=== PATIENT | female | born 1940 | race Caucasian/White ===

== ENCOUNTER → 2018-01-23 12:27 | Outpatient (CLI) | payer MEDICARE, SELFPAY ==
[2018-01-23 13:35] VITALS: PULSE 100; PULSE 101; PULSE 102; PULSE 71; PULSE 75; PULSE 85; PULSE 90; PULSE 94; O2SAT 86; O2SAT 87; O2SAT 90; O2SAT 91; O2SAT 93; O2SAT 94
--- NOTE | 2018-01-23 14:02 | CPS ---
PATIENT BEGAN ON ROOM AIR. AT 3MIN SPO2 WAS 86%, REST BREAK TAKEN AND PLACED ON 2LPM. AT 5 MIN, SPO2 WAS 87%, REST BREAK TAKEN AND O2 INCREASED TO 3LPM. PATIENT SAYS SHE HAS A PORTABLE TANK AND CONCENTRATOR AT HOME THROUGH [facility].
--- NOTE | 2018-01-23 15:06 | PCM.PSN.6M ---
PSN 6 Minute Walk Test - 6 Minute Walk Test 6 Minute Walk Test: 6 Minute Walk Test PSN:6-Minute Walk Test Start: 01/23/18 13:34 Freq: Status: Active Protocol: RESP.6MINW Document 01/23/18 13:35 [facility] (Rec: 01/23/18 14:04 [facility] [id number]) 6 Minute Walk Test Date Performed 01/23/18 Time Performed 12:30 Height 4 ft 9 in Weight: 55.792 kg Weight in Pounds 123.[address]: Niko Munoz FIO2 (% Oxygen) 2 Assistive device used: None Pre-test Oxygen Delivery Method Room Air Pulse Ox (%) 94 Pulse Rate (60-100 beats/min) 71 Dyspnea Lanie Scale (0-10) 2 1st minute Oxygen Delivery Method Room Air Pulse Ox (%) 93 Pulse Rate (60-100 beats/min) 85 Dyspnea Lanie Scale (0-10) 3 Reported Symptoms Increased Work of Breathing 2nd minute Oxygen Delivery Method Room Air Pulse Ox (%) 90 Pulse Rate (60-100 beats/min) 90 Dyspnea Lanie Scale (0-10) 3 Reported Symptoms Increased Work of Breathing 3rd minute Oxygen Delivery Method Room Air Pulse Ox (%) 86 Pulse Rate (60-100 beats/min) 100 Dyspnea Lanie Scale (0-10) 4 Number of Rests Taken 1 Reported Symptoms Cyanotic Increased Work of Breathing 4th minute Oxygen Flow Rate (L/min) (L/min) 2 Oxygen Delivery Method Nasal Cannula Pulse Ox (%) 90 Pulse Rate (60-100 beats/min) 94 Dyspnea Lanie Scale (0-10) 3 Reported Symptoms Increased Work of Breathing 5th minute Oxygen Flow Rate (L/min) (L/min) 2 Oxygen Delivery Method Nasal Cannula Pulse Ox (%) 87 Pulse Rate (60-100 beats/min) 102 H Dyspnea Lanie Scale (0-10) 3 Number of Rests Taken 1 Reported Symptoms Cyanotic Increased Work of Breathing 6th minute Oxygen Flow Rate (L/min) (L/min) 3 Oxygen Delivery Method Nasal Cannula Pulse Ox (%) 91 Pulse Rate (60-100 beats/min) 101 H Dyspnea Lanie Scale (0-10) 3 Reported Symptoms Increased Work of Breathing Post-test Oxygen Delivery Method Room Air Pulse Ox (%) 94 Pulse Rate (60-100 beats/min) 75 Dyspnea Lanie Scale (0-10) 2 Full Laps Walked 14 Partial Lap, Number of Tiles Walked 24 Total Distance Walked (ft) 850 01/23/18 14:02 Cardiopulmonary Services by Stephie Estrada PATIENT BEGAN ON ROOM AIR. AT 3MIN SPO2 WAS 86%, REST BREAK TAKEN AND PLACED ON 2LPM. AT 5 MIN, SPO2 WAS 87%, REST BREAK TAKEN AND O2 INCREASED TO 3LPM. PATIENT SAYS SHE HAS A PORTABLE TANK AND CONCENTRATOR AT HOME THROUGH [facility]. Initialized on 01/23/18 14:02 - END OF NOTE - Interpretation Interpretation: Patient was noted to be 94% on room air. However, patient desaturated to 86% in the third minute. The patient required a total of 3 L nasal cannula per minute to maintain adequate saturations. In total, the patient was able to ambulate 850 feet over the course of 6 minutes with no assistive devices and 2 breaks. These findings are consistent with a respiratory limitation exercise tolerance. - Recommendations Recommendations: No supplemental oxygen is indicated at rest, but patient should be using 3 L nasal cannula with any exertion.
== END ==
PROVIDERS: Family Provider Family Medicine; PCP Family Medicine; Visit Provider Internal Medicine Critical Care Medicine
DX: J44.9 Chronic obstructive pulmonary disease, unspecified (principal)
CPT/HCPCS: 94618

== ENCOUNTER → 2018-01-27 09:54 | Outpatient (CLI) | payer MEDICARE, SELFPAY ==
--- NOTE | 2018-01-27 13:39 | PFTCOMP ---
COMPLETE PULMONARY FUNCTION TEST INTERPRETATION Brief HPI: Patient is a 77 year old female, currently under the care of Dr. Niko Munoz, who presents to [facility] for complete pulmonary function tests secondary to diagnosis of COPD. Respiratory therapist reports good effort and reproducible results. Interpretation: Forced expiration spirometry shows a severe large airways obstructive ventilatory defect with an FEV1 of 42% predicted. There is a significant bronchodilator response in FVC by ATS criteria. Spirograms are of good quality and plateau slowly, indicating slowly emptying areas of the lungs. The respiratory flow volume loop shows decreased expiratory flow rates at all lung volumes consistent with airway obstruction. Lung volumes by body plethysmography show a normal total lung capacity at 3.12 L, 88% predicted. FRC and RV are elevated out of proportion. Lung volume measurements are consistent with air-trapping. Diffusion capacity by carbon monoxide is decreased at 38% predicted. The airway resistance is elevated. No previous pulmonary function tests were available for review. Impression: Partially reversible severe large airways obstructive ventilatory defect with a symmetric reduction diffusing capacity, resulting in air trapping, and consistent with patient's diagnosis of COPD.
== END ==
PROVIDERS: Family Provider Family Medicine; PCP Family Medicine; Visit Provider Internal Medicine Critical Care Medicine
DX: J44.9 Chronic obstructive pulmonary disease, unspecified (principal)
CPT/HCPCS: 94060; 94726; 94729

== ENCOUNTER → 2018-12-08 12:12 | Outpatient (CLI) | payer MEDICARE, SELFPAY ==
[2018-11-09 13:01] VITALS: BMI 26.8
[2018-12-08 12:30] VITALS: PULSE 76; PULSE 83; PULSE 88; PULSE 91; PULSE 93; PULSE 94; PULSE 95; O2SAT 85; O2SAT 91; O2SAT 94; O2SAT 95; O2SAT 96; O2SAT 97
--- NOTE | 2018-12-08 15:24 | PCM.PSN.6M ---
PSN 6 Minute Walk Test - 6 Minute Walk Test 6 Minute Walk Test: 6 Minute Walk Test PSN:6-Minute Walk Test Start: 12/08/18 12:49 Freq: Status: Active Protocol: RESP.6MINW Document 12/08/18 12:30 HG (Rec: 12/08/18 12:52 [facility] [id number]) 6 Minute Walk Test Date Performed 12/08/18 Time Performed 12:30 Height 4 ft 10 in Weight: 56.699 kg Weight in Pounds 125.[address]: Niko Munoz Assistive device used: None Pre-test Oxygen Delivery Method Room Air Pulse Ox (%) 91 Pulse Rate (60-100 beats/min) 76 Dyspnea Lanie Scale (0-10) 1 Exertion Lanie Scale (6-20) 8 1st minute Oxygen Delivery Method Room Air Pulse Ox (%) 95 Pulse Rate (60-100 beats/min) 83 2nd minute Oxygen Delivery Method Room Air Pulse Ox (%) 97 Pulse Rate (60-100 beats/min) 93 3rd minute Oxygen Delivery Method Room Air Pulse Ox (%) 85 Pulse Rate (60-100 beats/min) 95 4th minute Oxygen Flow Rate (L/min) (L/min) 2 Oxygen Delivery Method Nasal Cannula Pulse Ox (%) 95 Pulse Rate (60-100 beats/min) 83 5th minute Oxygen Flow Rate (L/min) (L/min) 2 Oxygen Delivery Method Nasal Cannula Pulse Ox (%) 95 Pulse Rate (60-100 beats/min) 91 6th minute Oxygen Flow Rate (L/min) (L/min) 2 Oxygen Delivery Method Nasal Cannula Pulse Ox (%) 94 Pulse Rate (60-100 beats/min) 94 Post-test Oxygen Flow Rate (L/min) (L/min) 2 Oxygen Delivery Method Nasal Cannula Pulse Ox (%) 96 Pulse Rate (60-100 beats/min) 88 Dyspnea Lanie Scale (0-10) 2 Exertion Lanie Scale (6-20) 11 Full Laps Walked 14 Partial Lap, Number of Tiles Walked 0 Total Distance Walked (ft) 826 - Interpretation Interpretation: The patient was noted to be 91% on room air. In the third minute of ambulation, patient desaturated to 85%. Patient was placed on 2 L nasal cannula with improvement to 95% and was able to complete her ambulation. In total, patient ambulated 826 feet over the course of 6 minutes. These findings are consistent with a respiratory limitation exercise tolerance. - Recommendations Recommendations: The patient requires no supplemental oxygen at rest, but should be using 2 L nasal cannula with any exertion.
== END ==
PROVIDERS: Family Provider Family Medicine; PCP Family Medicine; Referring Provider Internal Medicine Critical Care Medicine; Visit Provider Internal Medicine Critical Care Medicine
DX: J96.11 Chronic respiratory failure with hypoxia (principal)
CPT/HCPCS: 94618

== ENCOUNTER 2020-08-25 09:33 | Outpatient (RCR) | payer MEDICARE, SELFPAY ==
[2020-07-06 11:07] VITALS: BMI 28.0
[2020-08-25 09:52] VITALS: BP 150/82; PULSE 74; RESP 16; BMI 28.0
[2020-08-25 11:56] VITALS: BP 145/82
--- NOTE | 2020-08-25 12:29 | PCM.WC.HP ---
(1) CAD (coronary artery disease) Status: Chronic Qualifiers: Coronary Disease-Associated Artery/Lesion type: [place] artery [place] vs. transplanted heart: [place] heart Associated angina: without angina Qualified Code(s): I25.10 - Atherosclerotic heart disease of [place] coronary artery without angina pectoris Code(s): I25.10 - Atherosclerotic heart disease of [place] coronary artery without angina pectoris (2) Congestive heart failure with right heart failure Status: Chronic Code(s): I50.810 - Right heart failure, unspecified (3) Chronic kidney disease, stage 3a Status: Chronic Code(s): N18.31 - Chronic kidney disease, stage 3a (4) Non-healing wound of right upper extremity Status: Acute Code(s): S41.101A - Unspecified open wound of right upper arm, initial encounter (5) Abrasion of right upper arm, subsequent encounter Status: Acute Code(s): S40.811D - Abrasion of right upper arm, subsequent encounter (6) Abrasion of right hand, subsequent encounter Status: Acute Code(s): S60.511D - Abrasion of right hand, subsequent encounter (7) Abrasion of left hand, subsequent encounter Status: Acute Code(s): S60.512D - Abrasion of left hand, subsequent encounter (8) Stage 3 severe COPD by GOLD classification Status: Chronic Code(s): J44.9 - Chronic obstructive pulmonary disease, unspecified Comment: FEV1 42% History of Present Illness Date of Service: 08/25/20 Chief Complaint: Abrasions of right upper arm, right hand and left hand from fall involving treadmill friction cervantes History of Wound: Alana is a pleasant 80 yo woman with oxygen dependent COPD, chronic respiratory failure, CHF and CAD who presents to the wound healing center for evaluation and treatment of nonhealing wounds of her right upper arm, right dorsal hand and left hand which occurred on 08/12/2020 when she fell from her treadmill while it was running and had difficulty moving away from the treadmill. Her arm and hands were abraded by the treadmill belt. She also fractured her right humerus in the fall. She went to the emergency room and was referred to orthopedics for fracture of her humerus. She had left the wounds on her right shoulder, right hand and left hand open to the air for a few days after the injury and since then she has been applying triple antibiotic ointment and Telfa bandages. She was seen by orthopedics and referred to the wound healing center for further treatment of her wounds. She did not have any cultures of her wounds and was not placed on any antibiotics. She is in otherwise a good state of health and is not diabetic. She is active and has help from her daughters. She lives alone and lost her in April 2020. Her wounds have mild-moderate drainage. She denies any erythema, increased pain, odor. Past Medical History Past Medical History: Chronic Problems (Last Reviewed 07/06/20 @ 11:23 by Simran South ROTARY MACHINE OPERATOR, ROTARY MACHINE OPERATOR-C) CAD (coronary artery disease) (Chronic) Congestive heart failure with right heart failure (Chronic) Chronic kidney disease, stage 3a (Chronic) Stage 3 severe COPD by GOLD classification (Chronic) FEV1 42% Chronic obstructive pulmonary disease (Chronic) Surgical History: angioplasty, herniorrhaphy Allergies/Adverse Reactions: Allergies Penicillins Allergy (Intermediate, Verified 07/06/20 11:04) Other-difficulty breathing Sulfa (Sulfonamide Antibiotics) Allergy (Intermediate, Verified 07/06/20 11:04) Other-breathing difficulty, hot flashes, rash azithromycin Allergy (Mild, Verified 07/06/20 11:04) Other-bleeding clarithromycin [From Biaxin] Allergy (Mild, Verified 07/06/20 11:04) Other-bloody stool ofloxacin [From Floxin] Adverse Reaction (Mild, Verified 07/06/20 11:04) Nausea Home Medications: Ambulatory Orders Medication Instructions Recorded Aspirin [Adult Low Dose Aspirin EC] 81 mg PO 01/01/16 Cetirizine HCl [Zyrtec] 10 mg PO DAILY 01/01/16 Furosemide [Lasix] 20 mg PO DAILY 01/01/16 Lisinopril [Zestril] 5 mg PO BID 01/01/16 Metoprolol Tartrate [Lopressor 50 mg PO DAILY 01/01/16 (Beta Radha)] Omeprazole [Prilosec] 20 mg PO DAILY 01/01/16 albuterol sulfate 2.5 mg INHALATION Q4H PRN ml 12/19/17 atorvastatin 20 mg tablet 10 mg PO QHS tab 12/19/17 cholecalciferol (vitamin D3) 25 2,000 unit PO QDAY cap 12/19/17 mcg (1,000 unit) capsule fluticasone propionate 50 2 spray INTRANASAL QDAY g 12/19/17 mcg/actuation nasal spray,suspension multivitamin 1 tab PO QAM 12/19/17 vitamin E (dl, acetate) 400 unit 400 unit PO QDAY 12/19/17 capsule clopidogrel 75 mg tablet PO #30 tab 05/11/19 albuterol sulfate 2.5 mg INHALATION Q4H PRN #180 ml 11/22/19 albuterol sulfate 90 mcg/actuation 2 puff INHALATION Q4H PRN #18 g 11/22/19 aerosol inhaler fluticasone 100 mcg-salmeterol 50 1 inh INHALATION BID #60 ea 03/27/20 mcg/dose blistr powdr for inhalation tiotropium bromide 18 mcg capsule 1 cap INHALATION DAILY #30 inh 03/27/20 with inhalation device doxycycline hyclate 100 mg tablet 100 mg PO BID #20 tab 07/06/20 prednisone 10 mg tablet 10 mg PO QDAY #30 tab 07/06/20 - Family History Maternal Family History: Family History (Last Reviewed 08/25/20 @ 12:[address] Za See, ) Mother Cervical cancer Lung cancer Breast cancer Father Colon cancer CVA (cerebral vascular accident) CHF (congestive heart failure) Lives: Alone Smoking Status: Former smoker Tobacco Use: Non-smoker Alcohol: None Drugs: None Review of Systems Constitutional: Denies: Chills, Fever, Weight Change Eyes: Denies: Pain, Vision Change HEENT: Denies: Difficulty Hearing, Difficulty Swallowing, Sinus Congestion Cardiovascular: Denies: Chest Pain, Palpitations Respiratory: Reports: Shortness of Breath, Shortness of breath upon exertion. Denies: Cough Gastrointestinal: Denies: Diarrhea, Nausea, Vomiting Genitourinary: Denies: Dysuria, Hematuria Musculoskeletal: Reports: Arm Pain, Back Pain, Joint Pain Skin: Reports: Wounds Neurological: Denies: Numbness, Tingling Psychiatric: Denies: Anxiety, Depression Endocrine: Denies: Heat/ Cold Intolerance, Polydipsia, Polyuria Hematologic/ Lymphatic: Denies: Easy Bruising, Easy Bleeding - Physical Exam Vital Signs Pulse Resp BP 74 16 145/82 H 08/25/20 09:52 08/25/20 09:52 08/25/20 11:56 General: Alert, Oriented x3, Cooperative, No apparent distress HEENT: Atraumatic, Normocephalic Oral: Moist Mucosa Cardiovascular: Regular rate, Regular Rhythm Abdomen: Soft, Non Tender Extremities: No edema Skin: Ulcer/ Wound Wound Measurements and Assessment WC - Nurse 1 - General Ulcer Measurement Start: 08/25/20 09:52 Freq: Status: Active Protocol: Activity Type Activity Date Activity User E-Sign Co-Sign Detail Recorded Client Recorded Date Recorded By Document 08/25/20 09:52 [id number] 08/25/20 10:11 [id number] 08/25/20 09:52 Wound Center Nurse 1 [Ulcer Assessment] 3-right shoulder -Combined with other wound No -Current Size (cm) - Length 7.5 -Current Size (cm) - Width 4.5 -Current Size (cm) - Depth 0.1 -Total Square Cm 33.75 -Photo Taken Yes -Epithelialization Small 1-33% -Tunneling No -Undermining/Tunneling No -Circular Undermining No -Classification - Thickness Partial Thickness -Exudate Amt Medium -Exudate Type Serosanguineous -Wound Margin Flat & Intact -Granulation Amt Medium (34-66%) -Granulation Quality Red -Slough/Fibrin Yes -Necrosis Amt Small (1-33%) -Necrotic Tissue Type Adherent Slough -Structure Exposed N/A -Texture (Vee-wound Skin Appearance) Assessed -Moisture (Vee-wound Skin Appearance Assessed,Dry/ ) Scaly -Color (Vee-wound Skin Appearance) Assessed -Temperature (Vee-wound Skin No Abnormality Appearance) (Pt Warm) -Tenderness on Palpation (Vee-wound No Skin Appearance) -Ulcer Cleansing Rinsed/ Irrigated with Saline -Foul Odor after Cleansing No -Anesthetic Used 4% Lidocaine Solution 2-right hand -Combined with other wound No -Current Size (cm) - Length 0.5 -Current Size (cm) - Width 0.9 -Current Size (cm) - Depth 0.1 -Total Square Cm 0.45 -Photo Taken No -Epithelialization None Present -Tunneling No -Undermining/Tunneling No -Circular Undermining No -Classification - Thickness Unclassifiable (Eschar Covered ) -Exudate Amt Small -Exudate Type Serosanguineous -Wound Margin Flat & Intact -Granulation Amt None Present (0 %) -Slough/Fibrin Yes -Necrosis Amt Large (67-100%) -Necrotic Tissue Type Adherent Slough -Texture (Vee-wound Skin Appearance) Assessed -Moisture (Vee-wound Skin Appearance Assessed,Dry/ ) Scaly -Color (Vee-wound Skin Appearance) Assessed -Temperature (Vee-wound Skin No Abnormality Appearance) (Pt Warm) -Tenderness on Palpation (Vee-wound No Skin Appearance) -Ulcer Cleansing Rinsed/ Irrigated with Saline -Foul Odor after Cleansing No -Anesthetic Used 4% Lidocaine Solution 1-left hand -Combined with other wound No -Current Size (cm) - Length 1.0 -Current Size (cm) - Width 1.0 -Current Size (cm) - Depth 0.1 -Total Square Cm 1.00 -Photo Taken Yes -Epithelialization Small 1-33% -Tunneling No -Undermining/Tunneling No -Circular Undermining No -Classification - Thickness Unclassifiable (Eschar Covered ) -Exudate Amt None Present -Wound Margin Flat & Intact -Granulation Amt None Present (0 %) -Slough/Fibrin Yes -Necrosis Amt Large (67-100%) -Necrotic Tissue Type Adherent Slough -Structure Exposed N/A -Texture (Vee-wound Skin Appearance) Assessed -Moisture (Vee-wound Skin Appearance Assessed ) -Color (Vee-wound Skin Appearance) Assessed -Temperature (Vee-wound Skin No Abnormality Appearance) (Pt Warm) -Tenderness on Palpation (Vee-wound No Skin Appearance) -Ulcer Cleansing Rinsed/ Irrigated with Saline -Foul Odor after Cleansing No -Anesthetic Used 5% Lidocaine Gel [Edema Assessment] -Lower Limb Edema Present NA WC - Nurse 2 - General Ulcer CM Notes Start: 08/25/20 09:52 Freq: Status: Active Protocol: Activity Type Activity Date Activity User E-Sign Co-Sign Detail Recorded Client Recorded Date Recorded By Document 08/25/20 10:39 MW [id number] 08/25/20 11:17 MW 08/25/20 10:39 Wound Center Nurse 2 [Procedure/Treatment] 3-right shoulder -Time 11:04 -Correct Patient Yes -Correct Side, Site, Position Yes -Correct Procedure Yes -Procedure Performed Yes -Type of Procedure Debridement -Clinical Debridement Subcutaneous -Tissue Removed Subcutaneous -Post Debridement (cm) - Length 7.0 -Post Debridement (cm) - Width 5.5 -Post Debridement (cm) - Depth 0.1 -Total Square (Post) (cm) 38.50 -Area of Debridement (cm) - Length 7.0 -Area of Debridement (cm) - Width 5.5 -Total Square (Area) (cm) 38.50 -Tunneling No -Undermining/Tunneling No -Circular Undermining No -Wound/Ulcer Outcome Not Healed -Ulcer Cleansing Rinsed/ Irrigated with Saline -Foul Odor after Cleansing No -Bioengineered Tissue No -Bleeding Controlled with Pressure -Offloading No -Treatment Response Procedure Tolerated Well -Debridement - Subq, 1st 20sq cm Yes -Debridement, SubQ, ea addt'l 20sq cm 1 or part thereof 2-right hand -Time 10:58 -Correct Patient Yes -Correct Side, Site, Position Yes -Correct Procedure Yes -Procedure Performed Yes -Type of Procedure Debridement -Clinical Debridement Subcutaneous -Tissue Removed Subcutaneous -Post Debridement (cm) - Length 0.4 -Post Debridement (cm) - Width 0.6 -Post Debridement (cm) - Depth 0.1 -Total Square (Post) (cm) 0.24 -Area of Debridement (cm) - Length 0.4 -Area of Debridement (cm) - Width 0.6 -Total Square (Area) (cm) 0.24 -Tunneling No -Undermining/Tunneling No -Circular Undermining No -Wound/Ulcer Outcome Not Healed -Ulcer Cleansing Rinsed/ Irrigated with Saline -Foul Odor after Cleansing No -Bioengineered Tissue No -Bleeding Controlled with Pressure -Offloading No -Treatment Response Procedure Tolerated Well -Debridement - Subq, 1st 20sq cm No 1-left hand -Time 10:48 -Correct Patient Yes -Correct Side, Site, Position Yes -Correct Procedure Yes -Procedure Performed Yes -Type of Procedure Debridement -Clinical Debridement Subcutaneous -Tissue Removed Subcutaneous -Post Debridement (cm) - Length 0.1 -Post Debridement (cm) - Width 0.3 -Post Debridement (cm) - Depth 0.1 -Total Square (Post) (cm) 0.03 -Area of Debridement (cm) - Length 0.1 -Area of Debridement (cm) - Width 0.3 -Total Square (Area) (cm) 0.03 -Tunneling No -Undermining/Tunneling No -Circular Undermining No -Wound/Ulcer Outcome Not Healed -Ulcer Cleansing Rinsed/ Irrigated with Saline -Foul Odor after Cleansing No -Bioengineered Tissue No -Bleeding Controlled with Pressure -Offloading No -Treatment Response Procedure Tolerated Well -Debridement - Subq, 1st 20sq cm No [See Physician Procedure note for Specifics] Pain Scale: 0-10 Numeric [Pain] -Is Patient Pain Free? Yes WC - Nurse 3 - General Ulcer D/C NN Start: 08/25/20 09:52 Freq: Status: Active Protocol: Activity Type Activity Date Activity User E-Sign Co-Sign Detail Recorded Client Recorded Date Recorded By Document 08/25/20 11:56 RB [id number] 08/25/20 11:59 RB 08/25/20 11:56 Wound Care Nurse 3 [Wound Dressing] 3-right shoulder -Ulcer Cleansing Wound Cleanser -Primary Dressing Applied Fibracol Plus 4x4,NonAdherent Contact Layer -Primary Dressing Covered/Secured Dry Gauze, with Secured with Tape -Fibracol Plus 4x4 1 2-right hand -Ulcer Cleansing Wound Cleanser -Primary Dressing Applied Fibracol Plus 4x4,NonAdherent Contact Layer -Fibracol Plus 4x4 1 1-left hand -Ulcer Cleansing Wound Cleanser -Primary Dressing Applied NonAdherent Contact Layer -Other Dressing fibracol plus -Primary Dressing Covered/Secured Dry Gauze, with Secured with Tape [Post Procedure Tolerated] -Treatment Response Procedure Tolerated Well Vital Signs [Blood Pressure] -Blood Pressure (90/60-120/80) 145/82 H -Blood Pressure Mean (mm Hg) 103 -Source Monitor -Position Semi-Fowlers -Blood Pressure Location Left Arm Pain Scale: 0-10 Numeric [Pain] -Is Patient Pain Free? Yes Teaching: Wound Center [Wound Center Education] (Items with an * have Printed Materials Available- Please identify what is given to patient under the Teaching materials given to patient and caregiver Section. Dressing Your Wound -Person Taught Patient -Teaching Method Discussion, Demonstration -Response to teaching Verbalize understanding - Visit Discharge [Visit Discharge Information] -Discharge Condition Stable -Ambulatory Status Ambulatory -Transportation Private Auto -Medication Reconcilliation completed No & provided to patient/care provider -Clinical Summary of Care Provided Yes Neurological: Cranial nerves II-XII grossly intact Psych/Mental Status: Normal Affect, Appropriate Debridement Note Post-Debridement Measurements/Treatment WC - Nurse 2 - General Ulcer CM Notes Start: 08/25/20 09:52 Freq: Status: Active Protocol: Activity Type Activity Date Activity User E-Sign Co-Sign Detail Recorded Client Recorded Date Recorded By Document 08/25/20 10:39 MW [id number] 08/25/20 11:17 MW 08/25/20 10:39 Wound Center Nurse 2 3-right shoulder -Time 11:04 -Correct Patient Yes -Correct Side, Site, Position Yes -Correct Procedure Yes -Procedure Performed Yes -Type of Procedure Debridement -Clinical Debridement Subcutaneous -Tissue Removed Subcutaneous -Post Debridement (cm) - Length 7.0 -Post Debridement (cm) - Width 5.5 -Post Debridement (cm) - Depth 0.1 -Total Square (Post) (cm) 38.50 -Area of Debridement (cm) - Length 7.0 -Area of Debridement (cm) - Width 5.5 -Total Square (Area) (cm) 38.50 -Tunneling No -Undermining/Tunneling No -Circular Undermining No -Wound/Ulcer Outcome Not Healed -Ulcer Cleansing Rinsed/ Irrigated with Saline -Foul Odor after Cleansing No -Bioengineered Tissue No -Bleeding Controlled with Pressure -Offloading No -Treatment Response Procedure Tolerated Well -Debridement - Subq, 1st 20sq cm Yes -Debridement, SubQ, ea addt'l 20sq cm 1 or part thereof 2-right hand -Time 10:58 -Correct Patient Yes -Correct Side, Site, Position Yes -Correct Procedure Yes -Procedure Performed Yes -Type of Procedure Debridement -Clinical Debridement Subcutaneous -Tissue Removed Subcutaneous -Post Debridement (cm) - Length 0.4 -Post Debridement (cm) - Width 0.6 -Post Debridement (cm) - Depth 0.1 -Total Square (Post) (cm) 0.24 -Area of Debridement (cm) - Length 0.4 -Area of Debridement (cm) - Width 0.6 -Total Square (Area) (cm) 0.24 -Tunneling No -Undermining/Tunneling No -Circular Undermining No -Wound/Ulcer Outcome Not Healed -Ulcer Cleansing Rinsed/ Irrigated with Saline -Foul Odor after Cleansing No -Bioengineered Tissue No -Bleeding Controlled with Pressure -Offloading No -Treatment Response Procedure Tolerated Well -Debridement - Subq, 1st 20sq cm No 1-left hand -Time 10:48 -Correct Patient Yes -Correct Side, Site, Position Yes -Correct Procedure Yes -Procedure Performed Yes -Type of Procedure Debridement -Clinical Debridement Subcutaneous -Tissue Removed Subcutaneous -Post Debridement (cm) - Length 0.1 -Post Debridement (cm) - Width 0.3 -Post Debridement (cm) - Depth 0.1 -Total Square (Post) (cm) 0.03 -Area of Debridement (cm) - Length 0.1 -Area of Debridement (cm) - Width 0.3 -Total Square (Area) (cm) 0.03 -Tunneling No -Undermining/Tunneling No -Circular Undermining No -Wound/Ulcer Outcome Not Healed -Ulcer Cleansing Rinsed/ Irrigated with Saline -Foul Odor after Cleansing No -Bioengineered Tissue No -Bleeding Controlled with Pressure -Offloading No -Treatment Response Procedure Tolerated Well -Debridement - Subq, 1st 20sq cm No Pain Scale: 0-10 Numeric Is Patient Pain Free? Yes - Nurse 3 - General Ulcer D/C NN Start: 08/25/20 09:52 Freq: Status: Active Protocol: Activity Type Activity Date Activity User E-Sign Co-Sign Detail Recorded Client Recorded Date Recorded By Document 08/25/20 11:56 [id number] 08/25/20 11:59 08/25/20 11:56 Wound Care Nurse 3 3-right shoulder -Ulcer Cleansing Wound Cleanser -Primary Dressing Applied Fibracol Plus 4x4,NonAdherent Contact Layer -Primary Dressing Covered/Secured with Dry Gauze, Secured with Tape -Fibracol Plus 4x4 1 2-right hand -Ulcer Cleansing Wound Cleanser -Primary Dressing Applied Fibracol Plus 4x4,NonAdherent Contact Layer -Fibracol Plus 4x4 1 1-left hand -Ulcer Cleansing Wound Cleanser -Primary Dressing Applied NonAdherent Contact Layer -Other Dressing fibracol plus -Primary Dressing Covered/Secured with Dry Gauze, Secured with Tape Treatment Response Procedure Tolerated Well Vital Signs Blood Pressure (90/60-120/80) 145/82 H Blood Pressure Mean (mm Hg) 103 Source Monitor Position Semi-Fowlers Blood Pressure Location Left Arm Pain Scale: 0-10 Numeric Is Patient Pain Free? Yes Teaching: Wound Center Dressing Your Wound -Person Taught Patient -Teaching Method Discussion, Demonstration -Response to teaching Verbalize understanding WC - Visit Discharge Discharge Condition Stable Ambulatory Status Ambulatory Transportation Private Auto Medication Reconcilliation completed & No provided to patient/care provider Clinical Summary of Care Provided Yes Wound debrided: right shoulder Laterality: Right Type of Debridement: Excisional debridement Anesthesia Used: 4% Lidocaine Solution, 5% Lidocaine Gel Depth: Down to and including healthy tissue, in the subcutaneous layer Percentage of wound debrided: 100 Instrument Used: #15 blade, Forceps Tissue Removed: Yellow slough, devitalized tissue Severity: Fat Layer Exposed Amount of bleeding with debridement: Mild Bleeding Controlled with: Compression and gauze Patient tolerated procedure well - Additional Wound Wound debrided: right hand Laterality: Right Type of Debridement: Excisional debridement Anesthesia Used: 4% Lidocaine Solution, 5% Lidocaine Gel Depth: Down to and including healthy tissue, in the subcutaneous layer Percentage of wound debrided: 100 Instrument Used: #15 blade, Forceps Tissue Removed: Yellow slough, devitalized tissue Severity: Fat Layer Exposed Amount of bleeding with debridement: Mild Bleeding Controlled with: Compression and gauze Patient tolerated procedure: Patient tolerated procedure well - Additional Wound Wound debrided: left hand Laterality: Left Type of Debridement: Excisional debridement Anesthesia Used: 4% Lidocaine Solution, 5% Lidocaine Gel Depth: Down to and including healthy tissue, in the subcutaneous layer Percentage of wound debrided: 100 Instrument Used: #15 blade, Forceps Tissue Removed: Yellow slough, devitalized tissue Severity: Fat Layer Exposed Amount of bleeding with debridement: Mild Bleeding Controlled with: Compression and gauze Patient tolerated procedure: Patient tolerated procedure well Assessment/Plan Active Problems (Last Reviewed 07/06/20 @ 11:23 by Simran South NP, ROTARY MACHINE OPERATOR-C) CAD (coronary artery disease) (Chronic) Congestive heart failure with right heart failure (Chronic) Chronic kidney disease, stage 3a (Chronic) Non-healing wound of right upper extremity (Acute) Abrasion of right upper arm, subsequent encounter (Acute) Abrasion of right hand, subsequent encounter (Acute) Abrasion of left hand, subsequent encounter (Acute) Stage 3 severe COPD by GOLD classification (Chronic) FEV1 42% Assessment: Abrasion of right shoulder. Abrasion of right hand. Abrasion of left hand. Oxygen dependent COPD. CAD Plan: Alana's wounds were evaluated and debrided today at the wound healing center as above in the clinical panel. She tolerated the procedure well. There are no overt signs of infection and I do not feel that wound culture is necessary at this time. Will consider this if there is no improvement or signs of infection develop. Due to moderate drainage, I am going to have her dress the wounds with Fibracol dressing and cover with adaptic and gauze to prevent the gauze from adhering to the wound. She would benefit from application of advnaced wound healing product such as puraply AM to decrease the length of her healing time and decrease complications from having open wounds chronically. She was encouraged to increase protein in her diet and consider vitamin C supplement. Offloading was discussed but I do not think this will be an issue given the location of her wounds. Her vascular status appears intact. She does not require home health assistance with dressings at this time due to family support. She was advised to call with any questions or concerns or signs of infection such as increased drainage, pain, erythema or odor. She will f/u in 1 week.
== END 2020-08-30 23:59 ==
LOC: WC 09:33
PROVIDERS: PCP Student in an Organized Health Care Education/Training Program; Visit Provider Family Medicine
DX: S40.811D Abrasion of right upper arm, subsequent encounter (principal); S60.511D Abrasion of right hand, subsequent encounter; S60.512D Abrasion of left hand, subsequent encounter; W31.89XD Contact with other specified machinery, subsequent encounter; N18.31 Chronic kidney disease, stage 3a; I25.10 Atherosclerotic heart disease of native coronary artery without angina pectoris; J44.9 Chronic obstructive pulmonary disease, unspecified; Z99.81 Dependence on supplemental oxygen; I50.812 Chronic right heart failure; J96.10 Chronic respiratory failure, unspecified whether with hypoxia or hypercapnia; Z63.4 Disappearance and death of family member; Z79.51 Long term (current) use of inhaled steroids; Z79.52 Long term (current) use of systemic steroids; Z80.1 Family history of malignant neoplasm of trachea, bronchus and lung; Z80.3 Family history of malignant neoplasm of breast; Z82.3 Family history of stroke; Z82.49 Family history of ischemic heart disease and other diseases of the circulatory system; Z87.891 Personal history of nicotine dependence; Z88.0 Allergy status to penicillin; Z88.1 Allergy status to other antibiotic agents; Z88.2 Allergy status to sulfonamides
CPT/HCPCS: 11042; 11045; 99213; G0463

== ENCOUNTER 2020-09-29 10:15 | Outpatient (RCR) | payer MEDICARE, SELFPAY ==
[2020-08-31 00:55] VITALS: BP 145/82; PULSE 74; RESP 16
[2020-09-01 10:16] VITALS: BP 127/49; PULSE 63; TEMP 36.1; BMI 28.0
--- NOTE | 2020-09-01 13:43 | PN.PCM_ITS ---
(1) CAD (coronary artery disease) Status: Chronic Qualifiers: Coronary Disease-Associated Artery/Lesion type: unspecified vessel or lesion type [place] vs. transplanted heart: [place] heart Associated angina: unspecified whether angina present Qualified Code(s): I25.10 - Atherosclerotic heart disease of [place] coronary artery without angina pectoris Code(s): I25.10 - Atherosclerotic heart disease of [place] coronary artery without angina pectoris (2) Abrasion of right upper arm, subsequent encounter Status: Chronic Code(s): S40.811D - Abrasion of right upper arm, subsequent encounter (3) Abrasion of right hand, subsequent encounter Status: Chronic Code(s): S60.511D - Abrasion of right hand, subsequent encounter (4) Abrasion of left hand, subsequent encounter Status: Chronic Code(s): S60.512D - Abrasion of left hand, subsequent encounter (5) Respiratory failure with hypoxia Status: Chronic Qualifiers: Chronicity: chronic Code(s): J96.91 - Respiratory failure, unspecified with hypoxia (6) Chronic obstructive pulmonary disease Status: Chronic Qualifiers: COPD type: unspecified COPD Qualified Code(s): J44.9 - Chronic obstructive pulmonary disease, unspecified Code(s): J44.9 - Chronic obstructive pulmonary disease, unspecified Type of Wound Date of Service: 09/01/20 Chief Complaint: Abrasions of right upper arm, right hand and left hand from fall involving treadmill friction cervantes History of Wound: Alana is a pleasant 80 yo woman with oxygen dependent COPD, chronic respiratory failure, CHF and CAD who presents to the wound healing center for evaluation and treatment of nonhealing wounds of her right upper arm, right dorsal hand and left hand which occurred on 08/12/2020 when she fell from her treadmill while it was running and had difficulty moving away from the treadmill. Her arm and hands were abraded by the treadmill belt. She also fractured her right humerus in the fall. She went to the emergency room and was referred to orthopedics for fracture of her humerus. She had left the wounds on her right shoulder, right hand and left hand open to the air for a few days after the injury and since then she has been applying triple antibiotic ointment and Telfa bandages. She was seen by orthopedics and referred to the wound healing center for further treatment of her wounds. She did not have any cultures of her wounds and was not placed on any antibiotics. She is in otherwise a good state of health and is not diabetic. She is active and has help from her daughters. She lives alone and lost her in April 2020. Her wounds have mild-moderate drainage. She denies any erythema, increased pain, odor. - Physical Exam Vital Signs Temp Pulse Resp BP 96.9 F L 63 16 127/49 H 09/01/20 10:16 09/01/20 10:16 08/31/20 00:55 09/01/20 10:16 General: Alert, Oriented x3, Cooperative, No apparent distress HEENT: Atraumatic, Normocephalic Oral: Moist Mucosa Neck: Supple Abdomen: Soft, Non Tender Extremities: No edema Skin: Ulcer/ Wound Wound Measurements and Assessment WC - Nurse 1 - General Ulcer Measurement Start: 09/01/20 10:00 Freq: Status: Active Protocol: Activity Type Activity Date Activity User E-Sign Co-Sign Detail Recorded Client Recorded Date Recorded By Document 09/01/20 10:16 CHERI [id number] 09/01/20 10:19 CHERI 09/01/20 10:16 Wound Center Nurse 1 [Ulcer Assessment] 3-right shoulder -Current Size (cm) - Length 0.5 -Current Size (cm) - Width 0.5 -Current Size (cm) - Depth 0.1 -Total Square Cm 0.25 -Exudate Amt Medium -Exudate Type Serosanguineous -Wound Margin Distinct, Outline Attached -Granulation Amt None Present (0 %) -Necrosis Amt Large (67-100%) -Necrotic Tissue Type Adherent Slough -Texture (Vee-wound Skin Appearance) Assessed, Scarring -Moisture (Vee-wound Skin Appearance No Abnormality, ) Assessed -Color (Vee-wound Skin Appearance) No Abnormality, Assessed -Temperature (Vee-wound Skin No Abnormality Appearance) (Pt Warm) -Tenderness on Palpation (Vee-wound No Skin Appearance) -Ulcer Cleansing Rinsed/ Irrigated with Saline -Foul Odor after Cleansing No -Anesthetic Used 4% Lidocaine Solution,5% Lidocaine Gel 2-right hand -Current Size (cm) - Length 0.1 -Current Size (cm) - Width 0.1 -Current Size (cm) - Depth 0.1 -Total Square Cm 0.01 -Exudate Amt None Present -Wound Margin Distinct, Outline Attached -Granulation Amt None Present (0 %) -Necrosis Amt None Present (0 %) -Texture (Vee-wound Skin Appearance) Assessed, Scarring -Moisture (Vee-wound Skin Appearance No Abnormality, ) Assessed -Color (Vee-wound Skin Appearance) No Abnormality, Assessed -Temperature (Vee-wound Skin No Abnormality Appearance) (Pt Warm) -Tenderness on Palpation (Vee-wound No Skin Appearance) -Ulcer Cleansing Rinsed/ Irrigated with Saline -Foul Odor after Cleansing No -Anesthetic Used 4% Lidocaine Solution 1-left hand -Current Size (cm) - Length 0.1 -Current Size (cm) - Width 0.1 -Current Size (cm) - Depth 0.1 -Total Square Cm 0.01 -Exudate Amt None Present -Wound Margin Distinct, Outline Attached -Granulation Amt None Present (0 %) -Necrosis Amt None Present (0 %) -Texture (Vee-wound Skin Appearance) Assessed, Scarring -Moisture (Vee-wound Skin Appearance No Abnormality, ) Assessed -Color (Vee-wound Skin Appearance) No Abnormality, Assessed -Temperature (Vee-wound Skin No Abnormality Appearance) (Pt Warm) -Tenderness on Palpation (Vee-wound No Skin Appearance) -Ulcer Cleansing Rinsed/ Irrigated with Saline -Foul Odor after Cleansing No -Anesthetic Used 4% Lidocaine Solution WC - Nurse 2 - General Ulcer CM Notes Start: 09/01/20 10:00 Freq: Status: Active Protocol: Activity Type Activity Date Activity User E-Sign Co-Sign Detail Recorded Client Recorded Date Recorded By Document 09/01/20 10:34 MW [id number] 09/01/20 10:53 MW 09/01/20 10:34 Wound Center Nurse 2 [Procedure/Treatment] 3-right shoulder -Time 10:38 -Correct Patient Yes -Correct Side, Site, Position Yes -Correct Procedure Yes -Procedure Performed Yes -Type of Procedure Debridement -Clinical Debridement Subcutaneous -Tissue Removed Subcutaneous -Post Debridement (cm) - Length 6.5 -Post Debridement (cm) - Width 4.6 -Post Debridement (cm) - Depth 0.1 -Total Square (Post) (cm) 29.90 -Area of Debridement (cm) - Length 6.5 -Area of Debridement (cm) - Width 4.6 -Total Square (Area) (cm) 29.90 -Tunneling No -Undermining/Tunneling No -Circular Undermining No -Wound/Ulcer Outcome Not Healed -Ulcer Cleansing Rinsed/ Irrigated with Saline -Foul Odor after Cleansing No -Bioengineered Tissue Yes -Type of Bioengineered Tissue NuShield -Expiration Date 01/22/24 -Product Lot Number [id number] -Percent Used 100 -Lot number of Saline Used [id number] -Bleeding Controlled with Pressure -Other DONOR #[id number] -Offloading No -Treatment Response Procedure Tolerated Well -Debridement - Subq, 1st 20sq cm No -NuShield (per sq cm) 16 2-right hand -Time 10:36 -Correct Patient Yes -Correct Side, Site, Position Yes -Correct Procedure Yes -Procedure Performed No -Post Debridement (cm) - Length 0 -Post Debridement (cm) - Width 0 -Post Debridement (cm) - Depth 0 -Total Square (Post) (cm) 0 -Wound/Ulcer Outcome Healed- Epithelialized 1-left hand -Time 10:35 -Correct Patient Yes -Correct Side, Site, Position Yes -Correct Procedure Yes -Procedure Performed No -Post Debridement (cm) - Length 0 -Post Debridement (cm) - Width 0 -Post Debridement (cm) - Depth 0 -Total Square (Post) (cm) 0 -Wound/Ulcer Outcome Healed- Epithelialized [See Physician Procedure note for Specifics] Pain Scale: 0-10 Numeric [Pain] -Is Patient Pain Free? Yes WC - Nurse 3 - General Ulcer D/C NN Start: 09/01/20 10:00 Freq: Status: Active Protocol: Activity Type Activity Date Activity User E-Sign Co-Sign Detail Recorded Client Recorded Date Recorded By Document 09/01/20 10:53 MW [id number] 09/01/20 10:55 MW 09/01/20 10:53 Wound Care Nurse 3 [Wound Dressing] 3-right shoulder -Ulcer Cleansing Rinsed/ Irrigated with Saline -Foul Odor after Cleansing No -Negative Pressure Wound Therapy N/A -Primary Dressing Applied C Hydrogel ($) -Primary Dressing Covered/Secured Secured with with Tape -Other Covering ABD PAD [Post Procedure Tolerated] -Treatment Response Procedure Tolerated Well Pain Scale: 0-10 Numeric [Pain] -Is Patient Pain Free? Yes Teaching: Wound Center [Wound Center Education] (Items with an * have Printed Materials Available- Please identify what is given to patient under the Teaching materials given to patient and caregiver Section. Dressing Your Wound -Person Taught Patient,Family -Teaching Method Discussion, Demonstration -Response to teaching Verbalize understanding WC - Visit Discharge [Visit Discharge Information] -Discharge Condition Stable -Ambulatory Status Ambulatory -Transportation Private Auto -Accompanied by DAUGHTER -Medication Reconcilliation completed No & provided to patient/care provider -Clinical Summary of Care Provided Yes Psych/Mental Status: Normal Affect, Appropriate Debridement Note Post-Debridement Measurements/Treatment WC - Nurse 2 - General Ulcer CM Notes Start: 09/01/20 10:00 Freq: Status: Active Protocol: Activity Type Activity Date Activity User E-Sign Co-Sign Detail Recorded Client Recorded Date Recorded By Document 09/01/20 10:34 MW [id number] 09/01/20 10:53 MW 09/01/20 10:34 Wound Center Nurse 2 3-right shoulder -Time 10:38 -Correct Patient Yes -Correct Side, Site, Position Yes -Correct Procedure Yes -Procedure Performed Yes -Type of Procedure Debridement -Clinical Debridement Subcutaneous -Tissue Removed Subcutaneous -Post Debridement (cm) - Length 6.5 -Post Debridement (cm) - Width 4.6 -Post Debridement (cm) - Depth 0.1 -Total Square (Post) (cm) 29.90 -Area of Debridement (cm) - Length 6.5 -Area of Debridement (cm) - Width 4.6 -Total Square (Area) (cm) 29.90 -Tunneling No -Undermining/Tunneling No -Circular Undermining No -Wound/Ulcer Outcome Not Healed -Ulcer Cleansing Rinsed/ Irrigated with Saline -Foul Odor after Cleansing No -Bioengineered Tissue Yes -Type of Bioengineered Tissue NuShield -Expiration Date 01/22/24 -Product Lot Number [id number] -Percent Used 100 -Lot number of Saline Used [id number] -Bleeding Controlled with Pressure -Other DONOR #[id number] -Offloading No -Treatment Response Procedure Tolerated Well -Debridement - Subq, 1st 20sq cm No -NuShield (per sq cm) 16 2-right hand -Time 10:36 -Correct Patient Yes -Correct Side, Site, Position Yes -Correct Procedure Yes -Procedure Performed No -Post Debridement (cm) - Length 0 -Post Debridement (cm) - Width 0 -Post Debridement (cm) - Depth 0 -Total Square (Post) (cm) 0 -Wound/Ulcer Outcome Healed- Epithelialized 1-left hand -Time 10:35 -Correct Patient Yes -Correct Side, Site, Position Yes -Correct Procedure Yes -Procedure Performed No -Post Debridement (cm) - Length 0 -Post Debridement (cm) - Width 0 -Post Debridement (cm) - Depth 0 -Total Square (Post) (cm) 0 -Wound/Ulcer Outcome Healed- Epithelialized Pain Scale: 0-10 Numeric Is Patient Pain Free? Yes WC - Nurse 3 - General Ulcer D/C NN Start: 09/01/20 10:00 Freq: Status: Active Protocol: Activity Type Activity Date Activity User E-Sign Co-Sign Detail Recorded Client Recorded Date Recorded By Document 09/01/20 10:53 MW [id number] 09/01/20 10:55 MW 09/01/20 10:53 Wound Care Nurse 3 3-right shoulder -Ulcer Cleansing Rinsed/ Irrigated with Saline -Foul Odor after Cleansing No -Negative Pressure Wound Therapy N/A -Primary Dressing Applied C Hydrogel ($) -Primary Dressing Covered/Secured with Secured with Tape -Other Covering ABD PAD Treatment Response Procedure Tolerated Well Pain Scale: 0-10 Numeric Is Patient Pain Free? Yes Teaching: Wound Center Dressing Your Wound -Person Taught Patient,Family -Teaching Method Discussion, Demonstration -Response to teaching Verbalize understanding WC - Visit Discharge Discharge Condition Stable Ambulatory Status Ambulatory Transportation Private Auto Accompanied by DAUGHTER Medication Reconcilliation completed & No provided to patient/care provider Clinical Summary of Care Provided Yes Wound debrided: right hand Laterality: Right Patient tolerated procedure well No debridement was completed today - Additional Wound Wound debrided: left hand Laterality: Left Patient tolerated procedure: Patient tolerated procedure well Operative Diagnosis: no debridement - healed - Additional Wound Wound debrided: right upper arm Laterality: Right Type of Debridement: Excisional debridement Anesthesia Used: 4% Lidocaine Solution, 5% Lidocaine Gel, Cetacaine Depth: Down to and including healthy tissue, in the subcutaneous layer Percentage of wound debrided: 100 Instrument Used: 3mm curette Tissue Removed: Yellow slough, devitalized tissue Severity: Fat Layer Exposed Amount of bleeding with debridement: Mild Bleeding Controlled with: Compression and gauze Patient tolerated procedure: Patient tolerated procedure well Assessment/Plan Assessment: Abrasion of right shoulder. Abrasion of right hand - healed. Abrasion of left hand - healed. Oxygen dependent COPD. CAD Plan: Alana's wound was evaluated and debrided today at the wound healing center as above in the clinical panel. She tolerated the procedure well. There are no overt signs of infection and I do not feel that wound culture is necessary at this time. Will consider this if there is no improvement or signs of infection develop. She was approved for Puraply and Nushield application. Nushield was applied to the right upper arm wound today per consulting solution manager guidelines and rehydrated with hydrogel and covered with Adaptic touch and secured with steri- strips. She was advised to keep the dressing dry and intact. This was then covered with gauze and secured with tape. She should change the gauze Friday, Friday and Friday and apply more hydrogel to the adaptic touch. She was encouraged to increase protein in her diet and consider vitamin C supplement. Offloading was discussed but I do not think this will be an issue given the location of her wounds. Her vascular status appears intact. She does not require home health assistance with dressings at this time due to family support. She was advised to call with any questions or concerns or signs of infection such as increased drainage, pain, erythema or odor. She will f/u in 2 weeks.
[2020-09-15 10:28] VITALS: BP 158/67; PULSE 83; RESP 18; TEMP 36.6; BMI 28.0
--- NOTE | 2020-09-15 14:49 | PN.PCM_ITS ---
(1) CAD (coronary artery disease) Status: Chronic Qualifiers: Coronary Disease-Associated Artery/Lesion type: unspecified vessel or lesion type [place] vs. transplanted heart: [place] heart Associated angina: unspecified whether angina present Qualified Code(s): I25.10 - Atherosclerotic heart disease of [place] coronary artery without angina pectoris Code(s): I25.10 - Atherosclerotic heart disease of [place] coronary artery without angina pectoris (2) Abrasion of right upper arm, subsequent encounter Status: Chronic Code(s): S40.811D - Abrasion of right upper arm, subsequent encounter (3) Abrasion of right hand, subsequent encounter Status: Chronic Code(s): S60.511D - Abrasion of right hand, subsequent encounter (4) Abrasion of left hand, subsequent encounter Status: Chronic Code(s): S60.512D - Abrasion of left hand, subsequent encounter (5) Respiratory failure with hypoxia Status: Chronic Qualifiers: Chronicity: chronic Code(s): J96.91 - Respiratory failure, unspecified with hypoxia (6) Chronic obstructive pulmonary disease Status: Chronic Qualifiers: COPD type: unspecified COPD Qualified Code(s): J44.9 - Chronic obstructive pulmonary disease, unspecified Code(s): J44.9 - Chronic obstructive pulmonary disease, unspecified Type of Wound Date of Service: 09/15/20 Chief Complaint: Abrasions of right upper arm, right hand and left hand from fall involving treadmill friction cervantes History of Wound: Alana is a pleasant 80 yo woman with oxygen dependent COPD, chronic respiratory failure, CHF and CAD who presents to the wound healing center for evaluation and treatment of nonhealing wounds of her right upper arm, right dorsal hand and left hand which occurred on 08/12/2020 when she fell from her treadmill while it was running and had difficulty moving away from the treadmill. Her arm and hands were abraded by the treadmill belt. She also fractured her right humerus in the fall. She went to the emergency room and was referred to orthopedics for fracture of her humerus. She had left the wounds on her right shoulder, right hand and left hand open to the air for a few days after the injury and since then she has been applying triple antibiotic ointment and Telfa bandages. She was seen by orthopedics and referred to the wound healing center for further treatment of her wounds. She did not have any cultures of her wounds and was not placed on any antibiotics. She is in otherwise a good state of health and is not diabetic. She is active and has help from her daughters. She lives alone and lost her in April 2020. Her wounds have mild-moderate drainage. She denies any erythema, increased pain, odor. Progress of Wound: [place] wound is improving. She tolerated application of Nu- shield 2 weeks ago with decrease in size of her wound. She denies any increased fever, chills, erythema, pain or drainage. - Physical Exam Vital Signs Temp Pulse Resp BP 98 F 83 18 158/67 H 09/15/20 10:28 09/15/20 10:28 09/15/20 10:28 09/15/20 10:28 General: Alert, Oriented x3, Cooperative, No apparent distress HEENT: Atraumatic, Normocephalic Oral: Moist Mucosa Lungs: Clear to auscultation Cardiovascular: Regular rate, Regular Rhythm Abdomen: Soft, Non Tender, Obese Extremities: No edema Skin: Ulcer/ Wound Wound Measurements and Assessment WC - Nurse 1 - General Ulcer Measurement Start: 09/01/20 10:00 Freq: Status: Active Protocol: Activity Type Activity Date Activity User E-Sign Co-Sign Detail Recorded Client Recorded Date Recorded By Document 09/15/20 10:28 [id number] 09/15/20 10:37 RB 09/15/20 10:28 Wound Center Nurse 1 [Ulcer Assessment] 3-right shoulder -Combined with other wound No -Current Size (cm) - Length 5 -Current Size (cm) - Width 3.2 -Current Size (cm) - Depth 0.1 -Total Square Cm 16.0 -Tunneling No -Undermining/Tunneling No -Circular Undermining No -Exudate Amt Small -Exudate Type Serosanguineous -Wound Margin Flat & Intact -Granulation Amt Medium (34-66%) -Granulation Quality [place] -Slough/Fibrin Yes -Necrosis Amt Small (1-33%) -Necrotic Tissue Type Adherent Slough -Structure Exposed N/A -Texture (Vee-wound Skin Appearance) Assessed, Scarring -Moisture (Vee-wound Skin Appearance Assessed ) -Color (Vee-wound Skin Appearance) Assessed, Erythema -Temperature (Vee-wound Skin No Abnormality Appearance) (Pt Warm) -Tenderness on Palpation (Vee-wound No Skin Appearance) -Ulcer Cleansing Wound Cleanser -Foul Odor after Cleansing No -Anesthetic Used 4% Lidocaine Solution - Nurse 2 - General Ulcer CM Notes Start: 09/01/20 10:00 Freq: Status: Active Protocol: Activity Type Activity Date Activity User E-Sign Co-Sign Detail Recorded Client Recorded Date Recorded By Document 09/15/20 10:49 MW [id number] 09/15/20 11:08 MW 09/15/20 10:49 Wound Center Nurse 2 [Procedure/Treatment] -Time 10:50 -Correct Patient Yes -Correct Side, Site, Position Yes -Correct Procedure Yes -Procedure Performed Yes -Type of Procedure Debridement -Clinical Debridement Subcutaneous -Tissue Removed Subcutaneous -Post Debridement (cm) - Length 2.8 -Post Debridement (cm) - Width 5.0 -Post Debridement (cm) - Depth 0.1 -Total Square (Post) (cm) 14.00 -Area of Debridement (cm) - Length 2.8 -Area of Debridement (cm) - Width 5.0 -Total Square (Area) (cm) 14.00 -Tunneling No -Undermining/Tunneling No -Circular Undermining No -Wound/Ulcer Outcome Not Healed -Ulcer Cleansing Rinsed/ Irrigated with Saline -Foul Odor after Cleansing No -Bioengineered Tissue Yes -Type of Bioengineered Tissue NuShield -Expiration Date 02/08/24 -Product Lot Number [id number] -Percent Used 100 -Lot number of Saline Used [id number] -Bleeding Controlled with Pressure -Offloading No -Treatment Response Procedure Tolerated Well -Debridement - Subq, 1st 20sq cm No -Apply Skin Sub - 1st 25 sq cm - Legs 1 -NuShield (per sq cm) 8 [See Physician Procedure note for Specifics] Pain Scale: 0-10 Numeric [Pain] -Is Patient Pain Free? Yes WC - Nurse 3 - General Ulcer D/C NN Start: 09/01/20 10:00 Freq: Status: Active Protocol: Activity Type Activity Date Activity User E-Sign Co-Sign Detail Recorded Client Recorded Date Recorded By Document 09/15/20 11:12 MS [id number] 09/15/20 11:13 MS 09/15/20 11:12 Wound Care Nurse 3 [Wound Dressing] 3-right shoulder -Primary Dressing Applied C Hydrogel ($) -Primary Dressing Covered/Secured Dry Gauze, with Secured with Tape Pain Scale: 0-10 Numeric [Pain] -Is Patient Pain Free? Yes WC - Visit Discharge [Visit Discharge Information] -Discharge Condition Stable -Ambulatory Status Ambulatory -Medication Reconcilliation completed No & provided to patient/care provider -Clinical Summary of Care Provided Yes Psych/Mental Status: Normal Affect, Appropriate Debridement Note Post-Debridement Measurements/Treatment WC - Nurse 2 - General Ulcer CM Notes Start: 09/01/20 10:00 Freq: Status: Active Protocol: Activity Type Activity Date Activity User E-Sign Co-Sign Detail Recorded Client Recorded Date Recorded By Document 09/01/20 10:34 MW [id number] 09/01/20 10:53 MW Document 09/15/20 10:49 MW [id number] 09/15/20 11:08 MW 09/01/20 09/15/20 10:34 10:49 Wound Center Nurse 2 3-right shoulder -Time 10:38 10:50 -Correct Patient Yes Yes -Correct Side, Site, Position Yes Yes -Correct Procedure Yes Yes -Procedure Performed Yes Yes -Type of Procedure Debridement Debridement -Clinical Debridement Subcutaneous Subcutaneous -Tissue Removed Subcutaneous Subcutaneous -Post Debridement (cm) - Length 6.5 2.8 -Post Debridement (cm) - Width 4.6 5.0 -Post Debridement (cm) - Depth 0.1 0.1 -Total Square (Post) (cm) 29.90 14.00 -Area of Debridement (cm) - Length 6.5 2.8 -Area of Debridement (cm) - Width 4.6 5.0 -Total Square (Area) (cm) 29.90 14.00 -Tunneling No No -Undermining/Tunneling No No -Circular Undermining No No -Wound/Ulcer Outcome Not Healed Not Healed -Ulcer Cleansing Rinsed/ Rinsed/ Irrigated with Irrigated with Saline Saline -Foul Odor after Cleansing No No -Bioengineered Tissue Yes Yes -Type of Bioengineered Tissue [facility] -Expiration Date 01/22/24 02/08/24 -Product Lot Number [id number] -Percent Used 100 100 -Lot number of Saline Used [id number] -Bleeding Controlled with Pressure Pressure -Other DONOR #[id number] -Offloading No No -Treatment Response Procedure Procedure Tolerated Well Tolerated Well -Debridement - Subq, 1st 20sq cm No No -Apply Skin Sub - 1st 25 sq cm - Legs 1 -Apply Skin Sub - 1st 25 sq cm - Feet 1 -NuShield (per sq cm) 16 8 2-right hand -Time 10:36 -Correct Patient Yes -Correct Side, Site, Position Yes -Correct Procedure Yes -Procedure Performed No -Post Debridement (cm) - Length 0 -Post Debridement (cm) - Width 0 -Post Debridement (cm) - Depth 0 -Total Square (Post) (cm) 0 -Wound/Ulcer Outcome Healed- Epithelialized 1-left hand -Time 10:35 -Correct Patient Yes -Correct Side, Site, Position Yes -Correct Procedure Yes -Procedure Performed No -Post Debridement (cm) - Length 0 -Post Debridement (cm) - Width 0 -Post Debridement (cm) - Depth 0 -Total Square (Post) (cm) 0 -Wound/Ulcer Outcome Healed- Epithelialized Pain Scale: 0-10 Numeric Is Patient Pain Free? Yes Yes WC - Nurse 3 - General Ulcer D/C NN Start: 09/01/20 10:00 Freq: Status: Active Protocol: Activity Type Activity Date Activity User E-Sign Co-Sign Detail Recorded Client Recorded Date Recorded By Document 09/01/20 10:53 MW [id number] 09/01/20 10:55 MW Document 09/15/20 11:12 MS [id number] 09/15/20 11:13 MS 09/01/20 09/15/20 10:53 11:12 Wound Care Nurse 3 3-right shoulder -Ulcer Cleansing Rinsed/ Irrigated with Saline -Foul Odor after Cleansing No -Negative Pressure Wound Therapy N/A -Primary Dressing Applied C Hydrogel ($) C Hydrogel ($) -Primary Dressing Covered/Secured with Secured with Dry Gauze, Tape Secured with Tape -Other Covering ABD PAD Treatment Response Procedure Tolerated Well Pain Scale: 0-10 Numeric Is Patient Pain Free? Yes Yes Teaching: Wound Center Dressing Your Wound -Person Taught Patient,Family -Teaching Method Discussion, Demonstration -Response to teaching Verbalize understanding WC - Visit Discharge Discharge Condition Stable Stable Ambulatory Status Ambulatory Ambulatory Transportation Private Auto Accompanied by DAUGHTER Medication Reconcilliation completed & No No provided to patient/care provider Clinical Summary of Care Provided Yes Yes Wound debrided: right shoulder Laterality: Right Type of Debridement: Excisional debridement Anesthesia Used: 4% Lidocaine Solution, 5% Lidocaine Gel, Cetacaine Depth: Down to and including healthy tissue, in the subcutaneous layer Percentage of wound debrided: 100 Instrument Used: 5mm curette Tissue Removed: Yellow slough, devitalized tissue Severity: Fat Layer Exposed Amount of bleeding with debridement: Mild Bleeding Controlled with: Compression and gauze Patient tolerated procedure well Assessment/Plan Active Problems (Last Reviewed 07/06/20 @ 11:23 by [place] CAMPAIGN ANALYST, CAMPAIGN ANALYST-C) CAD (coronary artery disease) (Chronic) Abrasion of right upper arm, subsequent encounter (Chronic) Abrasion of right hand, subsequent encounter (Chronic) Abrasion of left hand, subsequent encounter (Chronic) Respiratory failure with hypoxia (Chronic) Chronic obstructive pulmonary disease (Chronic) Assessment: Abrasion of right shoulder. Abrasion of right hand - healed. Abrasion of left hand - healed. Oxygen dependent COPD. CAD Plan: Alana's wound was evaluated and debrided today at the wound healing center as above in the clinical panel. She tolerated the procedure well. There are no overt signs of infection and I do not feel that wound culture is necessary at this time. Will consider this if there is no improvement or signs of infection develop. She was approved for Puraply and Nushield application. Nushield #2 was applied to the right upper arm wound today per public relations sales marketing guidelines and rehydrated with hydrogel and covered with Adaptic touch and secured with steri- strips. She was advised to keep the dressing dry and intact. This was then covered with gauze and secured with tape. She should change the gauze Friday, Friday and Friday and apply more hydrogel to the adaptic touch. She was encouraged to increase protein in her diet and consider vitamin C supplement. Offloading was discussed but I do not think this will be an issue given the location of her wounds. Her vascular status appears intact. She does not require home health assistance with dressings at this time due to family support. She was advised to call with any questions or concerns or signs of infection such as increased drainage, pain, erythema or odor. She will f/u in 2 weeks.
[2020-09-29 10:29] VITALS: BP 154/54; PULSE 70; RESP 16; TEMP 36.3; BMI 28.0
--- NOTE | 2020-09-29 16:21 | PCM.WC.PN ---
History of Present Illness Date of Service: 09/29/20 Chief Complaint: Abrasions of right upper arm, right hand and left hand from fall involving treadmill friction cervantes History of Wound: Alana is a pleasant 80 yo woman with oxygen dependent COPD, chronic respiratory failure, CHF and CAD who presents to the wound healing center for evaluation and treatment of nonhealing wounds of her right upper arm, right dorsal hand and left hand which occurred on 08/12/2020 when she fell from her treadmill while it was running and had difficulty moving away from the treadmill. Her arm and hands were abraded by the treadmill belt. She also fractured her right humerus in the fall. She went to the emergency room and was referred to orthopedics for fracture of her humerus. She had left the wounds on her right shoulder, right hand and left hand open to the air for a few days after the injury and since then she has been applying triple antibiotic ointment and Telfa bandages. She was seen by orthopedics and referred to the wound healing center for further treatment of her wounds. She did not have any cultures of her wounds and was not placed on any antibiotics. She is in otherwise a good state of health and is not diabetic. She is active and has help from her daughters. She lives alone and lost her in April 2020. Her wounds have mild-moderate drainage. She denies any erythema, increased pain, odor. Subjective Subjective: Progress of Wound: Alana's wound is improving. She tolerated application of Nu-shield 2 weeks ago with decrease in size of her wound. She denies any increased fever, chills, erythema, pain or drainage. Objective Data Objective Data Vital Signs: Vital Signs Temp Pulse Resp BP 97.4 F L 70 16 154/54 H 09/29/20 10:29 09/29/20 10:29 09/29/20 10:29 09/29/20 10:29 Oxygen Flow Rate (L/min) 2 Oxygen Delivery Method Room Air Weight: 125 lb Body Mass Index (BMI) 28.0 Assessment & Plan Assessment/Plan (1) Non-healing wound of right upper extremity: Status: Acute Code(s): S41.101A - Unspecified open wound of right upper arm, initial encounter (2) Abrasion of right upper arm, subsequent encounter: Status: Chronic Code(s): S40.811D - Abrasion of right upper arm, subsequent encounter (3) Stage 3 severe COPD by GOLD classification: Status: Chronic Code(s): J44.9 - Chronic obstructive pulmonary disease, unspecified (4) Chronic obstructive pulmonary disease: Status: Chronic Code(s): J44.9 - Chronic obstructive pulmonary disease, unspecified Qualifiers: COPD type: unspecified COPD Qualified Code(s): J44.9 - Chronic obstructive pulmonary disease, unspecified (5) 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 Abrasion of right hand - healed. Abrasion of left hand - healed. Oxygen dependent COPD. CAD Plan: Alana's wound was evaluated and debrided today at the wound healing center as above in the clinical panel. She tolerated the procedure well. There are no overt signs of infection and I do not feel that wound culture is necessary at this time. Will consider this if there is no improvement or signs of infection develop. She was approved for Puraply and Nushield application. Nushield #3 was applied to the right upper arm wound today per cane flume feeding machine operator guidelines and rehydrated with hydrogel and covered with Adaptic touch and secured with steri-strips. She was advised to keep the dressing dry and intact. This was then covered with gauze and secured with tape. She should change the gauze Friday, Friday and Friday and apply more hydrogel to the adaptic touch. She was encouraged to increase protein in her diet and consider vitamin C supplement. Offloading was discussed but I do not think this will be an issue given the location of her wounds. Her vascular status appears intact. She does not require home health assistance with dressings at this time due to family support. She was advised to call with any questions or concerns or signs of infection such as increased drainage, pain, erythema or odor. She will f/u in 1 week. Physical Exam Const alert, oriented x3 and no apparent distress General Appearance: cooperative HEENT normocephalic and head/scalp atraumatic Resp normal respiratory effort Cardio regular rate and regular rhythm Skin Wounds: wounds noted Psych mental status grossly normal, cooperative and affect normal Debridement Note Debridement Note Post-Debridement Measurements and Additional Note: Post-Debridement Measurements/Treatment WC - Nurse 2 - General Ulcer CM Notes Start: 09/01/20 10:00 Freq: Status: Active Protocol: Activity Type Activity Date Activity User E-Sign Co-Sign Detail Recorded Client Recorded Date Recorded By Document 09/01/20 10:34 MW [id number] 09/01/20 10:53 MW Edit Result 09/01/20 10:34 MW (1) [id number] 09/04/20 09:08 PL Document 09/15/20 10:49 MW [id number] 09/15/20 11:08 MW Document 09/29/20 10:57 MW [id number] 09/29/20 11:13 MW (1) 3-right shoulder - Apply Skin Sub - 1st 25 sq cm - Feet => 1 09/01/20 09/15/20 09/29/20 10:34 10:49 10:57 Wound Center Nurse 2 3-right shoulder -Time 10:38 10:50 10:57 -Correct Patient Yes Yes Yes -Correct Side, Site, Position Yes Yes Yes -Correct Procedure Yes Yes Yes -Procedure Performed Yes Yes Yes -Type of Procedure Debridement Debridement Debridement -Clinical Debridement Subcutaneous Subcutaneous Subcutaneous -Tissue Removed Subcutaneous Subcutaneous Subcutaneous -Post Debridement (cm) - Length 6.5 2.8 5.8 -Post Debridement (cm) - Width 4.6 5.0 2.7 -Post Debridement (cm) - Depth 0.1 0.1 0.1 -Total Square (Post) (cm) 29.90 14.00 15.66 -Area of Debridement (cm) - Length 6.5 2.8 5.8 -Area of Debridement (cm) - Width 4.6 5.0 2.7 -Total Square (Area) (cm) 29.90 14.00 15.66 -Tunneling No No No -Undermining/Tunneling No No No -Circular Undermining No No No -Wound/Ulcer Outcome Not Healed Not Healed Not Healed -Ulcer Cleansing Rinsed/ Rinsed/ Rinsed/ Irrigated with Irrigated with Irrigated with Saline Saline Saline -Foul Odor after Cleansing No No No -Bioengineered Tissue Yes Yes Yes -Type of Bioengineered Tissue [facility] -Expiration Date 01/22/24 02/08/24 10/30/24 -Product Lot Number [id number] -Percent Used 100 100 100 -Lot number of Saline Used [id number] -Bleeding Controlled with Pressure Pressure Pressure -Other DONOR #[id number] -Offloading No No No -Treatment Response Procedure Procedure Procedure Tolerated Well Tolerated Well Tolerated Well -Debridement - Subq, 1st 20sq cm No No No -Apply Skin Sub - 1st 25 sq cm - Legs 1 1 -Apply Skin Sub - 1st 25 sq cm - Feet 1 -NuShield (per sq cm) 16 8 16 2-right hand -Time 10:36 -Correct Patient Yes -Correct Side, Site, Position Yes -Correct Procedure Yes -Procedure Performed No -Post Debridement (cm) - Length 0 -Post Debridement (cm) - Width 0 -Post Debridement (cm) - Depth 0 -Total Square (Post) (cm) 0 -Wound/Ulcer Outcome Healed- Epithelialized 1-left hand -Time 10:35 -Correct Patient Yes -Correct Side, Site, Position Yes -Correct Procedure Yes -Procedure Performed No -Post Debridement (cm) - Length 0 -Post Debridement (cm) - Width 0 -Post Debridement (cm) - Depth 0 -Total Square (Post) (cm) 0 -Wound/Ulcer Outcome Healed- Epithelialized Pain Scale: 0-10 Numeric Is Patient Pain Free? Yes Yes Yes WC - Nurse 3 - General Ulcer D/C NN Start: 09/01/20 10:00 Freq: Status: Active Protocol: Activity Type Activity Date Activity User E-Sign Co-Sign Detail Recorded Client Recorded Date Recorded By Document 09/01/20 10:53 MW [id number] 09/01/20 10:55 MW Document 09/15/20 11:12 MS [id number] 09/15/20 11:13 MS Document 09/29/20 11:13 MW [id number] 09/29/20 11:14 MW 09/01/20 09/15/20 09/29/20 10:53 11:12 11:13 Wound Care Nurse 3 3-right shoulder -Ulcer Cleansing Rinsed/ Not Cleansed Irrigated with Saline -Foul Odor after Cleansing No No -Negative Pressure Wound Therapy N/A N/A -Primary Dressing Applied C Hydrogel ($) C Hydrogel ($) -Primary Dressing Covered/Secured with Secured with Dry Gauze, Dry Gauze, Tape Secured with Secured with Tape Tape -Other Covering ABD PAD Treatment Response Procedure Procedure Tolerated Well Tolerated Well Pain Scale: 0-10 Numeric Is Patient Pain Free? Yes Yes Teaching: Wound Center Dressing Your Wound -Person Taught Patient,Family Patient,Family -Teaching Method Discussion, Discussion, Demonstration Demonstration -Response to teaching Verbalize Verbalize understanding understanding WC - Visit Discharge Discharge Condition Stable Stable Stable Ambulatory Status Ambulatory Ambulatory Ambulatory Transportation Private Auto Private Auto Accompanied by DAUGHTER DAUGHTER Medication Reconcilliation completed & No No No provided to patient/care provider Clinical Summary of Care Provided Yes Yes Yes Wound debrided: right shoulder Laterality: Right Type of Debridement: Excisional debridement Anesthesia Used: 4% Lidocaine Solution and 5% Lidocaine Gel Depth: Down to and including healthy tissue and in the subcutaneous layer Percentage of wound debrided: 100 Instrument Used: 3mm curette Tissue Removed: Yellow slough, devitalized tissue Severity: Fat Layer Exposed Amount of bleeding with debridement: Mild Bleeding Controlled with: Compression and gauze Patient tolerated procedure: Patient tolerated procedure well
== END 2020-09-29 23:59 ==
LOC: WC 10:15
PROVIDERS: PCP Student in an Organized Health Care Education/Training Program; Visit Provider Family Medicine
DX: S40.811D Abrasion of right upper arm, subsequent encounter (principal); S60.511D Abrasion of right hand, subsequent encounter; S60.512D Abrasion of left hand, subsequent encounter; I25.10 Atherosclerotic heart disease of native coronary artery without angina pectoris; J44.9 Chronic obstructive pulmonary disease, unspecified; Z60.2 Problems related to living alone; J96.11 Chronic respiratory failure with hypoxia; W31.89XD Contact with other specified machinery, subsequent encounter; I50.810 Right heart failure, unspecified
CPT/HCPCS: 15271; 15275; Q4160

== ENCOUNTER 2020-10-27 10:15 | Outpatient (RCR) | payer MEDICARE, SELFPAY ==
[2020-09-30 00:50] VITALS: BP 154/54; PULSE 70; RESP 16; TEMP 36.3; BMI 26.9
[2020-10-06 10:27] VITALS: BP 155/62; PULSE 75; RESP 18; TEMP 36.3; BMI 26.9
--- NOTE | 2020-10-06 15:14 | PCM.WC.PN ---
History of Present Illness Date of Service: 10/13/20 Chief Complaint: Abrasions of right upper arm, right hand and left hand from fall involving treadmill friction cervantes History of Wound: Alana is a pleasant 80 yo woman with oxygen dependent COPD, chronic respiratory failure, CHF and CAD who presents to the wound healing center for evaluation and treatment of nonhealing wounds of her right upper arm, right dorsal hand and left hand which occurred on 08/12/2020 when she fell from her treadmill while it was running and had difficulty moving away from the treadmill. Her arm and hands were abraded by the treadmill belt. She also fractured her right humerus in the fall. She went to the emergency room and was referred to orthopedics for fracture of her humerus. She had left the wounds on her right shoulder, right hand and left hand open to the air for a few days after the injury and since then she has been applying triple antibiotic ointment and Telfa bandages. She was seen by orthopedics and referred to the wound healing center for further treatment of her wounds. She did not have any cultures of her wounds and was not placed on any antibiotics. She is in otherwise a good state of health and is not diabetic. She is active and has help from her daughters. She lives alone and lost her in April 2020. Her wounds have mild-moderate drainage. She denies any erythema, increased pain, odor. Subjective Subjective: Mariellas wound is improving. She tolerated application of Nu-shield 2 weeks ago with decrease in size of her wound but it is not improved much from the previous week. She denies any increased fever, chills, erythema, pain or drainage. Objective Data Objective Data Vital Signs: Vital Signs Temp Pulse Resp BP 97.3 F L 75 18 155/62 H 10/06/20 10:27 10/06/20 10:27 10/06/20 10:27 10/06/20 10:27 Oxygen Flow Rate (L/min) 2 Weight: 56.699 kg Body Mass Index (BMI) 26.9 Assessment & Plan Assessment/Plan (1) Non-healing wound of right upper extremity: (2) Abrasion of right upper arm, subsequent encounter: (3) Stage 3 severe COPD by GOLD classification: (4) Chronic kidney disease, stage 3a: PLAN: Mariellas wound was evaluated and debrided today at the wound healing center as above in the clinical panel. She tolerated the procedure well. There are no overt signs of infection and I do not feel that wound culture is necessary at this time. Will consider this if there is no improvement or signs of infection develop. She was approved for Puraply and Nushield application. Nushield application held this week. Will have her apply hydrogel daily and adaptic touch and covered with gauze. She was encouraged to increase protein in her diet and consider vitamin C supplement. Offloading was discussed but I do not think this will be an issue given the location of her wounds. Her vascular status appears intact. She does not require home health assistance with dressings at this time due to family support. She was advised to call with any questions or concerns or signs of infection such as increased drainage, pain, erythema or odor. She will f/u in 1 week. Physical Exam Const alert and oriented x3 HEENT normocephalic and head/scalp atraumatic Mouth: oral and palatal mucosa normal Resp normal respiratory effort Cardio regular rate and regular rhythm Skin General Skin Exam: erythema, venous stasis and dermatitis Wounds: wounds noted Psych mental status grossly normal and affect normal Debridement Note Debridement Note Post-Debridement Measurements and Additional Note: Post-Debridement Measurements/Treatment AILYN - Nurse 1 - General Ulcer Assessment Start: 10/06/20 10:27 Freq: Status: Active Protocol: PHIL Activity Type Activity Date Activity User E-Sign Co-Sign Detail Recorded Client Recorded Date Recorded By Document 10/06/20 10:27 [id number] 10/06/20 10:29 LAURA 10/06/20 10:27 - Today's Visit Information Type of service Follow-up Visit (Physician/SCHOOL LIBRARY MEDIA SPECIALIST ) Arrival Mode Ambulatory Transfer Assistance None Patient Identification Verified (Name & Yes ) Patient Requires Transmission-Based No Precautions Safety Precautions NA Height and Weight Body Mass Index (BMI) 26.9 BMI Classification Overweight Vital Signs Temperature (97.8 F-99.1 F) 97.3 F L Temperature Source Temporal Pulse Rate (60-100) 75 Pulse Location Monitor Respiratory Rate (12-18) 18 Respiratory rate source Observation Blood Pressure (90/60-120/80) 155/62 H Blood Pressure Mean (mm Hg) 93 Source Monitor Position Semi-Fowlers Blood Pressure Location Left Arm History Since Last Visit- (Skip if this is Patient's initial visit) Have you changed medications since your No last visit? Any new allergies or adverse reactions No Had a fall/change in ADL's that may No increase risk of falls Signs or symptoms of abuse and/or No neglect since last visit Have you been in the hospital since your No last visit? Has dressing in place as prescribed Yes Has compression in place as prescribed No Has offloadiing in place as prescribed No Experienced any changes in pain level or No management Left Footwear Regular Shoe Right Footwear Regular Shoe Pain Scale: 0-10 Numeric Is Patient Pain Free? Yes WC - Nurse 1 - General Ulcer Measurement Start: 10/06/20 10:27 Freq: Status: Active Protocol: Activity Type Activity Date Activity User E-Sign Co-Sign Detail Recorded Client Recorded Date Recorded By Document 10/06/20 10:27 RB [id number] 10/06/20 10:29 RB 10/06/20 10:27 Wound Center Nurse 1 3-right shoulder -Combined with other wound No -Current Size (cm) - Length 5 -Current Size (cm) - Width 3.8 -Current Size (cm) - Depth 0.1 -Total Square Cm 19.0 -Tunneling No -Undermining/Tunneling No -Circular Undermining No -Exudate Amt Medium -Exudate Type Serosanguineous -Wound Margin Flat & Intact -Granulation Amt Medium (34-66%) -Granulation Quality [place] -Slough/Fibrin Yes -Necrosis Amt Small (1-33%) -Necrotic Tissue Type Adherent Slough -Structure Exposed N/A -Texture (Vee-wound Skin Appearance) Assessed, Scarring -Moisture (Vee-wound Skin Appearance) Assessed -Color (Vee-wound Skin Appearance) Assessed -Temperature (Vee-wound Skin No Abnormality Appearance) (Pt Warm) -Tenderness on Palpation (Vee-wound No Skin Appearance) -Ulcer Cleansing Rinsed/ Irrigated with Saline -Foul Odor after Cleansing No -Anesthetic Used 4% Lidocaine Solution - Nurse 2 - General Ulcer CM Notes Start: 10/06/20 10:27 Freq: Status: Active Protocol: Activity Type Activity Date Activity User E-Sign Co-Sign Detail Recorded Client Recorded Date Recorded By Document 10/06/20 10:51 MW [id number] 10/06/20 11:01 MW 10/06/20 10:51 Wound Center Nurse 2 -Time 10:53 -Correct Patient Yes -Correct Side, Site, Position Yes -Correct Procedure Yes -Procedure Performed Yes -Type of Procedure Debridement -Clinical Debridement Subcutaneous -Tissue Removed Subcutaneous -Post Debridement (cm) - Length 5.5 -Post Debridement (cm) - Width 3.5 -Post Debridement (cm) - Depth 0.1 -Total Square (Post) (cm) 19.25 -Area of Debridement (cm) - Length 5.5 -Area of Debridement (cm) - Width 3.5 -Total Square (Area) (cm) 19.25 -Tunneling No -Undermining/Tunneling No -Circular Undermining No -Wound/Ulcer Outcome Not Healed -Ulcer Cleansing Rinsed/ Irrigated with Saline -Foul Odor after Cleansing No -Bioengineered Tissue No -Bleeding Controlled with Pressure -Offloading No -Treatment Response Procedure Tolerated Well -Debridement - Subq, 1st 20sq cm Yes Pain Scale: 0-10 Numeric Is Patient Pain Free? Yes - Nurse 3 - General Ulcer D/C NN Start: 10/06/20 10:27 Freq: Status: Active Protocol: Activity Type Activity Date Activity User E-Sign Co-Sign Detail Recorded Client Recorded Date Recorded By Document 10/06/20 11:01 MW [id number] 10/06/20 11:02 MW 10/06/20 11:01 Wound Care Nurse 3 3-right shoulder -Ulcer Cleansing Rinsed/ Irrigated with Saline -Foul Odor after Cleansing No -Negative Pressure Wound Therapy N/A -Primary Dressing Applied C Hydrogel ($), NonAdherent Contact Layer -Primary Dressing Covered/Secured with Dry Gauze, Secured with Tape Treatment Response Procedure Tolerated Well Pain Scale: 0-10 Numeric Is Patient Pain Free? Yes Teaching: Wound Center Dressing Your Wound -Person Taught Patient,Family -Teaching Method Discussion, Demonstration -Response to teaching Verbalize understanding WC - Visit Discharge Discharge Condition Stable Ambulatory Status Ambulatory Transportation Private Auto Accompanied by daughter Medication Reconcilliation completed & No provided to patient/care provider Clinical Summary of Care Provided Yes Wound debrided: right shoulder Laterality: Right Type of Debridement: Selective debridement Anesthesia Used: 4% Lidocaine Solution and 5% Lidocaine Gel Depth: Down to and including healthy tissue and in the subcutaneous layer Percentage of wound debrided: 100 Instrument Used: 3mm curette Tissue Removed: Yellow slough, devitalized tissue Severity: Fat Layer Exposed Amount of bleeding with debridement: Mild Bleeding Controlled with: Compression and gauze Patient tolerated procedure: Patient tolerated procedure well
[2020-10-13 10:50] VITALS: BP 157/53; PULSE 76; RESP 18; TEMP 36.3; BMI 26.9
--- NOTE | 2020-10-13 14:20 | PN.PCM_ITS ---
History of Present Illness Date of Service: 10/13/20 Chief Complaint: Abrasions of right upper arm, right hand and left hand from fall involving treadmill friction cervantes History of Wound: Alana is a pleasant 80 yo woman with oxygen dependent COPD, chronic respiratory failure, CHF and CAD who presents to the wound healing center for evaluation and treatment of nonhealing wounds of her right upper arm, right dorsal hand and left hand which occurred on 08/12/2020 when she fell from her treadmill while it was running and had difficulty moving away from the treadmill. Her arm and hands were abraded by the treadmill belt. She also fractured her right humerus in the fall. She went to the emergency room and was referred to orthopedics for fracture of her humerus. She had left the wounds on her right shoulder, right hand and left hand open to the air for a few days after the injury and since then she has been applying triple antibiotic ointment and Telfa bandages. She was seen by orthopedics and referred to the wound healing center for further treatment of her wounds. She did not have any cultures of her wounds and was not placed on any antibiotics. She is in otherwise a good state of health and is not diabetic. She is active and has help from her daughters. She lives alone and lost her in April 2020. Her wounds have mild-moderate drainage. She denies any erythema, increased pain, odor. Subjective Subjective Rafael wound is improving. She tolerated application of Nu-shield 2 weeks ago with decrease in size of her wound but it is not improved much from the previous week. She denies any increased fever, chills, erythema, pain or drainage. Objective Data Objective Data Vital Signs: Vital Signs Temp Pulse Resp BP 97.3 F L 76 18 157/53 H 10/13/20 10:50 10/13/20 10:50 10/13/20 10:50 10/13/20 10:50 Oxygen Flow Rate (L/min) 2 Weight: 56.699 kg Body Mass Index (BMI) 26.9 Assessment & Plan Assessment/Plan (1) Non-healing wound of right upper extremity: (2) Abrasion of right upper arm, subsequent encounter: (3) Stage 3 severe COPD by GOLD classification: (4) Chronic kidney disease, stage 3a: PLAN: Mariellas wound was evaluated and debrided today at the wound healing center as above in the clinical panel. She tolerated the procedure well. There are no overt signs of infection and I do not feel that wound culture is necessary at this time. Will consider this if there is no improvement or signs of infection develop. She was approved for Puraply and Nushield application. Nushield application held again this week. Will have her apply hydrogel daily and adaptic touch and covered with gauze. She was encouraged to increase protein in her diet and consider vitamin C supplement. Offloading was discussed but I do not think this will be an issue given the location of her wounds. Her vascular status appears intact. She does not require home health assistance with dressings at this time due to family support. She was advised to call with any questions or concerns or signs of infection such as increased drainage, pain, erythema or odor. She will f/u in 1 week. Physical Exam Const alert and oriented x3 HEENT normocephalic and head/scalp atraumatic Resp normal respiratory effort Cardio regular rate and regular rhythm Skin General Skin Exam: erythema, venous stasis and dermatitis Wounds: wounds noted Psych mental status grossly normal and affect normal Debridement Note Debridement Note Post-Debridement Measurements and Additional Note: Post-Debridement Measurements/Treatment - Nurse 1 - General Ulcer Assessment Start: 10/06/20 10:27 Freq: Status: Active Protocol: PHIL Activity Type Activity Date Activity User E-Sign Co-Sign Detail Recorded Client Recorded Date Recorded By Document 10/06/20 10:27 [id number] 10/06/20 10:29 RB Document 10/13/20 10:50 [id number] 10/13/20 10:51 RB 10/06/20 10/13/20 10:27 10:50 - Today's Visit Information Type of service Follow-up Visit Follow-up Visit (Physician/CARD ROOM MANAGER (Physician/CARD ROOM MANAGER ) ) Arrival Mode Ambulatory Ambulatory Transfer Assistance None None Patient Identification Verified (Name & Yes Yes ) Patient Requires Transmission-Based No No Precautions Safety Precautions NA Height and Weight Body Mass Index (BMI) 26.9 26.9 BMI Classification Overweight Overweight Vital Signs Temperature (97.8 F-99.1 F) 97.3 F L 97.3 F L Temperature Source Temporal Temporal Pulse Rate (60-100) 75 76 Pulse Location Monitor Monitor Respiratory Rate (12-18) 18 18 Respiratory rate source Observation Observation Blood Pressure (90/60-120/80) 155/62 H 157/53 H Blood Pressure Mean (mm Hg) 93 87 Source Monitor Monitor Position Semi-Fowlers Semi-Fowlers Blood Pressure Location Left Arm Left Arm History Since Last Visit- (Skip if this is Patient's initial visit) Have you changed medications since your No No last visit? Any new allergies or adverse reactions No No Had a fall/change in ADL's that may No No increase risk of falls Signs or symptoms of abuse and/or No No neglect since last visit Have you been in the hospital since your No No last visit? Has dressing in place as prescribed Yes Yes Has compression in place as prescribed No No Has offloadiing in place as prescribed No No Experienced any changes in pain level or No No management Left Footwear Regular Shoe Right Footwear Regular Shoe Pain Scale: 0-10 Numeric Is Patient Pain Free? Yes Yes WC - Nurse 1 - General Ulcer Measurement Start: 10/06/20 10:27 Freq: Status: Active Protocol: Activity Type Activity Date Activity User E-Sign Co-Sign Detail Recorded Client Recorded Date Recorded By Document 10/06/20 10:27 RB [id number] 10/06/20 10:29 RB Document 10/13/20 10:50 RB [id number] 10/13/20 10:51 RB 10/06/20 10/13/20 10:27 10:50 Wound Center Nurse 1 3-right shoulder -Combined with other wound No No -Current Size (cm) - Length 5 4.7 -Current Size (cm) - Width 3.8 5.8 -Current Size (cm) - Depth 0.1 0.1 -Total Square Cm 19.0 27.26 -Tunneling No No -Undermining/Tunneling No No -Circular Undermining No No -Exudate Amt Medium Medium -Exudate Type Serosanguineous Serosanguineous -Wound Margin Flat & Intact Flat & Intact -Granulation Amt Medium (34-66%) Medium (34-66%) -Granulation Quality [place] -Slough/Fibrin Yes Yes -Necrosis Amt Small (1-33%) Small (1-33%) -Necrotic Tissue Type Adherent Slough Adherent Slough -Structure Exposed N/A N/A -Texture (Vee-wound Skin Appearance) Assessed, Assessed, Scarring Scarring -Moisture (Vee-wound Skin Appearance) Assessed Assessed -Color (Vee-wound Skin Appearance) Assessed Assessed -Temperature (Vee-wound Skin No Abnormality No Abnormality Appearance) (Pt Warm) (Pt Warm) -Tenderness on Palpation (Vee-wound No No Skin Appearance) -Ulcer Cleansing Rinsed/ Wound Cleanser Irrigated with Saline -Foul Odor after Cleansing No No -Anesthetic Used 4% Lidocaine 4% Lidocaine Solution Solution AILYN - Nurse 2 - General Ulcer CM Notes Start: 10/06/20 10:27 Freq: Status: Active Protocol: Activity Type Activity Date Activity User E-Sign Co-Sign Detail Recorded Client Recorded Date Recorded By Document 10/06/20 10:51 MW [id number] 10/06/20 11:01 MW Document 10/13/20 11:08 MW [id number] 10/13/20 11:13 MW 10/06/20 10/13/20 10:51 11:08 Wound Center Nurse 2 3-right shoulder -Time 10:53 11:08 -Correct Patient Yes Yes -Correct Side, Site, Position Yes Yes -Correct Procedure Yes Yes -Procedure Performed Yes Yes -Type of Procedure Debridement Debridement -Clinical Debridement Subcutaneous Epidermis / Dermis -Tissue Removed Subcutaneous Epidermis -Post Debridement (cm) - Length 5.5 4.7 -Post Debridement (cm) - Width 3.5 5.0 -Post Debridement (cm) - Depth 0.1 0.1 -Total Square (Post) (cm) 19.25 23.50 -Area of Debridement (cm) - Length 5.5 4.7 -Area of Debridement (cm) - Width 3.5 5.0 -Total Square (Area) (cm) 19.25 23.50 -Tunneling No No -Undermining/Tunneling No No -Circular Undermining No No -Wound/Ulcer Outcome Not Healed Not Healed -Ulcer Cleansing Rinsed/ Rinsed/ Irrigated with Irrigated with Saline Saline -Foul Odor after Cleansing No No -Bioengineered Tissue No No -Bleeding Controlled with Pressure Pressure -Offloading No No -Treatment Response Procedure Procedure Tolerated Well Tolerated Well -Debridement - Open, 1st 20sq cm Yes -Debridement, Open, ea addt'l 20sq cm 1 or part thereof -Debridement - Subq, 1st 20sq cm Yes Pain Scale: 0-10 Numeric Is Patient Pain Free? Yes Yes AILYN - Nurse 3 - General Ulcer D/C NN Start: 10/06/20 10:27 Freq: Status: Active Protocol: Activity Type Activity Date Activity User E-Sign Co-Sign Detail Recorded Client Recorded Date Recorded By Document 10/06/20 11:01 MW [id number] 10/06/20 11:02 MW Document 10/13/20 11:14 MW [id number] 10/13/20 11:15 MW 10/06/20 10/13/20 11:01 11:14 Wound Care Nurse 3 3-right shoulder -Ulcer Cleansing Rinsed/ Rinsed/ Irrigated with Irrigated with Saline Saline -Foul Odor after Cleansing No No -Negative Pressure Wound Therapy N/A N/A -Primary Dressing Applied C Hydrogel ($), C Hydrogel ($), NonAdherent NonAdherent Contact Layer Contact Layer -Primary Dressing Covered/Secured with Dry Gauze, Dry Gauze, Secured with Secured with Tape Tape Treatment Response Procedure Procedure Tolerated Well Tolerated Well Pain Scale: 0-10 Numeric Is Patient Pain Free? Yes Yes Teaching: Wound Center Dressing Your Wound -Person Taught Patient,Family Patient -Teaching Method Discussion, Discussion, Demonstration Demonstration -Response to teaching Verbalize Verbalize understanding understanding WC - Visit Discharge Discharge Condition Stable Stable Ambulatory Status Ambulatory Ambulatory Transportation Private Auto Private Auto Accompanied by daughter daughter Medication Reconcilliation completed & No No provided to patient/care provider Clinical Summary of Care Provided Yes Yes Wound debrided: right shoulder Laterality: Right Type of Debridement: Selective debridement Anesthesia Used: 4% Lidocaine Solution Depth: Down to and including healthy tissue and in the subcutaneous layer Percentage of wound debrided: 100 Instrument Used: - (gauze) Tissue Removed: Yellow slough, devitalized tissue Severity: Fat Layer Exposed Amount of bleeding with debridement: Mild Bleeding Controlled with: Compression and gauze Patient tolerated procedure: Patient tolerated procedure well
[2020-10-20 09:12] VITALS: BP 152/72; PULSE 75; RESP 16; TEMP 36.2; BMI 26.9
--- NOTE | 2020-10-20 14:23 | PN.PCM_ITS ---
History of Present Illness Date of Service: 10/20/20 Chief Complaint: Abrasions of right upper arm, right hand and left hand from fall involving treadmill friction cervantes History of Wound: Alana is a pleasant 80 yo woman with oxygen dependent COPD, chronic respiratory failure, CHF and CAD who presents to the wound healing center for evaluation and treatment of nonhealing wounds of her right upper arm, right dorsal hand and left hand which occurred on 08/12/2020 when she fell from her treadmill while it was running and had difficulty moving away from the treadmill. Her arm and hands were abraded by the treadmill belt. She also fractured her right humerus in the fall. She went to the emergency room and was referred to orthopedics for fracture of her humerus. She had left the wounds on her right shoulder, right hand and left hand open to the air for a few days after the injury and since then she has been applying triple antibiotic ointment and Telfa bandages. She was seen by orthopedics and referred to the wound healing center for further treatment of her wounds. She did not have any cultures of her wounds and was not placed on any antibiotics. She is in otherwise a good state of health and is not diabetic. She is active and has help from her daughters. She lives alone and lost her in April 2020. Her wounds have mild-moderate drainage. She denies any erythema, increased pain, odor. Subjective Subjective Her wound is improved from last week and she tolerated treatment with hydrogel and adaptic. Denies increased drainage, fever, chills, or erythema. Objective Data Objective Data Vital Signs: Vital Signs Temp Pulse Resp BP 97.1 F L 75 16 152/72 H 10/20/20 09:12 10/20/20 09:12 10/20/20 09:12 10/20/20 09:12 Oxygen Flow Rate (L/min) 2 Weight: 56.699 kg Body Mass Index (BMI) 26.9 Physical Exam Const alert and oriented x3 HEENT normocephalic and head/scalp atraumatic Resp normal respiratory effort Cardio regular rate and regular rhythm Skin General Skin Exam: erythema, venous stasis and dermatitis Wounds: wounds noted Psych mental status grossly normal and affect normal Debridement Note Debridement Note Post-Debridement Measurements and Additional Note: Post-Debridement Measurements/Treatment AILYN - Nurse 1 - General Ulcer Assessment Start: 10/06/20 10:27 Freq: Status: Active Protocol: WC.LOWEXT Activity Type Activity Date Activity User E-Sign Co-Sign Detail Recorded Client Recorded Date Recorded By Document 10/06/20 10:27 RB [id number] 10/06/20 10:29 RB Document 10/13/20 10:50 RB [id number] 10/13/20 10:51 RB Document 10/20/20 09:12 MS [id number] 10/20/20 09:23 MS 10/06/20 10/13/20 10/20/20 10:27 10:50 09:12 WC - Today's Visit Information Type of service Follow-up Visit Follow-up Visit Follow-up Visit (Physician/[employer] (Physician/[employer] [facility] (Physician/[employer] [facility] ) ) ) Arrival Mode Ambulatory Ambulatory Ambulatory Transfer Assistance None None Patient Identification Verified (Name & Yes Yes Yes ) Patient Requires Transmission-Based No No No Precautions Safety Precautions NA NA Height and Weight Body Mass Index (BMI) 26.9 26.9 26.9 BMI Classification Overweight Overweight Overweight Vital Signs Temperature (97.8 F-99.1 F) 97.3 F L 97.3 F L 97.1 F L Temperature Source Temporal Temporal Temporal Pulse Rate (60-100) 75 76 75 Pulse Location Monitor Monitor Monitor Respiratory Rate (12-18) 18 18 16 Respiratory rate source Observation Observation Observation Blood Pressure (90/60-120/80) 155/62 H 157/53 H 152/72 H Blood Pressure Mean (mm Hg) 93 87 98 Source Monitor Monitor Monitor Position Semi-Fowlers Semi-Fowlers Sitting Blood Pressure Location Left Arm Left Arm Left Arm History Since Last Visit- (Skip if this is Patient's initial visit) Have you changed medications since your No No No last visit? Any new allergies or adverse reactions No No No Had a fall/change in ADL's that may No No No increase risk of falls Signs or symptoms of abuse and/or No No No neglect since last visit Have you been in the hospital since your No No No last visit? Has dressing in place as prescribed Yes Yes Yes Has compression in place as prescribed No No N/A Has offloadiing in place as prescribed No No N/A Experienced any changes in pain level or No No No management Left Footwear Regular Shoe Regular Shoe Right Footwear Regular Shoe Regular Shoe Pain Scale: 0-10 Numeric Is Patient Pain Free? Yes Yes Yes - Nurse 1 - General Ulcer Measurement Start: 10/06/20 10:27 Freq: Status: Active Protocol: Activity Type Activity Date Activity User E-Sign Co-Sign Detail Recorded Client Recorded Date Recorded By Document 10/06/20 10:27 RB [id number] 10/06/20 10:29 RB Document 10/13/20 10:50 RB [id number] 10/13/20 10:51 RB Document 10/20/20 09:12 MS [id number] 10/20/20 09:23 MS 10/06/20 10/13/20 10/20/20 10:27 10:50 09:12 Wound Center Nurse 1 3-right shoulder -Combined with other wound No No -Current Size (cm) - Length 5 4.7 4.5 -Current Size (cm) - Width 3.8 5.8 4.8 -Current Size (cm) - Depth 0.1 0.1 0.1 -Total Square Cm 19.0 27.26 21.60 -Tunneling No No -Undermining/Tunneling No No -Circular Undermining No No -Exudate Amt Medium Medium Medium -Exudate Type Serosanguineous Serosanguineous Serosanguineous -Wound Margin Flat & Intact Flat & Intact Distinct, Outline Attached -Granulation Amt Medium (34-66%) Medium (34-66%) Medium (34-66%) -Granulation Quality Calvin Red Calvin -Slough/Fibrin Yes Yes Yes -Necrosis Amt Small (1-33%) Small (1-33%) Small (1-33%) -Necrotic Tissue Type Adherent Slough Adherent Slough Adherent Slough -Structure Exposed N/A N/A -Texture (Vee-wound Skin Appearance) Assessed, Assessed, Assessed Scarring Scarring -Moisture (Vee-wound Skin Appearance) Assessed Assessed Assessed -Color (Vee-wound Skin Appearance) Assessed Assessed Assessed -Temperature (Vee-wound Skin No Abnormality No Abnormality No Abnormality Appearance) (Pt Warm) (Pt Warm) (Pt Warm) -Tenderness on Palpation (Vee-wound No No No Skin Appearance) -Ulcer Cleansing Rinsed/ Wound Cleanser Wound Cleanser Irrigated with Saline -Foul Odor after Cleansing No No No -Anesthetic Used 4% Lidocaine 4% Lidocaine 4% Lidocaine Solution Solution Solution - Nurse 2 - General Ulcer CM Notes Start: 10/06/20 10:27 Freq: Status: Active Protocol: Activity Type Activity Date Activity User E-Sign Co-Sign Detail Recorded Client Recorded Date Recorded By Document 10/06/20 10:51 MW [id number] 10/06/20 11:01 MW Document 10/13/20 11:08 MW [id number] 10/13/20 11:13 MW Document 10/20/20 10:13 MW [id number] 10/20/20 10:18 MW 10/06/20 10/13/20 10/20/20 10:51 11:08 10:13 Wound Center Nurse 2 3-right shoulder -Time 10:53 11:08 10:14 -Correct Patient Yes Yes Yes -Correct Side, Site, Position Yes Yes Yes -Correct Procedure Yes Yes Yes -Procedure Performed Yes Yes Yes -Type of Procedure Debridement Debridement Debridement -Clinical Debridement Subcutaneous Epidermis / Epidermis / Dermis Dermis -Tissue Removed Subcutaneous Epidermis Epidermis -Post Debridement (cm) - Length 5.5 4.7 4.1 -Post Debridement (cm) - Width 3.5 5.0 4.1 -Post Debridement (cm) - Depth 0.1 0.1 0.1 -Total Square (Post) (cm) 19.25 23.50 16.81 -Area of Debridement (cm) - Length 5.5 4.7 4.1 -Area of Debridement (cm) - Width 3.5 5.0 4.1 -Total Square (Area) (cm) 19.25 23.50 16.81 -Tunneling No No No -Undermining/Tunneling No No No -Circular Undermining No No No -Wound/Ulcer Outcome Not Healed Not Healed Not Healed -Ulcer Cleansing Rinsed/ Rinsed/ Rinsed/ Irrigated with Irrigated with Irrigated with Saline Saline Saline -Foul Odor after Cleansing No No No -Bioengineered Tissue No No No -Bleeding Controlled with Pressure Pressure Pressure -Offloading No No No -Treatment Response Procedure Procedure Procedure Tolerated Well Tolerated Well Tolerated Well -Debridement - Open, 1st 20sq cm Yes Yes -Debridement, Open, ea addt'l 20sq cm 1 or part thereof -Debridement - Subq, 1st 20sq cm Yes Pain Scale: 0-10 Numeric Is Patient Pain Free? Yes Yes Yes WC - Nurse 3 - General Ulcer D/C NN Start: 10/06/20 10:27 Freq: Status: Active Protocol: Activity Type Activity Date Activity User E-Sign Co-Sign Detail Recorded Client Recorded Date Recorded By Document 10/06/20 11:01 MW [id number] 10/06/20 11:02 MW Document 10/13/20 11:14 MW [id number] 10/13/20 11:15 MW Document 10/20/20 10:20 MW [id number] 10/20/20 10:21 MW 10/06/20 10/13/20 10/20/20 11:01 11:14 10:20 Wound Care Nurse 3 3-right shoulder -Ulcer Cleansing Rinsed/ Rinsed/ Rinsed/ Irrigated with Irrigated with Irrigated with Saline Saline Saline -Foul Odor after Cleansing No No No -Negative Pressure Wound Therapy N/A N/A N/A -Primary Dressing Applied C Hydrogel ($), C Hydrogel ($), NonAdherent NonAdherent NonAdherent Contact Layer Contact Layer Contact Layer -Other Dressing hydrogel -Primary Dressing Covered/Secured with Dry Gauze, Dry Gauze, Dry Gauze, Secured with Secured with Secured with Tape Tape Tape Treatment Response Procedure Procedure Procedure Tolerated Well Tolerated Well Tolerated Well Pain Scale: 0-10 Numeric Is Patient Pain Free? Yes Yes Yes Teaching: Wound Center Dressing Your Wound -Person Taught Patient,Family Patient Patient,Family -Teaching Method Discussion, Discussion, Discussion, Demonstration Demonstration Demonstration -Response to teaching Verbalize Verbalize Verbalize understanding understanding understanding WC - Visit Discharge Discharge Condition Stable Stable Stable Ambulatory Status Ambulatory Ambulatory Ambulatory Transportation Private Auto Private Auto Private Auto Accompanied by daughter daughter daughter Medication Reconcilliation completed & No No No provided to patient/care provider Clinical Summary of Care Provided Yes Yes Yes Wound debrided: right shoulder Laterality: Right Type of Debridement: Selective debridement Anesthesia Used: 4% Lidocaine Solution and 5% Lidocaine Gel Depth: Down to and including healthy tissue and in the subcutaneous layer Percentage of wound debrided: 100 Instrument Used: - (gauze) Severity: Fat Layer Exposed Amount of bleeding with debridement: Mild Bleeding Controlled with: Compression and gauze Patient tolerated procedure: Patient tolerated procedure well Assessment/Plan Assessment/Plan (1) Non-healing wound of right upper extremity: CODE(S): S41.101A - Unspecified open wound of right upper arm, initial encounter (2) Abrasion of right upper arm, subsequent encounter: CODE(S): S40.811D - Abrasion of right upper arm, subsequent encounter (3) Stage 3 severe COPD by GOLD classification: CODE(S): J44.9 - Chronic obstructive pulmonary disease, unspecified (4) Chronic kidney disease, stage 3a: CODE(S): N18.31 - Chronic kidney disease, stage 3a PLAN: Alana's wound was evaluated and debrided today at the wound healing center as above in the clinical panel. She tolerated the procedure well. There are no overt signs of infection and I do not feel that wound culture is necessary at this time. Will consider this if there is no improvement or signs of infection develop. She was approved for [employer] and [employer] application. [employer] application held again this week. Will have her continue to apply hydrogel daily and adaptic touch and covered with gauze. She was encouraged to increase protein in her diet and consider vitamin C supplement. Offloading was discussed but I do not think this will be an issue given the location of her wounds. Her vascular status appears intact. She does not require home health assistance with dressings at this time due to family support. She was advised to call with any questions or concerns or signs of infection such as increased drainage, pain, erythema or odor. She will f/u in 1 week.
[2020-10-27 10:12] VITALS: BP 155/74; PULSE 85; RESP 16; TEMP 36.7; BMI 26.9
--- NOTE | 2020-10-27 13:37 | PN.PCM_ITS ---
History of Present Illness Date of Service: 10/27/20 Chief Complaint: Abrasions of right upper arm, right hand and left hand from fall involving treadmill friction cervantes History of Wound: Alana is a pleasant 80 yo woman with oxygen dependent COPD, chronic respiratory failure, CHF and CAD who presents to the wound healing center for evaluation and treatment of nonhealing wounds of her right upper arm, right dorsal hand and left hand which occurred on 08/12/2020 when she fell from her treadmill while it was running and had difficulty moving away from the treadmill. Her arm and hands were abraded by the treadmill belt. She also fractured her right humerus in the fall. She went to the emergency room and was referred to orthopedics for fracture of her humerus. She had left the wounds on her right shoulder, right hand and left hand open to the air for a few days after the injury and since then she has been applying triple antibiotic ointment and Telfa bandages. She was seen by orthopedics and referred to the wound healing center for further treatment of her wounds. She did not have any cultures of her wounds and was not placed on any antibiotics. She is in otherwise a good state of health and is not diabetic. She is active and has help from her daughters. She lives alone and lost her in April 2020. Her wounds have mild-moderate drainage. She denies any erythema, increased pain, odor. Subjective Subjective Her wound is improved from last week and she tolerated treatment with hydrogel and adaptic. Denies increased drainage, fever, chills, or erythema. Objective Data Objective Data Vital Signs: Vital Signs Temp Pulse Resp BP 98.1 F 85 16 155/74 H 10/27/20 10:12 10/27/20 10:12 10/27/20 10:12 10/27/20 10:12 Oxygen Flow Rate (L/min) 2 Weight: 56.699 kg Body Mass Index (BMI) 26.9 Physical Exam Const alert and oriented x3 HEENT normocephalic and head/scalp atraumatic Resp normal respiratory effort Cardio regular rate and regular rhythm Skin General Skin Exam: erythema, venous stasis and dermatitis Wounds: wounds noted Psych mental status grossly normal and affect normal Debridement Note Debridement Note Post-Debridement Measurements and Additional Note: Post-Debridement Measurements/Treatment WC - Nurse 1 - General Ulcer Assessment Start: 10/06/20 10:27 Freq: Status: Active Protocol: WC.LOWEXT Activity Type Activity Date Activity User E-Sign Co-Sign Detail Recorded Client Recorded Date Recorded By Document 10/06/20 10:27 RB [id number] 10/06/20 10:29 RB Document 10/13/20 10:50 RB [id number] 10/13/20 10:51 RB Document 10/20/20 09:12 MS [id number] 10/20/20 09:23 MS Document 10/27/20 10:12 JF [id number] 10/27/20 10:17 JF 10/06/20 10/13/20 10/20/20 10:27 10:50 09:12 WC - Today's Visit Information Type of service Follow-up Visit Follow-up Visit Follow-up Visit (Physician/HEEL LINING PASTER (Physician/HEEL LINING PASTER (Physician/HEEL LINING PASTER ) ) ) Arrival Mode Ambulatory Ambulatory Ambulatory Transfer Assistance None None Patient Identification Verified (Name & Yes Yes Yes ) Patient Requires Transmission-Based No No No Precautions Safety Precautions NA NA Height and Weight Body Mass Index (BMI) 26.9 26.9 26.9 BMI Classification Overweight Overweight Overweight Vital Signs Temperature (97.8 F-99.1 F) 97.3 F L 97.3 F L 97.1 F L Temperature Source Temporal Temporal Temporal Pulse Rate (60-100) 75 76 75 Pulse Location Monitor Monitor Monitor Respiratory Rate (12-18) 18 18 16 Respiratory rate source Observation Observation Observation Blood Pressure (90/60-120/80) 155/62 H 157/53 H 152/72 H Blood Pressure Mean (mm Hg) 93 87 98 Source Monitor Monitor Monitor Position Semi-Fowlers Semi-Fowlers Sitting Blood Pressure Location Left Arm Left Arm Left Arm History Since Last Visit- (Skip if this is Patient's initial visit) Have you changed medications since your No No No last visit? Any new allergies or adverse reactions No No No Had a fall/change in ADL's that may No No No increase risk of falls Signs or symptoms of abuse and/or No No No neglect since last visit Have you been in the hospital since your No No No last visit? Has dressing in place as prescribed Yes Yes Yes Has compression in place as prescribed No No N/A Has offloadiing in place as prescribed No No N/A Experienced any changes in pain level or No No No management Left Footwear Regular Shoe Regular Shoe Right Footwear Regular Shoe Regular Shoe Pain Scale: 0-10 Numeric Is Patient Pain Free? Yes Yes Yes 10/27/20 10:12 WC - Today's Visit Information Type of service Follow-up Visit (Physician/HEEL LINING PASTER ) Arrival Mode Ambulatory Transfer Assistance Patient Identification Verified (Name & No ) Patient Requires Transmission-Based No Precautions Safety Precautions Height and Weight Body Mass Index (BMI) 26.9 BMI Classification Overweight Vital Signs Temperature (97.8 F-99.1 F) 98.1 F Temperature Source Temporal Pulse Rate (60-100) 85 Pulse Location Monitor Respiratory Rate (12-18) 16 Respiratory rate source Observation Blood Pressure (90/60-120/80) 155/74 H Blood Pressure Mean (mm Hg) 101 Source Monitor Position Semi-Fowlers Blood Pressure Location Left Arm History Since Last Visit- (Skip if this is Patient's initial visit) Have you changed medications since your No last visit? Any new allergies or adverse reactions No Had a fall/change in ADL's that may No increase risk of falls Signs or symptoms of abuse and/or No neglect since last visit Have you been in the hospital since your No last visit? Has dressing in place as prescribed Yes Has compression in place as prescribed N/A Has offloadiing in place as prescribed N/A Experienced any changes in pain level or No management Left Footwear Regular Shoe Right Footwear Regular Shoe Pain Scale: 0-10 Numeric Is Patient Pain Free? Yes - Nurse 1 - General Ulcer Measurement Start: 10/06/20 10:27 Freq: Status: Active Protocol: Activity Type Activity Date Activity User E-Sign Co-Sign Detail Recorded Client Recorded Date Recorded By Document 10/06/20 10:27 RB [id number] 10/06/20 10:29 RB Document 10/13/20 10:50 RB [id number] 10/13/20 10:51 RB Document 10/20/20 09:12 MS [id number] 10/20/20 09:23 MS Document 10/27/20 10:12 JF [id number] 10/27/20 10:17 JF 10/06/20 10/13/20 10/20/20 10:27 10:50 09:12 Wound Center Nurse 1 3-right shoulder -Combined with other wound No No -Current Size (cm) - Length 5 4.7 4.5 -Current Size (cm) - Width 3.8 5.8 4.8 -Current Size (cm) - Depth 0.1 0.1 0.1 -Total Square Cm 19.0 27.26 21.60 -Photo Taken -Epithelialization -Tunneling No No -Undermining/Tunneling No No -Circular Undermining No No -Exudate Amt Medium Medium Medium -Exudate Type Serosanguineous Serosanguineous Serosanguineous -Wound Margin Flat & Intact Flat & Intact Distinct, Outline Attached -Granulation Amt Medium (34-66%) Medium (34-66%) Medium (34-66%) -Granulation Quality [place] -Slough/Fibrin Yes Yes Yes -Necrosis Amt Small (1-33%) Small (1-33%) Small (1-33%) -Necrotic Tissue Type Adherent Slough Adherent Slough Adherent Slough -Structure Exposed N/A N/A -Texture (Vee-wound Skin Appearance) Assessed, Assessed, Assessed Scarring Scarring -Moisture (Vee-wound Skin Appearance) Assessed Assessed Assessed -Color (Vee-wound Skin Appearance) Assessed Assessed Assessed -Temperature (Vee-wound Skin No Abnormality No Abnormality No Abnormality Appearance) (Pt Warm) (Pt Warm) (Pt Warm) -Tenderness on Palpation (Vee-wound No No No Skin Appearance) -Ulcer Cleansing Rinsed/ Wound Cleanser Wound Cleanser Irrigated with Saline -Foul Odor after Cleansing No No No -Anesthetic Used 4% Lidocaine 4% Lidocaine 4% Lidocaine Solution Solution Solution Lower Limb Edema Present 10/27/20 10:12 Wound Center Nurse 1 3-right shoulder -Combined with other wound No -Current Size (cm) - Length 3.3 -Current Size (cm) - Width 2.5 -Current Size (cm) - Depth 0.1 -Total Square Cm 8.25 -Photo Taken No -Epithelialization Small 1-33% -Tunneling No -Undermining/Tunneling No -Circular Undermining No -Exudate Amt Medium -Exudate Type Serosanguineous -Wound Margin Flat & Intact -Granulation Amt Large (67-100%) -Granulation Quality Red -Slough/Fibrin No -Necrosis Amt None Present (0 %) -Necrotic Tissue Type -Structure Exposed N/A -Texture (Vee-wound Skin Appearance) Assessed -Moisture (Vee-wound Skin Appearance) Assessed,Dry/ Scaly -Color (Vee-wound Skin Appearance) Assessed -Temperature (Vee-wound Skin No Abnormality Appearance) (Pt Warm) -Tenderness on Palpation (Vee-wound No Skin Appearance) -Ulcer Cleansing Rinsed/ Irrigated with Saline -Foul Odor after Cleansing No -Anesthetic Used 4% Lidocaine Solution Lower Limb Edema Present NA WC - Nurse 2 - General Ulcer CM Notes Start: 10/06/20 10:27 Freq: Status: Active Protocol: Activity Type Activity Date Activity User E-Sign Co-Sign Detail Recorded Client Recorded Date Recorded By Document 10/06/20 10:51 MW [id number] 10/06/20 11:01 MW Document 10/13/20 11:08 MW [id number] 10/13/20 11:13 MW Document 10/20/20 10:13 MW [id number] 10/20/20 10:18 MW Document 10/27/20 12:28 PL [id number] 10/27/20 12:29 PL 10/06/20 10/13/20 10/20/20 10:51 11:08 10:13 Wound Center Nurse 2 3-right shoulder -Time 10:53 11:08 10:14 -Correct Patient Yes Yes Yes -Correct Side, Site, Position Yes Yes Yes -Correct Procedure Yes Yes Yes -Procedure Performed Yes Yes Yes -Type of Procedure Debridement Debridement Debridement -Clinical Debridement Subcutaneous Epidermis / Epidermis / Dermis Dermis -Tissue Removed Subcutaneous Epidermis Epidermis -Post Debridement (cm) - Length 5.5 4.7 4.1 -Post Debridement (cm) - Width 3.5 5.0 4.1 -Post Debridement (cm) - Depth 0.1 0.1 0.1 -Total Square (Post) (cm) 19.25 23.50 16.81 -Area of Debridement (cm) - Length 5.5 4.7 4.1 -Area of Debridement (cm) - Width 3.5 5.0 4.1 -Total Square (Area) (cm) 19.25 23.50 16.81 -Tunneling No No No -Undermining/Tunneling No No No -Circular Undermining No No No -Wound/Ulcer Outcome Not Healed Not Healed Not Healed -Ulcer Cleansing Rinsed/ Rinsed/ Rinsed/ Irrigated with Irrigated with Irrigated with Saline Saline Saline -Foul Odor after Cleansing No No No -Bioengineered Tissue No No No -Bleeding Controlled with Pressure Pressure Pressure -Offloading No No No -Treatment Response Procedure Procedure Procedure Tolerated Well Tolerated Well Tolerated Well -Debridement - Open, 1st 20sq cm Yes Yes -Debridement, Open, ea addt'l 20sq cm 1 or part thereof -Debridement - Subq, 1st 20sq cm Yes Pain Scale: 0-10 Numeric Is Patient Pain Free? Yes Yes Yes 10/27/20 12:28 Wound Center Nurse 2 3-right shoulder -Time 10:30 -Correct Patient Yes -Correct Side, Site, Position Yes -Correct Procedure Yes -Procedure Performed Yes -Type of Procedure Debridement -Clinical Debridement Epidermis / Dermis -Tissue Removed Epidermis, Dermis -Post Debridement (cm) - Length 3.3 -Post Debridement (cm) - Width 2.8 -Post Debridement (cm) - Depth 0.1 -Total Square (Post) (cm) 9.24 -Area of Debridement (cm) - Length 3.3 -Area of Debridement (cm) - Width 2.8 -Total Square (Area) (cm) 9.24 -Tunneling No -Undermining/Tunneling No -Circular Undermining No -Wound/Ulcer Outcome Not Healed -Ulcer Cleansing Rinsed/ Irrigated with Saline -Foul Odor after Cleansing No -Bioengineered Tissue No -Bleeding Controlled with -Offloading -Treatment Response -Debridement - Open, 1st 20sq cm Yes -Debridement, Open, ea addt'l 20sq cm or part thereof -Debridement - Subq, 1st 20sq cm Pain Scale: 0-10 Numeric Is Patient Pain Free? Yes - Nurse 3 - General Ulcer D/C NN Start: 10/06/20 10:27 Freq: Status: Active Protocol: Activity Type Activity Date Activity User E-Sign Co-Sign Detail Recorded Client Recorded Date Recorded By Document 10/06/20 11:01 MW [id number] 10/06/20 11:02 MW Document 10/13/20 11:14 MW [id number] 10/13/20 11:15 MW Document 10/20/20 10:20 MW [id number] 10/20/20 10:21 MW Document 10/27/20 10:43 JF [id number] 10/27/20 10:44 [id number] 10/06/20 10/13/20 10/20/20 11:01 11:14 10:20 Wound Care Nurse 3 3-right shoulder -Ulcer Cleansing Rinsed/ Rinsed/ Rinsed/ Irrigated with Irrigated with Irrigated with Saline Saline Saline -Foul Odor after Cleansing No No No -Negative Pressure Wound Therapy N/A N/A N/A -Primary Dressing Applied C Hydrogel ($), C Hydrogel ($), NonAdherent NonAdherent NonAdherent Contact Layer Contact Layer Contact Layer -Other Dressing hydrogel -Primary Dressing Covered/Secured with Dry Gauze, Dry Gauze, Dry Gauze, Secured with Secured with Secured with Tape Tape Tape -Other Covering Treatment Response Procedure Procedure Procedure Tolerated Well Tolerated Well Tolerated Well Pain Scale: 0-10 Numeric Is Patient Pain Free? Yes Yes Yes Teaching: Wound Center Dressing Your Wound -Person Taught Patient,Family Patient Patient,Family -Teaching Method Discussion, Discussion, Discussion, Demonstration Demonstration Demonstration -Response to teaching Verbalize Verbalize Verbalize understanding understanding understanding WC - Visit Discharge Discharge Condition Stable Stable Stable Ambulatory Status Ambulatory Ambulatory Ambulatory Transportation Private Auto Private Auto Private Auto Accompanied by daughter daughter daughter Medication Reconcilliation completed & No No No provided to patient/care provider Clinical Summary of Care Provided Yes Yes Yes 10/27/20 10:43 Wound Care Nurse 3 3-right shoulder -Ulcer Cleansing Rinsed/ Irrigated with Saline -Foul Odor after Cleansing No -Negative Pressure Wound Therapy -Primary Dressing Applied NonAdherent Contact Layer -Other Dressing -Primary Dressing Covered/Secured with Dry Gauze, Secured with Tape -Other Covering COLLAGEN HYDROGEL USED, PATIENT HAS ENOUGH GEL AT HOME. NO TUBES GIVEN TODA Treatment Response Pain Scale: 0-10 Numeric Is Patient Pain Free? Yes Teaching: Wound Center Dressing Your Wound -Person Taught -Teaching Method -Response to teaching WC - Visit Discharge Discharge Condition Stable Ambulatory Status Ambulatory Transportation Private Auto Accompanied by Medication Reconcilliation completed & Yes provided to patient/care provider Clinical Summary of Care Provided Yes Wound debrided: right shoulder Laterality: Right Type of Debridement: Selective debridement Anesthesia Used: 4% Lidocaine Solution Depth: Down to and including healthy tissue and in the subcutaneous layer Percentage of wound debrided: 100 Instrument Used: - (gauze) Tissue Removed: Yellow slough, devitalized tissue Severity: Fat Layer Exposed Amount of bleeding with debridement: Mild Bleeding Controlled with: Compression and gauze Patient tolerated procedure: Patient tolerated procedure well Assessment/Plan Assessment/Plan (1) Non-healing wound of right upper extremity: CODE(S): S41.101A - Unspecified open wound of right upper arm, initial encounter (2) Abrasion of right upper arm, subsequent encounter: CODE(S): S40.811D - Abrasion of right upper arm, subsequent encounter (3) Stage 3 severe COPD by GOLD classification: CODE(S): J44.9 - Chronic obstructive pulmonary disease, unspecified (4) Chronic kidney disease, stage 3a: CODE(S): N18.31 - Chronic kidney disease, stage 3a PLAN: Alana's wound was evaluated and debrided today at the wound healing center as above in the clinical panel. She tolerated the procedure well. There are no overt signs of infection and I do not feel that wound culture is necessary at this time. Will consider this if there is no improvement or signs of infection develop. She was approved for [employer] and Nush[employer] application. Nushield application held again this week. Will have her continue to apply hydrogel daily and adaptic touch and covered with gauze. She was encouraged to increase protein in her diet and consider vitamin C supplement. Offloading was discussed but I do not think this will be an issue given the location of her wounds. Her vascular status appears intact. She does not require home health assistance with dressings at this time due to family support. She was advised to call with any questions or concerns or signs of infection such as increased drainage, pain, erythema or odor. She will f/u in 1 week.
== END 2020-10-30 23:59 ==
LOC: WC 10:15
PROVIDERS: PCP Student in an Organized Health Care Education/Training Program; Visit Provider Family Medicine
DX: S40.811D Abrasion of right upper arm, subsequent encounter (principal); N18.31 Chronic kidney disease, stage 3a; J44.9 Chronic obstructive pulmonary disease, unspecified; I25.10 Atherosclerotic heart disease of native coronary artery without angina pectoris; I50.9 Heart failure, unspecified; J96.10 Chronic respiratory failure, unspecified whether with hypoxia or hypercapnia; Z63.4 Disappearance and death of family member; Z99.81 Dependence on supplemental oxygen
CPT/HCPCS: 11042; 97597; 97598

== ENCOUNTER 2020-11-24 09:30 | Outpatient (RCR) | payer MEDICARE, SELFPAY ==
[2020-10-31 00:33] VITALS: BP 155/74; PULSE 85; RESP 16; TEMP 36.7
[2020-11-03 10:34] VITALS: BP 150/66; PULSE 80; RESP 18; TEMP 36.4; BMI 26.9
--- NOTE | 2020-11-03 14:18 | PCM.WC.PN ---
History of Present Illness Date of Service: 11/03/20 Chief Complaint: Abrasions of right upper arm, right hand and left hand from fall involving treadmill friction cervantes History of Wound: Alana is a pleasant 80 yo woman with oxygen dependent COPD, chronic respiratory failure, CHF and CAD who presents to the wound healing center for evaluation and treatment of nonhealing wounds of her right upper arm, right dorsal hand and left hand which occurred on 08/12/2020 when she fell from her treadmill while it was running and had difficulty moving away from the treadmill. Her arm and hands were abraded by the treadmill belt. She also fractured her right humerus in the fall. She went to the emergency room and was referred to orthopedics for fracture of her humerus. She had left the wounds on her right shoulder, right hand and left hand open to the air for a few days after the injury and since then she has been applying triple antibiotic ointment and Telfa bandages. She was seen by orthopedics and referred to the wound healing center for further treatment of her wounds. She did not have any cultures of her wounds and was not placed on any antibiotics. She is in otherwise a good state of health and is not diabetic. She is active and has help from her daughters. She lives alone and lost her in April 2020. Her wounds have mild-moderate drainage. She denies any erythema, increased pain, odor. Subjective Subjective Her wound is improved from last week and she tolerated treatment with hydrogel and adaptic. Denies increased drainage, fever, chills, or erythema. Objective Data Objective Data Vital Signs: Vital Signs Temp Pulse Resp BP 97.5 F L 80 18 150/66 H 11/03/20 10:34 11/03/20 10:34 11/03/20 10:34 11/03/20 10:34 Oxygen Flow Rate (L/min) 2 Weight: 56.699 kg Body Mass Index (BMI) 26.9 Physical Exam Const alert, oriented x3 and no apparent distress HEENT normocephalic and head/scalp atraumatic Resp normal respiratory effort and normal air movement Cardio regular rate and regular rhythm Extremity normal capillary refill Skin General Skin Exam: erythema Wounds: wounds noted Wound Narrative: as in clinical panel Psych mental status grossly normal, thought process normal, cooperative and affect normal Debridement Note Debridement Note Post-Debridement Measurements and Additional Note: Post-Debridement Measurements/Treatment WC - Nurse 1 - General Ulcer Assessment Start: 11/03/20 10:34 Freq: Status: Active Protocol: AILYN.KRIS Activity Type Activity Date Activity User E-Sign Co-Sign Detail Recorded Client Recorded Date Recorded By Document 11/03/20 10:34 LAURA [id number] 11/03/20 10:40 RB 11/03/20 10:34 - Today's Visit Information Type of service Follow-up Visit (Physician/MOCCASIN SEWER ) Arrival Mode Ambulatory Transfer Assistance None Patient Identification Verified (Name & Yes ) Patient Requires Transmission-Based No Precautions Height and Weight Body Mass Index (BMI) 26.9 BMI Classification Overweight Vital Signs Temperature (97.8 F-99.1 F) 97.5 F L Temperature Source Temporal Pulse Rate (60-100) 80 Pulse Location Monitor Respiratory Rate (12-18) 18 Respiratory rate source Observation Blood Pressure (90/60-120/80) 150/66 H Blood Pressure Mean (mm Hg) 94 Source Monitor Position Semi-Fowlers Blood Pressure Location Left Arm History Since Last Visit- (Skip if this is Patient's initial visit) Have you changed medications since your No last visit? Any new allergies or adverse reactions No Had a fall/change in ADL's that may No increase risk of falls Signs or symptoms of abuse and/or No neglect since last visit Have you been in the hospital since your No last visit? Has dressing in place as prescribed Yes Has compression in place as prescribed No Has offloadiing in place as prescribed No Experienced any changes in pain level or No management Left Footwear Regular Shoe Right Footwear Regular Shoe Pain Scale: 0-10 Numeric Is Patient Pain Free? Yes - Nurse 1 - General Ulcer Measurement Start: 11/03/20 10:34 Freq: Status: Active Protocol: Activity Type Activity Date Activity User E-Sign Co-Sign Detail Recorded Client Recorded Date Recorded By Document 11/03/20 10:34 LAURA [id number] 11/03/20 10:40 LAURA 11/03/20 10:34 Wound Center Nurse 1 3-right shoulder -Combined with other wound No -Current Size (cm) - Length 2 -Current Size (cm) - Width 2.5 -Current Size (cm) - Depth 0.1 -Total Square Cm 5.0 -Tunneling No -Undermining/Tunneling No -Circular Undermining No -Exudate Amt Medium -Exudate Type Serosanguineous -Wound Margin Flat & Intact -Granulation Amt Medium (34-66%) -Granulation Quality Red -Slough/Fibrin Yes -Necrosis Amt Small (1-33%) -Necrotic Tissue Type Adherent Slough -Structure Exposed N/A -Texture (Vee-wound Skin Appearance) Assessed, Scarring -Moisture (Vee-wound Skin Appearance) Assessed -Color (Vee-wound Skin Appearance) Assessed -Temperature (Vee-wound Skin No Abnormality Appearance) (Pt Warm) -Tenderness on Palpation (Vee-wound No Skin Appearance) -Ulcer Cleansing Rinsed/ Irrigated with Saline -Foul Odor after Cleansing No -Anesthetic Used 4% Lidocaine Solution AILYN - Nurse 2 - General Ulcer CM Notes Start: 11/03/20 10:34 Freq: Status: Active Protocol: Activity Type Activity Date Activity User E-Sign Co-Sign Detail Recorded Client Recorded Date Recorded By Document 11/03/20 10:54 MW [id number] 11/03/20 11:01 MW 11/03/20 10:54 Wound Center Nurse 2 -Time 10:55 -Correct Patient Yes -Correct Side, Site, Position Yes -Correct Procedure Yes -Procedure Performed Yes -Type of Procedure Debridement -Clinical Debridement Epidermis / Dermis -Tissue Removed Epidermis -Post Debridement (cm) - Length 2.4 -Post Debridement (cm) - Width 1.9 -Post Debridement (cm) - Depth 0.1 -Total Square (Post) (cm) 4.56 -Area of Debridement (cm) - Length 2.4 -Area of Debridement (cm) - Width 1.9 -Total Square (Area) (cm) 4.56 -Tunneling No -Undermining/Tunneling No -Circular Undermining No -Wound/Ulcer Outcome Not Healed -Ulcer Cleansing Rinsed/ Irrigated with Saline -Foul Odor after Cleansing No -Bioengineered Tissue No -Bleeding Controlled with Pressure -Offloading No -Debridement - Open, 1st 20sq cm Yes Pain Scale: 0-10 Numeric Is Patient Pain Free? Yes AILYN - Nurse 3 - General Ulcer D/C NN Start: 11/03/20 10:34 Freq: Status: Active Protocol: Activity Type Activity Date Activity User E-Sign Co-Sign Detail Recorded Client Recorded Date Recorded By Document 11/03/20 11:01 MW [id number] 11/03/20 11:02 MW 11/03/20 11:01 Wound Care Nurse 3 3-right shoulder -Ulcer Cleansing Rinsed/ Irrigated with Saline -Foul Odor after Cleansing No -Negative Pressure Wound Therapy N/A -Primary Dressing Applied NonAdherent Contact Layer -Other Dressing c.hydrogel -Primary Dressing Covered/Secured with Dry Gauze, Secured with Tape Treatment Response Procedure Tolerated Well Pain Scale: 0-10 Numeric Is Patient Pain Free? Yes Teaching: Wound Center Dressing Your Wound -Person Taught Patient -Teaching Method Discussion -Response to teaching Verbalize understanding WC - Visit Discharge Discharge Condition Stable Ambulatory Status Ambulatory Transportation Private Auto Accompanied by self Medication Reconcilliation completed & No provided to patient/care provider Clinical Summary of Care Provided Yes Wound debrided: right shoulder Laterality: Right Type of Debridement: Selective debridement Anesthesia Used: 4% Lidocaine Solution Depth: in the subcutaneous layer Percentage of wound debrided: 100 Instrument Used: - (gauze) Tissue Removed: Yellow slough, devitalized tissue Severity: Fat Layer Exposed Amount of bleeding with debridement: Mild Bleeding Controlled with: Compression and gauze Patient tolerated procedure: Patient tolerated procedure well Assessment/Plan Assessment/Plan (1) CAD (coronary artery disease): CODE(S): I25.10 - Atherosclerotic heart disease of [place] coronary artery without angina pectoris QUALIFIERS: Coronary Disease-Associated Artery/Lesion type: unspecified vessel or lesion type [place] vs. transplanted heart: [place] heart Associated angina: unspecified whether angina present Qualified Code(s): I25.10 - Atherosclerotic heart disease of [place] coronary artery without angina pectoris (2) Congestive heart failure with right heart failure: CODE(S): I50.810 - Right heart failure, unspecified (3) Chronic kidney disease, stage 3a: CODE(S): N18.31 - Chronic kidney disease, stage 3a (4) Non-healing wound of right upper extremity: CODE(S): S41.101A - Unspecified open wound of right upper arm, initial encounter (5) Abrasion of right upper arm, subsequent encounter: CODE(S): S40.811D - Abrasion of right upper arm, subsequent encounter (6) Stage 3 severe COPD by GOLD classification: CODE(S): J44.9 - Chronic obstructive pulmonary disease, unspecified PLAN: Alana's wound was evaluated and debrided today at the wound healing center as above in the clinical panel. She tolerated the procedure well. There are no overt signs of infection and I do not feel that wound culture is necessary at this time. Will consider this if there is no improvement or signs of infection develop. She was approved for Puraply and Nushield application. Nushield application held again this week. Will have her continue to apply hydrogel daily and adaptic touch and covered with gauze. She was encouraged to increase protein in her diet and consider vitamin C supplement. Offloading was discussed but I do not think this will be an issue given the location of her wounds. Her vascular status appears intact. She does not require home health assistance with dressings at this time due to family support. She was advised to call with any questions or concerns or signs of infection such as increased drainage, pain, erythema or odor. She will f/u in 1 week.
[2020-11-10 10:36] VITALS: BP 162/64; PULSE 72; RESP 18; TEMP 36.6; BMI 26.9
--- NOTE | 2020-11-10 13:02 | PCM.WC.PN ---
History of Present Illness Date of Service: 11/10/20 Chief Complaint: Abrasions of right upper arm, right hand and left hand from fall involving treadmill friction cervantes History of Wound: Alana is a pleasant 80 yo woman with oxygen dependent COPD, chronic respiratory failure, CHF and CAD who presents to the wound healing center for evaluation and treatment of nonhealing wounds of her right upper arm, right dorsal hand and left hand which occurred on 08/12/2020 when she fell from her treadmill while it was running and had difficulty moving away from the treadmill. Her arm and hands were abraded by the treadmill belt. She also fractured her right humerus in the fall. She went to the emergency room and was referred to orthopedics for fracture of her humerus. She had left the wounds on her right shoulder, right hand and left hand open to the air for a few days after the injury and since then she has been applying triple antibiotic ointment and Telfa bandages. She was seen by orthopedics and referred to the wound healing center for further treatment of her wounds. She did not have any cultures of her wounds and was not placed on any antibiotics. She is in otherwise a good state of health and is not diabetic. She is active and has help from her daughters. She lives alone and lost her in April 2020. Her wounds have mild drainage. She denies any erythema, increased pain, odor. Subjective Subjective Her wound is improved from last week and she tolerated treatment with hydrogel and adaptic. Denies increased drainage, fever, chills, or erythema. Objective Data Objective Data Vital Signs: Vital Signs Temp Pulse Resp BP 97.8 F 72 18 162/64 H 11/10/20 10:36 11/10/20 10:36 11/10/20 10:36 11/10/20 10:36 Oxygen Flow Rate (L/min) 2 Weight: 56.699 kg Body Mass Index (BMI) 26.9 Physical Exam Const alert, oriented x3 and no apparent distress HEENT normocephalic and head/scalp atraumatic Resp normal respiratory effort and normal air movement Cardio regular rate and regular rhythm Extremity normal capillary refill Skin General Skin Exam: erythema Wounds: wounds noted Wound Narrative: as in clinical panel Psych mental status grossly normal, thought process normal, cooperative and affect normal Debridement Note Debridement Note Post-Debridement Measurements and Additional Note: Post-Debridement Measurements/Treatment WC - Nurse 1 - General Ulcer Assessment Start: 11/03/20 10:34 Freq: Status: Active Protocol: AILYN.LOWEXSebas Activity Type Activity Date Activity User E-Sign Co-Sign Detail Recorded Client Recorded Date Recorded By Document 11/03/20 10:34 RB [id number] 11/03/20 10:40 RB Document 11/10/20 10:36 RB [id number] 11/10/20 10:41 RB 11/03/20 11/10/20 10:34 10:36 - Today's Visit Information Type of service Follow-up Visit Follow-up Visit (Physician/TRAINING AND DEVELOPMENT COORDINATOR (Physician/TRAINING AND DEVELOPMENT COORDINATOR ) ) Arrival Mode Ambulatory Ambulatory Transfer Assistance None None Patient Identification Verified (Name & Yes Yes ) Patient Requires Transmission-Based No No Precautions Height and Weight Body Mass Index (BMI) 26.9 26.9 BMI Classification Overweight Overweight Vital Signs Temperature (97.8 F-99.1 F) 97.5 F L 97.8 F Temperature Source Temporal Temporal Pulse Rate (60-100) 80 72 Pulse Location Monitor Monitor Respiratory Rate (12-18) 18 18 Respiratory rate source Observation Observation Blood Pressure (90/60-120/80) 150/66 H 162/64 H Blood Pressure Mean (mm Hg) 94 96 Source Monitor Monitor Position Semi-Fowlers Semi-Fowlers Blood Pressure Location Left Arm Left Arm History Since Last Visit- (Skip if this is Patient's initial visit) Have you changed medications since your No No last visit? Any new allergies or adverse reactions No No Had a fall/change in ADL's that may No No increase risk of falls Signs or symptoms of abuse and/or No No neglect since last visit Have you been in the hospital since your No No last visit? Has dressing in place as prescribed Yes Yes Has compression in place as prescribed No No Has offloadiing in place as prescribed No No Experienced any changes in pain level or No No management Left Footwear Regular Shoe Right Footwear Regular Shoe Pain Scale: 0-10 Numeric Is Patient Pain Free? Yes Yes - Nurse 1 - General Ulcer Measurement Start: 11/03/20 10:34 Freq: Status: Active Protocol: Activity Type Activity Date Activity User E-Sign Co-Sign Detail Recorded Client Recorded Date Recorded By Document 11/03/20 10:34 RB [id number] 11/03/20 10:40 RB Document 06/11/21 10:36 RB [id number] 11/10/20 10:41 RB 11/03/20 11/10/20 10:34 10:36 Wound Center Nurse 1 3-right shoulder -Combined with other wound No No -Current Size (cm) - Length 2 2.5 -Current Size (cm) - Width 2.5 1.5 -Current Size (cm) - Depth 0.1 0.1 -Total Square Cm 5.0 3.75 -Tunneling No No -Undermining/Tunneling No No -Circular Undermining No No -Exudate Amt Medium Small -Exudate Type Serosanguineous Serosanguineous -Wound Margin Flat & Intact Flat & Intact -Granulation Amt Medium (34-66%) Large (67-100%) -Granulation Quality [place],Red -Slough/Fibrin Yes Yes -Necrosis Amt Small (1-33%) Small (1-33%) -Necrotic Tissue Type Adherent Slough Adherent Slough -Structure Exposed N/A N/A -Texture (Vee-wound Skin Appearance) Assessed, Assessed, Scarring Scarring -Moisture (Vee-wound Skin Appearance) Assessed Assessed -Color (Vee-wound Skin Appearance) Assessed Assessed -Temperature (Vee-wound Skin No Abnormality No Abnormality Appearance) (Pt Warm) (Pt Warm) -Tenderness on Palpation (Vee-wound No No Skin Appearance) -Ulcer Cleansing Rinsed/ Wound Cleanser Irrigated with Saline -Foul Odor after Cleansing No No -Anesthetic Used 4% Lidocaine 4% Lidocaine Solution Solution WC - Nurse 2 - General Ulcer CM Notes Start: 11/03/20 10:34 Freq: Status: Active Protocol: Activity Type Activity Date Activity User E-Sign Co-Sign Detail Recorded Client Recorded Date Recorded By Document 11/03/20 10:54 MW [id number] 11/03/20 11:01 MW Document 11/10/20 11:07 MW [id number] 11/10/20 11:12 MW 11/03/20 11/10/20 10:54 11:07 Wound Center Nurse 2 3-right shoulder -Time 10:55 11:08 -Correct Patient Yes Yes -Correct Side, Site, Position Yes Yes -Correct Procedure Yes Yes -Procedure Performed Yes Yes -Type of Procedure Debridement Debridement -Clinical Debridement Epidermis / Epidermis / Dermis Dermis -Tissue Removed Epidermis Epidermis -Post Debridement (cm) - Length 2.4 1.2 -Post Debridement (cm) - Width 1.9 1.2 -Post Debridement (cm) - Depth 0.1 0.1 -Total Square (Post) (cm) 4.56 1.44 -Area of Debridement (cm) - Length 2.4 1.2 -Area of Debridement (cm) - Width 1.9 1.2 -Total Square (Area) (cm) 4.56 1.44 -Tunneling No No -Undermining/Tunneling No No -Circular Undermining No No -Wound/Ulcer Outcome Not Healed Not Healed -Ulcer Cleansing Rinsed/ Rinsed/ Irrigated with Irrigated with Saline Saline -Foul Odor after Cleansing No No -Bioengineered Tissue No No -Bleeding Controlled with Pressure Pressure -Offloading No No -Treatment Response Procedure Tolerated Well -Debridement - Open, 1st 20sq cm Yes Yes Pain Scale: 0-10 Numeric Is Patient Pain Free? Yes Yes - Nurse 3 - General Ulcer D/C NN Start: 11/03/20 10:34 Freq: Status: Active Protocol: Activity Type Activity Date Activity User E-Sign Co-Sign Detail Recorded Client Recorded Date Recorded By Document 11/03/20 11:01 MW [id number] 11/03/20 11:02 MW Document 11/10/20 11:12 MW [id number] 11/10/20 11:12 MW 11/03/20 11/10/20 11:01 11:12 Wound Care Nurse 3 3-right shoulder -Ulcer Cleansing Rinsed/ Rinsed/ Irrigated with Irrigated with Saline Saline -Foul Odor after Cleansing No No -Negative Pressure Wound Therapy N/A N/A -Primary Dressing Applied NonAdherent NonAdherent Contact Layer Contact Layer -Other Dressing c.hydrogel c.hydrogel -Primary Dressing Covered/Secured with Dry Gauze, Dry Gauze, Secured with Secured with Tape Tape Treatment Response Procedure Procedure Tolerated Well Tolerated Well Pain Scale: 0-10 Numeric Is Patient Pain Free? Yes Yes Teaching: Wound Center Dressing Your Wound -Person Taught Patient Patient -Teaching Method Discussion Discussion, Demonstration -Response to teaching Verbalize Verbalize understanding understanding WC - Visit Discharge Discharge Condition Stable Stable Ambulatory Status Ambulatory Ambulatory Transportation Private Auto Private Auto Accompanied by self self Medication Reconcilliation completed & No No provided to patient/care provider Clinical Summary of Care Provided Yes Yes Wound debrided: right shoulder Laterality: Right Type of Debridement: Selective debridement Anesthesia Used: 4% Lidocaine Solution Depth: Down to and including healthy tissue and in the subcutaneous layer Percentage of wound debrided: 100 Instrument Used: - (gauze) Tissue Removed: Yellow slough, devitalized tissue Severity: Fat Layer Exposed Amount of bleeding with debridement: Mild Bleeding Controlled with: Compression and gauze Patient tolerated procedure: Patient tolerated procedure well Assessment/Plan Assessment/Plan (1) CAD (coronary artery disease): CODE(S): I25.10 - Atherosclerotic heart disease of [place] coronary artery without angina pectoris QUALIFIERS: Coronary Disease-Associated Artery/Lesion type: unspecified vessel or lesion type [place] vs. transplanted heart: [place] heart Associated angina: unspecified whether angina present Qualified Code(s): I25.10 - Atherosclerotic heart disease of [place] coronary artery without angina pectoris (2) Congestive heart failure with right heart failure: CODE(S): I50.810 - Right heart failure, unspecified (3) Chronic kidney disease, stage 3a: CODE(S): N18.31 - Chronic kidney disease, stage 3a (4) Non-healing wound of right upper extremity: CODE(S): S41.101A - Unspecified open wound of right upper arm, initial encounter (5) Abrasion of right upper arm, subsequent encounter: CODE(S): S40.811D - Abrasion of right upper arm, subsequent encounter (6) Stage 3 severe COPD by GOLD classification: CODE(S): J44.9 - Chronic obstructive pulmonary disease, unspecified PLAN: Alana's wound was evaluated and debrided today at the wound healing center as above in the clinical panel. She tolerated the procedure well. There are no overt signs of infection and I do not feel that wound culture is necessary at this time. Will consider this if there is no improvement or signs of infection develop. She was approved for Puraply and Nushield application. Nushield application held again this week. Will have her continue to apply hydrogel daily and adaptic touch and covered with gauze. She was encouraged to increase protein in her diet and consider vitamin C supplement. Offloading was discussed but I do not think this will be an issue given the location of her wounds. Her vascular status appears intact. She does not require home health assistance with dressings at this time due to family support. She was advised to call with any questions or concerns or signs of infection such as increased drainage, pain, erythema or odor. She will f/u in 1 week.
[2020-11-17 09:38] VITALS: BP 139/56; PULSE 75; RESP 18; TEMP 36.4; BMI 26.9
--- NOTE | 2020-11-17 10:09 | PCM.WC.PN ---
History of Present Illness Date of Service: 11/17/20 Chief Complaint: Abrasions of right upper arm, right hand and left hand from fall involving treadmill friction cervantes History of Wound: Alana is a pleasant 80 yo woman with oxygen dependent COPD, chronic respiratory failure, CHF and CAD who presents to the wound healing center for evaluation and treatment of nonhealing wounds of her right upper arm, right dorsal hand and left hand which occurred on 08/12/2020 when she fell from her treadmill while it was running and had difficulty moving away from the treadmill. Her arm and hands were abraded by the treadmill belt. She also fractured her right humerus in the fall. She went to the emergency room and was referred to orthopedics for fracture of her humerus. She had left the wounds on her right shoulder, right hand and left hand open to the air for a few days after the injury and since then she has been applying triple antibiotic ointment and Telfa bandages. She was seen by orthopedics and referred to the wound healing center for further treatment of her wounds. She did not have any cultures of her wounds and was not placed on any antibiotics. She is in otherwise a good state of health and is not diabetic. She is active and has help from her daughters. She lives alone and lost her in April 2020. Her wounds have mild drainage. She denies any erythema, increased pain, odor. Subjective Subjective Her wound is improved from last week and she tolerated treatment with hydrogel and adaptic. Denies increased drainage, fever, chills, or erythema. Objective Data Objective Data Vital Signs: Vital Signs Temp Pulse Resp BP 97.5 F L 75 18 139/56 H 11/17/20 09:38 11/17/20 09:38 11/17/20 09:38 11/17/20 09:38 Oxygen Flow Rate (L/min) 2 Weight: 56.699 kg Body Mass Index (BMI) 26.9 Physical Exam Const alert, oriented x3 and no apparent distress HEENT normocephalic and head/scalp atraumatic Resp normal respiratory effort and normal air movement Cardio regular rate and regular rhythm Extremity normal capillary refill Skin General Skin Exam: erythema Wounds: wounds noted Wound Narrative: as in clinical panel Psych mental status grossly normal, thought process normal, cooperative and affect normal Debridement Note Debridement Note Post-Debridement Measurements and Additional Note: Post-Debridement Measurements/Treatment WC - Nurse 1 - General Ulcer Assessment Start: 11/03/20 10:34 Freq: Status: Active Protocol: WC.LOWEXT Activity Type Activity Date Activity User E-Sign Co-Sign Detail Recorded Client Recorded Date Recorded By Document 11/03/20 10:34 RB [id number] 11/03/20 10:40 RB Document 11/10/20 10:36 RB [id number] 11/10/20 10:41 RB Document 11/17/20 09:38 RB [id number] 11/17/20 09:40 RB 11/03/20 11/10/20 11/17/20 10:34 10:36 09:38 WC - Today's Visit Information Type of service Follow-up Visit Follow-up Visit Follow-up Visit (Physician/[employer] (Physician/[employer] (Physician/[employer] ) ) ) Arrival Mode Ambulatory Ambulatory Ambulatory Transfer Assistance None None None Patient Identification Verified (Name & Yes Yes Yes ) Patient Requires Transmission-Based No No No Precautions Height and Weight Body Mass Index (BMI) 26.9 26.9 26.9 BMI Classification Overweight Overweight Overweight Vital Signs Temperature (97.8 F-99.1 F) 97.5 F L 97.8 F 97.5 F L Temperature Source Temporal Temporal Temporal Pulse Rate (60-100) 80 72 75 Pulse Location Monitor Monitor Monitor Respiratory Rate (12-18) 18 18 18 Respiratory rate source Observation Observation Observation Blood Pressure (90/60-120/80) 150/66 H 162/64 H 139/56 H Blood Pressure Mean (mm Hg) 94 96 83 Source Monitor Monitor Monitor Position Semi-Fowlers Semi-Fowlers Semi-Fowlers Blood Pressure Location Left Arm Left Arm Left Arm History Since Last Visit- (Skip if this is Patient's initial visit) Have you changed medications since your No No No last visit? Any new allergies or adverse reactions No No No Had a fall/change in ADL's that may No No No increase risk of falls Signs or symptoms of abuse and/or No No No neglect since last visit Have you been in the hospital since your No No No last visit? Has dressing in place as prescribed Yes Yes Yes Has compression in place as prescribed No No No Has offloadiing in place as prescribed No No No Experienced any changes in pain level or No No No management Left Footwear Regular Shoe Regular Shoe Right Footwear Regular Shoe Regular Shoe Pain Scale: 0-10 Numeric Is Patient Pain Free? Yes Yes Yes - Nurse 1 - General Ulcer Measurement Start: 11/03/20 10:34 Freq: Status: Active Protocol: Activity Type Activity Date Activity User E-Sign Co-Sign Detail Recorded Client Recorded Date Recorded By Document 11/03/20 10:34 RB [id number] 11/03/20 10:40 RB Document 11/10/20 10:36 RB [id number] 11/10/20 10:41 RB Document 11/17/20 09:38 RB [id number] 11/17/20 09:40 RB 11/03/20 11/10/20 11/17/20 10:34 10:36 09:38 Wound Center Nurse 1 3-right shoulder -Combined with other wound No No No -Current Size (cm) - Length 2 2.5 1 -Current Size (cm) - Width 2.5 1.5 0.8 -Current Size (cm) - Depth 0.1 0.1 0.1 -Total Square Cm 5.0 3.75 0.8 -Tunneling No No No -Undermining/Tunneling No No No -Circular Undermining No No No -Exudate Amt Medium Small Small -Exudate Type Serosanguineous Serosanguineous Serosanguineous -Wound Margin Flat & Intact Flat & Intact Flat & Intact -Granulation Amt Medium (34-66%) Large (67-100%) Medium (34-66%) -Granulation Quality [place],Red [place],Red -Slough/Fibrin Yes Yes Yes -Necrosis Amt Small (1-33%) Small (1-33%) Small (1-33%) -Necrotic Tissue Type Adherent Slough Adherent Slough Adherent Slough -Structure Exposed N/A N/A N/A -Texture (Vee-wound Skin Appearance) Assessed, Assessed, Scarring Scarring Scarring -Moisture (Vee-wound Skin Appearance) Assessed Assessed Assessed -Color (Vee-wound Skin Appearance) Assessed Assessed Assessed -Temperature (Vee-wound Skin No Abnormality No Abnormality No Abnormality Appearance) (Pt Warm) (Pt Warm) (Pt Warm) -Tenderness on Palpation (Vee-wound No No No Skin Appearance) -Ulcer Cleansing Rinsed/ Wound Cleanser Rinsed/ Irrigated with Irrigated with Saline Saline -Foul Odor after Cleansing No No No -Anesthetic Used 4% Lidocaine 4% Lidocaine 5% Lidocaine Solution Solution Gel WC - Nurse 2 - General Ulcer CM Notes Start: 11/03/20 10:34 Freq: Status: Active Protocol: Activity Type Activity Date Activity User E-Sign Co-Sign Detail Recorded Client Recorded Date Recorded By Document 11/03/20 10:54 MW [id number] 11/03/20 11:01 MW Document 11/10/20 11:07 MW [id number] 11/10/20 11:12 MW Document 11/17/20 09:45 MW [id number] 11/17/20 09:54 MW 11/03/20 11/10/20 11/17/20 10:54 11:07 09:45 Wound Center Nurse 2 3-right shoulder -Time 10:55 11:08 09:48 -Correct Patient Yes Yes Yes -Correct Side, Site, Position Yes Yes Yes -Correct Procedure Yes Yes Yes -Procedure Performed Yes Yes Yes -Type of Procedure Debridement Debridement Debridement -Clinical Debridement Epidermis / Epidermis / Epidermis / Dermis Dermis Dermis -Tissue Removed Epidermis Epidermis Epidermis -Post Debridement (cm) - Length 2.4 1.2 1.1 -Post Debridement (cm) - Width 1.9 1.2 0.6 -Post Debridement (cm) - Depth 0.1 0.1 0.1 -Total Square (Post) (cm) 4.56 1.44 0.66 -Area of Debridement (cm) - Length 2.4 1.2 1.1 -Area of Debridement (cm) - Width 1.9 1.2 0.6 -Total Square (Area) (cm) 4.56 1.44 0.66 -Tunneling No No No -Undermining/Tunneling No No No -Circular Undermining No No No -Wound/Ulcer Outcome Not Healed Not Healed Not Healed -Ulcer Cleansing Rinsed/ Rinsed/ Rinsed/ Irrigated with Irrigated with Irrigated with Saline Saline Saline -Foul Odor after Cleansing No No No -Bioengineered Tissue No No No -Bleeding Controlled with Pressure Pressure Pressure -Offloading No No No -Treatment Response Procedure Procedure Tolerated Well Tolerated Well -Debridement - Open, 1st 20sq cm Yes Yes Yes Pain Scale: 0-10 Numeric Is Patient Pain Free? Yes Yes Yes AILYN - Nurse 3 - General Ulcer D/C NN Start: 11/03/20 10:34 Freq: Status: Active Protocol: Activity Type Activity Date Activity User E-Sign Co-Sign Detail Recorded Client Recorded Date Recorded By Document 11/03/20 11:01 MW [id number] 11/03/20 11:02 MW Document 11/10/20 11:12 MW [id number] 11/10/20 11:12 MW Document 11/17/20 09:54 MW [id number] 11/17/20 09:54 MW 11/03/20 11/10/20 11/17/20 11:01 11:12 09:54 Wound Care Nurse 3 3-right shoulder -Ulcer Cleansing Rinsed/ Rinsed/ Rinsed/ Irrigated with Irrigated with Irrigated with Saline Saline Saline -Foul Odor after Cleansing No No No -Negative Pressure Wound Therapy N/A N/A N/A -Primary Dressing Applied NonAdherent NonAdherent NonAdherent Contact Layer Contact Layer Contact Layer -Other Dressing c.hydrogel c.hydrogel C.HYDROGEL -Primary Dressing Covered/Secured with Dry Gauze, Dry Gauze, Dry Gauze, Secured with Secured with Secured with Tape Tape Tape Treatment Response Procedure Procedure Procedure Tolerated Well Tolerated Well Tolerated Well Pain Scale: 0-10 Numeric Is Patient Pain Free? Yes Yes Yes Teaching: Wound Center Dressing Your Wound -Person Taught Patient Patient Patient -Teaching Method Discussion Discussion, Discussion, Demonstration Demonstration -Response to teaching Verbalize Verbalize Verbalize understanding understanding understanding WC - Visit Discharge Discharge Condition Stable Stable Stable Ambulatory Status Ambulatory Ambulatory Ambulatory Transportation Private Auto Private Auto Private Auto Accompanied by self self SELF Medication Reconcilliation completed & No No No provided to patient/care provider Clinical Summary of Care Provided Yes Yes Yes Wound debrided: right shoulder Laterality: Right Type of Debridement: Selective debridement Anesthesia Used: 5% Lidocaine Gel Depth: Down to and including healthy tissue and in the subcutaneous layer Percentage of wound debrided: 100 Instrument Used: - (gauze) Tissue Removed: devitalized tissue, yellow slough Severity: Fat Layer Exposed Amount of bleeding with debridement: Mild Bleeding Controlled with: Compression and gauze Patient tolerated procedure: Patient tolerated procedure well Assessment/Plan Assessment/Plan (1) CAD (coronary artery disease): CODE(S): I25.10 - Atherosclerotic heart disease of [place] coronary artery without angina pectoris QUALIFIERS: Coronary Disease-Associated Artery/Lesion type: unspecified vessel or lesion type [place] vs. transplanted heart: [place] heart Associated angina: unspecified whether angina present Qualified Code(s): I25.10 - Atherosclerotic heart disease of [place] coronary artery without angina pectoris (2) Congestive heart failure with right heart failure: CODE(S): I50.810 - Right heart failure, unspecified (3) Chronic kidney disease, stage 3a: CODE(S): N18.31 - Chronic kidney disease, stage 3a (4) Non-healing wound of right upper extremity: CODE(S): S41.101A - Unspecified open wound of right upper arm, initial encounter (5) Abrasion of right upper arm, subsequent encounter: CODE(S): S40.811D - Abrasion of right upper arm, subsequent encounter (6) Stage 3 severe COPD by GOLD classification: CODE(S): J44.9 - Chronic obstructive pulmonary disease, unspecified PLAN: Alana's wound was evaluated and debrided today at the wound healing center as above in the clinical panel. She tolerated the procedure well. There are no overt signs of infection and I do not feel that wound culture is necessary at this time. Will consider this if there is no improvement or signs of infection develop. She was approved for [employer] and [employer] application. [employer] application held again this week. Will have her continue to apply hydrogel daily and adaptic touch and covered with gauze. She was encouraged to increase protein in her diet and consider vitamin C supplement. Offloading was discussed but I do not think this will be an issue given the location of her wounds. Her vascular status appears intact. She does not require home health assistance with dressings at this time due to family support. She was advised to call with any questions or concerns or signs of infection such as increased drainage, pain, erythema or odor. She will f/u in 1 week.
[2020-11-24 09:30] VITALS: BP 158/60; PULSE 79; RESP 18; TEMP 37.1; BMI 26.9
--- NOTE | 2020-11-24 13:11 | PCM.WC.PN ---
History of Present Illness Date of Service: 11/24/20 Chief Complaint: Abrasions of right upper arm, right hand and left hand from fall involving treadmill friction cervantes History of Wound: Alana is a pleasant 80 yo woman with oxygen dependent COPD, chronic respiratory failure, CHF and CAD who presents to the wound healing center for evaluation and treatment of nonhealing wounds of her right upper arm, right dorsal hand and left hand which occurred on 08/12/2020 when she fell from her treadmill while it was running and had difficulty moving away from the treadmill. Her arm and hands were abraded by the treadmill belt. She also fractured her right humerus in the fall. She went to the emergency room and was referred to orthopedics for fracture of her humerus. She had left the wounds on her right shoulder, right hand and left hand open to the air for a few days after the injury and since then she has been applying triple antibiotic ointment and Telfa bandages. She was seen by orthopedics and referred to the wound healing center for further treatment of her wounds. She did not have any cultures of her wounds and was not placed on any antibiotics. She is in otherwise a good state of health and is not diabetic. She is active and has help from her daughters. She lives alone and lost her in April 2020. Her wounds have mild drainage. She denies any erythema, increased pain, odor. Subjective Subjective Her wound is improved from last week and she tolerated treatment with hydrogel and adaptic. Denies increased drainage, fever, chills, or erythema. Objective Data Objective Data Vital Signs: Vital Signs Temp Pulse Resp BP 98.7 F 79 18 158/60 H 11/24/20 09:30 11/24/20 09:30 11/24/20 09:30 11/24/20 09:30 Oxygen Flow Rate (L/min) 2 Weight: 56.699 kg Body Mass Index (BMI) 26.9 Physical Exam Const alert, oriented x3 and no apparent distress HEENT normocephalic and head/scalp atraumatic Resp normal respiratory effort and normal air movement Cardio regular rate and regular rhythm Extremity normal capillary refill Skin General Skin Exam: erythema Wounds: wounds noted Wound Narrative: as in clinical panel Psych mental status grossly normal, thought process normal, cooperative and affect normal Debridement Note Debridement Note Post-Debridement Measurements and Additional Note: Post-Debridement Measurements/Treatment WC - Nurse 1 - General Ulcer Assessment Start: 11/03/20 10:34 Freq: Status: Active Protocol: WC.LOWEXT Activity Type Activity Date Activity User E-Sign Co-Sign Detail Recorded Client Recorded Date Recorded By Document 11/03/20 10:34 RB [id number] 11/03/20 10:40 RB Document 11/10/20 10:36 RB [id number] 11/10/20 10:41 RB Document 11/17/20 09:38 RB [id number] 11/17/20 09:40 RB Document 11/24/20 09:30 DL [id number] 11/24/20 09:33 DL 11/03/20 11/10/20 11/17/20 10:34 10:36 09:38 WC - Today's Visit Information Type of service Follow-up Visit Follow-up Visit Follow-up Visit (Physician/WRAPPER OPERATOR (Physician/WRAPPER OPERATOR (Physician/WRAPPER OPERATOR ) ) ) Arrival Mode Ambulatory Ambulatory Ambulatory Transfer Assistance None None None Patient Identification Verified (Name & Yes Yes Yes ) Patient Requires Transmission-Based No No No Precautions Height and Weight Body Mass Index (BMI) 26.9 26.9 26.9 BMI Classification Overweight Overweight Overweight Vital Signs Temperature (97.8 F-99.1 F) 97.5 F L 97.8 F 97.5 F L Temperature Source Temporal Temporal Temporal Pulse Rate (60-100) 80 72 75 Pulse Location Monitor Monitor Monitor Respiratory Rate (12-18) 18 18 18 Respiratory rate source Observation Observation Observation Blood Pressure (90/60-120/80) 150/66 H 162/64 H 139/56 H Blood Pressure Mean (mm Hg) 94 96 83 Source Monitor Monitor Monitor Position Semi-Fowlers Semi-Fowlers Semi-Fowlers Blood Pressure Location Left Arm Left Arm Left Arm History Since Last Visit- (Skip if this is Patient's initial visit) Have you changed medications since your No No No last visit? Any new allergies or adverse reactions No No No Had a fall/change in ADL's that may No No No increase risk of falls Signs or symptoms of abuse and/or No No No neglect since last visit Have you been in the hospital since your No No No last visit? Has dressing in place as prescribed Yes Yes Yes Has compression in place as prescribed No No No Has offloadiing in place as prescribed No No No Experienced any changes in pain level or No No No management Left Footwear Regular Shoe Regular Shoe Right Footwear Regular Shoe Regular Shoe Pain Scale: 0-10 Numeric Is Patient Pain Free? Yes Yes Yes 11/24/20 09:30 WC - Today's Visit Information Type of service Follow-up Visit (Physician/WRAPPER OPERATOR ) Arrival Mode Ambulatory Transfer Assistance None Patient Identification Verified (Name & Yes ) Patient Requires Transmission-Based No Precautions Height and Weight Body Mass Index (BMI) 26.9 BMI Classification Overweight Vital Signs Temperature (97.8 F-99.1 F) 98.7 F Temperature Source Temporal Pulse Rate (60-100) 79 Pulse Location Monitor Respiratory Rate (12-18) 18 Respiratory rate source Observation Blood Pressure (90/60-120/80) 158/60 H Blood Pressure Mean (mm Hg) 92 Source Monitor Position Blood Pressure Location History Since Last Visit- (Skip if this is Patient's initial visit) Have you changed medications since your No last visit? Any new allergies or adverse reactions No Had a fall/change in ADL's that may No increase risk of falls Signs or symptoms of abuse and/or No neglect since last visit Have you been in the hospital since your No last visit? Has dressing in place as prescribed Yes Has compression in place as prescribed N/A Has offloadiing in place as prescribed N/A Experienced any changes in pain level or No management Left Footwear Right Footwear Pain Scale: 0-10 Numeric Is Patient Pain Free? Yes - Nurse 1 - General Ulcer Measurement Start: 11/03/20 10:34 Freq: Status: Active Protocol: Activity Type Activity Date Activity User E-Sign Co-Sign Detail Recorded Client Recorded Date Recorded By Document 11/03/20 10:34 RB [id number] 11/03/20 10:40 RB Document 11/10/20 10:36 RB [id number] 11/10/20 10:41 RB Document 11/17/20 09:38 RB [id number] 11/17/20 09:40 RB Document 11/24/20 09:30 DL [id number] 11/24/20 09:33 DL 11/03/20 11/10/20 11/17/20 10:34 10:36 09:38 Wound Center Nurse 1 3-right shoulder -Combined with other wound No No No -Current Size (cm) - Length 2 2.5 1 -Current Size (cm) - Width 2.5 1.5 0.8 -Current Size (cm) - Depth 0.1 0.1 0.1 -Total Square Cm 5.0 3.75 0.8 -Photo Taken -Tunneling No No No -Undermining/Tunneling No No No -Circular Undermining No No No -Exudate Amt Medium Small Small -Exudate Type Serosanguineous Serosanguineous Serosanguineous -Wound Margin Flat & Intact Flat & Intact Flat & Intact -Granulation Amt Medium (34-66%) Large (67-100%) Medium (34-66%) -Granulation Quality Red Shiner,Red Shiner,Red -Slough/Fibrin Yes Yes Yes -Necrosis Amt Small (1-33%) Small (1-33%) Small (1-33%) -Necrotic Tissue Type Adherent Slough Adherent Slough Adherent Slough -Structure Exposed N/A N/A N/A -Texture (Vee-wound Skin Appearance) Assessed, Assessed, Scarring Scarring Scarring -Moisture (Vee-wound Skin Appearance) Assessed Assessed Assessed -Color (Vee-wound Skin Appearance) Assessed Assessed Assessed -Temperature (Vee-wound Skin No Abnormality No Abnormality No Abnormality Appearance) (Pt Warm) (Pt Warm) (Pt Warm) -Tenderness on Palpation (Eve-wound No No No Skin Appearance) -Ulcer Cleansing Rinsed/ Wound Cleanser Rinsed/ Irrigated with Irrigated with Saline Saline -Foul Odor after Cleansing No No No -Anesthetic Used 4% Lidocaine 4% Lidocaine 5% Lidocaine Solution Solution Gel 11/24/20 09:30 Wound Center Nurse 1 3-right shoulder -Combined with other wound -Current Size (cm) - Length 0.7 -Current Size (cm) - Width 0.4 -Current Size (cm) - Depth 0.1 -Total Square Cm 0.28 -Photo Taken No -Tunneling -Undermining/Tunneling -Circular Undermining -Exudate Amt None Present -Exudate Type -Wound Margin Flat & Intact -Granulation Amt Large (67-100%) -Granulation Quality Shiner -Slough/Fibrin -Necrosis Amt None Present (0 %) -Necrotic Tissue Type -Structure Exposed N/A -Texture (Vee-wound Skin Appearance) Scarring,Rash -Moisture (Vee-wound Skin Appearance) No Abnormality -Color (Vee-wound Skin Appearance) Rubor -Temperature (Vee-wound Skin No Abnormality Appearance) (Pt Warm) -Tenderness on Palpation (Vee-wound No Skin Appearance) -Ulcer Cleansing Rinsed/ Irrigated with Saline -Foul Odor after Cleansing No -Anesthetic Used 5% Lidocaine Gel WC - Nurse 2 - General Ulcer CM Notes Start: 11/03/20 10:34 Freq: Status: Active Protocol: Activity Type Activity Date Activity User E-Sign Co-Sign Detail Recorded Client Recorded Date Recorded By Document 11/03/20 10:54 MW [id number] 11/03/20 11:01 MW Document 11/10/20 11:07 MW [id number] 11/10/20 11:12 MW Document 11/17/20 09:45 MW [id number] 11/17/20 09:54 MW Document 11/24/20 09:53 MW [id number] 11/24/20 09:58 MW 11/03/20 11/10/20 11/17/20 10:54 11:07 09:45 Wound Center Nurse 2 3-right shoulder -Time 10:55 11:08 09:48 -Correct Patient Yes Yes Yes -Correct Side, Site, Position Yes Yes Yes -Correct Procedure Yes Yes Yes -Procedure Performed Yes Yes Yes -Type of Procedure Debridement Debridement Debridement -Clinical Debridement Epidermis / Epidermis / Epidermis / Dermis Dermis Dermis -Tissue Removed Epidermis Epidermis Epidermis -Post Debridement (cm) - Length 2.4 1.2 1.1 -Post Debridement (cm) - Width 1.9 1.2 0.6 -Post Debridement (cm) - Depth 0.1 0.1 0.1 -Total Square (Post) (cm) 4.56 1.44 0.66 -Area of Debridement (cm) - Length 2.4 1.2 1.1 -Area of Debridement (cm) - Width 1.9 1.2 0.6 -Total Square (Area) (cm) 4.56 1.44 0.66 -Tunneling No No No -Undermining/Tunneling No No No -Circular Undermining No No No -Wound/Ulcer Outcome Not Healed Not Healed Not Healed -Ulcer Cleansing Rinsed/ Rinsed/ Rinsed/ Irrigated with Irrigated with Irrigated with Saline Saline Saline -Foul Odor after Cleansing No No No -Bioengineered Tissue No No No -Bleeding Controlled with Pressure Pressure Pressure -Offloading No No No -Treatment Response Procedure Procedure Tolerated Well Tolerated Well -Debridement - Open, 1st 20sq cm Yes Yes Yes Pain Scale: 0-10 Numeric Is Patient Pain Free? Yes Yes Yes 11/24/20 09:53 Wound Center Nurse 2 3-right shoulder -Time 09:57 -Correct Patient Yes -Correct Side, Site, Position Yes -Correct Procedure Yes -Procedure Performed Yes -Type of Procedure Debridement -Clinical Debridement Epidermis / Dermis -Tissue Removed Epidermis -Post Debridement (cm) - Length 0.8 -Post Debridement (cm) - Width 0.3 -Post Debridement (cm) - Depth 0.1 -Total Square (Post) (cm) 0.24 -Area of Debridement (cm) - Length 0.8 -Area of Debridement (cm) - Width 0.3 -Total Square (Area) (cm) 0.24 -Tunneling No -Undermining/Tunneling No -Circular Undermining No -Wound/Ulcer Outcome Not Healed -Ulcer Cleansing Rinsed/ Irrigated with Saline -Foul Odor after Cleansing No -Bioengineered Tissue No -Bleeding Controlled with Pressure -Offloading No -Treatment Response Procedure Tolerated Well -Debridement - Open, 1st 20sq cm Yes Pain Scale: 0-10 Numeric Is Patient Pain Free? Yes WC - Nurse 3 - General Ulcer D/C NN Start: 11/03/20 10:34 Freq: Status: Active Protocol: Activity Type Activity Date Activity User E-Sign Co-Sign Detail Recorded Client Recorded Date Recorded By Document 11/03/20 11:01 MW [id number] 11/03/20 11:02 MW Document 11/10/20 11:12 MW [id number] 11/10/20 11:12 MW Document 11/17/20 09:54 MW [id number] 11/17/20 09:54 MW Document 11/24/20 09:58 MW [id number] 11/24/20 09:59 MW 11/03/20 11/10/20 11/17/20 11:01 11:12 09:54 Wound Care Nurse 3 3-right shoulder -Ulcer Cleansing Rinsed/ Rinsed/ Rinsed/ Irrigated with Irrigated with Irrigated with Saline Saline Saline -Foul Odor after Cleansing No No No -Negative Pressure Wound Therapy N/A N/A N/A -Primary Dressing Applied NonAdherent NonAdherent NonAdherent Contact Layer Contact Layer Contact Layer -Other Dressing c.hydrogel c.hydrogel C.HYDROGEL -Primary Dressing Covered/Secured with Dry Gauze, Dry Gauze, Dry Gauze, Secured with Secured with Secured with Tape Tape Tape Treatment Response Procedure Procedure Procedure Tolerated Well Tolerated Well Tolerated Well Pain Scale: 0-10 Numeric Is Patient Pain Free? Yes Yes Yes Teaching: Wound Center Dressing Your Wound -Person Taught Patient Patient Patient -Teaching Method Discussion Discussion, Discussion, Demonstration Demonstration -Response to teaching Verbalize Verbalize Verbalize understanding understanding understanding WC - Visit Discharge Discharge Condition Stable Stable Stable Ambulatory Status Ambulatory Ambulatory Ambulatory Transportation Private Auto Private Auto Private Auto Accompanied by self self SELF Medication Reconcilliation completed & No No No provided to patient/care provider Clinical Summary of Care Provided Yes Yes Yes 11/24/20 09:58 Wound Care Nurse 3 3-right shoulder -Ulcer Cleansing Rinsed/ Irrigated with Saline -Foul Odor after Cleansing No -Negative Pressure Wound Therapy N/A -Primary Dressing Applied NonAdherent Contact Layer -Other Dressing c.hydrogel -Primary Dressing Covered/Secured with Dry Gauze, Secured with Tape Treatment Response Procedure Tolerated Well Pain Scale: 0-10 Numeric Is Patient Pain Free? Yes Teaching: Wound Center Dressing Your Wound -Person Taught Patient -Teaching Method Discussion, Demonstration -Response to teaching Verbalize understanding WC - Visit Discharge Discharge Condition Stable Ambulatory Status Ambulatory Transportation Private Auto Accompanied by self Medication Reconcilliation completed & No provided to patient/care provider Clinical Summary of Care Provided Yes Wound debrided: right shoulder Laterality: Right Type of Debridement: Selective debridement Anesthesia Used: 4% Lidocaine Solution Depth: Down to and including healthy tissue and in the subcutaneous layer Percentage of wound debrided: 100 Instrument Used: 3mm curette Tissue Removed: Yellow slough, devitalized tissue Severity: Fat Layer Exposed Amount of bleeding with debridement: Mild Bleeding Controlled with: Compression and gauze Patient tolerated procedure: Patient tolerated procedure well Assessment/Plan Assessment/Plan (1) CAD (coronary artery disease): CODE(S): I25.10 - Atherosclerotic heart disease of [place] coronary artery without angina pectoris QUALIFIERS: Coronary Disease-Associated Artery/Lesion type: unspecified vessel or lesion type [place] vs. transplanted heart: [place] heart Associated angina: unspecified whether angina present Qualified Code(s): I25.10 - Atherosclerotic heart disease of [place] coronary artery without angina pectoris (2) Congestive heart failure with right heart failure: CODE(S): I50.810 - Right heart failure, unspecified (3) Chronic kidney disease, stage 3a: CODE(S): N18.31 - Chronic kidney disease, stage 3a (4) Non-healing wound of right upper extremity: CODE(S): S41.101A - Unspecified open wound of right upper arm, initial encounter (5) Abrasion of right upper arm, subsequent encounter: CODE(S): S40.811D - Abrasion of right upper arm, subsequent encounter (6) Stage 3 severe COPD by GOLD classification: CODE(S): J44.9 - Chronic obstructive pulmonary disease, unspecified PLAN: Alana's wound was evaluated and debrided today at the wound healing center as above in the clinical panel. She tolerated the procedure well. Will have her continue to apply hydrogel daily and adaptic touch and covered with gauze. She was encouraged to increase protein in her diet and consider vitamin C supplement. Offloading was discussed but I do not think this will be an issue given the location of her wounds. Her vascular status appears intact. She does not require home health assistance with dressings at this time due to family support. She was advised to call with any questions or concerns or signs of infection such as increased drainage, pain, erythema or odor. She will f/u in 1 week.
== END 2020-11-29 23:59 ==
LOC: WC 09:30
PROVIDERS: PCP Student in an Organized Health Care Education/Training Program; Visit Provider Family Medicine
DX: S40.811D Abrasion of right upper arm, subsequent encounter (principal); J44.9 Chronic obstructive pulmonary disease, unspecified; N18.31 Chronic kidney disease, stage 3a; I50.810 Right heart failure, unspecified; I25.10 Atherosclerotic heart disease of native coronary artery without angina pectoris; J96.10 Chronic respiratory failure, unspecified whether with hypoxia or hypercapnia; Z63.4 Disappearance and death of family member; Z99.81 Dependence on supplemental oxygen
CPT/HCPCS: 97597

== ENCOUNTER 2020-12-08 09:30 | Outpatient (RCR) | payer MEDICARE, SELFPAY ==
[2020-11-30 00:24] VITALS: BP 158/60; PULSE 79; RESP 18; TEMP 37.1
[2020-12-08 09:33] VITALS: BP 186/81; PULSE 78; RESP 18; TEMP 35.9; BMI 26.9
--- NOTE | 2020-12-08 14:45 | PCM.WC.PN ---
History of Present Illness Date of Service: 12/08/20 Chief Complaint: Abrasions of right upper arm, right hand and left hand from fall involving treadmill friction cervantes History of Wound: Alana is a pleasant 80 yo woman with oxygen dependent COPD, chronic respiratory failure, CHF and CAD who presents to the wound healing center for evaluation and treatment of nonhealing wounds of her right upper arm, right dorsal hand and left hand which occurred on 08/12/2020 when she fell from her treadmill while it was running and had difficulty moving away from the treadmill. Her arm and hands were abraded by the treadmill belt. She also fractured her right humerus in the fall. She went to the emergency room and was referred to orthopedics for fracture of her humerus. She had left the wounds on her right shoulder, right hand and left hand open to the air for a few days after the injury and since then she has been applying triple antibiotic ointment and Telfa bandages. She was seen by orthopedics and referred to the wound healing center for further treatment of her wounds. She did not have any cultures of her wounds and was not placed on any antibiotics. She is in otherwise a good state of health and is not diabetic. She is active and has help from her daughters. She lives alone and lost her in April 2020. Her wounds have mild drainage. She denies any erythema, increased pain, odor. Subjective Subjective Her wound is healed and she tolerated treatment with hydrogel and adaptic. Denies increased drainage, fever, chills, or erythema. Objective Data Objective Data Vital Signs: Vital Signs Temp Pulse Resp BP 96.6 F L 78 18 186/81 H 12/08/20 09:33 12/08/20 09:33 12/08/20 09:33 12/08/20 09:33 Oxygen Flow Rate (L/min) 2 Weight: 56.699 kg Body Mass Index (BMI) 26.9 Physical Exam Const alert, oriented x3, no apparent distress and healthy appearing General Appearance: cooperative HEENT normocephalic and head/scalp atraumatic Resp normal respiratory effort Effort and Inspection: able to speak in complete sentences Cardio regular rate and regular rhythm Skin General Skin Exam: erythema Neuro oriented x3 Psych Appearance: grossly normal and appropriate Thought Process: normal thought process Debridement Note Debridement Note Wound debrided: right shoulder Laterality: Right No debridement was completed: No debridement was completed today (wound is healed) Assessment/Plan Assessment/Plan (1) Congestive heart failure with right heart failure: CODE(S): I50.810 - Right heart failure, unspecified (2) Chronic kidney disease, stage 3a: CODE(S): N18.31 - Chronic kidney disease, stage 3a (3) Non-healing wound of right upper extremity: CODE(S): S41.101A - Unspecified open wound of right upper arm, initial encounter (4) Abrasion of right upper arm, subsequent encounter: CODE(S): S40.811D - Abrasion of right upper arm, subsequent encounter (5) Stage 3 severe COPD by GOLD classification: CODE(S): J44.9 - Chronic obstructive pulmonary disease, unspecified PLAN: Alana's wound was evaluated and she is healed today. She was advised to maintain moisture to the newly healed wound with lotion or vitamin E and will be discharged at this time. It has been a pleasure caring for her.
== END 2020-12-08 09:49 | disposition home or self-care (01) ==
LOC: WC 09:30
PROVIDERS: PCP Student in an Organized Health Care Education/Training Program; Visit Provider Family Medicine
DX: S40.811D Abrasion of right upper arm, subsequent encounter (principal); S61.402D Unspecified open wound of left hand, subsequent encounter; S61.401D Unspecified open wound of right hand, subsequent encounter; J44.9 Chronic obstructive pulmonary disease, unspecified; I50.810 Right heart failure, unspecified; N18.31 Chronic kidney disease, stage 3a; I25.10 Atherosclerotic heart disease of native coronary artery without angina pectoris; Z99.81 Dependence on supplemental oxygen
CPT/HCPCS: 99213; G0463

== ENCOUNTER → 2021-03-30 08:03 | Outpatient (CLI) | payer MEDICARE, SELFPAY ==
--- NOTE | 2021-03-30 08:14 | ECHOD_ITS ---
Reason For Study: CAD/ASHD Procedure This was a 2D Doppler, Color Flow transthoracic echocardiogram. Exam performed in department. Left Ventricle Normal LV size. Left ventricular systolic function is normal. The estimated ejection fraction is 60 %. Stage 1 diastolic dysfunction. No regional wall motion abnormalities noted. Right Ventricle Normal RV size. Normal systolic function. Atria Normal left atrium. Normal right atrium. Mitral Valve Normal mitral valve. Mild (1+) eccentric mitral valve insufficiency. Tricuspid Valve Normal tricuspid valve. Mild (1+) tricuspid valve insufficiency. Pulmonary artery systolic pressure is 36 mmHg. Aortic Valve Normal aortic valve. Trisinus/trileaflet aortic valve. Pulmonic Valve Normal pulmonic valve. Great Vessels Normal aortic root. The pulmonary artery is normal size. Normal inferior vena cava. Pericardium/Pleural No pericardial effusion. Small left pleural effusion. MMode/2D Measurements & Calculations LVIDd: 4.6 cm IVSd: 0.99 cm LA dimension: 3.7 cm LVIDs: 3.3 cm LVPWd: 1.00 cm FS: 28.2 % LAV(MOD-bp): 43.3 ml LA A4 area: 16.6 cm2 RA A4 area: 10.5 cm2 LAV(MOD-bp) Indexed: 30.8 ml/m2 LAV(MOD-sp2): 41.8 ml LAV(MOD-sp4): 41.9 ml Time Measurements MV dec time: 0.18 sec Doppler Measurements & Calculations MV E max catracho: 73.6 cm/sec Lat Peak E' Catracho: 3.9 cm/sec Med Peak E' Catracho: 5.7 cm/sec MV A max catracho: 91.0 cm/sec E/E' lat: 18.7 E/E' med: 13.0 MV E/A: 0.81 MV V2 max: 100.5 cm/sec MV P1/2t max catracho: 82.8 cm/sec Ao V2 max: 113.2 cm/sec MV max P.0 mmHg MV P1/2t: 57.2 msec Ao max P.1 mmHg MV V2 mean: 55.3 cm/sec MV dec slope: 423.7 cm/sec2 MV mean P.4 mmHg MVA(P1/2t): 3.8 cm2 MV V2 VTI: 29.4 cm LV V1 max: 64.5 cm/sec PA V2 max: 71.7 cm/sec TR max catracho: 278.7 cm/sec LV V1 max P.7 mmHg TR max P.1 mmHg ECHO/Echo Complete Interpretation Summary Normal LV size. Left ventricular systolic function is normal. The estimated ejection fraction is 60 %. Mild (1+) eccentric mitral valve insufficiency. Stage 1 diastolic dysfunction. Ordering Physician: Benton Perkins Referring Physician: Piero Perla Performed By: Domenic Acuan RCS
== END ==
PROVIDERS: PCP Student in an Organized Health Care Education/Training Program; Referring Provider Internal Medicine Cardiovascular Disease; Visit Provider Internal Medicine Cardiovascular Disease
DX: I25.10 Atherosclerotic heart disease of native coronary artery without angina pectoris (principal)
CPT/HCPCS: 93306

== ENCOUNTER 2022-11-21 12:02 | Inpatient (IN) | payer MEDICARE, SELFPAY ==
[2022-11-21] VITALS (23 sets, daily range): BP systolic 79–105; BP diastolic 53–84; PULSE 24–160; RESP 16–32; TEMP 36.4–36.7; O2SAT 93–100; BMI 27.2; BMI 24.2
--- NOTE | 2022-11-21 12:18 | ED.VIS.DYS ---
HPI <CHRISTINA Trinh - Last Filed: 11/21/22 16:02> History of Present Illness Chief Complaint: Shortness of Breath Narrative Narrative: Patient presenting today with shortness of breath that she has had for the past week and a half that acutely worsened this morning. She has a PMH of coronary artery disease with stent placement, CHF, stage III COPD. She has required supplemental O2 at home over the past week or so and has been using 2L. She denies a history of atrial fibrillation and is not on any blood thinners. She denies a history of any blood clots. She reports that the left side of her chest feels sore but is not necessarily painful. PFSH <CHRISTINA Trinh - Last Filed: 11/21/22 16:02> FORMERLY [facility] Medical History Bmaup-1-mlhhpmxhgtm deficiency Atherosclerotic heart disease of [place] coronary artery without angina pectoris Chronic HFrEF (heart failure with reduced ejection fraction) Chronic kidney disease, stage 3a COPD (chronic obstructive pulmonary disease) Diverticulitis Essential hypertension Hyperlipidemia Ischemic cardiomyopathy Osteoporosis Respiratory failure with hypoxia Secondary pulmonary arterial hypertension Sinusitis Home Medications aspirin 81 mg tablet,delayed release 81 mg PO DAILY HEART HEALTH 01/01/16 [History Last Taken 11/21/22] fluticasone propionate 50 mcg/actuation nasal spray,suspension 2 spray intranasal DAILY ALLERGIES 12/19/17 [History Last Taken 11/21/22] metoprolol succinate 50 mg tablet,extended release 24 hr 50 mg PO DAILY BLOOD PRESSURE 03/19/21 [History Last Taken 11/21/22] lactobacillus combination no.9 4 billion cell capsule (Adult 50 Plus Probiotic) 4,000 mmu cells PO DAILY GUT HEALTH 09/25/21 [History Last Taken 11/21/22] lorazepam 0.5 mg tablet 0.25 mg PO QHS ANXIETY 09/25/21 [History Last Taken 11/20/22] cholecalciferol (vitamin D3) 50 mcg (2,000 unit) tablet 50 mcg PO DAILY SUPPLEMENT 03/25/22 [History Last Taken 11/21/22] albuterol sulfate 2.5 mg/3 mL (0.083 %) solution for nebulization 2.5 mg inhalation Q4H PRN SHORTNESS OF BREATH/WHEEZING 11/21/22 [History Last Taken 11/21/22] albuterol sulfate 90 mcg/actuation aerosol inhaler (ProAir HFA) 2 puff inhalation Q4H PRN SHORTNESS OF BREATH/WHEEZING 11/21/22 [History Last Taken Unknown] atorvastatin 10 mg tablet 10 mg PO QHS CHOLESTEROL 11/21/22 [History Last Taken 11/20/22] fluticasone 100 mcg-salmeterol 50 mcg/dose blistr powdr for inhalation (Wixela Inhub) 1 inh inhalation BID COPD 11/21/22 [History Last Taken 11/21/22] furosemide 20 mg tablet 20 mg PO DAILY FLUID 11/21/22 [History Last Taken 11/21/22] multivitamin 1 tab PO DAILY HEALTH MAINTENANCE 11/21/22 [History Last Taken 11/21/22] tiotropium bromide 2.5 mcg/actuation mist for inhalation (Spiriva Respimat) 2 puff inhalation DAILY COPD 11/21/22 [History Last Taken 11/21/22] Allergy/AdvReac Type Severity Reaction Status Date / Time Penicillins Allergy Intermediate Other-difficulty Verified 10/31/22 14:14 breathing Sulfa (Sulfonamide Allergy Intermediate Other-breathing Verified 10/31/22 14:14 Antibiotics) difficulty, hot flashes, rash azithromycin Allergy Mild Other-bleed Verified 10/31/22 14:14 ing clarithromycin [From Biaxin] Allergy Mild Other-bloody Verified 10/31/22 14:14 stool ofloxacin [From Floxin] AdvReac Mild Nausea Verified 10/31/22 14:14 Family History Mother Cervical cancer Lung cancer Breast cancer Father Colon cancer CVA (cerebral vascular accident) CHF (congestive heart failure) Surgical History History of coronary artery stent placement (02/23/19) History of left heart catheterization (03/2019) Social History household members: spouse housing: house current occupational status: retired pets and animals: Yes pets and animals: cat(s) Smoking Status: Former smoker quit date: 06/02/89 pack-years: 34 second hand exposure: Yes alcohol intake: never substance use type: does not use caffeine: Yes Type: coffee Number of servings: 3 ROS <CHRISTINA Trinh - Last Filed: 11/21/22 16:02> ROS ED Constitutional Constitutional ED: Denies chills or fever(s) Cardiovascular Cardiovascular: Reports chest pain; Denies palpitations Respiratory/Chest Respiratory/Chest: Reports dyspnea and dyspnea on exertion; Denies cough Gastrointestinal Gastrointestinal: Denies abdominal pain, constipation, diarrhea, nausea or vomiting Genitourinary Genitourinary ED: Denies dysuria, hematuria or urinary urgency Musculoskeletal Musculoskeletal: Denies arthralgias or myalgias Integumentary Denies abscess, Abrasions or rash Neurologic Neurologic: Denies paresthesias or weakness EXAM <CHRISTINA Trinh - Last Filed: 11/21/22 16:02> Physical Exam Const Vital Signs: 11/21/22 12:03 11/21/22 12:10 11/21/22 12:10 Temperature 97.5 F L Temperature Source Oral Pulse Rate 150 H 160 H Respiratory Rate 22 H 32 H Respiratory Effort Short of Breath Labored Respiratory Pattern Tachypnea Blood Pressure 99/74 Blood Pressure Mean 82 Pulse Ox 95 Oxygen Delivery Method Nasal Cannula Nasal Cannula Oxygen Flow Rate (L/min) 5 5 11/21/22 12:31 11/21/22 13:43 11/21/22 14:14 Temperature Temperature Source Pulse Rate 80 114 H 138 H Respiratory Rate 22 H 16 Respiratory Effort Respiratory Pattern Blood Pressure 96/60 94/83 H Blood Pressure Mean 72 86 Pulse Ox 94 98 94 Oxygen Delivery Method Nasal Cannula Nasal Cannula Nasal Cannula Oxygen Flow Rate (L/min) 5 5 2 <Dr. Mayur Dyer, - Last Filed: 11/21/22 16:08> Physical Exam Const Vital Signs: 11/21/22 12:03 11/21/22 12:10 11/21/22 12:10 Temperature 97.5 F L Temperature Source Oral Pulse Rate 150 H 160 H Respiratory Rate 22 H 32 H Respiratory Effort Short of Breath Labored Respiratory Pattern Tachypnea Blood Pressure 99/74 Blood Pressure Mean 82 Pulse Ox 95 Oxygen Delivery Method Nasal Cannula Nasal Cannula Oxygen Flow Rate (L/min) 5 5 11/21/22 12:31 11/21/22 13:43 11/21/22 14:14 Temperature Temperature Source Pulse Rate 80 114 H 138 H Respiratory Rate 22 H 16 Respiratory Effort Respiratory Pattern Blood Pressure 96/60 94/83 H Blood Pressure Mean 72 86 Pulse Ox 94 98 94 Oxygen Delivery Method Nasal Cannula Nasal Cannula Nasal Cannula Oxygen Flow Rate (L/min) 5 5 2 [facility] <CHRISTINA Trinh - Last Filed: 11/21/22 16:02> [facility] Narrative Medical decision making narrative: Patient presenting today with shortness of breath she has had over the past week and a half that acutely worsened this morning. She reports left-sided chest discomfort. She has been using 2 L O2 at home over the past week or so. Here, she is on 5 L O2 at 95%. She reports a history of CHF, EKG shows a rate of 147 bpm with atrial fibrillation. She denies a history of A-fib and she is not on any blood thinners. She is hypotensive at 99/74, she will be given a dose of Cardizem. This did bring her heart rate down to 80 bpm. Labs obtained to rule out leukocytosis, anemia, electrolyte abnormality, LESLEY, and to obtain D-dimer to rule out PE. Chest x-ray to rule out infiltrate, pleural effusion, and shows emphysema with possible right middle lobe pneumonia. Labs do show leukocytosis, age-adjusted D-dimer is WNL. I have called the hospitalist and patient will be admitted in stable condition for further treatment, she is comfortable with plan.. Hospitalist advises to hold off on starting antibiotics and they will decide what to start her on on the floor given she has multiple antibiotic allergies. When patient was taken to CAT scan for a CT of her chest which was ordered by the hospitalist, she became tachycardic, attending ED physician did start her on a Cardizem drip. Lab Data Attestation: I reviewed the patient's lab results. Lab results narrative: WBC 15.4, age-adjusted D-dimer WNL, BUN 22, creatinine 1.09, GFR 51 Labs: Laboratory Results - last 24 hr 11/21/22 11/21/22 11/21/22 12:05 12:05 12:05 WBC 15.4 H RBC 4.58 Hgb 13.4 Hct 44.7 MCV 97.6 MCH 29.3 MCHC 30.0 L RDW Std Deviation 50.1 H RDW Coeff of Sunitha 14.0 Plt Count 272 MPV 10.0 Immature Gran % (Auto) 0.700 Neut % (Auto) 84.0 H Lymph % (Auto) 8.4 L [place] % (Auto) 5.5 Eos % (Auto) 1.0 Baso % (Auto) 0.4 Absolute Neuts (auto) 12.9 H Absolute Lymphs (auto) 1.29 Nucleated RBC % 0 D-Dimer Quant (PE/DVT) 0.51 H* Sodium 136 Potassium 3.7 Chloride 100 Carbon Dioxide 32.0 Anion Gap 4 L BUN 22 H Creatinine 1.09 H Estim Creat Clear Calc 34.00 Est GFR (MDRD) Af Amer 62 Est GFR (MDRD) Non-Af 51 L BUN/Creatinine Ratio 20.2 H Glucose 123 H Calcium 9.9 Troponin I High Sens 14 B-Natriuretic Peptide 11/21/22 12:05 WBC RBC Hgb Hct MCV MCH MCHC RDW Std Deviation RDW Coeff of Sunitha Plt Count MPV Immature Gran % (Auto) Neut % (Auto) Lymph % (Auto) [place] % (Auto) Eos % (Auto) Baso % (Auto) Absolute Neuts (auto) Absolute Lymphs (auto) Nucleated RBC % D-Dimer Quant (PE/DVT) Sodium Potassium Chloride Carbon Dioxide Anion Gap BUN Creatinine Estim Creat Clear Calc Est GFR (MDRD) Af Amer Est GFR (MDRD) Non-Af BUN/Creatinine Ratio Glucose Calcium Troponin I High Sens B-Natriuretic Peptide 715.2 H Radiography X-Ray: Read by ED Physician and Read by Radiologist Diagnostic Testing: Clinical Impression(s) from Imaging Studies Chest X-Ray 11/21/22 12:35 IMPRESSION: Emphysema with possible right middle lobe pneumonia. CT may be useful. Electronically Signed: Mikey Hooks MD at 13:10 EDT , EKG Initial EKG: Comments: 147 bpm, atrial fibrillation with RVR, no ST elevation, reviewed and interpreted by attending ED physician. <Dr. Mayur Dyer, DO - Last Filed: 11/21/22 16:08> [facility] Narrative Medical decision making narrative: Patient presenting today with shortness of breath she has had over the past week and a half that acutely worsened this morning. She reports left-sided chest discomfort. She has been using 2 L O2 at home over the past week or so. Here, she is on 5 L O2 at 95%. She reports a history of CHF, EKG shows a rate of 147 bpm with atrial fibrillation. She denies a history of A-fib and she is not on any blood thinners. She is hypotensive at 99/74, she will be given a dose of Cardizem. This did bring her heart rate down to 80 bpm. Labs obtained to rule out leukocytosis, anemia, electrolyte abnormality, LESLEY, and to obtain D-dimer to rule out PE. Chest x-ray to rule out infiltrate, pleural effusion, and shows emphysema with possible right middle lobe pneumonia. Labs do show leukocytosis, age-adjusted D-dimer is WNL. I have called the hospitalist and patient will be admitted in stable condition for further treatment, she is comfortable with plan.. Hospitalist advises to hold off on starting antibiotics and they will decide what to start her on on the floor given she has multiple antibiotic allergies. When patient was taken to CAT scan for a CT of her chest which was ordered by the hospitalist, she became tachycardic, attending ED physician did start her on a Cardizem drip. This patient was seen with a PA/MANAGER MUSIC Individually assessed they patient including history and physical. I have reviewed everything on the chart that is available and agree with the documentation provided by the PA/MANAGER MUSIC including discussion about the assessment, treatment plan, discussion, and return precautions. 82-year-old female presenting with shortness of breath. She is found to be in atrial fibrillation which is new onset. IV fluids were started because her blood pressure appeared to be hypotensive at 99/74 however she states this is her normal blood pressure. After Cardizem her blood pressure remained stable. Her heart rate was down into the 80s. Lab work shows leukocytosis. Chest x-ray on my interpretation concerning for right-sided pneumonia. D-dimer negative. BMP unremarkable. BNP elevated at 715. Patient came more tachycardic and the hospitalist asked for a Cardene drip. This was started. Patient transported to the floor in stable condition. CT of the chest was also ordered by the hospitalist and we will be followed on the floor. Lab Data Labs: Laboratory Results - last 24 hr 11/21/22 11/21/22 11/21/22 12:05 12:05 12:05 WBC 15.4 H RBC 4.58 Hgb 13.4 Hct 44.7 MCV 97.6 MCH 29.3 MCHC 30.0 L RDW Std Deviation 50.1 H RDW Coeff of Sunitha 14.0 Plt Count 272 MPV 10.0 Immature Gran % (Auto) 0.700 Neut % (Auto) 84.0 H Lymph % (Auto) 8.4 L [place] % (Auto) 5.5 Eos % (Auto) 1.0 Baso % (Auto) 0.4 Absolute Neuts (auto) 12.9 H Absolute Lymphs (auto) 1.29 Nucleated RBC % 0 D-Dimer Quant (PE/DVT) 0.51 H* Sodium 136 Potassium 3.7 Chloride 100 Carbon Dioxide 32.0 Anion Gap 4 L BUN 22 H Creatinine 1.09 H Estim Creat Clear Calc 34.00 Est GFR (MDRD) Af Amer 62 Est GFR (MDRD) Non-Af 51 L BUN/Creatinine Ratio 20.2 H Glucose 123 H Calcium 9.9 Troponin I High Sens 14 B-Natriuretic Peptide 11/21/22 12:05 WBC RBC Hgb Hct MCV MCH MCHC RDW Std Deviation RDW Coeff of Sunitha Plt Count MPV Immature Gran % (Auto) Neut % (Auto) Lymph % (Auto) [place] % (Auto) Eos % (Auto) Baso % (Auto) Absolute Neuts (auto) Absolute Lymphs (auto) Nucleated RBC % D-Dimer Quant (PE/DVT) Sodium Potassium Chloride Carbon Dioxide Anion Gap BUN Creatinine Estim Creat Clear Calc Est GFR (MDRD) Af Amer Est GFR (MDRD) Non-Af BUN/Creatinine Ratio Glucose Calcium Troponin I High Sens B-Natriuretic Peptide 715.2 H Radiography Diagnostic Testing: Clinical Impression(s) from Imaging Studies Chest X-Ray 11/21/22 12:35 IMPRESSION: Emphysema with possible right middle lobe pneumonia. CT may be useful. Electronically Signed: Mikey Hooks MD at 13:10 EDT , Discharge Plan Dx/Rx/DC Orders Clinical Impression: Chronic obstructive pulmonary disease, Atrial fibrillation with rapid ventricular response, Pneumonia, SOB (shortness of breath) Disposition Disposition: Acute Care Hospital [facility] Discharge Date/Time: 11/21/22 15:45
--- NOTE | 2022-11-21 12:19 | ED.RN ---
NO OLD EKGS LISTED.
[2022-11-21] MEDS: 0.9% Normal Saline 1,000 ML 999 ML IV (12:25)
[2022-11-21] MEDS: dilTIAZem 25 MG/5 ML Vial 20 MG IV BOLUS (12:27)
--- NOTE | 2022-11-21 12:35 | RAD_ITS ---
STUDY: X-RAY CHEST REASON FOR EXAM: Female, 82 years old. SOB TECHNIQUE: PA and lateral views of the chest. COMPARISON: None. FINDINGS: There is hyperinflation of the lungs consistent with chronic obstructive lung disease (COPD). Feeding alveolar opacity near the right cardiophrenic angle may represent pneumonia. There is no demonstrated pleural abnormality. There is moderate cardiac enlargement. Normal mediastinum and kaity. Normal visualized pulmonary arteries. There is atherosclerotic calcification of the aortic arch with tortuosity. Multiple chronic compression fractures thoracic spine with increased kyphosis. Normal visualized ribs, clavicles, and shoulders. There is no demonstrated abnormality of the visualized soft tissue structures of the upper abdomen. RAD/Chest PA and Lateral IMPRESSION: Emphysema with possible right middle lobe pneumonia. CT may be useful. Electronically Signed: Mikye Hooks MD at 13:10 EDT ,
[2022-11-21 12:36] LABS: Anion Gap 4 (5-15); BUN 22 mg/dL (7-18); BUN/Creat Ratio 20.2 RATIO (10-20); Calcium,Total 9.9 mg/dL (8.5-10.1); Chloride 100 mmol/L (98-107); Creatinine, Serum 1.09 mg/dL (0.55-1.02); EST Glomerular Filtration Rate 51 mL/min (>60); Est Glom Filt Rate - Afr Amer 62 mL/min (>60); Glucose 123 mg/dL (74-106); Potassium 3.7 mmol/L (3.5-5.1); Sodium Level 136 mmol/L (136-145); Troponin-I HS 14 pg/mL (3.0-54.0)
[2022-11-21 12:38] LABS: Absolute Lymphocyte Count 1.29 X10^3/uL (0.83-4.51); Absolute Neutrophil Count 12.9 X10^3/uL (2.0-7.7); Basophil# 0.06 X10^3/uL; Basophil% 0.4 % (0-1); Eosinophil# 0.16 X10^3/uL; Hematocrit 44.7 % (37-47); Hemoglobin 13.4 g/dL (12.0-15.0); Lymphocyte # 1.29 X10^3/ul (0.83-4.51); Lymphocyte % 8.4 % (19-41); Mean Corpuscular Hgb 29.3 pg (27.0-32.0); Mean Corpuscular Volume 97.6 fL (81-99); Monocyte# 0.85 X10^3/uL; Monocyte% 5.5 % (0-10); NRBC Flagged by Analyzer 0 % (0-5); Neutrophil # 12.89 X10^3/uL (2.7-7.7); Platelet Count 272 K/mm3 (150-450); RBC Distribution Width SD 50.1 fl (35.1-43.9); Red Blood Count 4.58 M/mm3 (4.2-5.4); White Blood Count 15.4 K/mm3 (4.4-11.0)
[2022-11-21 12:54] LABS: D-Dimer Quantitative (DVT/PE) 0.51 FEU/ug/m (0.27-0.49)
--- NOTE | 2022-11-21 13:54 | ED.RN ---
cps in to apply humidification. pt weaned to 3l and estelita well with sats 97%
[2022-11-21] MEDS: Acetaminophen 325 MG Tablet 650 MG PO (14:06)
--- NOTE | 2022-11-21 14:13 | CT_ITS ---
EXAM: CT CHEST WITHOUT INTRAVENOUS CONTRAST CLINICAL INDICATION: left Rib fracture -- Left rib fracture TECHNIQUE: Helically acquired images were obtained of the chest without intravenous contrast. This CT exam was performed using one or more of the following dose reduction techniques: automated exposure control, adjustment of the mA and/or kV according to patient size, and/or use of iterative reconstruction technique. COMPARISON: No relevant prior studies available. FINDINGS: LUNGS AND PLEURAL SPACES: There are small bilateral pleural effusions. There are mild emphysematous changes seen within both upper lobes. There is a slightly spiculated nodule in the right lower lobe that measures 0.7 x 0.5 x 1 cm. No pneumothorax. HEART: Unremarkable. Heart size is normal. No pericardial effusion. No significant coronary artery calcifications. MEDIASTINUM: Unremarkable. No mediastinal or hilar adenopathy. Esophagus is unremarkable. No hiatal hernia. THYROID: Unremarkable. No thyroid lesions. BONES/JOINTS: There is an old healed right-sided rib fracture. There are no acute fractures identified. No suspicious lytic or blastic abnormality. VASCULATURE: Unremarkable. Thoracic aorta is non-dilated. CT/Chest without Contrast IMPRESSION: 1. Slightly spiculated nodule in the superior segment of the right lower lobe. Lung-RADS score: 4X - Very Suspicious. There are additional features or imaging findings that increase the suspicion of malignancy. Recommend chest CT with or without contrast, PET/CT and/or tissue sampling depending on the probability of malignancy and comorbidities. PET/CT may be used when there is a >=8 mm solid component. For new large nodules that develop on an annual repeat screening CT, a 1 month LDCT may be recommended to address potentially infectious or inflammatory conditions. 2. Mild emphysematous changes in the upper lobes. There is no evidence of a rib fracture. Electronically Signed: Shashi Rowan MD at 16:29 EDT ,
--- NOTE | 2022-11-21 14:13 | ECHOD_ITS ---
Reason For Study: AFIB/FLUTTER Procedure This was a 2D Doppler, Color Flow transthoracic echocardiogram. Exam performed portable in ED. Left Ventricle Normal size and thickness. Moderately severe global left ventricular systolic dysfunction. The left ventricular ejection fraction is 35 %. Diastolic function is indeterminate. Right Ventricle Normal right ventricle. Mild to moderate global right ventricular systolic dysfunction. Atria Severe biatrial dilatation. Mitral Valve Moderately severe (3+) eccentric mitral valve insufficiency. Tricuspid Valve Moderate (2+) tricuspid valve insufficiency. Right ventricular systolic pressure estimated to be 46 mmHg. Aortic Valve Trivial aortic valve insufficiency. Pulmonic Valve The pulmonic valve is not well visualized. Great Vessels Normal sized aortic root. Pericardium/Pleural No pericardial effusion. MMode/2D Measurements & Calculations LVIDd: 4.8 cm IVSd: 1.0 cm Ao root diam: 2.8 cm LVIDs: 4.0 cm LVPWd: 1.0 cm RVDd: 2.2 cm FS: 17.7 % LAV(MOD-bp): 66.4 ml LVAd ap4: 15.7 cm2 LVAd ap2: 15.3 cm2 LAV(MOD-bp) Indexed: 47.5 ml/m2 LVLd ap4: 5.1 cm LVLd ap2: 5.0 cm LAV(MOD-sp2): 64.5 ml EDV(MOD-sp4): 40.7 ml EDV(MOD-sp2): 38.8 ml LAV(MOD-sp4): 67.9 ml EDV(sp4-el): 41.4 ml EDV(sp2-el): 39.7 ml LVAs ap4: 13.3 cm2 LVAs ap2: 12.8 cm2 LVLs ap4: 5.1 cm LVLs ap2: 4.9 cm ESV(MOD-sp4): 29.5 ml ESV(MOD-sp2): 28.1 ml ESV(sp4-el): 29.2 ml ESV(sp2-el): 28.4 ml EF(MOD-sp4): 27.3 % EF(MOD-sp2): 27.8 % EF(sp4-el): 29.4 % SV(MOD-sp4): 11.1 ml SV(MOD-sp2): 10.8 ml SV(sp4-el): 12.2 ml LA dimension(2D): 3.2 cm LA A4 area: 21.6 cm2 RA A4 area: 15.8 cm2 Doppler Measurements & Calculations Ao V2 max: 94.5 cm/sec LV V1 max: 54.5 cm/sec MR max jace: 389.3 cm/sec Ao max P.6 mmHg LV V1 max P.2 mmHg MR max P.6 mmHg Ao V2 mean: 67.7 cm/sec LV V1 mean P.66 mmHg MR mean jace: 319.4 cm/sec Ao mean P.0 mmHg LV V1 mean: 38.7 cm/sec MR mean P.1 mmHg Ao V2 VTI: 17.3 cm LV V1 VTI: 10.5 cm MR VTI: 132.5 cm AV (velocity ratio): 0.61 TR max jace: 277.9 cm/sec TR max P.9 mmHg ECHO/Echo Complete Interpretation Summary Moderately severe global left ventricular systolic dysfunction. The left ventricular ejection fraction is 35 %. Diastolic function is indeterminate. Mild to moderate global right ventricular systolic dysfunction. Severe biatrial dilatation Moderately severe (3+) eccentric mitral valve insufficiency. Moderate (2+) tricuspid valve insufficiency. Right ventricular systolic pressure estimated to be 46 mmHg. Ordering Physician: Chris Polanco Referring Physician: Piero Perla Performed By: Kaur Brown, LIYA, RVT
--- NOTE | 2022-11-21 14:32 | PCM.HP.STD ---
[facility] - General General Date of Admission: 11/21/22 Date of Service: 11/21/22 Chief Complaint: Left-sided chest pain and shortness of breath HPI Narrative SHAHZAD OTERO, is a 82 F with a history of COPD, coronary artery disease status post LAD stent and chronic diastolic congestive heart failure secondary to ischemic heart disease. About a week ago patient states that she fell and since then she has been having left-sided rib pain which worsens with movement and with deep breathing. She is unable to recall if she hit her left side against any hard object. Also over the last couple of days has been experiencing increasing exertional dyspnea shortness of breath and easy fatigability. No palpitations or substernal chest pain/pressure. No wheezing. Recently treated for lower respiratory tract infection and COPD exacerbation with a course of levofloxacin and steroids. Completed tapering course of steroids about a week ago. She does not report any fever or chills, denies any anorexia nausea or vomiting. In the emergency department she was found to be in atrial fibrillation with rapid ventricular response with heart rates as high as 140-150. Started on Cardizem drip and heart rates in the 110s currently. [facility] Medical History Yiufd-0-[id number] deficiency Atherosclerotic heart disease of [place] coronary artery without angina pectoris Chronic HFrEF (heart failure with reduced ejection fraction) Chronic kidney disease, stage 3a COPD (chronic obstructive pulmonary disease) Diverticulitis Essential hypertension Hyperlipidemia Ischemic cardiomyopathy Osteoporosis Respiratory failure with hypoxia Secondary pulmonary arterial hypertension Sinusitis Home Medications aspirin 81 mg tablet,delayed release 81 mg PO DAILY HEART HEALTH 01/01/16 [History Last Taken 11/21/22] fluticasone propionate 50 mcg/actuation nasal spray,suspension 2 spray intranasal DAILY ALLERGIES 12/19/17 [History Last Taken 11/21/22] metoprolol succinate 50 mg tablet,extended release 24 hr 50 mg PO DAILY BLOOD PRESSURE 03/19/21 [History Last Taken 11/21/22] lactobacillus combination no.9 4 billion cell capsule (Adult 50 Plus Probiotic) 4,000 mmu cells PO DAILY GUT HEALTH 09/25/21 [History Last Taken 11/21/22] lorazepam 0.5 mg tablet 0.25 mg PO QHS ANXIETY 09/25/21 [History Last Taken 11/20/22] cholecalciferol (vitamin D3) 50 mcg (2,000 unit) tablet 50 mcg PO DAILY SUPPLEMENT 03/25/22 [History Last Taken 11/21/22] albuterol sulfate 2.5 mg/3 mL (0.083 %) solution for nebulization 2.5 mg inhalation Q4H PRN SHORTNESS OF BREATH/WHEEZING 11/21/22 [History Last Taken 11/21/22] albuterol sulfate 90 mcg/actuation aerosol inhaler (ProAir HFA) 2 puff inhalation Q4H PRN SHORTNESS OF BREATH/WHEEZING 11/21/22 [History Last Taken Unknown] atorvastatin 10 mg tablet 10 mg PO QHS CHOLESTEROL 11/21/22 [History Last Taken 11/20/22] fluticasone 100 mcg-salmeterol 50 mcg/dose blistr powdr for inhalation (Wixela Inhub) 1 inh inhalation BID COPD 11/21/22 [History Last Taken 11/21/22] furosemide 20 mg tablet 20 mg PO DAILY FLUID 11/21/22 [History Last Taken 11/21/22] multivitamin 1 tab PO DAILY HEALTH MAINTENANCE 11/21/22 [History Last Taken 11/21/22] tiotropium bromide 2.5 mcg/actuation mist for inhalation (Spiriva Respimat) 2 puff inhalation DAILY COPD 11/21/22 [History Last Taken 11/21/22] Allergy/AdvReac Type Severity Reaction Status Date / Time Penicillins Allergy Intermediate Other-difficulty Verified 10/31/22 14:14 breathing Sulfa (Sulfonamide Allergy Intermediate Other-breathing Verified 10/31/22 14:14 Antibiotics) difficulty, hot flashes, rash azithromycin Allergy Mild Other-bleed Verified 10/31/22 14:14 ing clarithromycin [From Biaxin] Allergy Mild Other-bloody Verified 10/31/22 14:14 stool ofloxacin [From Floxin] AdvReac Mild Nausea Verified 10/31/22 14:14 Family History Mother Cervical cancer Lung cancer Breast cancer Father Colon cancer CVA (cerebral vascular accident) CHF (congestive heart failure) Surgical History History of coronary artery stent placement (02/23/19) History of left heart catheterization (03/2019) Social History household members: spouse housing: house current occupational status: retired pets and animals: Yes pets and animals: cat(s) Smoking Status: Former smoker quit date: 06/02/89 pack-years: 34 second hand exposure: Yes alcohol intake: never substance use type: does not use caffeine: Yes Type: coffee Number of servings: 3 ROS ROS Narrative Denies any abdominal pain nausea vomiting or lower extremity edema. Denies any orthopnea or paroxysmal nocturnal dyspnea. All other systems reviewed and essentially negative as above in the body of the history. Vital Signs Vital Signs Vital Signs: 11/21/22 12:03 11/21/22 12:10 11/21/22 12:10 Temperature 36.4 C L Temperature Source Oral Pulse Rate 150 H 160 H Respiratory Rate 22 H 32 H Respiratory Effort Short of Breath Labored Respiratory Pattern Tachypnea Blood Pressure 99/74 Blood Pressure Mean 82 Pulse Ox 95 Oxygen Delivery Method Nasal Cannula Nasal Cannula Oxygen Flow Rate (L/min) 5 5 11/21/22 12:31 11/21/22 13:43 11/21/22 14:14 Temperature Temperature Source Pulse Rate 80 114 H 138 H Respiratory Rate 22 H 16 Respiratory Effort Respiratory Pattern Blood Pressure 96/60 94/83 H Blood Pressure Mean 72 86 Pulse Ox 94 98 94 Oxygen Delivery Method Nasal Cannula Nasal Cannula Nasal Cannula Oxygen Flow Rate (L/min) 5 5 2 Weight Weight: 53.2 kg Body Mass Index (BMI) 27.2 Physical Exam Narrative General exam. Elderly man, in some painful distress, pleasant and jovial mildly dyspneic HEENT. No pallor or jaundice and no cyanosis centrally. Neck. No jugular venous distention Heart. Heart sounds are distant and irregular. Lungs. Bibasilar fine crackles. Musculoskeletal tenderness in the left parasternal and in the left inframammary region Abdomen. Obese. Moves with respiration Extremities. No pedal edema [employer]. Conscious alert oriented x3. Results Medical Records Data Attestation: I reviewed the patient's medical records Lab / Micro Data Attestation: I reviewed the patient's lab results. Result Diagrams: 11/21/22 12:05 11/21/22 12:05 Labs: Laboratory Results - last 24 hr 11/21/22 12:05: WBC 15.4 H, RBC 4.58, Hgb 13.4, Hct 44.7, MCV 97.6, MCH 29.3, MCHC 30.0 L, RDW Std Deviation 50.1 H, RDW Coeff of Sunitha 14.0, Plt Count 272, MPV 10.0, Immature Gran % (Auto) 0.700, Neut % (Auto) 84.0 H, Lymph % (Auto) 8.4 L, [place] % (Auto) 5.5, Eos % (Auto) 1.0, Baso % (Auto) 0.4, Absolute Neuts (auto) 12.9 H, Absolute Lymphs (auto) 1.29, Nucleated RBC % 0 11/21/22 12:05: Sodium 136, Potassium 3.7, Chloride 100, Carbon Dioxide 32.0, Anion Gap 4 L, BUN 22 H, Creatinine 1.09 H, Estim Creat Clear Calc 34.00, Est GFR (MDRD) Af Amer 62, Est GFR (MDRD) Non-Af 51 L, BUN/Creatinine Ratio 20.2 H, Glucose 123 H, Calcium 9.9, Troponin I High Sens 14 11/21/22 12:05: D-Dimer Quant (PE/DVT) 0.51 H* EKG Twelve-lead EKG personally viewed, atrial fibrillation with rapid ventricular response.: Attestation: I personally reviewed and interpreted this EKG as follows: EKG Rhythm Intrepretation: Atrial Fibrillation Radiology Impression Chest X-Ray 11/21/22 12:35 IMPRESSION: Emphysema with possible right middle lobe pneumonia. CT may be useful. Electronically Signed: Mikey Hooks MD at 13:10 EDT , Assessment & Plan Assessment/Plan (1) Atrial fibrillation with rapid ventricular response: PLAN: Plan Assessment and plan 1. New onset/newly detected atrial fibrillation with rapid ventricular response. Heart rate as high as 140-150. Will admit to the hospital. Patient was started on Cardizem drip in the emergency department. We will continue and uptitrate to maintain rate between 90 and 100. Consult cardiology. Echocardiogram. Keep on telemetry. [id number] score 3. Full anticoagulation with Lovenox 1 mg/kg per dose every 12 hours and transition to Eliquis at discharge. Discontinue aspirin going forward so as to minimize bleeding risk. 2. Left-sided musculoskeletal pain. Most likely costochondritis or potentially occult rib fracture. Had plain x-rays done as an outpatient that were negative for fractures. Optimize pain control with multimodal approach using Tylenol 1 g 3 times daily, oxycodone 5 mg every 4 as needed while monitoring for side effects including sedation and respiratory depression. 3. Leukocytosis and chest x-ray with right lower lobe interstitial infiltrate. Recently treated with steroids and antibiotics for lower respiratory tract infection and COPD exacerbation. Possible this is sequelae from that. Will check procalcitonin. Start on IV antibiotics empirically. Discontinue procalcitonin normal. 4. COPD with chronic hypoxic respiratory failure. Clinically not in exacerbation. 5. Chronic diastolic (improved ejection fraction to normal) congestive heart failure. Atrial fibrillation with rapid ventricular response may have tipped patient with mild CHF exacerbation. Controlled atrial fibrillation either via rhythm or rate control approach and monitor. 6. Coronary disease status post LAD stent with ischemic cardiomyopathy. Stable. Initial troponin was within normal. 7. 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 Echocardiogram as above should evaluate current status. Charges/Coding Visit Charges Inpatient E&M: 28910 Init Hosp L3
[2022-11-21 15:11] LABS: BNP,B-Type NATRIURETIC PEPTIDE 715.2 pg/mL (0-100)
[2022-11-21] MEDS: Ketorolac 15 MG/ML Vial IV (17:51)
[2022-11-21] MEDS: Lidocaine 5% Patch 1 PATCH TOPICAL (17:51)
[2022-11-21] MEDS: 0.9% Saline Lock 10 ML Syringe IV (17:51)
[2022-11-21 19:56] LABS: Procalcitonin 0.05 ng/mL (0.00-0.09)
[2022-11-21] MEDS: Ipratropium/Albuterol Sulfate 3 ML AMPUL.NEB INHALATION (20:32)
[2022-11-21] MEDS: Budesonide Respules 0.5 MG/2 ML AMPUL.NEB. INHALATION (20:32)
[2022-11-21] MEDS: Atorvastatin Calcium 10 MG Tablet PO (22:38)
[2022-11-21] MEDS: Acetaminophen 500 MG Tablet 1000 MG PO (22:38)
[2022-11-21] MEDS: LORazepam 0.5 MG Tablet 0.25 MG PO (22:38)
[2022-11-21] MEDS: Enoxaparin 60 MG/0.6 ML Syringe SC (22:38)
[2022-11-22] VITALS (21 sets, daily range): BP systolic 81–120; BP diastolic 46–81; PULSE 78–116; RESP 16–26; TEMP 35.9–36.8; O2SAT 94–100
[2022-11-22] MEDS: Ketorolac 15 MG/ML Vial IV ×2 (01:52→06:28)
[2022-11-22] MEDS: 0.9% Saline Lock 10 ML Syringe IV ×2 (01:53→09:27)
[2022-11-22] MEDS: Acetaminophen 500 MG Tablet 1000 MG PO ×2 (06:28→20:30)
[2022-11-22 06:31] LABS: Absolute Lymphocyte Count 2.04 X10^3/uL (0.83-4.51); Absolute Neutrophil Count 8.8 X10^3/uL (2.0-7.7); Basophil# 0.06 X10^3/uL; Basophil% 0.5 % (0-1); Eosinophils% 2.5 % (0-5); Hematocrit 36.5 % (37-47); Hemoglobin 11.3 g/dL (12.0-15.0); Lymphocyte # 2.04 X10^3/ul (0.83-4.51); Lymphocyte % 16.8 % (19-41); Mean Corpuscular Hgb 30.3 pg (27.0-32.0); Mean Corpuscular Volume 97.9 fL (81-99); Mean Platelet Vol. 9.8 fl (6.2-12.0); Monocyte# 0.84 X10^3/uL; Monocyte% 6.9 % (0-10); NRBC Flagged by Analyzer 0 % (0-5); Neutrophil # 8.83 X10^3/uL (2.7-7.7); Platelet Count 217 K/mm3 (150-450); RBC Distribution Width CV 14.1 % (11.6-14.6); RBC Distribution Width SD 50.6 fl (35.1-43.9); Red Blood Count 3.73 M/mm3 (4.2-5.4); White Blood Count 12.1 K/mm3 (4.4-11.0)
[2022-11-22] MEDS: Budesonide Respules 0.5 MG/2 ML AMPUL.NEB. INHALATION ×2 (07:01→20:01)
[2022-11-22] MEDS: Ipratropium/Albuterol Sulfate 3 ML AMPUL.NEB INHALATION ×3 (07:01→20:01)
[2022-11-22 07:12] LABS: ALB/GLOB Ratio 0.9 RATIO (0.9-2.4); AST(SGOT) 22 U/L (15-37); Alanine Aminotransfer ALT/SGPT 36 U/L (13-56); Albumin, Serum 2.9 g/dL (3.2-5.0); Alkaline Phosphatase 72 U/L (45-117); Anion Gap 4 (5-15); BUN 30 mg/dL (7-18); BUN/Creat Ratio 19.5 RATIO (10-20); Calcium,Total 9.1 mg/dL (8.5-10.1); Chloride 101 mmol/L (98-107); Creatinine, Serum 1.54 mg/dL (0.55-1.02); EST Glomerular Filtration Rate 34 mL/min (>60); Est Glom Filt Rate - Afr Amer 42 mL/min (>60); Estimated Creatinine Clearance 22.98 ml/min; Globulin 3.3 g/dL (2.2-4.2); Glucose 101 mg/dL (74-106); Potassium 3.9 mmol/L (3.5-5.1); Protein, Total 6.2 g/dL (6.4-8.2); Sodium Level 137 mmol/L (136-145)
--- NOTE | 2022-11-22 07:51 | PCM.PN.HOSP ---
Reason for Visit Reason for Visit: Chest pain/shortness of breath Subjective Subjective Mrs. Bourne is an 82-year-old white female who presented to the emergency department at [facility] on 11/21/2022 with left-sided chest pain and shortness of breath. She has a history of COPD and coronary artery disease with previous LAD stent and chronic diastolic heart failure. She reported a week ago she fell and since that point time she been having some left-sided rib pain that is worse with movement and deep breathing. She was unable to recall whether or not she hit her left side on anything. She reported that all also over the last couple of days prior to admission she had been experiencing increasing exertional dyspnea and easy fatigability. She denied palpitations or substernal chest pain/pressure. She had no worsening wheezing and does not feel this is related to her COPD. She had recently been treated for lower respiratory tract infection and COPD exacerbation with a course of Levaquin and steroids. She has completed the course of steroids about a week ago. She has had now fever or chills. In the emergency department she was found to be in A-fib with RVR which is a new diagnosis for her. Ventricular rates were as high as 140-150. She is on metoprolol at baseline and was started on a Cardizem drip. She is placed on subcu enoxaparin. Her chest x-ray was suggestive of a left lower lobe infiltrate so she was restarted on Levaquin and a procalcitonin was obtained which was normal. I will go ahead discontinue antibiotics at this time as she recently had a course of Levaquin and has no acute signs of current infection. Cardiology consultation was made on admission and I added an echocardiogram to be performed this morning. She has not had one since 2020 and this diagnosis is new. Patient was evaluated in the a.m. after admission. Patient states her shortness of breath is better. Heart rates have improved. We did discuss the fact that she has a pulmonary nodule that needs further work-up and she agrees with the outpatient follow-up plan and an appointment will be made prior to discharge. Family is at the bedside and we discussed the overall plan of care for her A-fib as well as her pulmonary nodule. Objective Data Objective Data Vital Signs: Vital Signs Temp Pulse Resp BP Pulse Ox O2 Del Method O2 Flow Rate 98.2 F 82 22 H 85/54 L 100 Nasal Cannula 2 11/22/22 00:00 11/22/22 04:00 11/22/22 04:00 11/22/22 04:00 11/22/22 04:00 11/22/22 04:00 11/22/22 04:00 Oxygen Flow Rate (L/min) 2 Oxygen Delivery Method Nasal Cannula Weight: 50.8 kg Body Mass Index (BMI) 24.2 Intake & Output: Intake and Output for Last 24 Hours 11/20/22 11/21/22 11/22/22 23:59 23:59 23:59 Intake Total 1167.92 / 1177.92 62.42 / 62.42 Balance 1167.92 / 1177.92 62.42 / 62.42 Lab / Micro Data Result Diagrams: 11/22/22 05:41 11/22/22 05:41 Labs: Laboratory Results - last 24 hr 11/21/22 12:05: WBC 15.4 H, RBC 4.58, Hgb 13.4, Hct 44.7, MCV 97.6, MCH 29.3, MCHC 30.0 L, RDW Std Deviation 50.1 H, RDW Coeff of Sunitha 14.0, Plt Count 272, MPV 10.0, Immature Gran % (Auto) 0.700, Neut % (Auto) 84.0 H, Lymph % (Auto) 8.4 L, [place] % (Auto) 5.5, Eos % (Auto) 1.0, Baso % (Auto) 0.4, Absolute Neuts (auto) 12.9 H, Absolute Lymphs (auto) 1.29, Nucleated RBC % 0 11/21/22 12:05: Sodium 136, Potassium 3.7, Chloride 100, Carbon Dioxide 32.0, Anion Gap 4 L, BUN 22 H, Creatinine 1.09 H, Estim Creat Clear Calc 34.00, Est GFR (MDRD) Af Amer 62, Est GFR (MDRD) Non-Af 51 L, BUN/Creatinine Ratio 20.2 H, Glucose 123 H, Calcium 9.9, Troponin I High Sens 14 11/21/22 12:05: D-Dimer Quant (PE/DVT) 0.51 H* 11/21/22 12:05: B-Natriuretic Peptide 715.2 H 11/21/22 17:40: Procalcitonin 0.05 11/22/22 05:41: WBC 12.1 H, RBC 3.73 L, Hgb 11.3 L, Hct 36.5 L, MCV 97.9, MCH 30.3, MCHC 31.0 L, RDW Std Deviation 50.6 H, RDW Coeff of Sunitha 14.1, Plt Count 217, MPV 9.8, Immature Gran % (Auto) 0.300, Neut % (Auto) 73.0 H, Lymph % (Auto) 16.8 L, [place] % (Auto) 6.9, Eos % (Auto) 2.5, Baso % (Auto) 0.5, Absolute Neuts (auto) 8.8 H, Absolute Lymphs (auto) 2.04, Nucleated RBC % 0 11/22/22 05:41: Sodium 137, Potassium 3.9, Chloride 101, Carbon Dioxide 32.0, Anion Gap 4 L, BUN 30 H, Creatinine 1.54 H, Estim Creat Clear Calc 22.98, Est GFR (MDRD) Af Amer 42 L, Est GFR (MDRD) Non-Af 34 L, BUN/Creatinine Ratio 19.5, Glucose 101, Calcium 9.1, Total Bilirubin 0.50, AST 22, ALT 36, Alkaline Phosphatase 72, Total Protein 6.2 L, Albumin 2.9 L, Globulin 3.3, Albumin/Globulin Ratio 0.9 Radiography Diagnostic Testing: Radiology Impression Chest X-Ray 11/21/22 12:35 IMPRESSION: Emphysema with possible right middle lobe pneumonia. CT may be useful. Electronically Signed: Mikey Hooks MD at 13:10 EDT , Chest CT 11/21/22 14:13 IMPRESSION: 1. Slightly spiculated nodule in the superior segment of the right lower lobe. Lung-RADS score: 4X - Very Suspicious. There are additional features or imaging findings that increase the suspicion of malignancy. Recommend chest CT with or without contrast, PET/CT and/or tissue sampling depending on the probability of malignancy and comorbidities. PET/CT may be used when there is a >=8 mm solid component. For new large nodules that develop on an annual repeat screening CT, a 1 month LDCT may be recommended to address potentially infectious or inflammatory conditions. 2. Mild emphysematous changes in the upper lobes. There is no evidence of a rib fracture. Electronically Signed: Shashi Rowan MD at 16:29 EDT Reading Location ID and State: [facility] / [place] Tel , Service support , Physical Exam Const alert, oriented x3, no apparent distress, average body habitus, healthy appearing and well nourished Constitutional Narrative: Elderly white female, sitting up in chair at the bedside, daughter is at the bedside, patient appears well and nontoxic, currently on her baseline oxygen HEENT head/scalp atraumatic and moist oral mucous membranes HEENT Narrative: Dentures in place, Mallampati 2, no thrush, mild hearing loss Head and Scalp: normocephalic Resp normal respiratory effort, no retractions and no use of accessory muscles Resp Narrative: Diffusely diminished but clear Auscultation: Negative for rales, rhonchi or wheezes Cardio S1 normal heart sound, S2 normal heart sound, no murmurs, no rub, no gallops and no clicks; Negative for regular rate or regular rhythm Cardio Narrative: Mild tachycardia, rhythm is irregularly irregular GI normal to inspection, nondistended, normoactive bowel sounds, soft to palpation and non-tender Extremity no clubbing, cyanosis or edema Extremity Narrative: Pedal pulses 2+ Neuro oriented x3, moves all extremities and no focal motor deficits Speech: speech normal Psych affect normal Psych Narrative: Very pleasant, appropriately interactive Assessment & Plan Assessment/Plan (1) SOB (shortness of breath): (2) Atrial fibrillation with rapid ventricular response: (3) LESLEY (acute kidney injury): (4) Lung nodule: PLAN: Plan New onset A-fib with RVR -Check echocardiogram -Previous echo from 2020 shows an EF of 60%, stage I diastolic dysfunction and +1 eccentric mitral valve insufficiency -TSH was 2.17 -D-dimer was not elevated -Discontinue Cardizem drip -Digoxin load per cardiology -Apixaban 2.5 mg daily twice daily started -Continue home metoprolol but increase from 50 mg to 75 mg daily -Cardiology consulted and has evaluated the patient-appreciate input Shortness of breath -CT of the chest does not show infiltrate -Discontinue antibiotics -Likely related to the above -Patient does have baseline COPD with an FEV1 of 42% predicted -He is on chronic supplemental O2 at 2 L -Patient has been weaned to 2 L LESLEY on CKD stage IIIa -New overnight -Current serum creatinine 1.54 -Creatinine on admission 1.09 -Discontinue Toradol -We will continue Lasix for now but monitor closely -Patient did not receive contrast with CT of the chest Pulmonary nodule -New finding on chest CT of the chest -This is spiculated and concerning for malignancy--> 0.7 x 0.5 x 1 cm in the right lower lobe -Discussed case with pulmonary medicine and recommended outpatient PET scan -We will make an appointment for patient to be seen within 1 to 2 weeks after discharge for further work-up of this -Patient follows as an outpatient with Dr. Munoz COPD/chronic hypoxic respiratory failure -FEV1 is 42% predicted -Patient is oxygen dependent at 2 L baseline -Utilizes with exertion and at night -Continue as needed albuterol -Continue budesonide -Patient does have history of alpha-1 antitrypsin disease but was also a former smoker with [id number] history -Continued outpatient pulmonary medicine follow-up with Dr. Munoz Chronic HFpEF -Patient does have a history of reduced ejection fraction however most recent echocardiogram shows an EF of 60% -We will continue Lasix for now and monitor serum creatinine closely with bump overnight -Continue beta-zulema with increase as noted above Hyperlipidemia -Continue atorvastatin CAD -PCI-TABATHA-Mid LAD 07/15/2014; [id number]-Mid LAD w/ 3.0 x 30 mm Resolute Pierre Stent 01/2019 -Continue aspirin -Troponin unremarkable Osteoporosis -continue vitamin D supplement DVT prophylaxis -Patient is fully anticoagulated with Lovenox at this time with plan to transition to Eliquis CODE STATUS -DNR CCA with no intubation per discussion with patient and family today Charges/Coding Visit Charges Inpatient E&M: 06001 Subs Hosp L2
[2022-11-22 08:22] LABS: Thyroid Stim Hormone (TSH) 2.17 uIU/mL (0.358-3.74)
[2022-11-22] MEDS: Enoxaparin 60 MG/0.6 ML Syringe SC (09:20)
[2022-11-22] MEDS: Furosemide 20 MG Tablet PO (09:20)
[2022-11-22] MEDS: Metoprolol(XL)Succ 50 MG Tablet 75 MG PO (09:24)
--- NOTE | 2022-11-22 09:32 | CON.PCM.CA_ITS ---
Assessment & Plan Assessment/Plan (1) Atrial fibrillation with rapid ventricular response: PLAN: New onset atrial fibrillation. For rate control. Continue beta-blockers. Will load with digoxin. Low-dose calcium channel blockers as needed. Discussed with patient in detail. Risk of thromboembolic phenomenon with atrial fibrillation discussed. Chronic oral anticoagulation discussed. Risks benefits explained. She understand these and wishes to start on oral anticoagulation. Start on Eliquis 2.5 mg twice daily. (2) Coronary artery disease: PLAN: Continue aspirin. Continue beta-blockers. Chest pain pleuritic. Doubt ischemic. (3) Essential hypertension: PLAN: Controlled. (4) Hyperlipidemia: PLAN: Continue atorvastatin. (5) Chronic obstructive pulmonary disease: QUALIFIERS: COPD type: unspecified COPD Qualified Code(s): J44.9 - Chronic obstructive pulmonary disease, unspecified PLAN: As per internal medicine. HPI Consult Data Date of Consult: 11/22/22 HPI Narrative Reason for Consultation: Atrial fibrillation HPI Narrative: The patient has past medical history significant for coronary artery disease status post percutaneous intervention to the LAD, hypertension, dyslipidemia and history of COPD. She presented to the hospital with complaints of palpitations and shortness of breath. She was noted to be in atrial fibrillation with rapid ventricular response. She also complained of some chest pain. However this chest pain was pleuritic in nature. According to the patient, she felt a couple of days ago and her ribs have been hurting since. No orthopnea. No PND. No ankle edema. [facility] Medical History [id number] deficiency Atherosclerotic heart disease of [place] coronary artery without angina pectoris Chronic HFrEF (heart failure with reduced ejection fraction) Chronic kidney disease, stage 3a COPD (chronic obstructive pulmonary disease) Diverticulitis Essential hypertension Hyperlipidemia Ischemic cardiomyopathy Osteoporosis Respiratory failure with hypoxia Secondary pulmonary arterial hypertension Sinusitis Home Medications aspirin 81 mg tablet,delayed release 81 mg PO DAILY HEART HEALTH 01/01/16 [History Last Taken 11/21/22] fluticasone propionate 50 mcg/actuation nasal spray,suspension 2 spray intranasal DAILY ALLERGIES 12/19/17 [History Last Taken 11/21/22] metoprolol succinate 50 mg tablet,extended release 24 hr 50 mg PO DAILY BLOOD PRESSURE 03/19/21 [History Last Taken 11/21/22] lactobacillus combination no.9 4 billion cell capsule (Adult 50 Plus Probiotic) 4,000 mmu cells PO DAILY GUT HEALTH 09/25/21 [History Last Taken 11/21/22] lorazepam 0.5 mg tablet 0.25 mg PO QHS ANXIETY 09/25/21 [History Last Taken 11/20/22] cholecalciferol (vitamin D3) 50 mcg (2,000 unit) tablet 50 mcg PO DAILY SUPPLEMENT 03/25/22 [History Last Taken 11/21/22] albuterol sulfate 2.5 mg/3 mL (0.083 %) solution for nebulization 2.5 mg inhalation Q4H PRN SHORTNESS OF BREATH/WHEEZING 11/21/22 [History Last Taken 11/21/22] albuterol sulfate 90 mcg/actuation aerosol inhaler (ProAir HFA) 2 puff inhalation Q4H PRN SHORTNESS OF BREATH/WHEEZING 11/21/22 [History Last Taken Un known] atorvastatin 10 mg tablet 10 mg PO QHS CHOLESTEROL 11/21/22 [History Last Taken 11/20/22] fluticasone 100 mcg-salmeterol 50 mcg/dose blistr powdr for inhalation (Wixela Inhub) 1 inh inhalation BID COPD 11/21/22 [History Last Taken 11/21/22] furosemide 20 mg tablet 20 mg PO DAILY FLUID 11/21/22 [History Last Taken 11/21/22] multivitamin 1 tab PO DAILY HEALTH MAINTENANCE 11/21/22 [History Last Taken 11/21/22] tiotropium bromide 2.5 mcg/actuation mist for inhalation (Spiriva Respimat) 2 puff inhalation DAILY COPD 11/21/22 [History Last Taken 11/21/22] Allergy/AdvReac Type Severity Reaction Status Date / Time Penicillins Allergy Intermediate Other-difficulty Verified 10/31/22 14:14 breathing Sulfa (Sulfonamide Allergy Intermediate Other-breathing Verified 10/31/22 14:14 Antibiotics) difficulty, hot flashes, rash azithromycin Allergy Mild Other-bleed Verified 10/31/22 14:14 ing clarithromycin [From Biaxin] Allergy Mild Other-bloody Verified 10/31/22 14:14 stool ofloxacin [From Floxin] AdvReac Mild Nausea Verified 10/31/22 14:14 Family History Mother Cervical cancer Lung cancer Breast cancer Father Colon cancer CVA (cerebral vascular accident) CHF (congestive heart failure) Surgical History History of coronary artery stent placement (02/23/19) History of left heart catheterization (03/2019) Social History household members: spouse housing: house current occupational status: retired pets and animals: Yes pets and animals: cat(s) Smoking Status: Former smoker quit date: 06/02/89 pack-years: 34 second hand exposure: Yes alcohol intake: never substance use type: does not use caffeine: Yes Type: coffee Number of servings: 3 Physical Exam Narrative Comfortable. No apparent distress. Heart sounds 1 and 2 noted. Irregularly irregular. Chest clear to auscultation bilaterally. Alert oriented x3. No ankle edema noted. Risk Stratification Risk Stratification Applicable: No Objective Data Vital Signs: Vital Signs Temp Pulse Resp BP Pulse Ox O2 Del Method O2 Flow Rate 98.2 F 114 H 20 H 92/60 98 Nasal Cannula 5 11/22/22 00:00 11/22/22 09:24 11/22/22 07:01 11/22/22 09:24 11/22/22 07:01 11/22/22 07:01 11/22/22 07:01 Oxygen Flow Rate (L/min) 5 Oxygen Delivery Method Nasal Cannula Weight: 111 lb 15.917 oz Body Mass Index (BMI) 24.2 Intake & Output: Intake and Output for Last 24 Hours 11/20/22 11/21/22 11/22/22 23:59 23:59 23:59 Intake Total 1167.92 / 1177.92 62.42 / 62.42 Balance 1167.92 / 1177.92 62.42 / 62.42 Lab / Micro Data Result Diagrams: 11/22/22 05:41 11/22/22 05:41 Labs: Laboratory Results - last 24 hr 11/21/22 12:05: WBC 15.4 H, RBC 4.58, Hgb 13.4, Hct 44.7, MCV 97.6, MCH 29.3, MCHC 30.0 L, RDW Std Deviation 50.1 H, RDW Coeff of Sunitha 14.0, Plt Count 272, MPV 10.0, Immature Gran % (Auto) 0.700, Neut % (Auto) 84.0 H, Lymph % (Auto) 8.4 L, [place] % (Auto) 5.5, Eos % (Auto) 1.0, Baso % (Auto) 0.4, Absolute Neuts (auto) 12.9 H, Absolute Lymphs (auto) 1.29, Nucleated RBC % 0 11/21/22 12:05: Sodium 136, Potassium 3.7, Chloride 100, Carbon Dioxide 32.0, Anion Gap 4 L, BUN 22 H, Creatinine 1.09 H, Estim Creat Clear Calc 34.00, Est GFR (MDRD) Af Amer 62, Est GFR (MDRD) Non-Af 51 L, BUN/Creatinine Ratio 20.2 H, Glucose 123 H, Calcium 9.9, Troponin I High Sens 14 11/21/22 12:05: D-Dimer Quant (PE/DVT) 0.51 H* 11/21/22 12:05: B-Natriuretic Peptide 715.2 H 11/21/22 17:40: Procalcitonin 0.05 11/22/22 05:41: WBC 12.1 H, RBC 3.73 L, Hgb 11.3 L, Hct 36.5 L, MCV 97.9, MCH 30.3, MCHC 31.0 L, RDW Std Deviation 50.6 H, RDW Coeff of Sunitha 14.1, Plt Count 217, MPV 9.8, Immature Gran % (Auto) 0.300, Neut % (Auto) 73.0 H, Lymph % (Auto) 16.8 L, [place] % (Auto) 6.9, Eos % (Auto) 2.5, Baso % (Auto) 0.5, Absolute Neuts (auto) 8.8 H, Absolute Lymphs (auto) 2.04, Nucleated RBC % 0 11/22/22 05:41: Sodium 137, Potassium 3.9, Chloride 101, Carbon Dioxide 32.0, Anion Gap 4 L, BUN 30 H, Creatinine 1.54 H, Estim Creat Clear Calc 22.98, Est GFR (MDRD) Af Amer 42 L, Est GFR (MDRD) Non-Af 34 L, BUN/Creatinine Ratio 19.5, Glucose 101, Calcium 9.1, Total Bilirubin 0.50, AST 22, ALT 36, Alkaline Phosphatase 72, Total Protein 6.2 L, Albumin 2.9 L, Globulin 3.3, Albumin/Globulin Ratio 0.9 11/22/22 05:41: TSH 2.17 Rhythm Strip Rhythm Strip: A-fib Cardiology Labs/Tests 11/21/22 12:05: WBC 15.4 H, RBC 4.58, Hgb 13.4, Hct 44.7, MCV 97.6, MCH 29.3, MC HC 30.0 L, Plt Count 272, MPV 10.0, Immature Gran % (Auto) 0.700, Neut % (Auto) 84.0 H, Lymph % (Auto) 8.4 L, [place] % (Auto) 5.5, Eos % (Auto) 1.0, Baso % (Auto) 0.4, Absolute Neuts (auto) 12.9 H, Nucleated RBC % 0 11/21/22 12:05: Sodium 136, Potassium 3.7, Chloride 100, Carbon Dioxide 32.0, Anion Gap 4 L, BUN 22 H, Creatinine 1.09 H, Est GFR (MDRD) Af Amer 62, Est GFR (MDRD) Non-Af 51 L, BUN/Creatinine Ratio 20.2 H, Glucose 123 H, Calcium 9.9 11/21/22 12:05: D-Dimer Quant (PE/DVT) 0.51 H* 11/21/22 12:05: B-Natriuretic Peptide 715.2 H 11/22/22 05:41: WBC 12.1 H, RBC 3.73 L, Hgb 11.3 L, Hct 36.5 L, MCV 97.9, MCH 30.3, MCHC 31.0 L, Plt Count 217, MPV 9.8, Immature Gran % (Auto) 0.300, Neut % (Auto) 73.0 H, Lymph % (Auto) 16.8 L, [place] % (Auto) 6.9, Eos % (Auto) 2.5, Baso % (Auto) 0.5, Absolute Neuts (auto) 8.8 H, Nucleated RBC % 0 11/22/22 05:41: Sodium 137, Potassium 3.9, Chloride 101, Carbon Dioxide 32.0, Anion Gap 4 L, BUN 30 H, Creatinine 1.54 H, Est GFR (MDRD) Af Amer 42 L, Est GFR (MDRD) Non-Af 34 L, BUN/Creatinine Ratio 19.5, Glucose 101, Calcium 9.1, Total Bilirubin 0.50 Rhythm: EKG: Admission ECG showed atrial fibrillation with rapid ventricular response. Nonspecific ST changes. ECHO: Stress Test: Cardiac Cath: PCI: CT Surgery: Holter monitor: EPS: PPM: CXR: Chest CT Scan: Radiography Diagnostic Testing: Radiology Impression Chest X-Ray 11/21/22 12:35 IMPRESSION: Emphysema with possible right middle lobe pneumonia. CT may be useful. Electronically Signed: Mikey Hooks MD at 13:10 EDT , Chest CT 11/21/22 14:13 IMPRESSION: 1. Slightly spiculated nodule in the superior segment of the right lower lobe. Lung-RADS score: 4X - Very Suspicious. There are additional features or imaging findings that increase the suspicion of malignancy. Recommend chest CT with or without contrast, PET/CT and/or tissue sampling depending on the probability of malignancy and comorbidities. PET/CT may be used when there is a >=8 mm solid component. For new large nodules that develop on an annual repeat screening CT, a 1 month LDCT may be recommended to address potentially infectious or inflammatory conditions. 2. Mild emphysematous changes in the upper lobes. There is no evidence of a rib fracture. Electronically Signed: Shashi Rowan MD at 16:29 EDT ,
--- NOTE | 2022-11-22 11:05 | CASEMGMT ---
RN CM Face to Face with patient for initial transition planning/care coordination assessment. RN CM introduced self and role at [facility]. Patient lying in bed, alert and oriented, daughter at bedside. Patient willing to participate in assessment and is able to answer all questions appropriately. Care providers, pharmacy, and demographics verified. Patient wishes to discharge home, denies need for home health at this time. Patient states she has no further needs or concerns at this time. CM to follow for discharge planning needs that may arise. PCP: Minda Specialists: Lan Munoz building estimator; Gregorio, sales representative facility services Preferred Pharmacy: [facility] Insurance: [facility] Prescription Benefit: yes Living Will/HPOA: yes, daughter Jenn Arias LNOK: daughters Living Arrangements: Patient lives alone in a single story home with 2 steps to enter. Patient states she is independent at home. Transportation: Self, daughter DME/HHC: Patient states she has shower chair, BSC, hospital bed, walker, medical alert, nebulizer, pulse ox and home oxygen at 2 lpm with portability through [employer]. Family aware to bring oxygen tank at discharge. Disposition Plan: Patient to discharge home with family support and follow-up plans in place. Joyce OHN, RN, CM
[2022-11-22] MEDS: Digoxin 250 MCG/ML Ampul 500 MCG IV (11:07)
[2022-11-22] MEDS: Digoxin 250 MCG/ML Ampul IV (17:00)
[2022-11-22] MEDS: APIXABAN 2.5 MG TABLET (WCH) PO (21:22)
[2022-11-22] MEDS: Atorvastatin Calcium 10 MG Tablet PO (21:22)
[2022-11-22] MEDS: LORazepam 0.5 MG Tablet 0.25 MG PO (21:29)
[2022-11-23] VITALS (8 sets, daily range): BP systolic 93–119; BP diastolic 48–62; PULSE 67–100; RESP 16–20; TEMP 36.4–36.9; O2SAT 87–100
[2022-11-23] MEDS: Acetaminophen 500 MG Tablet 1000 MG PO (06:18)
[2022-11-23 06:32] LABS: Absolute Lymphocyte Count 1.45 X10^3/uL (0.83-4.51); Absolute Neutrophil Count 7.2 X10^3/uL (2.0-7.7); Basophil# 0.05 X10^3/uL; Basophil% 0.5 % (0-1); Eosinophils% 4.1 % (0-5); Hematocrit 35.4 % (37-47); Hemoglobin 10.8 g/dL (12.0-15.0); Lymphocyte # 1.45 X10^3/ul (0.83-4.51); Lymphocyte % 14.8 % (19-41); Mean Corp Hgb Conc 30.5 g/dL (32-36); Mean Corpuscular Hgb 29.5 pg (27.0-32.0); Mean Corpuscular Volume 96.7 fL (81-99); Mean Platelet Vol. 9.6 fl (6.2-12.0); Monocyte# 0.63 X10^3/uL; Monocyte% 6.4 % (0-10); NRBC Flagged by Analyzer 0 % (0-5); Neutrophil # 7.23 X10^3/uL (2.7-7.7); Neutrophil % 73.9 % (47-70); Platelet Count 210 K/mm3 (150-450); RBC Distribution Width CV 13.2 % (11.6-14.6); RBC Distribution Width SD 47.4 fl (35.1-43.9); Red Blood Count 3.66 M/mm3 (4.2-5.4); White Blood Count 9.8 K/mm3 (4.4-11.0)
[2022-11-23] MEDS: Ipratropium/Albuterol Sulfate 3 ML AMPUL.NEB INHALATION (06:53)
[2022-11-23] MEDS: Budesonide Respules 0.5 MG/2 ML AMPUL.NEB. INHALATION (06:53)
[2022-11-23 06:59] LABS: Anion Gap 2 (5-15); BUN 28 mg/dL (7-18); Calcium,Total 8.7 mg/dL (8.5-10.1); Chloride 103 mmol/L (98-107); Creatinine, Serum 1.12 mg/dL (0.55-1.02); EST Glomerular Filtration Rate 50 mL/min (>60); Est Glom Filt Rate - Afr Amer 60 mL/min (>60); Estimated Creatinine Clearance 31.59 ml/min; Glucose 111 mg/dL (74-106); Magnesium 2.4 mg/dL (1.6-2.6); Phosphorus 3.1 mg/dL (2.5-4.9); Potassium 4.1 mmol/L (3.5-5.1); Sodium Level 136 mmol/L (136-145)
[2022-11-23] MEDS: Aspirin E.C. 81 MG Tablet PO (08:58)
[2022-11-23] MEDS: Metoprolol(XL)Succ 50 MG Tablet 75 MG PO (10:05)
[2022-11-23] MEDS: Furosemide 20 MG Tablet PO (10:05)
[2022-11-23] MEDS: APIXABAN 2.5 MG TABLET (WCH) PO (10:06)
--- NOTE | 2022-11-23 11:13 | DS.PCM_ITS ---
Providers Date of Admission: 11/21/22 Date of Discharge: 11/23/22 Primary Care Physician: Dr. Piero Perla, Consultations 11/21/22 14:13 Consult: Cardiology Routine Consulting Provider: Adalgisa Panchal Reason for Consult: New onset/detected atrial fib with RVR EMERGENT Consult: No MD Notified: Yes Date Notified: 11/21/22 Time Notified: 15:04 Method of Notification: Text Reason For Visit: ATRIAL FIBRILLATION WITH RVR Diagnosis Discharge Diagnosis (1) SOB (shortness of breath): Status: Acute Code(s): R06.02 - Shortness of breath (2) Atrial fibrillation with rapid ventricular response: Status: Acute Code(s): I48.91 - Unspecified atrial fibrillation (3) LESLEY (acute kidney injury): Status: Acute Code(s): N17.9 - Acute kidney failure, unspecified (4) Lung nodule: Status: Acute Code(s): R91.1 - Solitary pulmonary nodule Medications at Discharge Home Medications aspirin 81 mg tablet,delayed release 81 mg PO DAILY HEART HEALTH 01/01/16 fluticasone propionate 50 mcg/actuation nasal spray,suspension 2 spray intranasal DAILY ALLERGIES 12/19/17 lactobacillus combination no.9 4 billion cell capsule (Adult 50 Plus Probiotic) 4,000 mmu cells PO DAILY GUT HEALTH 09/25/21 lorazepam 0.5 mg tablet 0.25 mg PO QHS ANXIETY 09/25/21 cholecalciferol (vitamin D3) 50 mcg (2,000 unit) tablet 50 mcg PO DAILY SUPPLEMENT 03/25/22 albuterol sulfate 2.5 mg/3 mL (0.083 %) solution for nebulization 2.5 mg inhalation Q4H PRN SHORTNESS OF BREATH/WHEEZING 11/21/22 albuterol sulfate 90 mcg/actuation aerosol inhaler (ProAir HFA) 2 puff inhalation Q4H PRN SHORTNESS OF BREATH/WHEEZING 11/21/22 atorvastatin 10 mg tablet 10 mg PO QHS CHOLESTEROL 11/21/22 fluticasone 100 mcg-salmeterol 50 mcg/dose blistr powdr for inhalation (Wixela Inhub) 1 inh inhalation BID COPD 11/21/22 furosemide 20 mg tablet 20 mg PO DAILY FLUID 11/21/22 multivitamin 1 tab PO DAILY HEALTH MAINTENANCE 11/21/22 tiotropium bromide 2.5 mcg/actuation mist for inhalation (Spiriva Respimat) 2 puff inhalation DAILY COPD 11/21/22 apixaban 5 mg tablet (Eliquis) 2.5 mg PO BID #30 tabs 11/23/22 digoxin 125 mcg (0.125 mg) tablet 125 mcg PO DAILY #30 tabs 11/23/22 metoprolol succinate 50 mg tablet,extended release 24 hr 75 mg PO DAILY #45 tabs 11/23/22 Hospital Course Operations None Procedures 2-D Echocardiogram, EKG and - (Chest x-ray/CT chest) Summary of Care Provided Minutes Spent on Discharge: 38 Hospital Course: Mrs. Bourne is an 82-year-old white female who presented to the emergency department at [facility] on 11/21/2022 with left-sided chest pain and shortness of breath. She has a history of COPD and coronary artery disease with previous LAD stent and chronic diastolic heart failure. She reported that approximately 1 week ago she fell and since that point in time she had been having some left-sided rib pain that was worse with movement and deep breathing. She was unable to recall whether or not she hit her left side on anything. She reported that also over the last couple days prior to admission she had been e xperiencing exertional dyspnea and easy fatigability. She denied palpitations or substernal chest pain/pressure. She had no worsening wheezing and did not feel that this was related to her COPD. She had a recent lower to respiratory tract infection and acute exacerbation of COPD which she had just completed a course of Levaquin and steroids. She denied any fever or chills on presentation. In the emergency department she was found to be in A-fib with RVR which was a new diagnosis for her. Her ventricular rates were as high as 140- 150. She had been on metoprolol at baseline and this was continued and she was also started on a Cardizem drip. She was placed on therapeutic subcutaneous en oxaparin at 60 mg twice daily for stroke prevention in the setting of atrial fibrillation. Her chest x-ray was initially suggestive of a left lower lobe infiltrate so she was restarted on Levaquin. Her procalcitonin was normal and the CT of her chest did not show any infiltrate. CT did however show a pulmonary nodule that was 0.7 x 0.5 x 1 cm in the right lower lobe which is new. It was spiculated and concerning for malignancy. We did discuss the case with pulmonary medicine and they recommended outpatient follow-up for setting up a PET scan and further diagnostic testing if needed. We were able to set up a pulmonary medicine appointment for her on 11/28/[address] Nieves. She does have a history of tobacco abuse. With regards to her atrial fibrillation we increased her metoprolol from 50 to 75 mg daily and digoxin 125 mg was initiated by cardiology. She was also started on Eliquis 2.5 mg daily by cardiology as well. Her heart rate control was much improved by the a.m. of 11/23/2022. An echocardiogram was performed and showed an ejection fraction of 35% with moderate global left ventricular systolic dysfunction, indeterminate diastolic dysfunction, mild to moderate right ventricular systolic dysfunction and severe biatrial dilation. There was also moderate least severe eccentric mitral valve insufficiency and tricuspid valve insufficiency with right ventricular systolic pressure is estimated to be 46 mmHg. It is suspected that her drop in EF from 60 to 35% is related to her tachyarrhythmia. Cardiology felt that she could have outpatient stress testing performed and follow-up echocardiogram. Lisinopril was not introduced as her blood pressures were on the normal but low side at the time of discharge running anywhere from 100-120 systolic and 55-75 diastolic. She will be reevaluated in the outpatient setting to reassess the ability to start low-dose lisinopril and maximize goal-directed therapy. A follow-up appointment was made with cardiology to be seen in the first week of November. All of the above was discussed with the patient and her family and they voiced understanding. Prescriptions for her increased dose of metoprolol, digoxin, and Eliquis were sent to her local pharmacy for 1 month supply. She was able to be discharged home in stable condition on 11/23/2022. Discharge diagnoses: New onset atrial fibrillation with RVR Pulmonary nodule HFrEF-compensated Shortness of breath-improved with rate control LESLEY-resolved CKD stage IIIa COPD Chronic hypoxic respiratory failure Chronic diastolic dysfunction-compensated CAD Hyperlipidemia Osteoporosis Physical Exam Const alert, oriented x3, no apparent distress, average body habitus, no limitations, healthy appearing and well nourished Constitutional Narrative: Elderly white female, sitting up in chair at the bedside, daughter is at the bedside, patient appears well and nontoxic, currently on her baseline oxygen General Appearance: cooperative, comfortable, well kempt and well developed Orientation / Consciousness: awake, oriented to person, oriented to place and oriented to time Exam Limitations: no limitations HEENT normocephalic, head/scalp atraumatic, hearing grossly normal bilaterally and moist oral mucous membranes HEENT Narrative: Moderate hearing loss, Mallampati is 2, no thrush Eyes PERRL, EOMs intact bilaterally and conjunctivae normal Eyes Narrative: No scleral icterus Neck no lymphadenopathy, supple and no JVD Neck Narrative: Trachea and, no thigh enlargement Resp normal respiratory effort, no retractions and no use of accessory muscles Resp Narrative: Diffusely diminished but clear Auscultation: Negative for rales, rhonchi or wheezes Cardio regular rate, S1 normal heart sound, S2 normal heart sound, no murmurs, no rub, no gallops and no clicks; Negative for regular rhythm Cardio Narrative: rhythm is irregularly irregular GI normal to inspection, nondistended, normoactive bowel sounds, soft to palpation and non-tender Extremity no clubbing, cyanosis or edema Extremity Narrative: Pedal pulses 2+ Skin no rashes or lesions noted, no wounds, skin turgor normal and no jaundice Neuro oriented x3, CN's II-XII intact bilaterally, moves all extremities and no focal motor deficits Neuro Narrative: Mild generalized weakness proximal greater than distal but no significant functional deficit related to her this Speech: speech normal Psych affect normal Psych Narrative: Very pleasant, appropriately interactive Weight / BMI Weight Weight: 50.8 kg Body Mass Index (BMI) 24.2 ABG / Lab / Microbiology Data Result Diagrams: 11/23/22 06:09 11/23/22 06:09 Laboratory: Laboratory Results - last 24 hr 11/23/22 06:09: WBC 9.8, RBC 3.66 L, Hgb 10.8 L, Hct 35.4 L, MCV 96.7, MCH 29.5, MCHC 30.5 L, RDW Std Deviation 47.4 H, RDW Coeff of Sunitha 13.2, Plt Count 210, MPV 9.6, Immature Gran % (Auto) 0.300, Neut % (Auto) 73.9 H, Lymph % (Auto) 14.8 L, [place] % (Auto) 6.4, Eos % (Auto) 4.1, Baso % (Auto) 0.5, Absolute Neuts (auto) 7.2, Absolute Lymphs (auto) 1.45, Nucleated RBC % 0 11/23/22 06:09: Sodium 136, Potassium 4.1, Chloride 103, Carbon Dioxide 31.0, Anion Gap 2 L, BUN 28 H, Creatinine 1.12 H, Estim Creat Clear Calc 31.59, Est GFR (MDRD) Af Amer 60, Est GFR (MDRD) Non-Af 50 L, BUN/Creatinine Ratio 25.0 H, Glucose 111 H, Calcium 8.7, Phosphorus 3.1, Magnesium 2.4 Radiography Diagnostic Testing: Radiology Impression Echocardiogram 11/21/22 14:13 Interpretation Summary Moderately severe global left ventricular systolic dysfunction. The left ventricular ejection fraction is 35 %. Diastolic function is indeterminate. Mild to moderate global right ventricular systolic dysfunction. Severe biatrial dilatation Moderately severe (3+) eccentric mitral valve insufficiency. Moderate (2+) tricuspid valve insufficiency. Right ventricular systolic pressure estimated to be 46 mmHg. Ordering Physician: Chris Polanco Referring Physician: Piero Perla Performed By: Kaur Brown, LIYA, RVT D/C Instructions Discharge Diet: Low fat / Low cholesterol (Limit fluid intake to 2 L or less daily) and 2000 mg Sodium Diet Discharge Activity: Return to Normal Activity Meaningful Use Info Meaningful Use Diagnoses (Choose all that apply): None applicable Discharge Plan Admission Admit Date/Time: 11/21/22 14:18 Primary Reason for Your Visit: Chest pain/shortness of breath Attending Provider: Dahlia Forbes Primary Care Provider: Piero Perla Consulting Providers: Adalgisa Panchal ; Chris Polanco Discharge Orders/Prescriptions Prescriptions: New digoxin 125 mcg (0.125 mg) Tablet 125 mcg PO DAILY Qty: 30 0RF Eliquis 5 mg Tablet 2.5 mg PO BID Qty: 30 0RF metoprolol succinate 50 mg Tablet Extended Release 24 Hr 75 mg PO DAILY Qty: 45 0RF Continued lorazepam 0.5 mg tablet 0.25 mg PO QHS Adult 50 Plus Probiotic 4 billion cell capsule 4,000 mmu cells PO DAILY cholecalciferol (vitamin D3) 50 mcg (2,000 unit) tablet 50 mcg PO DAILY aspirin 81 MG tablet,delayed release (DR/EC) 81 mg PO DAILY fluticasone propionate 50 mcg/actuation spray,suspension 2 spray INTRANASAL DAILY multivitamin Tablet 1 tab PO DAILY furosemide 20 mg tablet 20 mg PO DAILY atorvastatin 10 mg tablet 10 mg PO QHS albuterol sulfate [ProAir HFA] 90 mcg/actuation HFA aerosol inhaler 2 puff INHALATION Q4H PRN (Reason: SHORTNESS OF BREATH/WHEEZING ) Spiriva Respimat 2.5 mcg/actuation mist 2 puff inhalation DAILY albuterol sulfate 2.5 mg /3 mL (0.083 %) solution for nebulization 2.5 mg inhalation Q4H PRN (Reason: SHORTNESS OF BREATH/WHEEZING ) fluticasone propion-salmeterol [Wixela Inhub] 100-50 mcg/dose blister with device 1 inh INHALATION BID Discontinued metoprolol succinate 50 mg tablet extended release 24 hr 50 mg PO DAILY Referrals / Follow Up: Lorne Nieves MD [Med Staff - Active Staff] - 11/28/22 8:45 am Benton Perkins MD [Med Staff - Active Staff] - 12/05/22 1:45 pm Piero Perla DO [Primary Care Provider] - Within 1 Month (For hospital follow- up) Disposition Disposition (needs filled in before D/C Order can be placed): Home, Self Care Charges/Coding Visit Charges Inpatient E&M: 07411 Disch Hosp >30min
--- NOTE | 2022-11-23 11:51 | PN.CARD_ITS ---
Subjective Subjective Denies any complaints. Heart rate better. Objective Data Vital Signs: Vital Signs Temp Pulse Resp BP Pulse Ox O2 Del Method O2 Flow Rate 98.4 F 67 16 119/62 100 Nasal Cannula 2 11/23/22 09:30 11/23/22 10:05 11/23/22 09:30 11/23/22 10:05 11/23/22 09:30 11/23/22 09:30 11/23/22 09:30 Oxygen Flow Rate (L/min) 2 Oxygen Delivery Method Nasal Cannula Weight: 111 lb 15.917 oz Body Mass Index (BMI) 24.2 Intake & Output: Intake and Output for Last 24 Hours 11/21/22 11/22/22 11/23/22 23:59 23:59 23:59 Intake Total 1167.92 / 1177.92 1390.00 / 1390.00 120 / 120 Balance 1167.92 / 1177.92 1390.00 / 1390.00 120 / 120 Lab / Micro Data Result Diagrams: 11/23/22 06:09 11/23/22 06:09 Labs: Laboratory Results - last 24 hr 11/23/22 06:09: WBC 9.8, RBC 3.66 L, Hgb 10.8 L, Hct 35.4 L, MCV 96.7, MCH 29.5, MCHC 30.5 L, RDW Std Deviation 47.4 H, RDW Coeff of Sunitha 13.2, Plt Count 210, MPV 9.6, Immature Gran % (Auto) 0.300, Neut % (Auto) 73.9 H, Lymph % (Auto) 14.8 L, [place] % (Auto) 6.4, Eos % (Auto) 4.1, Baso % (Auto) 0.5, Absolute Neuts (auto) 7.2, Absolute Lymphs (auto) 1.45, Nucleated RBC % 0 11/23/22 06:09: Sodium 136, Potassium 4.1, Chloride 103, Carbon Dioxide 31.0, Anion Gap 2 L, BUN 28 H, Creatinine 1.12 H, Estim Creat Clear Calc 31.59, Est GFR (MDRD) Af Amer 60, Est GFR (MDRD) Non-Af 50 L, BUN/Creatinine Ratio 25.0 H, Glucose 111 H, Calcium 8.7, Phosphorus 3.1, Magnesium 2.4 Rhythm Strip Rhythm Strip: A-fib Cardiology Labs/Tests 11/23/22 06:09: WBC 9.8, RBC 3.66 L, Hgb 10.8 L, Hct 35.4 L, MCV 96.7, MCH 29.5, MCHC 30.5 L, Plt Count 210, MPV 9.6, Immature Gran % (Auto) 0.300, Neut % (Auto) 73.9 H, Lymph % (Auto) 14.8 L, [place] % (Auto) 6.4, Eos % (Auto) 4.1, Baso % (Auto) 0.5, Absolute Neuts (auto) 7.2, Nucleated RBC % 0 11/23/22 06:09: Sodium 136, Potassium 4.1, Chloride 103, Carbon Dioxide 31.0, Anion Gap 2 L, BUN 28 H, Creatinine 1.12 H, Est GFR (MDRD) Af Amer 60, Est GFR (MDRD) Non-Af 50 L, BUN/Creatinine Ratio 25.0 H, Glucose 111 H, Calcium 8.7, Phosphorus 3.1, Magnesium 2.4 Rhythm: EKG: ECHO: Stress Test: Cardiac Cath: PCI: CT Surgery: Holter monitor: EPS: PPM: CXR: Chest CT Scan: Radiography Diagnostic Testing: Radiology Impression Echocardiogram 11/21/22 14:13 Interpretation Summary Moderately severe global left ventricular systolic dysfunction. The left ventricular ejection fraction is 35 %. Diastolic function is indeterminate. Mild to moderate global right ventricular systolic dysfunction. Severe biatrial dilatation Moderately severe (3+) eccentric mitral valve insufficiency. Moderate (2+) tricuspid valve insufficiency. Right ventricular systolic pressure estimated to be 46 mmHg. Ordering Physician: Chris Polanco Referring Physician: Piero Perla Performed By: Kaur Brown, RDCS, RVT Physical Exam Narrative Comfortable. No apparent distress. Heart sounds 1 and 2 noted. Irregularly irregular. Chest clear to auscultation bilaterally. Alert oriented x3. No ankle edema noted. Assessment & Plan Assessment/Plan (1) Atrial fibrillation with rapid ventricular response: PLAN: Ventricular rate controlled. Continue Eliquis. Continue beta-blockers. Continue digoxin. (2) Coronary artery disease: PLAN: Continue aspirin. Continue beta-blockers. Chest pain pleuritic. Doubt ischemic. (3) Essential hypertension: PLAN: Controlled. (4) Hyperlipidemia: PLAN: Continue atorvastatin. (5) Chronic obstructive pulmonary disease: QUALIFIERS: COPD type: unspecified COPD Qualified Code(s): J44.9 - Chronic obstructive pulmonary disease, unspecified PLAN: As per internal medicine. (6) Left ventricular systolic dysfunction (LVSD): PLAN: May be tachycardia related. Recommend pharmacological stress imaging as outpatient. Continue beta-blockers. Add SULY inhibitors as outpatient when blood pressure able to tolerate.
[2022-11-23] MEDS: Digoxin 125 MCG Tablet PO (11:52)
== END 2022-11-23 13:11 | disposition home or self-care (01) | DRG 308 ==
LOC: ED 13:31 → PCU 15:56
PROVIDERS: Physician Assistant; Admitting Provider Internal Medicine; Emergency Provider Student in an Organized Health Care Education/Training Program; PCP Student in an Organized Health Care Education/Training Program; Visit Provider Internal Medicine
DX: I48.91 Unspecified atrial fibrillation (principal); J18.9 Pneumonia, unspecified organism; J96.11 Chronic respiratory failure with hypoxia; I13.0 Hypertensive heart and chronic kidney disease with heart failure and stage 1 through stage 4 chronic kidney disease, or unspecified chronic kidney disease; N17.9 Acute kidney failure, unspecified; I50.22 Chronic systolic (congestive) heart failure; I27.20 Pulmonary hypertension, unspecified; N18.31 Chronic kidney disease, stage 3a; J44.9 Chronic obstructive pulmonary disease, unspecified; E78.5 Hyperlipidemia, unspecified; I25.10 Atherosclerotic heart disease of native coronary artery without angina pectoris; I25.5 Ischemic cardiomyopathy; I08.1 Rheumatic disorders of both mitral and tricuspid valves; R91.1 Solitary pulmonary nodule; M94.0 Chondrocostal junction syndrome [Tietze]; Z95.5 Presence of coronary angioplasty implant and graft; Z87.891 Personal history of nicotine dependence; Z79.82 Long term (current) use of aspirin; Z82.3 Family history of stroke; Z79.01 Long term (current) use of anticoagulants; Z79.51 Long term (current) use of inhaled steroids; M81.0 Age-related osteoporosis without current pathological fracture
CPT/HCPCS: 36415; 71046; 71250; 80048; 80053; 83735; 83880; 84100; 84145; 84443; 84484; 85025; 85379; 93005; 93306; 94640; 97110; 97116; 97162; 97166; 99285; J7030; A4216

== ENCOUNTER → 2022-12-10 | Outpatient (CLI) | payer MEDICARE, SELFPAY ==
--- NOTE | 2022-12-10 08:00 | PET_ITS ---
EXAMINATION: FDG PET/CT INDICATIONS: 82-year-old female with a history of pulmonary nodularity. COMPARISON EXAMINATION: CT of the chest report dated 11/21/2022. INDEX LESION SIZE SUV INTERPRETATION Right lower lung field, right lower lobe 9.5 mm, largest 1.9 max Quantitative criteria for viable neoplasm are not fulfilled ? Right upper lung field, right upper lobe ? 2.2 max Quantitative criteria for viable neoplasm are not fulfilled ? NON-INDEX LESION ? ? ? Left adrenal gland ? 2.1 Quantitative criteria for viable neoplasm are not fulfilled TECHNIQUE: Following the intravenous administration of 12.78 mCi of F-18 deoxyglucose via the left antecubital fossa, multiplanar image acquisitions of the head, neck, chest, abdomen and pelvis to the level of the midthigh, obtained at one-hour post radiopharmaceutical administration contemporaneously interpreted with the current CT of the chest, abdomen and pelvis dated 12/10/[address] of the chest report dated 11/21/2022 via coregistration reveal: SERUM GLUCOSE LEVEL: 90 mg/dL HEIGHT: 57 inches WEIGHT: 112 pounds FINDINGS: HEAD/NECK: There is no evidence of abnormal increased glucose metabolism in the pharyngeal mucosal space, parapharyngeal space, oropharynx, bilateral-lateral and anterior neck, hypopharynx and distribution of the larynx. The visualized portion of the cerebral cortical-subcortical structures demonstrate symmetric and preserved glucose metabolism. Asymmetric visualization of the left masseter musculature is demonstrated consistent with muscle tension artifact. CHEST: Subtle increased radiopharmaceutical concentration manifest in the right mid posterior lung demonstrating a calculated standard uptake value of 1.9. Quantitative criteria for viable neoplasm are not fulfilled. The maximum axial diameter of the parenchymal density is 9.5 mm. Facilitated uptake is noted in the right upper lobe, adjacent to the right thoracic perihilum. The calculated maximum standard uptake value is 2.2. CT of the chest demonstrates the following anatomic characteristics: Atherosclerotic calcification is defined in the thoracic aorta without evidence of dilatation, aneurysm formation. Coronary arterial calcification is observed. Bilateral axillary soft tissue densities are ametabolic. Scattered, subcentimeter bilateral axillary soft tissue is nonglucose avid. Mediastinal soft tissue reveals no evidence of increased FDG concentration. ABDOMEN/PELVIS: Normal physiologic distribution of the radiopharmaceutical is identified in the hepatic (3.8) and splenic parenchyma, both renal units, urinary bladder, and visualized intestinal tract. CT of the abdomen and pelvis is remarkable for the following: Atherosclerotic calcification is defined in the abdominal aorta without evidence of dilatation, aneurysm formation. Pelvic arterial calcification is observed. Cyst formation is defined in the bilateral kidneys. Facilitated uptake is noted in the left adrenal gland with a calculated of 2.1. Quantitative criteria for viable neoplasm are not fulfilled. Colonic diverticulosis is encountered without evidence of diverticulitis. Calcification is manifest in the uterus bilaterally. SKELETAL: Degenerative changes defined in the thoracic and lumbar spine demonstrate no evidence of increased glucose metabolism. There are no sclerotic, mixed sclerotic-lytic, or primarily lytic changes defined in the axial skeletal structures with evidence of increased FDG uptake. PET/PET/CT Tumor Base -Thigh Init IMPRESSION: 1. NEGATIVE EXAMINATION. There is no definitive quantitatively significant scintigraphic evidence of viable neoplasm. 2. Enhanced tracer uptake defined in the right upper and right lower hemithorax do not fulfill quantitative criteria for malignant transformation. 3. Anatomic stability may be ensured with repeat CT of the right hemithorax parenchymal densities in 6-9 months if clinically indicated. (Barb, Seminars in Thoracic and Cardiovascular surgery, 14:292, 2002). 4. The left adrenal gland hypermetabolic focus does not fulfill quantitative criteria for neoplasia. Electronic Signature Mikey Coon D.O. Accurate Quantification of SUVs for this report are calculated using the exclusive [employer]. ([place].S. Patent No. [id number] [id number] B2 [phone] [place] patent [phone]). Standardization and correction of the FDG SUV metric via [employer]QUAN technology allow for vendor non-specific objective quantitative examination comparison and optimization of the sensitivity and specificity of the FDG PET-CT examination. Electronically Signed: Mikey Coon, at 8:08 EDT ,
== END | disposition home or self-care (01) ==
PROVIDERS: PCP Student in an Organized Health Care Education/Training Program; Referring Provider Nurse Practitioner Acute Care; Visit Provider Nurse Practitioner Acute Care
DX: R91.8 Other nonspecific abnormal finding of lung field (principal)
CPT/HCPCS: 78815; A9552

== ENCOUNTER → 2022-12-23 | Day surgery (SDC) | payer MEDICARE, SELFPAY ==
[2022-12-13 07:48] VITALS: BMI 23.8
--- NOTE | 2022-12-23 10:34 | CL.D_ITS ---
Patient Name: SHAHZAD OTERO Study Date: 12/23/2022 Performing: Benton Perkins MD Ht: 57 inches 144.78 cm : 1940 Wt: 110.01 lbs 49.9 kg Age: 82 Gender: female BSA: 1.39 PROCEDURE(S) PERFORMED [id number])LHC/COR/LV CLINICAL PROFILE AND INDICATIONS Indications: Cardiomyopathy Heart Failure: NYHA Class: 3, Newly Diagnosed: Yes, Heart Failure Type: Systolic Stress/Imaging Stress/Image Study Performed: No CAD Presentations: Other: SOB CONCLUSIONS Atrial fibrillation Previously placed stent in the LAD is patent with moderately severe disease noted in the right coronary artery and a cardiomyopathy with 2+ mitral regurgitation. RECOMMENDATIONS Optimization of medical therapy DESCRIPTION OF PROCEDURE The patient arrived to the procedure lab. The risks and benefits of the procedure as well as a full description of our services here and current unavailability of surgical backup were fully explained to the patient and/or their significant other prior to the catheterization. The Timeout was completed, verifying the correct patient and procedure. The patient's procedural site was prepped and draped in the usual fashion. Local anesthetic was given subcutaneously to right radial region with Lidocaine 2%. Using a modified Seldinger technique, arterial access was obtained via the right radial artery, a 6Fr sheath was inserted. Left Coronary Artery selective angiography was performed in multiple views using a 5 Fr. 4.0 [place] catheter. Right Coronary Artery selective angiography was then performed in multiple views using a 5 Fr. 4.0 [place] catheter. Left Ventriculography was performed in SERVIN projection using a 5 Fr. [place] catheter. LV to AO pullback pressures were then recorded.The arterial sheath was pulled and a TR Band was applied for hemostasis CORONARY ANGIOGRAPHY DOMINANCE: Right Dominant LEFT HEART ASSESSMENT Left Ventricular Ejection Fraction: by LV Gram 40 % Depressed Left Ventricular systolic function LEFT MAIN: Moderate calcification, Non-obstructive LEFT ANTERIOR DESCENDING ARTERY: Previously placed stent in the left anterior descending artery is noted to be patent with small distal vessel. CIRCUMFLEX ARTERY: Mild luminal irregularities RIGHT CORONARY ARTERY: Mildly calcified proximally and moderate mid segment disease 50 to 60% stenosis VALVE FINDINGS: Mitral Valve Insufficiency - Grade 2 COMPLICATIONS No Complications PROCEDURE MEDICATIONS Fentanyl 25 mcg IV Versed 0.5 mg IV Oxygen: 2 L/min via nasal cannula as per home Oxygen: 2 L/min via nasal cannula Benadryl 25 mg IV @ 12/23/2022 09:44:22 Heparin given IA 12/23/2022 10:03:23 Solu-medrol 125 mg IV 12/23/2022 09:44:45 SUMMARY OF HEMODYNAMIC DATA Time AIR REST ECG 08:11:26 AO 93/59 (74) SA 10:06:10 AO 115/72 (89) 10:14:25 LV 114/11, 18 10:19:28 LV 112/13, 15 10:19:34 LV 90/13, 17 10:20:34 LVp 95/16, 23 10:20:40 AOp 99/52 (74) 10:20:45 10:33:52 Signed By Benton Perkins MD On 12/23/2022 10:33:54 Benton Perkins MD
== END | disposition home or self-care (01) ==
PROVIDERS: PCP Student in an Organized Health Care Education/Training Program; Referring Provider Internal Medicine Cardiovascular Disease; Visit Provider Internal Medicine Cardiovascular Disease
DX: I48.91 Unspecified atrial fibrillation (principal); I50.22 Chronic systolic (congestive) heart failure; I20.8 Other forms of angina pectoris; Z95.5 Presence of coronary angioplasty implant and graft; I34.0 Nonrheumatic mitral (valve) insufficiency; I25.10 Atherosclerotic heart disease of native coronary artery without angina pectoris; Z87.891 Personal history of nicotine dependence; R91.8 Other nonspecific abnormal finding of lung field; I25.5 Ischemic cardiomyopathy
CPT/HCPCS: 93458; 99152; 99153; J7040; A4216; C1769; C1894; Q9967

== ENCOUNTER 2023-01-10 08:48 | Inpatient (IN) | payer MEDICARE, SELFPAY ==
[2023-01-10] VITALS (12 sets, daily range): BP systolic 91–126; BP diastolic 52–97; PULSE 89–128; RESP 14–20; TEMP 35.8–36.9; O2SAT 90–100; BMI 24.3; BMI 23.5
--- NOTE | 2023-01-10 09:27 | EKG12_ITS ---
Test Reason : SOB Blood Pressure : / mmHG Vent. Rate : 110 BPM Atrial Rate : 000 BPM P-R Int : 000 ms QRS Dur : 084 ms QT Int : 316 ms P-R-T Axes : 000 040 054 degrees QTc Int : 427 ms Atrial fibrillation with rapid ventricular response Nonspecific ST abnormality Abnormal ECG Confirmed by JASBIR BUCK, JASPER ([id number]), non linear editor RAINE BURGER ([id number]) on 01/13/2023 8:36:16 AM Referred By: Confirmed By:LEXI MARTELL MD
--- NOTE | 2023-01-10 09:27 | ED.VIS.DYS ---
HPI History of Present Illness Chief Complaint: Shortness of Breath Informant: patient and family Narrative Narrative: Presents with dyspnea. Patient has a history of COPD but also significant CHF. She also has a history of atrial fibrillation and is taking Eliquis. She states for the last 2 or 3 days she has had an increase in her dyspnea. It may be had started a little bit a day or so even before that. She has gained about 5 pounds in the last for 5 days. She does admit to eating some TV dinners and ham and other salty foods that are different than normal. She is taking her Lasix but did not yet take it this morning. She states she had a little bit of chest pain but none now. She has symptomatic orthopnea. She has early satiety but no abdominal pain. She does not have peripheral edema. She is not having fevers or chills. She does cough up some material but is not really different than normal. I reviewed her recent heart catheterization about 3 weeks ago that showed no acute treatable coronary artery disease but does show chronic changes. I also reviewed her echocardiogram from October of this year that shows ejection fraction about 35%. The heart cath had estimated at 40%. [facility] Medical History Iatop-8-pursqqdxcsc deficiency Atherosclerotic heart disease of [place] coronary artery without angina pectoris Atrial fibrillation with rapid ventricular response Chronic HFrEF (heart failure with reduced ejection fraction) Chronic kidney disease, stage 3a Chronic obstructive pulmonary disease COPD (chronic obstructive pulmonary disease) Coronary artery disease Diverticulitis Essential hypertension Hyperlipidemia Ischemic cardiomyopathy Left ventricular systolic dysfunction (LVSD) Lung nodule Osteoporosis Respiratory failure with hypoxia Secondary pulmonary arterial hypertension Sinusitis Home Medications aspirin 81 mg tablet,delayed release 81 mg PO DAILY HEART HEALTH 01/01/16 [History Last Taken 01/09/23] fluticasone propionate 50 mcg/actuation nasal spray,suspension 2 spray intranasal DAILY ALLERGIES 12/19/17 [History Last Taken 01/09/23] lactobacillus combination no.9 4 billion cell capsule (Adult 50 Plus Probiotic) 4,000 mmu cells PO DAILY GUT HEALTH 09/25/21 [History Last Taken 01/09/23] lorazepam 0.5 mg tablet 0.25 mg PO QHS ANXIETY 09/25/21 [History Last Taken 01/09/23] cholecalciferol (vitamin D3) 50 mcg (2,000 unit) tablet 50 mcg PO DAILY SUPPLEMENT 03/25/22 [History Last Taken 01/09/23] albuterol sulfate 2.5 mg/3 mL (0.083 %) solution for nebulization 2.5 mg inhalation Q4H PRN SHORTNESS OF BREATH/WHEEZING 11/21/22 [History Last Taken 01/10/23] atorvastatin 10 mg tablet 10 mg PO QHS CHOLESTEROL 11/21/22 [History Last Taken 01/09/23] fluticasone 100 mcg-salmeterol 50 mcg/dose blistr powdr for inhalation (Wixela Inhub) 1 inh inhalation BID COPD 11/21/22 [History Last Taken 01/10/23] apixaban 2.5 mg tablet (Eliquis) 2.5 mg PO BID . #30 tabs 11/23/22 [Rx Last Taken 01/09/23] furosemide 40 mg tablet 40 mg PO DAILY FLUID #90 tabs 12/23/22 [Rx Last Taken 01/09/23] metoprolol succinate 50 mg tablet,extended release 24 hr 75 mg (1.5 x 50 mg) PO BID htn #120 tabs 12/23/22 [Rx Last Taken 01/09/23] albuterol sulfate 90 mcg/actuation aerosol inhaler (ProAir HFA) 2 puff inhalation Q4H PRN SHORTNESS OF BREATH/WHEEZING #8.5 grams 12/31/22 [Rx Last Taken Unknown] tiotropium bromide 2.5 mcg/actuation mist for inhalation (Spiriva Respimat) 2 puff inhalation DAILY COPD #4 grams 12/31/22 [Rx Last Taken 01/10/23] Allergy/AdvReac Type Severity Reaction Status Date / Time Penicillins Allergy Intermediate Other-difficulty Verified 01/10/23 08:53 breathing Sulfa (Sulfonamide Allergy Intermediate Other-breathing Verified 01/10/23 08:53 Antibiotics) difficulty, hot flashes, rash azithromycin Allergy Mild Other-bleed Verified 01/10/23 08:53 ing clarithromycin [From Biaxin] Allergy Mild Other-bloody Verified 01/10/23 08:53 stool Iodinated Contrast Media Allergy Hives Verified 01/10/23 08:53 ofloxacin [From Floxin] AdvReac Mild Nausea Verified 01/10/23 08:53 Family History Mother Cervical cancer Lung cancer Breast cancer Father Colon cancer CVA (cerebral vascular accident) CHF (congestive heart failure) Surgical History History of coronary artery stent placement (02/23/19) History of left heart catheterization (03/2019) Social History household members: spouse housing: house current occupational status: retired pets and animals: Yes pets and animals: cat(s) Smoking Status: Former smoker quit date: 06/02/89 pack-years: 34 second hand exposure: Yes alcohol intake: never substance use type: does not use caffeine: Yes Type: coffee Number of servings: 3 ROS ROS ED ROS Narrative A complete review of systems was performed and is negative except as documented in the history of present illness. Some specific details below. Constitutional: No recent fevers or chills. No malaise. She does have weight gain as in history of present illness. EYE: No discharge, visual complaints, or pain. ENT: No difficulty swallowing. No swelling. No pain. No reflux symptoms. CV: See history of present illness. Complained of a little bit of chest pain recently but not currently. Respiratory: See history of present illness. GI: No abdominal pain. No nausea vomiting diarrhea. No blood in stool. : No frequency dysuria or hematuria. Musculoskeletal: No recent trauma. No pains. No swelling. Skin: No rash. Nondiaphoretic. Neuro: No weakness or numbness. Endocrine: No polyuria or polydipsia. EXAM Physical Exam Narrative Exam Narrative: CONSTITUTIONAL: Patient is nontoxic in appearance. The patient looks comfortable. Work of breathing looks slightly increased but she is able to carry on a conversation. HEENT: No notable trauma. Mucous membranes moist. EYES: No conjunctival injection. No proptosis. NECK:No JVD. No stridor. CARDIOVASCULAR: Mildly tachycardic rate. Irregular rhythm. No notable murmur. No visit JVD. RESPIRATORY: No respiratory distress. Breathing does have slight increased work. She does have basilar rales on both sides. GASTROINTESTINAL: Not distended. Bowel sounds are normal. No tenderness. No guarding. No rebound. No palpable mass. No bruit is heard. GENITOURINARY: No tenderness over the bladder. No CVA tenderness. MUSCULOSKELETAL: Atraumatic. No notable peripheral edema. No cord. No tenderness along the deep venous system. No asymmetry. No distended veins. NEUROLOGICAL: Patient is alert and appropriate. No focal deficit noted. SKIN: No noted rashes. No diaphoresis. PSYCHIATRIC: Patient is calm. Mood is appropriate. Const Vital Signs: 01/10/23 08:50 01/10/23 09:00 01/10/23 09:00 Temperature 96.5 F L 96.7 F L Temperature Source Temporal Temporal Pulse Rate 114 H 104 H Respiratory Rate 20 H 20 H Respiratory Effort Respiratory Pattern Blood Pressure 118/79 118/76 Blood Pressure Mean 92 90 Pulse Ox 96 90 Oxygen Delivery Method Nasal Cannula Nasal Cannula Nasal Cannula Oxygen Flow Rate (L/min) 4 4 4 01/10/23 09:00 01/10/23 11:50 01/10/23 11:48 Temperature 97.3 F L Temperature Source Temporal Pulse Rate 120 H 113 H Respiratory Rate 16 17 Respiratory Effort Short of Breath Labored Respiratory Pattern Tachypnea Normal Blood Pressure 116/71 Blood Pressure Mean 86 Pulse Ox 100 Oxygen Delivery Method Nasal Cannula Oxygen Flow Rate (L/min) 4 01/10/23 11:48 Temperature Temperature Source Pulse Rate 113 H Respiratory Rate 17 Respiratory Effort Respiratory Pattern Blood Pressure 116/71 Blood Pressure Mean 86 Pulse Ox 100 Oxygen Delivery Method Nasal Cannula Oxygen Flow Rate (L/min) 4 MDM MDM MDM Narrative Medical decision making narrative: Patient CBC shows minimal elevation in the white count at 11.2. Minimal anemia at 11.9. Platelets are normal. Patient's electrolytes show no marked abnormalities. Slight elevation in BUN/creatinine and carbon dioxide. Troponin is negative. BNP is elevated at 650. My independent interpretation of her single view chest x-ray shows mild increased markings in the bases and slight effusion mostly on the left. This is a small effusion and. Final reading by radiology shows mild degree of vascular congestion superimposed on basilar atelectasis slightly worse on the left side and blunting the left costophrenic angle. I went back and checked the patient. She almost has a little bit of a wheeze now. She did not have this at first. But she is due for a breathing treatment. She has COPD also. Patient is also on 2 L of oxygen all the time but she has turned it up to 4 L over the last couple days. Even on 4 L she is got a saturation at about 90 in bed. We got her up and walked. It and immediately went to 87 and she was very dyspneic. She is not tolerating this. I think with her complex medical history, bad ejection fraction, weight gain, and COPD history and turning of oxygen she is not a good candidate for outpatient therapy at this time. Lab Data Attestation: I reviewed the patient's lab results. Labs: Laboratory Results - last 24 hr 01/10/23 09:50 WBC 11.2 H RBC 3.97 L Hgb 11.9 L Hct 39.5 MCV 99.5 H MCH 30.0 MCHC 30.1 L RDW Std Deviation 49.9 H RDW Coeff of Sunitha 13.6 Plt Count 224 MPV 10.1 Immature Gran % (Auto) 0.400 Neut % (Auto) 84.7 H Lymph % (Auto) 8.3 L [place] % (Auto) 5.0 Eos % (Auto) 1.0 Baso % (Auto) 0.6 Absolute Neuts (auto) 9.5 H Absolute Lymphs (auto) 0.93 Nucleated RBC % 0 Sodium 138 Potassium 4.6 Chloride 102 Carbon Dioxide 33.0 H Anion Gap 3 L BUN 31 H Creatinine 1.05 H Estim Creat Clear Calc 33.90 Est GFR (MDRD) Af Amer 65 Est GFR (MDRD) Non-Af 53 L BUN/Creatinine Ratio 29.5 H Glucose 118 H Calcium 9.6 Troponin I High Sens 9 B-Natriuretic Peptide 651.3 H Radiography Diagnostic Testing: Clinical Impression(s) from Imaging Studies Chest X-Ray 01/10/23 09:33 IMPRESSION: Mild degree of vascular congestion superimposed on bibasilar atelectasis slightly worse on the left side and blunting of the left costophrenic angle Electronically Signed: German Cabrera MD at 9:50 EDT , EKG Initial EKG: Comments: My independent interpretation the patient's EKG done for dyspnea shows atrial fibrillation/flutter with overall rate of 110. No noted ventricular ectopy. No acute ST elevation or depression. QRS duration and QTc are normal Discharge Plan Dx/Rx/DC Orders Clinical Impression: History of COPD, Congestive heart failure, Hypoxia Disposition Disposition: Acute Care Hospital [facility] Discharge Date/Time: 01/10/23 12:26
--- NOTE | 2023-01-10 09:33 | RAD_ITS ---
STUDY: X-RAY CHEST REASON FOR EXAM: Female, 82 years old. SOB, ?CHF TECHNIQUE: Single AP portable view of the chest. COMPARISON: Comparison is made with prior study dated November 21, 2022. FINDINGS: EKG electrodes are seen. Small left pleural effusion with left basilar atelectasis and/or infiltrate. Mild increased markings at the right lung base suggestive of atelectasis. Mild degree of vascular congestion. Normal size heart. Normal mediastinum and kaity. Normal visualized pulmonary arteries. There is atherosclerotic calcification of the aortic arch with tortuosity. There are diffuse degenerative changes of the visualized thoracic spine. Deformity of the proximal right humerus in keeping with old fracture. There is no demonstrated abnormality of the visualized soft tissue structures of the upper abdomen. RAD/Chest 1 View (Portable) IMPRESSION: Mild degree of vascular congestion superimposed on bibasilar atelectasis slightly worse on the left side and blunting of the left costophrenic angle Electronically Signed: German Cabrera MD at 9:50 EDT ,
[2023-01-10 10:02] LABS: Absolute Lymphocyte Count 0.93 X10^3/uL (0.83-4.51); Absolute Neutrophil Count 9.5 X10^3/uL (2.0-7.7); Basophil# 0.07 X10^3/uL; Basophil% 0.6 % (0-1); Eosinophil# 0.11 X10^3/uL; Hematocrit 39.5 % (37-47); Hemoglobin 11.9 g/dL (12.0-15.0); Lymphocyte # 0.93 X10^3/ul (0.83-4.51); Lymphocyte % 8.3 % (19-41); Mean Corp Hgb Conc 30.1 g/dL (32-36); Mean Corpuscular Volume 99.5 fL (81-99); Mean Platelet Vol. 10.1 fl (6.2-12.0); Monocyte# 0.56 X10^3/uL; NRBC Flagged by Analyzer 0 % (0-5); Neutrophil % 84.7 % (47-70); Platelet Count 224 K/mm3 (150-450); RBC Distribution Width CV 13.6 % (11.6-14.6); RBC Distribution Width SD 49.9 fl (35.1-43.9); Red Blood Count 3.97 M/mm3 (4.2-5.4); White Blood Count 11.2 K/mm3 (4.4-11.0)
[2023-01-10] MEDS: Furosemide 100 MG/10 ML Vial 60 MG IV (10:07)
[2023-01-10 10:22] LABS: BNP,B-Type NATRIURETIC PEPTIDE 651.3 pg/mL (0-100)
[2023-01-10 10:29] LABS: Anion Gap 3 (5-15); BUN 31 mg/dL (7-18); BUN/Creat Ratio 29.5 RATIO (10-20); Calcium,Total 9.6 mg/dL (8.5-10.1); Chloride 102 mmol/L (98-107); Creatinine, Serum 1.05 mg/dL (0.55-1.02); EST Glomerular Filtration Rate 53 mL/min (>60); Est Glom Filt Rate - Afr Amer 65 mL/min (>60); Glucose 118 mg/dL (74-106); Potassium 4.6 mmol/L (3.5-5.1); Sodium Level 138 mmol/L (136-145); Troponin-I HS 9 pg/mL (3.0-54.0)
[2023-01-10] MEDS: Ipratropium/Albuterol Sulfate 3 ML AMPUL.NEB INHALATION ×2 (11:47→15:42)
--- NOTE | 2023-01-10 11:47 | HP.PCM_ITS ---
HPI - General General Date of Admission: 01/10/23 Date of Service: 01/10/23 Chief Complaint: shortness of breath HPI Narrative SHAHZAD OTERO, is a 82 F with a PMH as outlined who presents via the ED on 01/10/2023 with a complaint of shortness of breath. SHe said her symptoms had been going on for 2-3 days prior to admission, and she had gained about pounds in the 5 days prior to admission. She had been eating a diet rich in salty foods, and eatinig some ham and other salty foods. She had been taking her lasix. She was seen in the hospital about a month ago and had a cath which showed that her previously placed stent in the LAD was patent with moderately severe disease in the RCA nad a cardiomyopathy with 2+ mitral regurgitation. She admitted to some occasional chest pain, but denied any nausea, vomiting, fever or chills or any other symptoms. Review of systems is otherwise negative. She was also newly diagnosed with afib a few weeks ago and placed on metoprolol and eliquis. Vitals in [facility] ED were temp of 97.3F, MS of 120, RR of 16 and she was saturating at 4L of oxygen by nasal canula. CBC showed Hb of 11.9, wbc of 11.2, platelets of 224; chemistry showed sodium of 138, potassium of 4.6 and Cr of 1.05. BNP was 651 and initial troponin was negative. CXR showed mild degree of vascular congestion superimposed on bibasilar atelectasis, slightly worse on the left side and blunting of the left costophrenic angle. She usually wears 2L of oxygen at home and desaturated to 87% on 4L of oxygen in the ED. She is being admitted to be managed for acute on chronic exacerbation of HFrEF. 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 Atrial fibrillation with rapid ventricular response Chronic HFrEF (heart failure with reduced ejection fraction) Chronic kidney disease, stage 3a Chronic obstructive pulmonary disease COPD (chronic obstructive pulmonary disease) Coronary artery disease Diverticulitis Essential hypertension Hyperlipidemia Ischemic cardiomyopathy Left ventricular systolic dysfunction (LVSD) Lung nodule Osteoporosis Respiratory failure with hypoxia Secondary pulmonary arterial hypertension Sinusitis Home Medications aspirin 81 mg tablet,delayed release 81 mg PO DAILY HEART HEALTH 01/01/16 [History Last Taken 01/09/23] fluticasone propionate 50 mcg/actuation nasal spray,suspension 2 spray intranasal DAILY ALLERGIES 12/19/17 [History Last Taken 01/09/23] lactobacillus combination no.9 4 billion cell capsule (Adult 50 Plus Probiotic) 4,000 mmu cells PO DAILY GUT HEALTH 09/25/21 [History Last Taken 01/09/23] lorazepam 0.5 mg tablet 0.25 mg PO QHS ANXIETY 09/25/21 [History Last Taken 01/09/23] cholecalciferol (vitamin D3) 50 mcg (2,000 unit) tablet 50 mcg PO DAILY SUPPLEMENT 03/25/22 [History Last Taken 01/09/23] albuterol sulfate 2.5 mg/3 mL (0.083 %) solution for nebulization 2.5 mg inhalation Q4H PRN SHORTNESS OF BREATH/WHEEZING 11/21/22 [History Last Taken 01/10/23] atorvastatin 10 mg tablet 10 mg PO QHS CHOLESTEROL 11/21/22 [History Last Taken 01/09/23] fluticasone 100 mcg-salmeterol 50 mcg/dose blistr powdr for inhalation (Abelino Babcockub) 1 inh inhalation BID COPD 11/21/22 [History Last Taken 01/10/23] apixaban 2.5 mg tablet (Eliquis) 2.5 mg PO BID . #30 tabs 11/23/22 [Rx Last Taken 01/09/23] furosemide 40 mg tablet 40 mg PO DAILY FLUID #90 tabs 12/23/22 [Rx Last Taken 01/09/23] metoprolol succinate 50 mg tablet,extended release 24 hr 75 mg (1.5 x 50 mg) PO BID htn #120 tabs 12/23/22 [Rx Last Taken 01/09/23] albuterol sulfate 90 mcg/actuation aerosol inhaler (ProAir HFA) 2 puff inhalation Q4H PRN SHORTNESS OF BREATH/WHEEZING #8.5 grams 12/31/22 [Rx Last Taken Unknown] tiotropium bromide 2.5 mcg/actuation mist for inhalation (Spiriva Respimat) 2 puff inhalation DAILY COPD #4 grams 12/31/22 [Rx Last Taken 01/10/23] Allergy/AdvReac Type Severity Reaction Status Date / Time Penicillins Allergy Intermediate Other-difficulty Verified 01/10/23 08:53 breathing Sulfa (Sulfonamide Allergy Intermediate Other-breathing Verified 01/10/23 08:53 Antibiotics) difficulty, hot flashes, rash azithromycin Allergy Mild Other-bleed Verified 01/10/23 08:53 ing clarithromycin [From Biaxin] Allergy Mild Other-bloody Verified 01/10/23 08:53 stool Iodinated Contrast Media Allergy Hives Verified 01/10/23 08:53 ofloxacin [From Floxin] AdvReac Mild Nausea Verified 01/10/23 08:53 Family History Mother Cervical cancer Lung cancer Breast cancer Father Colon cancer CVA (cerebral vascular accident) CHF (congestive heart failure) Surgical History History of coronary artery stent placement (02/23/19) History of left heart catheterization (03/2019) Social History household members: spouse housing: house current occupational status: retired pets and animals: Yes pets and animals: cat(s) Smoking Status: Former smoker quit date: 06/02/89 pack-years: 34 second hand exposure: Yes alcohol intake: never substance use type: does not use caffeine: Yes Type: coffee Number of servings: 3 ROS Review of Systems ROS Unobtainable: Denies due to encephalopathy Constitutional Constitutional: Reports fatigue, malaise and weakness; Denies anorexia, chills or fever(s) Eyes Eyes: Denies change in vision ENT HEENT: Denies dysphagia or headache(s) Cardiovascular Cardiovascular: Reports orthopnea and paroxysmal nocturnal dyspnea; Denies chest pain, edema, palpitations or syncope Respiratory/Chest Respiratory/Chest: Reports shortness of breath at rest and shortness of breath with exertion; Denies cough or wheezing Gastrointestinal Gastrointestinal: Denies abdominal pain, constipation, diarrhea, nausea or vomiting Genitourinary Genitourinary: Denies dysuria Musculoskeletal Musculoskeletal: Denies back pain or joint pain Neurologic Neurologic: Denies confusion, dizziness, focal weakness or headache(s) Psychiatric Psychiatric: Denies anxiety or depression Vital Signs Vital Signs Vital Signs: 01/10/23 08:50 01/10/23 09:00 01/10/23 09:00 Temperature 96.5 F L 96.7 F L Temperature Source Temporal Temporal Pulse Rate 114 H 104 H Respiratory Rate 20 H 20 H Respiratory Effort Respiratory Pattern Blood Pressure 118/79 118/76 Blood Pressure Mean 92 90 Pulse Ox 96 90 Oxygen Delivery Method Nasal Cannula Nasal Cannula Nasal Cannula Oxygen Flow Rate (L/min) 4 4 4 01/10/23 09:00 Temperature Temperature Source Pulse Rate Respiratory Rate Respiratory Effort Short of Breath Labored Respiratory Pattern Tachypnea Blood Pressure Blood Pressure Mean Pulse Ox Oxygen Delivery Method Oxygen Flow Rate (L/min) Weight Weight: 112 lb 10.499 oz Body Mass Index (BMI) 24.3 Physical Exam Const alert, oriented x3 and no apparent distress General Appearance: cooperative HEENT normocephalic, head/scalp atraumatic, moist oral mucous membranes and oropharynx normal Eyes PERRL and EOMs intact bilaterally Neck no lymphadenopathy, supple and no JVD Lymph Lymphatic: no lymphadenopathy noted and no lymphedema noted Resp Resp Narrative: diminished breath sounds bibasally, mild wheezing, no crackles. On 2L of oxygen by nasal canula Cardio S1 normal heart sound, S2 normal heart sound and no murmurs Cardio Narrative: afib, heart rate poorly controlled. GI normal to inspection, nondistended, normoactive bowel sounds, soft to palpation, non-tender and non-distended Extremity normal capillary refill and no clubbing, cyanosis or edema Skin General Skin Exam: no breakdown Neuro CN's II-XII intact bilaterally, no focal motor deficits, no sensory deficits noted and deep tendon reflexes 2+ bilaterally Psych thought process normal and cooperative Appearance: appropriate Results Lab / Micro Data 01/10/23 09:50 01/10/23 09:50 Labs: Laboratory Results - last 24 hr 01/10/23 09:50: WBC 11.2 H, RBC 3.97 L, Hgb 11.9 L, Hct 39.5, MCV 99.5 H, MCH 30.0, MCHC 30.1 L, RDW Std Deviation 49.9 H, RDW Coeff of Sunitha 13.6, Plt Count 224, MPV 10.1, Immature Gran % (Auto) 0.400, Neut % (Auto) 84.7 H, Lymph % (Auto) 8.3 L, [place] % (Auto) 5.0, Eos % (Auto) 1.0, Baso % (Auto) 0.6, Absolute Neuts (auto) 9.5 H, Absolute Lymphs (auto) 0.93, Nucleated RBC % 0, Sodium 138, Potassium 4.6, Chloride 102, Carbon Dioxide 33.0 H, Anion Gap 3 L, BUN 31 H, Creatinine 1.05 H, Estim Creat Clear Calc 33.90, Est GFR (MDRD) Af Amer 65, Est GFR (MDRD) Non-Af 53 L, BUN/Creatinine Ratio 29.5 H, Glucose 118 H, Calcium 9.6, Troponin I High Sens 9, B-Natriuretic Peptide 651.3 H Radiology Impression Chest X-Ray 01/10/23 09:33 IMPRESSION: Mild degree of vascular congestion superimposed on bibasilar atelectasis slightly worse on the left side and blunting of the left costophrenic angle Electronically Signed: German Cabrera MD at 9:50 EDT , Assessment & Plan Assessment/Plan (1) Acute heart failure with reduced ejection fraction and diastolic dysfunction: PLAN: Plan #Acute on chronic HFrEF * admit to PCU * has been feeling short of breath for ~ 5 days. She has been eating a diet heavy in salt. * on 2L of oxygen. was on 4L of oxygen on admission, now down to 2L of oxygen. * CXR shwoed mild vascular congestion superimposed on bibasilar atelectasis slightly worse on the left side and blunting of the left costophrenic angle. * diurese with IV lasix 40mg bid * monitor intake and output * fluid restriction to 1500cc daily * BNP is 651. * #Afib with RVR * HR was in the 120s-140s whilst in the ED * she didnt take her metoprolol this morning * metoprolol resumed. * on eliquis. Will continue * IV lopressor prn. * #CKD 3a: * Cr was 1.05 on admission, with eGFR of 53. * Baseline Cr was 1.09. * will monitor. * * #CAD s/p stents * had cardiac cath in November 2022 which showed her previously placed stent in the LAD was patent, with moderately severe disease in the RCA * on aspirin as well as high intensity statin. * not on plavix. * #Lung mass * has a history of a lung mass. Was evaluated with a PET which was negative. * follow up with oncology and pulmonology on outpatient basis Nicotine dependence: counseled to quit. DVt prophylaxis; on eliquis Code status: full code * Patient counseled extensively about different types of CODE STATUS including full code, DNR CCA and DNR CCA. Patient elects to be full code. Her daughter Jenn Arias is her medical POA. * Total [id number] time 17 minutes.
[2023-01-10] MEDS: Metoprolol(XL)Succ 25 MG Tablet 50 MG PO (11:56)
[2023-01-10 14:04] LABS: Troponin-I HS 9 pg/mL (3.0-54.0)
[2023-01-10 16:33] LABS: Troponin-I HS 10 pg/mL (3.0-54.0)
[2023-01-10] MEDS: 0.9% Saline Lock 10 ML Syringe IV (17:02)
[2023-01-10] MEDS: Furosemide 40 MG/4 ML Vial IV (17:02)
[2023-01-10] MEDS: Acetaminophen 325 MG Tablet 650 MG PO (19:03)
[2023-01-10] MEDS: Atorvastatin Calcium 10 MG Tablet PO (21:00)
[2023-01-10] MEDS: LORazepam 0.5 MG Tablet 0.25 MG PO (21:01)
[2023-01-10] MEDS: APIXABAN 2.5 MG TABLET (WCH) PO (21:01)
[2023-01-11] VITALS (10 sets, daily range): BP systolic 102–110; BP diastolic 58–84; PULSE 96–148; RESP 16–20; TEMP 36.4–36.7; O2SAT 95–100; BMI 23.7
[2023-01-11] MEDS: Budesonide Respules 0.5 MG/2 ML AMPUL.NEB. INHALATION ×2 (07:10→19:22)
[2023-01-11 08:15] LABS: Absolute Lymphocyte Count 1.99 X10^3/uL (0.83-4.51); Absolute Neutrophil Count 5.9 X10^3/uL (2.0-7.7); Basophil# 0.08 X10^3/uL; Basophil% 0.9 % (0-1); Eosinophil# 0.21 X10^3/uL; Eosinophils% 2.3 % (0-5); Hematocrit 40.2 % (37-47); Hemoglobin 12.3 g/dL (12.0-15.0); Lymphocyte # 1.99 X10^3/ul (0.83-4.51); Mean Corp Hgb Conc 30.6 g/dL (32-36); Mean Corpuscular Hgb 30.1 pg (27.0-32.0); Mean Corpuscular Volume 98.3 fL (81-99); Mean Platelet Vol. 10.8 fl (6.2-12.0); Monocyte# 0.86 X10^3/uL; Monocyte% 9.5 % (0-10); NRBC Flagged by Analyzer 0 % (0-5); Neutrophil # 5.87 X10^3/uL (2.7-7.7); Platelet Count 225 K/mm3 (150-450); RBC Distribution Width CV 13.8 % (11.6-14.6); RBC Distribution Width SD 49.8 fl (35.1-43.9); Red Blood Count 4.09 M/mm3 (4.2-5.4)
[2023-01-11 08:28] LABS: Anion Gap 3 (5-15); BUN 30 mg/dL (7-18); BUN/Creat Ratio 33.1 RATIO (10-20); Calcium,Total 9.1 mg/dL (8.5-10.1); Chloride 100 mmol/L (98-107); Creatinine, Serum 0.91 mg/dL (0.55-1.02); EST Glomerular Filtration Rate 63 mL/min (>60); Est Glom Filt Rate - Afr Amer 77 mL/min (>60); Estimated Creatinine Clearance 38.04 ml/min; Glucose 83 mg/dL (74-106); Potassium 3.8 mmol/L (3.5-5.1); Sodium Level 140 mmol/L (136-145)
[2023-01-11] MEDS: Metoprolol(XL)Succ 50 MG Tablet 75 MG PO ×2 (08:39→21:30)
[2023-01-11] MEDS: Fluticasone 0.05% 1 SPRAY NASAL.SRY 2 SPRAY NASAL (08:41)
[2023-01-11] MEDS: Aspirin E.C. 81 MG Tablet PO (08:42)
[2023-01-11] MEDS: APIXABAN 2.5 MG TABLET (WCH) PO ×2 (08:42→21:30)
--- NOTE | 2023-01-11 11:30 | CASEMGMT ---
RN MARYANA Discharge Planning Assessment: Face to Face with patient for initial transition planning/care coordination assessment. RN MARYANA introduced self and role at [facility], pt alert, voices understanding and is agreeable to participating in assessment. Care providers, pharmacy, and demographics verified. Pt answering questions appropriately. Admitting dx: CHF exac PCP: Minda Specialists: Gregorio (hygiene teacher), Alexander (juke box mechanic) Preferred [facility]acy: [facility] Insurance: MCR A/B Prescription Benefit: yes, has a part D plan Living Will/HPOA: yes, HPOA daughter Jenn LNOK: daughters Jenn, Jovita, and a third in [place] Living Arrangements: Pt lives alone in a single story home with one step to enter. Pt states she is independent with ADLs and her two daughters assist her with household tasks including laundry, getting groceries, cleaning, etc. Pt states she prepares simple meals like TV dinners or fast food. Pt admits these are usually high in salt. Transportation: pt's daughters and friends transport her to appointments as needed DME: shower chair, hand held shower, medical alert, home O2 at 2l/min from [facility] [employer], nebulizer, and pulse oximeter. Pt states she has a walker but does not use it. SNF/HHC: denies any previous providers Pt states her daughters have been looking for additional help including palliative care. Discussed options in addition to palliative care including home health care or private duty MRI CT TECH. Pt requested this RN CM contact her daughter Jenn to discuss as she is not sure what work they have done or exactly what they may have been looking for. This RN CM contacted Jenn and discussed pt's discharge needs. Jenn confirmed they were interested in palliative care for pt and is agreeable with this RN CM discussing this with Dr. Garza for referral from this visit to [facility] palliative care. Jenn also interested in home health for residential and PT/OT. Dr. Garza notified of request and order received for palliative care. Referral sent to [facility] palliative care. List of home health care providers consistent with pt's insurance, care needs, and preferred geographic area and including quality and resource use data sent to pt's daughter Jenn's email and as a text message from the [employer]. Requested 2-3 providers be selected. Pt's daughter expressed understanding. Will follow-up on preferences of HH providers for referral. List of private duty MRI CT TECH agencies also emailed to pt's daughter Jenn at [email or web address]. Plan: Home with HH for SN/PT/OT and palliative care referral. Arnoldo Wagoner RN CM
[2023-01-11] MEDS: Furosemide 40 MG/4 ML Vial IV (11:37)
--- NOTE | 2023-01-11 12:38 | PN_ITS ---
Subjective Subjective Patient seen and examined. She feels her shortness of breath is improving. She denies any chest pain, palpitations, dizziness, nausea, vomiting or any other symptoms. Review of systems is otherwise negative. Objective Data Objective Data Vital Signs: Vital Signs Temp Pulse Resp BP Pulse Ox O2 Del Method O2 Flow Rate 97.6 F L 130 H 16 102/74 97 Nasal Cannula 2 01/11/23 08:30 01/11/23 08:39 01/11/23 08:30 01/11/23 08:39 01/11/23 08:30 01/11/23 08:30 01/11/23 08:30 Oxygen Flow Rate (L/min) 2 Oxygen Delivery Method Nasal Cannula Weight: 109 lb 9.116 oz Body Mass Index (BMI) 23.7 Intake & Output: Intake and Output for Last 24 Hours 01/09/23 01/10/23 01/11/23 23:59 23:59 23:59 Intake Total 360 / 680 680 / 680 Balance 360 / 680 680 / 680 Lab / Micro Data 01/11/23 06:51 01/11/23 06:51 Labs: Laboratory Results - last 24 hr 01/10/23 13:19: Troponin I High Sens 9 01/10/23 15:50: Troponin I High Sens 10 01/11/23 06:51: WBC 9.0, RBC 4.09 L, Hgb 12.3, Hct 40.2, MCV 98.3, MCH 30.1, MCHC 30.6 L, RDW Std Deviation 49.8 H, RDW Coeff of Sunitha 13.8, Plt Count 225, MPV 10.8, Immature Gran % (Auto) 0.300, Neut % (Auto) 65.0, Lymph % (Auto) 22.0, [place] % (Auto) 9.5, Eos % (Auto) 2.3, Baso % (Auto) 0.9, Absolute Neuts (auto) 5.9, Absolute Lymphs (auto) 1.99, Nucleated RBC % 0, Sodium 140, Potassium 3.8, Chloride 100, Carbon Dioxide 37.0 H, Anion Gap 3 L, BUN 30 H, Creatinine 0.91, Estim Creat Clear Calc 38.04, Est GFR (MDRD) Af Amer 77, Est GFR (MDRD) Non-Af 63, BUN/Creatinine Ratio 33.1 H, Glucose 83, Calcium 9.1 Physical Exam Const alert, oriented x3 and no apparent distress General Appearance: cooperative HEENT normocephalic, head/scalp atraumatic, moist oral mucous membranes and oropharynx normal Eyes PERRL and EOMs intact bilaterally Neck no lymphadenopathy, supple and no JVD Lymph Lymphatic: no lymphadenopathy noted and no lymphedema noted Resp Resp Narrative: diminished breath sounds bibasally, mild wheezing, no crackles. On 2L of oxygen by nasal canula Cardio S1 normal heart sound, S2 normal heart sound and no murmurs Cardio Narrative: afib, heart rate still poorly controlled. GI normal to inspection, nondistended, normoactive bowel sounds, soft to palpation, non-tender and non-distended Extremity normal capillary refill and no clubbing, cyanosis or edema Skin General Skin Exam: no breakdown Neuro CN's II-XII intact bilaterally, no focal motor deficits, no sensory deficits noted and deep tendon reflexes 2+ bilaterally Psych thought process normal and cooperative Appearance: appropriate Assessment & Plan Assessment/Plan (1) Acute heart failure with reduced ejection fraction and diastolic dysfunct ion: PLAN: Plan #Acute on chronic HFrEF * feels her breathing is improving * remains on 2L of oxygen * has known EF of 35% with moderately severe global left ventricular systolic dysfunction and normal size thickness. There is from echo done in October 2022. * on 2L of oxygen. was on 4L of oxygen on admission, now down to 2L of oxygen. * CXR shoeed mild vascular congestion superimposed on bibasilar atelectasis slightly worse on the left side and blunting of the left costophrenic angle. * on IV lasix. Will cut down to 40mg daily IV from 40mg bid. * monitor intake and output * fluid restriction to 1500cc daily * * #Afib with RVR * HR still poorly controlled. She wasnt given her metoprolol today because BP was running low * will resume metoprolol as HR isnt well cotnrolled * on eliquis * IV lopressor prn * * * #CKD 3a: * Cr was 1.05 on admission, with eGFR of 53. * BCR today is 0.91 * will monitor. * #CAD s/p stents * had cardiac cath in November 2022 which showed her previously placed stent in the LAD was patent, with moderately severe disease in the RCA * on aspirin as well as high intensity statin. * not on plavix. * #Lung mass * has a history of a lung mass. Was evaluated with a PET which was negative. * follow up with oncology and pulmonology on outpatient basis Nicotine dependence: counseled to quit. DVt prophylaxis; on eliquis Code status: full code * Charges/Coding Visit Charges Inpatient E&M: 53403 Subs Hosp L2
[2023-01-11] MEDS: dilTIAZem 25 MG/5 ML Vial 20 MG IV BOLUS (13:53)
[2023-01-11] MEDS: Ondansetron 4 MG/2 ML Vial IV (15:11)
[2023-01-11] MEDS: Acetaminophen 325 MG Tablet 650 MG PO (19:54)
[2023-01-11] MEDS: LORazepam 0.5 MG Tablet 0.25 MG PO (21:29)
[2023-01-11] MEDS: Atorvastatin Calcium 10 MG Tablet PO (21:30)
[2023-01-12] VITALS (14 sets, daily range): BP systolic 94–107; BP diastolic 68–79; PULSE 89–116; RESP 16–20; TEMP 36.4–37; O2SAT 96–100; BMI 23.6
[2023-01-12 05:26] LABS: Absolute Lymphocyte Count 2.12 X10^3/uL (0.83-4.51); Absolute Neutrophil Count 6.9 X10^3/uL (2.0-7.7); Basophil# 0.09 X10^3/uL; Basophil% 0.9 % (0-1); Eosinophil# 0.24 X10^3/uL; Eosinophils% 2.3 % (0-5); Hematocrit 39.5 % (37-47); Lymphocyte # 2.12 X10^3/ul (0.83-4.51); Lymphocyte % 20.6 % (19-41); Mean Corp Hgb Conc 30.4 g/dL (32-36); Mean Corpuscular Hgb 29.3 pg (27.0-32.0); Mean Corpuscular Volume 96.3 fL (81-99); Monocyte% 8.7 % (0-10); NRBC Flagged by Analyzer 0 % (0-5); Neutrophil # 6.91 X10^3/uL (2.7-7.7); Neutrophil % 67.2 % (47-70); Platelet Count 242 K/mm3 (150-450); RBC Distribution Width CV 13.8 % (11.6-14.6); White Blood Count 10.3 K/mm3 (4.4-11.0)
[2023-01-12 05:58] LABS: Anion Gap 4 (5-15); BUN 25 mg/dL (7-18); BUN/Creat Ratio 25.4 RATIO (10-20); Chloride 97 mmol/L (98-107); Creatinine, Serum 0.98 mg/dL (0.55-1.02); EST Glomerular Filtration Rate 58 mL/min (>60); Est Glom Filt Rate - Afr Amer 70 mL/min (>60); Estimated Creatinine Clearance 35.25 ml/min; Glucose 124 mg/dL (74-106); Potassium 3.9 mmol/L (3.5-5.1); Sodium Level 138 mmol/L (136-145)
[2023-01-12] MEDS: Budesonide Respules 0.5 MG/2 ML AMPUL.NEB. INHALATION ×2 (08:12→19:36)
[2023-01-12] MEDS: Albuterol 2.5 MG/3 ML VIAL.NEB. INHALATION ×3 (08:16→19:36)
[2023-01-12] MEDS: dilTIAZem CD 120 MG Capsule PO (09:40)
[2023-01-12] MEDS: Metoprolol(XL)Succ 50 MG Tablet 75 MG PO ×2 (09:40→21:10)
[2023-01-12] MEDS: Aspirin E.C. 81 MG Tablet PO (09:41)
[2023-01-12] MEDS: Fluticasone 0.05% 1 SPRAY NASAL.SRY 2 SPRAY NASAL (09:41)
[2023-01-12] MEDS: APIXABAN 2.5 MG TABLET (WCH) PO ×2 (09:41→21:09)
[2023-01-12] MEDS: Furosemide 40 MG/4 ML Vial IV (09:44)
--- NOTE | 2023-01-12 12:06 | PN_ITS ---
Subjective Subjective Patient seen and examined. She complains of shortness of brawth. She is not having palpitations, though her heart rate remains poorly controlled. She states she was started on Cardizem by her PCP about a week ago. Otherwise she has not taken any of the Cardizem because it had not been ordered by her core laying machine operator. She did reach out to her core laying machine operator office and she was told to recording her heart rate and her BP to present to the office to see if she needed to start Cardizem. She has been recording these numbers at home but does not have the paper with her. She says she remembers her heart rate being at least a minimum of 114. She has been compliant with her metoprolol. Review of systems is otherwise negative. Objective Data Objective Data Vital Signs: Vital Signs Temp Pulse Resp BP Pulse Ox O2 Del Method O2 Flow Rate 98.1 F 114 H 18 107/79 96 Nasal Cannula 2 01/12/23 09:34 01/12/23 09:40 01/12/23 09:34 01/12/23 09:34 01/12/23 10:05 01/12/23 10:05 01/12/23 10:05 Oxygen Flow Rate (L/min) 2 Oxygen Delivery Method Nasal Cannula Weight: 109 lb 5.588 oz Body Mass Index (BMI) 23.6 Intake & Output: Intake and Output for Last 24 Hours 01/10/23 01/11/23 01/12/23 23:59 23:59 23:59 Intake Total 360 / 680 1340 / 1700 510 / 510 Balance 360 / 680 1340 / 1700 510 / 510 Lab / Micro Data 01/12/23 05:16 01/12/23 05:16 Labs: Laboratory Results - last 24 hr 01/12/23 05:16: WBC 10.3, RBC 4.10 L, Hgb 12.0, Hct 39.5, MCV 96.3, MCH 29.3, MCHC 30.4 L, RDW Std Deviation 49.0 H, RDW Coeff of Sunitha 13.8, Plt Count 242, MPV 10.0, Immature Gran % (Auto) 0.300, Neut % (Auto) 67.2, Lymph % (Auto) 20.6, [place] % (Auto) 8.7, Eos % (Auto) 2.3, Baso % (Auto) 0.9, Absolute Neuts (auto) 6.9, Absolute Lymphs (auto) 2.12, Nucleated RBC % 0, Sodium 138, Potassium 3.9, Chloride 97 L, Carbon Dioxide 37.0 H, Anion Gap 4 L, BUN 25 H, Creatinine 0.98, Estim Creat Clear Calc 35.25, Est GFR (MDRD) Af Amer 70, Est GFR (MDRD) Non-Af 58 L, BUN/Creatinine Ratio 25.4 H, Glucose 124 H, Calcium 9.0 Physical Exam Const alert, oriented x3 and no apparent distress General Appearance: cooperative HEENT normocephalic, head/scalp atraumatic, moist oral mucous membranes and oropharynx normal Eyes PERRL and EOMs intact bilaterally Neck no lymphadenopathy, supple and no JVD Lymph Lymphatic: no lymphadenopathy noted and no lymphedema noted Resp Resp Narrative: diminished breath sounds bibasally, mild wheezing, no crackles. On 2L of oxygen by nasal canula Cardio S1 normal heart sound, S2 normal heart sound and no murmurs Cardio Narrative: afib, heart rate still poorly controlled. GI normal to inspection, nondistended, normoactive bowel sounds, soft to palpation, non-tender and non-distended Extremity normal capillary refill and no clubbing, cyanosis or edema Skin General Skin Exam: no breakdown Neuro CN's II-XII intact bilaterally, no focal motor deficits, no sensory deficits noted and deep tendon reflexes 2+ bilaterally Psych thought process normal and cooperative Appearance: appropriate Assessment & Plan Assessment/Plan (1) Acute heart failure with reduced ejection fraction and diastolic dysfunction: PLAN: Plan #Acute on chronic HFrEF * still feels short of breath. * I think her persistent shortness of breath is being exacerbated by her persistent afib with poorly controlled HR. * remains on 2L of oxygen * has known EF of 35% with moderately severe global left ventricular systolic dysfunction and normal size thickness. There is from echo done in October 2022. * on 2L of oxygen. was on 4L of oxygen on admission, now down to 2L of oxygen. * CXR showed mild vascular congestion superimposed on bibasilar atelectasis slightly worse on the left side and blunting of the left costophrenic angle. * on IV lasix. * monitor intake and output * fluid restriction to 1500cc daily * * #Afib with RVR * HR still poorly controlled. She wasnt given her metoprolol today because BP w as running low * on metoprolol. She was on 75mg daily, and that was increased to 75mg bid by her core laying machine operator * had been also started on cardizem ~ 1 week ago, but hadnt yet started taking it * will start on cardizem 120mg daily. If she still remains in afib, with poorly controlled HR, will get cardiology consult * on eliquis * IV lopressor prn * * * #CKD 3a: * Cr was 1.05 on admission, with eGFR of 53. * BCR today is 0.91 * will monitor. * #CAD s/p stents * had cardiac cath in November 2022 which showed her previously placed stent in the LAD was patent, with moderately severe disease in the RCA * on aspirin as well as high intensity statin. * not on plavix,m unclear why. * #Lung mass * has a history of a lung mass. Was evaluated with a PET which was negative. * follow up with oncology and pulmonology on outpatient basis Nicotine dependence: counseled to quit. DVt prophylaxis; on eliquis Code status: full code * Charges/Coding Visit Charges Inpatient E&M: 25963 Subs Hosp L2
[2023-01-12] MEDS: Acetaminophen 325 MG Tablet 650 MG PO (13:20)
--- NOTE | 2023-01-12 16:08 | PCM.CONS.C ---
Assessment & Plan Assessment/Plan (1) Congestive heart failure: QUALIFIERS: Heart failure type: systolic Heart failure chronicity: acute on chronic Qualified Code(s): I50.23 - Acute on chronic systolic (congestive) heart failure PLAN: Continue IV Lasix (2) Atrial fibrillation with rapid ventricular response: PLAN: Will discontinue Cardizem and try amiodarone. HPI Consult Data Date of Consult: 01/12/23 HPI Narrative Reason for Consultation: CHF, A-fib with RVR HPI Narrative: SHAHZAD OTERO, is a 82 F who presents with shortness of breath. Patient has history of coronary artery disease, cardiomyopathy, A-fib. Her Lasix was switched to IV and she was given IV followed by p.o. Cardizem. Patient feels better after coming to the hospital but still has shortness of breath. Patient's blood pressure dropped to the low 90s systolic with Cardizem. 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 Atrial fibrillation with rapid ventricular response Chronic HFrEF (heart failure with reduced ejection fraction) Chronic kidney disease, stage 3a Chronic obstructive pulmonary disease COPD (chronic obstructive pulmonary disease) Coronary artery disease Diverticulitis Essential hypertension Hyperlipidemia Ischemic cardiomyopathy Left ventricular systolic dysfunction (LVSD) Lung nodule Osteoporosis Respiratory failure with hypoxia Secondary pulmonary arterial hypertension Sinusitis Home Medications aspirin 81 mg tablet,delayed release 81 mg PO DAILY HEART HEALTH 01/01/16 [History Last Taken 01/09/23] fluticasone propionate 50 mcg/actuation nasal spray,suspension 2 spray intranasal DAILY ALLERGIES 12/19/17 [History Last Taken 01/09/23] lactobacillus combination no.9 4 billion cell capsule (Adult 50 Plus Probiotic) 4,000 mmu cells PO DAILY GUT HEALTH 09/25/21 [History Last Taken 01/09/23] lorazepam 0.5 mg tablet 0.25 mg PO QHS ANXIETY 09/25/21 [History Last Taken 01/09/23] cholecalciferol (vitamin D3) 50 mcg (2,000 unit) tablet 50 mcg PO DAILY SUPPLEMENT 03/25/22 [History Last Taken 01/09/23] albuterol sulfate 2.5 mg/3 mL (0.083 %) solution for nebulization 2.5 mg inhalation Q4H PRN SHORTNESS OF BREATH/WHEEZING 11/21/22 [History Last Taken 01/10/23] atorvastatin 10 mg tablet 10 mg PO QHS CHOLESTEROL 11/21/22 [History Last Taken 01/09/23] fluticasone 100 mcg-salmeterol 50 mcg/dose blistr powdr for inhalation (Wixela Inhub) 1 inh inhalation BID COPD 11/21/22 [History Last Taken 01/10/23] apixaban 2.5 mg tablet (Eliquis) 2.5 mg PO BID . #30 tabs 11/23/22 [Rx Last Taken 01/09/23] furosemide 40 mg tablet 40 mg PO DAILY FLUID #90 tabs 12/23/22 [Rx Last Taken 01/09/23] metoprolol succinate 50 mg tablet,extended release 24 hr 75 mg (1.5 x 50 mg) PO BID htn #120 tabs 12/23/22 [Rx Last Taken 01/09/23] albuterol sulfate 90 mcg/actuation aerosol inhaler (ProAir HFA) 2 puff inhalation Q4H PRN SHORTNESS OF BREATH/WHEEZING #8.5 grams 12/31/22 [Rx Last Taken Unknown] tiotropium bromide 2.5 mcg/actuation mist for inhalation (Spiriva Respimat) 2 puff inhalation DAILY COPD #4 grams 12/31/22 [Rx Last Taken 01/10/23] Allergy/AdvReac Type Severity Reaction Status Date / Time Penicillins Allergy Intermediate Other-difficulty Verified 01/10/23 08:53 breathing Sulfa (Sulfonamide Allergy Intermediate Other-breathing Verified 01/10/23 08:53 Antibiotics) difficulty, hot flashes, rash azithromycin Allergy Mild Other-bleed Verified 01/10/23 08:53 ing clarithromycin [From Biaxin] Allergy Mild Other-bloody Verified 01/10/23 08:53 stool Iodinated Contrast Media Allergy Hives Verified 01/10/23 08:53 ofloxacin [From Floxin] AdvReac Mild Nausea Verified 01/10/23 08:53 Family History Mother Cervical cancer Lung cancer Breast cancer Father Colon cancer CVA (cerebral vascular accident) CHF (congestive heart failure) Surgical History History of coronary artery stent placement (02/23/19) History of left heart catheterization (03/2019) Social History household members: spouse housing: house current occupational status: retired pets and animals: Yes pets and animals: cat(s) Smoking Status: Former smoker quit date: 06/02/89 pack-years: 34 second hand exposure: Yes alcohol intake: never substance use type: does not use caffeine: Yes Type: coffee Number of servings: 3 Physical Exam Const alert and oriented x3 HEENT normocephalic Eyes no scleral icterus Resp Resp Narrative: Bilateral crackles Cardio Cardio Narrative: irregular rhythm Extremity no pedal edema Skin no rashes or lesions noted Psych mental status grossly normal Risk Stratification Risk Stratification Applicable: No Charges/Coding Visit Charges Inpatient E&M: 51662 Init Hosp L2 Objective Data Vital Signs: Vital Signs Temp Pulse Resp BP Pulse Ox O2 Del Method O2 Flow Rate 98.2 F 115 H 16 105/70 99 Nasal Cannula 2 01/12/23 14:35 01/12/23 14:35 01/12/23 14:35 01/12/23 14:35 01/12/23 14:35 01/12/23 14:55 01/12/23 14:55 Oxygen Flow Rate (L/min) 2 Oxygen Delivery Method Nasal Cannula Weight: 109 lb 5.588 oz Body Mass Index (BMI) 23.6 Intake & Output: Intake and Output for Last 24 Hours 01/10/23 01/11/23 01/12/23 23:59 23:59 23:59 Intake Total 360 / 680 1340 / 1700 910 / 910 Balance 360 / 680 1340 / 1700 910 / 910 Lab / Micro Data 01/12/23 05:16 01/12/23 05:16 Labs: Laboratory Results - last 24 hr 01/12/23 05:16: WBC 10.3, RBC 4.10 L, Hgb 12.0, Hct 39.5, MCV 96.3, MCH 29.3, MCHC 30.4 L, RDW Std Deviation 49.0 H, RDW Coeff of Sunitha 13.8, Plt Count 242, MPV 10.0, Immature Gran % (Auto) 0.300, Neut % (Auto) 67.2, Lymph % (Auto) 20.6, [place] % (Auto) 8.7, Eos % (Auto) 2.3, Baso % (Auto) 0.9, Absolute Neuts (auto) 6.9, Absolute Lymphs (auto) 2.12, Nucleated RBC % 0, Sodium 138, Potassium 3.9, Chloride 97 L, Carbon Dioxide 37.0 H, Anion Gap 4 L, BUN 25 H, Creatinine 0.98, Estim Creat Clear Calc 35.25, Est GFR (MDRD) Af Amer 70, Est GFR (MDRD) Non-Af 58 L, BUN/Creatinine Ratio 25.4 H, Glucose 124 H, Calcium 9.0 Cardiology Labs/Tests 01/12/23 05:16: WBC 10.3, RBC 4.10 L, Hgb 12.0, Hct 39.5, MCV 96.3, MCH 29.3, MCHC 30.4 L, Plt Count 242, MPV 10.0, Immature Gran % (Auto) 0.300, Neut % (Auto) 67.2, Lymph % (Auto) 20.6, [place] % (Auto) 8.7, Eos % (Auto) 2.3, Baso % (Auto) 0.9, Absolute Neuts (auto) 6.9, Nucleated RBC % 0, Sodium 138, Potassium 3.9, Chloride 97 L, Carbon Dioxide 37.0 H, Anion Gap 4 L, BUN 25 H, Creatinine 0.98, Est GFR (MDRD) Af Amer 70, Est GFR (MDRD) Non-Af 58 L, BUN/Creatinine Ratio 25.4 H, Glucose 124 H, Calcium 9.0 Rhythm: EKG: ECHO: Stress Test: Cardiac Cath: PCI: CT Surgery: Holter monitor: EPS: PPM: CXR: Chest CT Scan:
[2023-01-12] MEDS: Amiodarone 200 MG Tablet PO (17:00)
[2023-01-12] MEDS: LORazepam 0.5 MG Tablet 0.25 MG PO (21:09)
[2023-01-12] MEDS: Atorvastatin Calcium 10 MG Tablet PO (21:09)
[2023-01-13] VITALS (8 sets, daily range): BP systolic 107–116; BP diastolic 68–82; PULSE 90–106; RESP 16–18; TEMP 36.5–36.7; O2SAT 95–100; BMI 23.6
[2023-01-13 06:21] LABS: Absolute Lymphocyte Count 2.39 X10^3/uL (0.83-4.51); Absolute Neutrophil Count 6.9 X10^3/uL (2.0-7.7); Basophil# 0.08 X10^3/uL; Basophil% 0.8 % (0-1); Eosinophil# 0.23 X10^3/uL; Eosinophils% 2.2 % (0-5); Hematocrit 39.3 % (37-47); Hemoglobin 12.3 g/dL (12.0-15.0); Lymphocyte # 2.39 X10^3/ul (0.83-4.51); Mean Corp Hgb Conc 31.3 g/dL (32-36); Mean Corpuscular Hgb 30.3 pg (27.0-32.0); Mean Corpuscular Volume 96.8 fL (81-99); Mean Platelet Vol. 10.7 fl (6.2-12.0); Monocyte# 0.76 X10^3/uL; Monocyte% 7.3 % (0-10); NRBC Flagged by Analyzer 0 % (0-5); Neutrophil % 66.6 % (47-70); Platelet Count 248 K/mm3 (150-450); RBC Distribution Width CV 13.9 % (11.6-14.6); RBC Distribution Width SD 49.1 fl (35.1-43.9); Red Blood Count 4.06 M/mm3 (4.2-5.4); White Blood Count 10.4 K/mm3 (4.4-11.0)
[2023-01-13] MEDS: Budesonide Respules 0.5 MG/2 ML AMPUL.NEB. INHALATION ×2 (06:48→21:57)
[2023-01-13 06:56] LABS: Anion Gap 5 (5-15); BUN 27 mg/dL (7-18); BUN/Creat Ratio 26.7 RATIO (10-20); Calcium,Total 9.5 mg/dL (8.5-10.1); Chloride 99 mmol/L (98-107); Creatinine, Serum 1.01 mg/dL (0.55-1.02); EST Glomerular Filtration Rate 56 mL/min (>60); Est Glom Filt Rate - Afr Amer 68 mL/min (>60); Estimated Creatinine Clearance 34.07 ml/min; Glucose 117 mg/dL (74-106); Sodium Level 140 mmol/L (136-145)
[2023-01-13] MEDS: hydrOXYzine 10 MG Tablet PO (06:58)
[2023-01-13] MEDS: Fluticasone 0.05% 1 SPRAY NASAL.SRY 2 SPRAY NASAL (08:16)
[2023-01-13] MEDS: Metoprolol(XL)Succ 50 MG Tablet 75 MG PO ×2 (08:16→21:34)
[2023-01-13] MEDS: Furosemide 40 MG/4 ML Vial IV (08:17)
[2023-01-13] MEDS: APIXABAN 2.5 MG TABLET (WCH) PO ×2 (08:17→21:35)
[2023-01-13] MEDS: Aspirin E.C. 81 MG Tablet PO (08:17)
[2023-01-13] MEDS: Amiodarone 200 MG Tablet PO ×2 (08:17→21:35)
[2023-01-13] MEDS: Acetaminophen 325 MG Tablet 650 MG PO (08:23)
--- NOTE | 2023-01-13 09:00 | RAD_ITS ---
STUDY: X-RAY CHEST REASON FOR EXAM: Female, 82 years old. CHF TECHNIQUE: PA and lateral views of the chest. COMPARISON: Comparison is made with prior study January 10, 2023. FINDINGS: EKG electrodes are seen. Persistent increased interstitial edema. Mild degree of blunting of the left costophrenic angle. This has improved. Blunting of the posterior right costophrenic angle. Normal size heart. Normal mediastinum and kaity. Normal visualized pulmonary arteries. There is atherosclerotic calcification of the aortic arch with tortuosity. There are diffuse degenerative changes of the visualized thoracic spine. Deformity of the proximal right humerus in keeping with prior healed fracture. There is no demonstrated abnormality of the visualized soft tissue structures of the upper abdomen. RAD/Chest PA and Lateral IMPRESSION: Residual CHF on Josiah has been improvement as compared to prior study. Electronically Signed: German Cabrera MD at 13:21 EDT ,
[2023-01-13] MEDS: Ondansetron 8 MG Tablet PO (09:30)
[2023-01-13] MEDS: LORazepam 0.5 MG Tablet PO (09:30)
--- NOTE | 2023-01-13 11:24 | PCM.PN.CARD ---
Documented by User: CHRISTINA Cristina 01/13/23 11:37 Subjective Subjective Pt seen and examined. She was doing well until she got up this morning to go to the bathroom. Her O2 was increased. Objective Data Vital Signs: Vital Signs Temp Pulse Resp BP Pulse Ox O2 Del Method O2 Flow Rate 97.7 F L 90 18 108/82 H 100 Nasal Cannula 4.5 01/13/23 08:11 01/13/23 08:16 01/13/23 08:11 01/13/23 08:16 01/13/23 08:11 01/13/23 08:30 01/13/23 08:30 Oxygen Flow Rate (L/min) 4.5 Oxygen Delivery Method Nasal Cannula Weight: 108 lb 14.534 oz Body Mass Index (BMI) 23.6 Intake & Output: Intake and Output for Last 24 Hours 01/11/23 01/12/23 01/13/23 23:59 23:59 23:59 Intake Total 1340 / 1700 910 / 1030 360 / 360 Balance 1340 / 1700 910 / 1030 360 / 360 Lab / Micro Data 01/13/23 05:28 01/13/23 05:28 Labs: Laboratory Results - last 24 hr 01/13/23 05:28: WBC 10.4, RBC 4.06 L, Hgb 12.3, Hct 39.3, MCV 96.8, MCH 30.3, MCHC 31.3 L, RDW Std Deviation 49.1 H, RDW Coeff of Sunitha 13.9, Plt Count 248, MPV 10.7, Immature Gran % (Auto) 0.100, Neut % (Auto) 66.6, Lymph % (Auto) 23.0, [place] % (Auto) 7.3, Eos % (Auto) 2.2, Baso % (Auto) 0.8, Absolute Neuts (auto) 6.9, Absolute Lymphs (auto) 2.39, Nucleated RBC % 0, Sodium 140, Potassium 4.0, Chloride 99, Carbon Dioxide 36.0 H, Anion Gap 5, BUN 27 H, Creatinine 1.01, Estim Creat Clear Calc 34.07, Est GFR (MDRD) Af Amer 68, Est GFR (MDRD) Non-Af 56 L, BUN/Creatinine Ratio 26.7 H, Glucose 117 H, Calcium 9.5 Cardiology Labs/Tests 01/13/23 05:28: WBC 10.4, RBC 4.06 L, Hgb 12.3, Hct 39.3, MCV 96.8, MCH 30.3, MCHC 31.3 L, Plt Count 248, MPV 10.7, Immature Gran % (Auto) 0.100, Neut % (Auto) 66.6, Lymph % (Auto) 23.0, [place] % (Auto) 7.3, Eos % (Auto) 2.2, Baso % (Auto) 0.8, Absolute Neuts (auto) 6.9, Nucleated RBC % 0, Sodium 140, Potassium 4.0, Chloride 99, Carbon Dioxide 36.0 H, Anion Gap 5, BUN 27 H, Creatinine 1.01, Est GFR (MDRD) Af Amer 68, Est GFR (MDRD) Non-Af 56 L, BUN/Creatinine Ratio 26.7 H, Glucose 117 H, Calcium 9.5 Rhythm: Physical Exam Const alert and oriented x3 HEENT normocephalic Eyes no scleral icterus Resp Resp Narrative: Bilateral crackles Cardio Cardio Narrative: irregular rhythm Extremity no pedal edema Skin no rashes or lesions noted Psych mental status grossly normal Assessment & Plan Assessment/Plan (1) Congestive heart failure: QUALIFIERS: Heart failure chronicity: acute on chronic Heart failure type: systolic Qualified Code(s): I50.23 - Acute on chronic systolic (congestive) heart failure PLAN: She will be switched over to oral lasix tomorrow. She does have a know EF of 35. Will continue to try to maximize medical therapy. Fow now will continue with her metoprolol. May consider switching this to Coreg as an OP. If BP tolerates would consider adding an SULY. As an OP would consider decreasing her lasix and addiing spirolactone. (2) Atrial fibrillation with rapid ventricular response: PLAN: HR better controlled on amiodarone. She will continue with her taper. Will need to follow HR closely, may need to decrease her metoprolol. Charges/Coding Visit Charges Inpatient E&M: 41838 Init Hosp L3 Documented by User: Dr. Mac Park MD 01/13/23 15:03 Lab / Micro Data 01/13/23 05:28 01/13/23 05:28 Assessment & Plan Assessment/Plan (1) Congestive heart failure: QUALIFIERS: Heart failure chronicity: acute on chronic Heart failure type: systolic Qualified Code(s): I50.23 - Acute on chronic systolic (congestive) heart failure (2) Atrial fibrillation with rapid ventricular response: PLAN: HR better controlled on amiodarone. She will continue with her taper. Will need to follow HR closely, may need to decrease her metoprolol. This patient with A-fib with RVR Currently rate controlled on the current medication. Has history of COPD Ischemic cardiomyopathy Concur with cardiac care plan. I concur with cardiac care plan as per midlevel note and documentation We will continue current medical treatment
--- NOTE | 2023-01-13 13:43 | CASEMGMT ---
Physician is recommending patient go to a [facility] facility. SW met with patient. Introduced self and role at [facility]. SW discussed recommendation of physician and patient said she wants to go home. Kirsty ORTIZ
--- NOTE | 2023-01-13 15:21 | CASEMGMT ---
DAVID MIJARES in to discuss preferences for HHC. Patient resting, daughter Jovita at bedside. RN MARYANA reviewed HHC with daughter, Jovita. Per Jovita they are meeting with palliative this afternoon. RN MARYANA asked Jovita to review preferences with family and CM will follow-up in the morning, daughter voiced understanding. CM will continue to follow this patient and plan for a safe discharge.
--- NOTE | 2023-01-13 15:23 | CHAPLAIN ---
Type of Pastoral Visit _x__ Initial Visit ___ Follow-up Visit ___ On-call Visit ___ General Patient Visit ___ Spiritual Assessment ___ Family Conference ___ Bereavement ___ Rapid Response ___ Code Blue ___ Other (describe below) Pastoral Care Referral From _x__ Patient ___ Family ___ Nurse ___ Physician ___ Contact Acid Plant Operator ___ Print Line Feeder ___ Other (describe below) Sacrament/Intervention _x__ Active listening ___ Anointing ___ Anabaptism ___ Bereavement ___ Communion _x__ Barb exploration ___ _x__ Life review _x__ Prayer ___ Reconciliation ___ Sacrament of Sick _x__ Supportive presence ___ Wedding ___ Other (describe below) Pastoral Comments patient is welcoming of spiritual care support and recounts her own barb perspective and expresses thankfulness to her family who are all believers and following the Lord; pt admits that her biggest concern which is a little one is for the care of her dog; pt has family support and a long time connection with a congregational fellowship; pt presents with positive outlook and welcoming of a prayer
--- NOTE | 2023-01-13 18:16 | PCM.PN.HOSP ---
Reason for Visit Reason for Visit: Diagnoses Unspecified atrial fibrillation (01/10/23) Acute on chronic systolic (congestive) heart failure (01/10/23) Acute combined systolic (congestive) and diastolic (congestive) heart failure (01/10/23) Subjective Subjective She was seen and examined today, I repeated her chest x-ray that showed residual CHF with improvement as compared with prior study. Patient remains anxious, I placed her on some Ativan today, I told her that she would have to decide whether she was able to go home or whether she would consent to go to a detention facility for short-term rehab services. Her daughter was in the room when I talked with her about this. She was due to meet with palliative care today at 430. Patient is currently on 2 L of oxygen via nasal cannula. Objective Data Objective Data Vital Signs: Vital Signs Temp Pulse Resp BP Pulse Ox O2 Del Method O2 Flow Rate 97.7 F L 90 18 107/77 95 Nasal Cannula 2 01/13/23 16:25 01/13/23 16:25 01/13/23 16:25 01/13/23 16:25 01/13/23 16:25 01/13/23 16:27 01/13/23 16:27 Oxygen Flow Rate (L/min) 2 Oxygen Delivery Method Nasal Cannula Weight: 49.4 kg Body Mass Index (BMI) 23.6 Intake & Output: Intake and Output for Last 24 Hours 01/11/23 01/12/23 01/13/23 23:59 23:59 23:59 Intake Total 1340 / 1700 910 / 1030 360 / 360 Balance 1340 / 1700 910 / 1030 360 / 360 Lab / Micro Data 01/13/23 05:28 01/13/23 05:28 Labs: Laboratory Results - last 24 hr 01/13/23 05:28: WBC 10.4, RBC 4.06 L, Hgb 12.3, Hct 39.3, MCV 96.8, MCH 30.3, MCHC 31.3 L, RDW Std Deviation 49.1 H, RDW Coeff of Sunitha 13.9, Plt Count 248, MPV 10.7, Immature Gran % (Auto) 0.100, Neut % (Auto) 66.6, Lymph % (Auto) 23.0, [place] % (Auto) 7.3, Eos % (Auto) 2.2, Baso % (Auto) 0.8, Absolute Neuts (auto) 6.9, Absolute Lymphs (auto) 2.39, Nucleated RBC % 0, Sodium 140, Potassium 4.0, Chloride 99, Carbon Dioxide 36.0 H, Anion Gap 5, BUN 27 H, Creatinine 1.01, Estim Creat Clear Calc 34.07, Est GFR (MDRD) Af Amer 68, Est GFR (MDRD) Non-Af 56 L, BUN/Creatinine Ratio 26.7 H, Glucose 117 H, Calcium 9.5 Radiography Diagnostic Testing: Radiology Impression Chest X-Ray 01/13/23 09:00 IMPRESSION: Residual CHF on Josiah has been improvement as compared to prior study. Electronically Signed: German Cabrera MD at 13:21 EDT , Physical Exam Const alert, oriented x3, no apparent distress and average body habitus General Appearance: cooperative, well kempt and well developed Orientation / Consciousness: awake, oriented to person, oriented to place and oriented to time HEENT normocephalic, head/scalp atraumatic and moist oral mucous membranes Eyes PERRL, EOMs intact bilaterally and conjunctivae normal Neck supple, no JVD, thyroid normal and no carotid bruits General: trachea midline Resp normal respiratory effort, no use of accessory muscles and clear to auscultation bilaterally Auscultation: Negative for rales, rhonchi or wheezes Cardio S1 normal heart sound, S2 normal heart sound, no murmurs, no rub and no gallops Cardio Narrative: Heart rate and rhythm is irregular GI normal to inspection, nondistended, normoactive bowel sounds, soft to palpation, non-tender and non-distended Extremity normal to inspection and no clubbing, cyanosis or edema Skin no rashes or lesions noted General Skin Exam: no breakdown Neuro oriented x3, CN's II-XII intact bilaterally, moves all extremities, no focal motor deficits and no sensory deficits noted Sensorium / Orientation: awake, alert, oriented to person and oriented to place Speech: speech normal Psych affect normal Assessment & Plan Assessment/Plan (1) Congestive heart failure: QUALIFIERS: Heart failure type: systolic Heart failure chronicity: acute on chronic Qualified Code(s): I50.23 - Acute on chronic systolic (congestive) heart failure PLAN: Plan 1. Acute on chronic systolic congestive heart failure-patient's IV went bad today, I elected not to place another IV and the patient, I elected to place the patient on oral Lasix. I will recheck with the patient tomorrow about her home-going plans, patient does live alone and she does have oxygen set up at her home. Again patient's chest x-ray looked improved today #2 A-fib with RVR-patient is currently on amiodarone and metoprolol at this time, patient's pulse was 90 this afternoon. Patient is on Eliquis for anticoagulation #3 chronic obstructive pulmonary disease-patient is currently on home O2, she continues on albuterol aerosols as needed and budesonide aerosols twice daily #4 chronic hypoxic respiratory failure-again patient has home O2 set up, I will assess her oxygen needs tomorrow #5 chronic anxiety-I have elected to place the patient on Ativan as needed for anxiety. Total clinical time spent by myself addressing patient's medical issues, reviewing all of her data, and collaborating with patient's care team: 35 minutes Charges/Coding Visit Charges Inpatient E&M: 55761 Subs Hosp L2
[2023-01-13] MEDS: Atorvastatin Calcium 10 MG Tablet PO (21:34)
[2023-01-13] MEDS: LORazepam 0.5 MG Tablet 0.25 MG PO (21:43)
[2023-01-14] VITALS (7 sets, daily range): BP systolic 105–115; BP diastolic 72–74; PULSE 93–101; RESP 16–20; TEMP 36.4–36.7; O2SAT 75–98; BMI 23.6
[2023-01-14] MEDS: LORazepam 0.5 MG Tablet PO ×2 (03:40→16:10)
[2023-01-14] MEDS: Albuterol 2.5 MG/3 ML VIAL.NEB. INHALATION ×2 (06:40→16:19)
[2023-01-14] MEDS: Budesonide Respules 0.5 MG/2 ML AMPUL.NEB. INHALATION (06:40)
[2023-01-14] MEDS: Furosemide 40 MG Tablet 60 MG PO (09:41)
[2023-01-14] MEDS: Aspirin E.C. 81 MG Tablet PO (09:42)
[2023-01-14] MEDS: Amiodarone 200 MG Tablet PO (09:42)
[2023-01-14] MEDS: Metoprolol(XL)Succ 50 MG Tablet 75 MG PO (09:42)
[2023-01-14] MEDS: APIXABAN 2.5 MG TABLET (WCH) PO (09:42)
[2023-01-14] MEDS: Fluticasone 0.05% 1 SPRAY NASAL.SRY 2 SPRAY NASAL (09:42)
--- NOTE | 2023-01-14 09:56 | CASEMGMT ---
RN CM in to discuss needs at discharge. Daughters at bedside. RN CM discussed HHC with patient and daughters and are agreeable to HHC. After reviewing HHC list, patient and family prefer [facility]. Patient and daughters had no further questions or concerns. RN CM called and made referral to [facility], awaiting call back. CM will continue to follow this patient and plan for a safe discharge.
--- NOTE | 2023-01-14 11:02 | DCINST_ITS ---
Discharge Instructions Diet Discharge Diet: No restrictions Activity Discharge Activity: Return to Normal Activity Weight Bearing Status: Full weight bearing Follow Up Care Test Results: Test results from this visit will be discussed in further detail at your follow- up appointment, if applicable. Discharge Plan Admission Admit Date/Time: 01/10/23 11:54 Primary Reason for Your Visit: congestive heart failure Attending Provider: Margarito Lyles Primary Care Provider: Piero Perla Consulting Providers: Tray Santillan; Ruthann Garza Instructions Additional Instructions / Restrictions: You may use lorazepam 0.5 mg, 1/2-1 every 8 hours as needed for anxiety Use continuous nasal cannula oxygen as directed Discharge Orders/Prescriptions Prescriptions: New amiodarone 200 mg Tablet 200 mg PO BID Qty: 60 0RF Rx Instructions: one twice a day for five days, then reduce to once a day lorazepam 0.5 mg Tablet 0.5 mg PO Q8H PRN PRN (Reason: Anxiety) Qty: 25 0RF furosemide [Lasix] 20 mg tablet 60 mg PO DAILY Qty: 90 0RF potassium chloride 10 mEq tablet extended release 20 meq PO DAILY Qty: 60 0RF Continued lorazepam 0.5 mg tablet 0.25 mg PO QHS Adult 50 Plus Probiotic 4 billion cell capsule 4,000 mmu cells PO DAILY cholecalciferol (vitamin D3) 50 mcg (2,000 unit) tablet 50 mcg PO DAILY aspirin 81 MG tablet,delayed release (DR/EC) 81 mg PO DAILY fluticasone propionate 50 mcg/actuation spray,suspension 2 spray INTRANASAL DAILY atorvastatin 10 mg tablet 10 mg PO QHS albuterol sulfate 2.5 mg /3 mL (0.083 %) solution for nebulization 2.5 mg inhalation Q4H PRN (Reason: SHORTNESS OF BREATH/WHEEZING ) fluticasone propion-salmeterol [Wixela Inhub] 100-50 mcg/dose blister with device 1 inh INHALATION BID Eliquis 2.5 mg tablet 2.5 mg PO BID Qty: 30 0RF metoprolol succinate 50 mg tablet extended release 24 hr 75 mg PO BID Qty: 120 3RF albuterol sulfate [ProAir HFA] 90 mcg/actuation HFA aerosol inhaler 2 puff INHALATION Q4H PRN (Reason: SHORTNESS OF BREATH/WHEEZING ) Qty: 8.5 11RF Spiriva Respimat 2.5 mcg/actuation mist 2 puff inhalation DAILY Qty: 4 11RF Discontinued furosemide 40 mg tablet 40 mg PO DAILY Qty: 90 3RF Referrals / Follow Up: Piero Perla DO [Primary Care Provider] - Within 1 Month Norma Castellon PA [Med Staff - [facility] Practice Prof] - 02/13/23 1:00 pm Disposition Disposition (needs filled in before D/C Order can be placed): Home Health Service
--- NOTE | 2023-01-14 11:15 | DS.PCM_ITS ---
Providers Date of Admission: 01/10/23 Date of Discharge: 01/14/23 Primary Care Physician: Dr. Piero Perla, Consultations 01/12/23 13:01 Consult: Cardiology Routine Consulting Provider: Tray Santillan Reason for Consult: afib rvr EMERGENT Consult: No MD Notified: Yes Date Notified: 01/12/23 Time Notified: 13:01 Method of Notification: Verbal Method of Consult:: In-Person Reason For Visit: ACUTE ON CHRONIC HPREF Diagnosis Discharge Diagnosis (1) Congestive heart failure: Status: Acute Code(s): I50.9 - Heart failure, unspecified Qualifiers: Heart failure chronicity: acute on chronic Heart failure type: systolic Qualified Code(s): I50.23 - Acute on chronic systolic (congestive) heart failure Plan 1. Acute on chronic systolic congestive heart failure-patient's IV went bad today, I elected not to place another IV and the patient, I elected to place the patient on oral Lasix. I will recheck with the patient tomorrow about her home- going plans, patient does live alone and she does have oxygen set up at her home. Again patient's chest x-ray looked improved today #2 A-fib with RVR-patient is currently on amiodarone and metoprolol at this time, patient's pulse was 90 this afternoon. Patient is on Eliquis for anticoagulation #3 chronic obstructive pulmonary disease-patient is currently on home O2, she continues on albuterol aerosols as needed and budesonide aerosols twice daily #4 chronic hypoxic respiratory failure-again patient has home O2 set up, I will assess her oxygen needs tomorrow #5 chronic anxiety-I have elected to place the patient on Ativan as needed for anxiety. Total clinical time spent by myself addressing patient's medical issues, reviewing all of her data, and collaborating with patient's care team: 35 minutes Medications at Discharge Home Medications aspirin 81 mg tablet,delayed release 81 mg PO DAILY HEART HEALTH 01/01/16 fluticasone propionate 50 mcg/actuation nasal spray,suspension 2 spray intranasal DAILY ALLERGIES 12/19/17 lactobacillus combination no.9 4 billion cell capsule (Adult 50 Plus Probiotic) 4,000 mmu cells PO DAILY GUT HEALTH 09/25/21 lorazepam 0.5 mg tablet 0.25 mg PO QHS ANXIETY 09/25/21 cholecalciferol (vitamin D3) 50 mcg (2,000 unit) tablet 50 mcg PO DAILY SUPPL EMENT 03/25/22 albuterol sulfate 2.5 mg/3 mL (0.083 %) solution for nebulization 2.5 mg inhalation Q4H PRN SHORTNESS OF BREATH/WHEEZING 11/21/22 atorvastatin 10 mg tablet 10 mg PO QHS CHOLESTEROL 11/21/22 fluticasone 100 mcg-salmeterol 50 mcg/dose blistr powdr for inhalation (Wixela Inhub) 1 inh inhalation BID COPD 11/21/22 apixaban 2.5 mg tablet (Eliquis) 2.5 mg PO BID blood thinner #30 tabs 11/23/22 metoprolol succinate 50 mg tablet,extended release 24 hr 75 mg (1.5 x 50 mg) PO BID htn #120 tabs 12/23/22 albuterol sulfate 90 mcg/actuation aerosol inhaler (ProAir HFA) 2 puff inhalation Q4H PRN SHORTNESS OF BREATH/WHEEZING #8.5 grams 12/31/22 tiotropium bromide 2.5 mcg/actuation mist for inhalation (Spiriva Respimat) 2 puff inhalation DAILY COPD #4 grams 12/31/22 amiodarone 200 mg tablet 200 mg PO BID #60 tabs 01/14/23 furosemide 20 mg tablet (Lasix) 60 mg (3 x 20 mg) PO DAILY #90 tabs 01/14/23 lorazepam 0.5 mg tablet 0.5 mg PO Q8H PRN PRN Anxiety #25 tabs 01/14/23 potassium chloride 10 mEq tablet,extended release 20 meq (2 x 10 mEq) PO DAILY #60 tabs 01/14/23 Hospital Course Operations None Procedures None Summary of Care Provided Minutes Spent on Discharge: 32 Hospital Course: This 82-year-old white female was seen in the emergency room at [facility] with complaints of shortness of breath, she had increasing shortness of breath over the last 2 or 3 days prior to being seen in the em ergency room. Patient has a history of COPD and congestive heart failure, she is on chronic oxygen at home. Patient had a recent heart catheterization approximately 3 weeks prior that showed no coronary artery disease that was amendable to intervention, she had an estimated ejection fraction of ap proximately 40%. Chest x-ray was obtained in the emergency room showed increased markings at the bases and a slight effusion mostly in the left, there was also noted to be mild degree of vascular congestion, white blood cell count slightly elevated at 11.2, she required increased oxygen on ambulation and her pulse ox was still below 90% even on 4 L. Patient's beta natruretic peptide was elevated at 651. Patient was admitted for acute on chronic diastolic congestive heart failure, she was placed on IV Lasix and seen in consultation by cardiology. While she was in the emergency room, her heart rate increased into the 120s and 140s with atrial fib, her pulse ox was monitored. Patient was p laced on amiodarone due to her increased heart rate. Patient's oxygenation improved at rest during her hospitalization but she required increased oxygen demand on ambulation at 8 L at the time of discharge. Patient was also seen in consultation by palliative care during her hospital stay, it is unknown whether the patient wished to continue with palliative care as an outpatient. On 01/14/2023, patient was seen and examined: On examination she appeared in good health and spirits, she does not appear to be in any distress. Vital signs as documented. Skin warm and dry and without overt rashes. Neck without JVD, thyroid appears normal, trachea is midline, neck is supple. Lungs clear, normal air movement was noted. Heart exam notable for regular rhythm, normal sounds and absence of murmurs, rubs or gallops. Abdomen unremarkable and without evidence of organomegaly, masses, or abdominal aortic enlargement, bowel sounds are present in all 4 quadrants, no abdominal tenderness was noted. Extremities nonedematous, no cyanosis was noted, no clubbing was noted. Neuro: Cranial nerves II through XII are grossly intact, no focal motor deficits were noted, sensation to light touch and pinprick is intact, motor exam 5/5 throughout. Psych: Patient is alert and oriented x3, she does not appear anxious or depressed, she does not appear agitated. Patient appears stable for discharge on 01/14/2023, patient was set up with a high flow oxygen concentrator, due to the patient's severe COPD and advanced age, prognosis was guarded at the time of discharge. Weight / BMI Weight Weight: 49.5 kg Body Mass Index (BMI) 23.6 ABG / Lab / Microbiology Data 01/13/23 05:28 01/13/23 05:28 Radiography Diagnostic Testing: Radiology Impression Chest X-Ray 01/13/23 09:00 IMPRESSION: Residual CHF on Josiah has been improvement as compared to prior study. Electronically Signed: German Cabrera MD at 13:21 EDT Reading Location ID and State: [facility] / [place] , Service support , D/C Instructions Discharge Diet: No restrictions Weight Bearing Status: Full weight bearing Meaningful Use Info Meaningful Use Diagnoses (Choose all that apply): CHF CHF SULY/ARB ordered at discharge?: No Reason SULY/ARB not ordered?: Worsening renal function Documented LVEF (%): 35 Discharge Plan Admission Admit Date/Time: 01/10/23 11:54 Primary Reason for Your Visit: congestive heart failure Attending Provider: Margarito Lyles Primary Care Provider: Piero Perla Consulting Providers: Tray Santillan; Ruthann Garza Instructions Additional Instructions / Restrictions: You may use lorazepam 0.5 mg, 1/2-1 every 8 hours as needed for anxiety Use continuous nasal cannula oxygen as directed Discharge Orders/Prescriptions Prescriptions: New amiodarone 200 mg Tablet 200 mg PO BID Qty: 60 0RF Rx Instructions: one twice a day for five days, then reduce to once a day lorazepam 0.5 mg Tablet 0.5 mg PO Q8H PRN PRN (Reason: Anxiety) Qty: 25 0RF furosemide [Lasix] 20 mg tablet 60 mg PO DAILY Qty: 90 0RF potassium chloride 10 mEq tablet extended release 20 meq PO DAILY Qty: 60 0RF Continued lorazepam 0.5 mg tablet 0.25 mg PO QHS Adult 50 Plus Probiotic 4 billion cell capsule 4,000 mmu cells PO DAILY cholecalciferol (vitamin D3) 50 mcg (2,000 unit) tablet 50 mcg PO DAILY aspirin 81 MG tablet,delayed release (DR/EC) 81 mg PO DAILY fluticasone propionate 50 mcg/actuation spray,suspension 2 spray INTRANASAL DAILY atorvastatin 10 mg tablet 10 mg PO QHS albuterol sulfate 2.5 mg /3 mL (0.083 %) solution for nebulization 2.5 mg inhalation Q4H PRN (Reason: SHORTNESS OF BREATH/WHEEZING ) fluticasone propion-salmeterol [Wixela Inhub] 100-50 mcg/dose blister with device 1 inh INHALATION BID Eliquis 2.5 mg tablet 2.5 mg PO BID Qty: 30 0RF metoprolol succinate 50 mg tablet extended release 24 hr 75 mg PO BID Qty: 120 3RF albuterol sulfate [ProAir HFA] 90 mcg/actuation HFA aerosol inhaler 2 puff INHALATION Q4H PRN (Reason: SHORTNESS OF BREATH/WHEEZING ) Qty: 8.5 11RF Spiriva Respimat 2.5 mcg/actuation mist 2 puff inhalation DAILY Qty: 4 11RF Discontinued furosemide 40 mg tablet 40 mg PO DAILY Qty: 90 3RF Referrals / Follow Up: Piero Perla DO [Primary Care Provider] - 01/21/23 10:00 am (Appointment is with Natalie Pablo N.P.) Norma Castellon PA [Med Staff - [facility]] - 02/13/23 1:00 pm Disposition Disposition (needs filled in before D/C Order can be placed): Home Health Service Charges/Coding Visit Charges Inpatient E&M: 51856 Disch Hosp >30min
--- NOTE | 2023-01-14 12:10 | PHA.DC_ITS ---
Pharmacy [facility] has performed discharge medication reconciliation and counseling for this patient. 1. AMIODARONE 200MG PO BID X 5 DAYS, THEN DAILY THEREAFTER 2. POTASSIUM CHLORIDE 20MG PO DAILY The patient's discharge medication list was reviewed for discrepancies and discrepancies were resolved. The patient was counseled on the following discharge medications and changes in medications for homegoing were reviewed. The Reason for Use, instructions for use, and potential side effects were reviewed for all new medications. The patient's questions regarding all of their medications were answered. The patient was able to verbally demonstrate an understanding of their discharge medications. Patient counseled by pharmacy account directorNighat. Medications at Discharge Home Medications aspirin 81 mg tablet,delayed release 81 mg PO DAILY HEART HEALTH 01/01/16 fluticasone propionate 50 mcg/actuation nasal spray,suspension 2 spray intranasal DAILY ALLERGIES 12/19/17 lactobacillus combination no.9 4 billion cell capsule (Adult 50 Plus Probiotic) 4,000 mmu cells PO DAILY [facility] 09/25/21 lorazepam 0.5 mg tablet 0.25 mg PO QHS ANXIETY 09/25/21 cholecalciferol (vitamin D3) 50 mcg (2,000 unit) tablet 50 mcg PO DAILY SUPPLEMENT 03/25/22 albuterol sulfate 2.5 mg/3 mL (0.083 %) solution for nebulization 2.5 mg inhalation Q4H PRN SHORTNESS OF BREATH/WHEEZING 11/21/22 atorvastatin 10 mg tablet 10 mg PO QHS CHOLESTEROL 11/21/22 fluticasone 100 mcg-salmeterol 50 mcg/dose blistr powdr for inhalation (Abelino Kilgore) 1 inh inhalation BID COPD 11/21/22 apixaban 2.5 mg tablet (Eliquis) 2.5 mg PO BID blood thinner #30 tabs 11/23/22 metoprolol succinate 50 mg tablet,extended release 24 hr 75 mg (1.5 x 50 mg) PO BID htn #120 tabs 12/23/22 albuterol sulfate 90 mcg/actuation aerosol inhaler (ProAir HFA) 2 puff inhalation Q4H PRN SHORTNESS OF BREATH/WHEEZING #8.5 grams 12/31/22 tiotropium bromide 2.5 mcg/actuation mist for inhalation (Spiriva Respimat) 2 puff inhalation DAILY COPD #4 grams 12/31/22 amiodarone 200 mg tablet 200 mg PO BID #60 tabs 01/14/23 furosemide 20 mg tablet (Lasix) 60 mg (3 x 20 mg) PO DAILY #90 tabs 01/14/23 lorazepam 0.5 mg tablet 0.5 mg PO Q8H PRN PRN Anxiety #25 tabs 01/14/23 potassium chloride 10 mEq tablet,extended release 20 meq (2 x 10 mEq) PO DAILY #60 tabs 01/14/23
--- NOTE | 2023-01-14 14:44 | CASEMGMT ---
DOMINIQUE received a voice mail from Rose Polk at [facility]. Rose Polk said patient signed up with [facility]. Rose Polk asked that they be notified when patient is discharged. DOMINIQUE faxed patient's d/c instructions to [facility] and let them know patient is being discharged today. Kirsty ORTIZ
--- NOTE | 2023-01-14 15:31 | CASEMGMT ---
DAVID MIJARES received call back from [facility] and they are able to accept the patient with planned start of care for Friday. DAVID MIJARES called daughter Jovita to updated regarding [facility] start of care date. Per daughter Jovita, home oxygen equipment will be delivered around 5pm. DAVID MIJARES updated daughter that once they received portable tank patient can discharge to home today. DVAID MIJARES updated discharge plan. CM will continue to follow this patient and plan for a safe discharge.
[2023-01-14] MEDS: Ondansetron 8 MG Tablet PO (16:18)
== END 2023-01-14 17:28 | disposition home health service (06) | DRG 292 ==
LOC: ED 09:36 → PCU 12:07
PROVIDERS: Admitting Provider Student in an Organized Health Care Education/Training Program; Emergency Provider Emergency Medicine; PCP Student in an Organized Health Care Education/Training Program; Visit Provider Internal Medicine
DX: I50.23 Acute on chronic systolic (congestive) heart failure (principal); I48.19 Other persistent atrial fibrillation; J96.11 Chronic respiratory failure with hypoxia; Z79.01 Long term (current) use of anticoagulants; J44.9 Chronic obstructive pulmonary disease, unspecified; N18.31 Chronic kidney disease, stage 3a; D64.9 Anemia, unspecified; I25.5 Ischemic cardiomyopathy; I25.10 Atherosclerotic heart disease of native coronary artery without angina pectoris; E78.5 Hyperlipidemia, unspecified; F41.9 Anxiety disorder, unspecified; Z87.891 Personal history of nicotine dependence; Z95.5 Presence of coronary angioplasty implant and graft; Z66 Do not resuscitate; Z79.51 Long term (current) use of inhaled steroids; Z82.3 Family history of stroke; Z79.82 Long term (current) use of aspirin; R91.8 Other nonspecific abnormal finding of lung field
CPT/HCPCS: 36415; 71045; 71046; 80048; 83880; 84484; 85025; 93005; 94640; 97162; 97166; 99284; A4216; J1940; J2405

== ENCOUNTER 2023-02-13 11:06 | Inpatient (IN) | payer MEDICARE, SELFPAY ==
[2023-02-13] VITALS (25 sets, daily range): BP systolic 89–150; BP diastolic 59–117; PULSE 96–115; RESP 12–26; TEMP 35–36.6; O2SAT 92–100; BMI 25.1; BMI 24.3
--- NOTE | 2023-02-13 11:11 | ED.VIS.DYS ---
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 Atrial fibrillation with rapid ventricular response Chronic HFrEF (heart failure with reduced ejection fraction) Chronic kidney disease, stage 3a Chronic obstructive pulmonary disease COPD (chronic obstructive pulmonary disease) Coronary artery disease Diverticulitis Essential hypertension Hyperlipidemia Ischemic cardiomyopathy Left ventricular systolic dysfunction (LVSD) Lung nodule Osteoporosis Respiratory failure with hypoxia Secondary pulmonary arterial hypertension Sinusitis Home Medications aspirin 81 mg tablet,delayed release 81 mg PO DAILY HEART HEALTH 01/01/16 [History Last Taken 02/13/23] fluticasone propionate 50 mcg/actuation nasal spray,suspension 2 spray intranasal DAILY ALLERGIES 12/19/17 [History Last Taken 02/13/23] lactobacillus combination no.9 4 billion cell capsule (Adult 50 Plus Probiotic) 4,000 mmu cells PO DAILY [facility] 09/25/21 [History Last Taken 02/13/23] albuterol sulfate 2.5 mg/3 mL (0.083 %) solution for nebulization 2.5 mg inhalation Q4H PRN SHORTNESS OF BREATH/WHEEZING 11/21/22 [History Last Taken 02/13/23] atorvastatin 10 mg tablet 10 mg PO QHS CHOLESTEROL 11/21/22 [History Last Taken 02/12/23] fluticasone 100 mcg-salmeterol 50 mcg/dose blistr powdr for inhalation (Wixela Inhub) 1 inh inhalation BID COPD 11/21/22 [History Last Taken 02/13/23] apixaban 2.5 mg tablet (Eliquis) 2.5 mg PO BID BLOOD THINNER #30 tabs 11/23/22 [Rx Last Taken 02/13/23] albuterol sulfate 90 mcg/actuation aerosol inhaler (ProAir HFA) 2 puff inhalation Q4H PRN SHORTNESS OF BREATH/WHEEZING #8.5 grams 12/31/22 [Rx Last Taken 02/13/23] tiotropium bromide 2.5 mcg/actuation mist for inhalation (Spiriva Respimat) 2 puff inhalation DAILY COPD #4 grams 12/31/22 [Rx Last Taken 02/13/23] amiodarone 200 mg tablet 200 mg PO DAILY AFIB #90 tabs 02/07/23 [Rx Last Taken 02/13/23] potassium chloride 10 mEq tablet,extended release 10 meq PO DAILY SUPPLEMENT #90 tabs 02/07/23 [Rx Last Taken 02/13/23] cholecalciferol (vitamin D3) 125 mcg (5,000 unit) tablet (Vitamin D3) 125 mcg PO DAILY SUPPLEMENT 02/13/23 [History Last Taken 02/13/23] docusate sodium 100 mg capsule 100 mg PO BID PRN CONSTIPATION 02/13/23 [History Last Taken Unknown] furosemide 40 mg tablet 40 mg PO BID EDEMA 02/13/23 [History Last Taken 02/13/23] lorazepam 0.5 mg tablet 0.5 mg PO Q8H PRN ANXIETY 02/13/23 [History Last Taken 02/13/23] metoprolol succinate 25 mg tablet,extended release 24 hr 25 mg PO BID BLOOD PRESSURE 02/13/23 [History Last Taken 02/13/23] ondansetron 4 mg disintegrating tablet 4 mg PO Q8H PRN NAUSEA 02/13/23 [History Last Taken Unknown] polyethylene glycol 3350 17 gram/dose oral powder (Purelax) 17 g PO BID PRN CONSTIPATION 02/13/23 [History Last Taken Unknown] Allergy/AdvReac Type Severity Reaction Status Date / Time Penicillins Allergy Intermediate Other-difficulty Verified 02/13/23 11:13 breathing Sulfa (Sulfonamide Allergy Intermediate Other-breathing Verified 02/13/23 11:13 Antibiotics) difficulty, hot flashes, rash azithromycin Allergy Mild Other-bleed Verified 02/13/23 11:13 ing clarithromycin [From Biaxin] Allergy Mild Other-bloody Verified 02/13/23 11:13 stool Iodinated Contrast Media Allergy Hives Verified 02/13/23 11:13 ofloxacin [From Floxin] AdvReac Mild Nausea Verified 02/13/23 11:13 Family History Mother Cervical cancer Lung cancer Breast cancer Father Colon cancer CVA (cerebral vascular accident) CHF (congestive heart failure) Surgical History History of coronary artery stent placement (02/23/19) History of left heart catheterization (03/2019) Social History household members: spouse housing: house current occupational status: retired pets and animals: Yes pets and animals: cat(s) Smoking Status: Former smoker quit date: 06/02/89 pack-years: 34 second hand exposure: Yes alcohol intake: never substance use type: does not use caffeine: Yes Type: coffee Number of servings: 3 EXAM Physical Exam Const Vital Signs: 02/13/23 11:10 02/13/23 11:15 02/13/23 11:16 Temperature 96 F L Temperature Source Temporal Pulse Rate 101 H Respiratory Rate 22 H Respiratory Effort Short of Breath Pursed Lip Respiratory Depth Deep Respiratory Pattern Tachypnea Blood Pressure 148/117 H Blood Pressure Mean 127 Pulse Ox 100 100 Oxygen Delivery Method Nasal Cannula Nasal Cannula Nasal Cannula Oxygen Flow Rate (L/min) 4 4 4 Fraction of Inspired Oxygen (FIO2) 02/13/23 11:38 02/13/23 12:45 Temperature Temperature Source Pulse Rate 96 102 H Respiratory Rate 26 H 23 H Respiratory Effort Respiratory Depth Respiratory Pattern Tachypnea Tachypnea Blood Pressure Blood Pressure Mean Pulse Ox 94 Oxygen Delivery Method Oxygen Flow Rate (L/min) Fraction of Inspired Oxygen (FIO2) 40 MDM MDM MDM Narrative Medical decision making narrative: HISTORY OF PRESENT ILLNESS: 82-year-old female here with shortness of breath. She states she had 1 day of increasing shortness of breath. She notes chronic cough. Notes 2 pound weight gain. Denies chest pain. The patient denies recent surgery in the last 4 weeks or immobilization in the last 3 days, denies previous diagnosis of DVT or PE, hemoptysis, unilateral leg swelling or malignancy with treatment the last 6 months. No estrogen use noted. REVIEW OF SYSTEMS: Pertinent positives: Shortness of breath Pertinent negatives: Chest pain PHYSICAL EXAM: Nursing triage notes reviewed, Vital signs reviewed Constitutional: please see mdm HENT: MMM Eyes: Pupils equal round and reactive to light, Extraocular muscles intact Neck: No stridor, no JVD, full neck ROM Lungs: Increased work of breathing, conversational dyspnea, prolonged expiratory phase, diffuse wheezing noted bilaterally Heart: Regular rate and rhythm, No murmurs, No rubs and No gallops, 2+ distal pulses (radial, femoral, posterior tibial) in all extremities Abdomen: Soft, there is no tenderness, rigidity, rebound or guarding, no obvious peritoneal signs, no palpable pulsatile abdominal masses, no auscultated abdominal bruit : No CVAT Extremities: No edema Neuro: No focal neurological deficits, cranial nerves II through XII intact, 5/5 strength in all extremities. Intact sensation to light touch in all extremities, 2+ reflexes bilateral patella tendons. Normal gait. No ataxia. Skin: No rash or lesions noted MEDICAL DECISION MAKING: Chief Complaint: Shortness of breath External records reviewed: Last admission record reviewed. Patient admitted in December 2022 for heart failure Factors affecting care: History of A-fib with RVR on Eliquis, ischemic cardiomyopathy, COPD, heart failure, chronic home oxygen Social determinants of health: Elderly History obtained from others: The patient's daughter CODE STATUS: DNR CCA Consults: Internal medicine ALL IMAGES (IF OBTAINED) HAVE BEEN PERSONALLY REVIEWED AND INTERPRETED BY MYSELF. EKG with likely a flutter, rate controlled, normal axis, mildly prolonged QT, no STEMI CBC with leukocytosis, no anemia or thrombocytopenia BMP with hyponatremia, hyperkalemia, no anion gap to suggest endorgan hypoperfusion, baseline CKD Troponin is negative, no evidence of myocardial ischemia BNP grossly elevated consistent with increased myocardial stretch and heart failure exacerbation. VBG without significant respiratory acidosis, no CO2 retention MDM Narrative: Patient was initially tachypneic otherwise hemodynamically stable, afebrile and nontoxic-appearing. Lungs with diffuse wheezing bilaterally. I considered the following differential diagnosis: COPD exacerbation, CHF, ACS, arrhythmia, anemia, PE I considered pulmonary embolism however the patient low risk Wells score and as such have a low suspicion for PE. Addition to this patient focal lung findings more consistent with COPD exacerbation. She was treated empirically with Solu-Medrol and breathing treatments. There is no evidence of ACS. Hyperkalemia treated with aerosols. Heart failure treated with Lasix. Respiratory failure treated with BiPAP. I obtained a broad lab and imaging work-up to further elucidate the etiology of the patient's complaints. Patient's labs were remarkable for signs of systemic inflammation, there is no significant anemia, there was hyponatremia, hyperkalemia, baseline CKD, troponin was negative, EKG showed no evidence of STEMI. Chest x-ray showed evidence of CHF. Patient's BNP was grossly elevated. On reassessment after 1 hour breathing treatments patient still had increased work of breathing at this point she was started on BiPAP at 12/6. Pt remains DNR-CCA. Pt will need ICU admit for further treatment and BiPAP titration. The patient and/or family, caregivers express understanding. The patient and/or family, caregivers agrees with the plan. Shared decision making: I will have a discussion with the patient and or visitors regarding risk/benefits of further testing or admission. They will be made aware of of the risk/benefits inherent in this decision they will be given the opportunity to voice understanding. Total critical care time today provided was at least 60 minutes. This excludes separately billable procedures. Critical care time (if documented) is secondary to the patient having high probability of clinically significant/life threatening deterioration in the patient's condition which required my urgent intervention. Impression: 1. Acute respiratory failure 2. COPD exacerbation 3. CHF exacerbation 4. Leukocytosis Dispo: admit to ICU Lab Data Attestation: I reviewed the patient's lab results. Labs: Laboratory Results - last 24 hr 02/13/23 11:35 WBC 12.6 H RBC 4.34 Hgb 12.9 Hct 43.3 MCV 99.8 H MCH 29.7 MCHC 29.8 L RDW Std Deviation 51.0 H RDW Coeff of Sunitha 13.8 Plt Count 271 MPV 10.6 Immature Gran % (Auto) 0.500 Neut % (Auto) 78.8 H Lymph % (Auto) 13.1 L Spencer % (Auto) 5.6 Eos % (Auto) 1.3 Baso % (Auto) 0.7 Absolute Neuts (auto) 9.9 H Absolute Lymphs (auto) 1.64 Nucleated RBC % 0 Sodium 130 L Potassium 5.4 H Chloride 98 Carbon Dioxide 27.0 Anion Gap 5 BUN 40 H Creatinine 1.43 H Estim Creat Clear Calc 24.74 Est GFR (MDRD) Af Amer 45 L Est GFR (MDRD) Non-Af 37 L BUN/Creatinine Ratio 28.0 H Glucose 196 H Calcium 9.0 Troponin I High Sens 9 B-Natriuretic Peptide 1291.5 H Radiography Diagnostic Testing: Clinical Impression(s) from Imaging Studies Chest X-Ray 02/13/23 12:00 IMPRESSION: Findings suggestive of a scarring and atelectasis at the lung bases superimpose a mild degree of CHF. Small bilateral pleural effusions. Electronically Signed: German Cabrera MD at 12:26 EDT , Discharge Plan Triage Chief Complaint: Shortness of Breath ED Provider: Jorge Vivas Dx/Rx/DC Orders Primary Care Provider: Piero Perla
--- NOTE | 2023-02-13 11:13 | EKG12_ITS ---
Test Reason : SOB Blood Pressure : / mmHG Vent. Rate : 102 BPM Atrial Rate : 286 BPM P-R Int : 000 ms QRS Dur : 102 ms QT Int : 370 ms P-R-T Axes : 000 030 001 degrees QTc Int : 482 ms Atrial flutter with variable A-V block with premature ventricular or aberrantly conducted complexes Cannot rule out Anterior infarct , age undetermined Abnormal ECG When compared with ECG of 10-JAN-2023 09:34, Atrial flutter has replaced Atrial fibrillation Nonspecific T wave abnormality no longer evident in Lateral leads Confirmed by BEVERLY BUCK, DORIAN ([id number]), film or videotape editor BARBARA POLANCO ([id number]) on 02/19/2023 10:11:36 AM Referred By: Confirmed By:DORIAN PAUL MD
[2023-02-13] MEDS: Ipratropium/Albuterol Sulfate 3 ML AMPUL.NEB INHALATION ×4 (11:32→19:15)
[2023-02-13 11:54] LABS: Absolute Lymphocyte Count 1.64 X10^3/uL (0.83-4.51); Absolute Neutrophil Count 9.9 X10^3/uL (2.0-7.7); Basophil# 0.09 X10^3/uL; Basophil% 0.7 % (0-1); Eosinophil# 0.16 X10^3/uL; Eosinophils% 1.3 % (0-5); Hematocrit 43.3 % (37-47); Hemoglobin 12.9 g/dL (12.0-15.0); Lymphocyte # 1.64 X10^3/ul (0.83-4.51); Lymphocyte % 13.1 % (19-41); Mean Corp Hgb Conc 29.8 g/dL (32-36); Mean Corpuscular Hgb 29.7 pg (27.0-32.0); Mean Corpuscular Volume 99.8 fL (81-99); Mean Platelet Vol. 10.6 fl (6.2-12.0); Monocyte% 5.6 % (0-10); NRBC Flagged by Analyzer 0 % (0-5); Neutrophil % 78.8 % (47-70); Platelet Count 271 K/mm3 (150-450); RBC Distribution Width CV 13.8 % (11.6-14.6); Red Blood Count 4.34 M/mm3 (4.2-5.4); White Blood Count 12.6 K/mm3 (4.4-11.0)
--- NOTE | 2023-02-13 11:58 | CM.ED ---
Social Work SW performed chart review; LW and HCPOA documents on file as of 2022. Patient's HCPOA is patient's daughter, Jovita Bourne, and alternates are Karo and Jenn. Carla Disla MSW, DIANA
--- NOTE | 2023-02-13 12:00 | RAD_ITS ---
STUDY: X-RAY CHEST REASON FOR EXAM: Female, 82 years old. SOB hx of CHF, COPD TECHNIQUE: Single AP portable view of the chest. COMPARISON: Comparison is made with prior study January 13, 2023. FINDINGS: EKG electrodes are seen. Since prior study, there has been a progression of interstitial markings with areas of confluence in both lung bases worse on the left side. This may represent superimposed atelectasis with small bilateral pleural effusions on chronic scarring. Mild vascular congestion. Normal size heart. Normal mediastinum and kaity. Normal visualized pulmonary arteries. There is atherosclerotic calcification of the aortic arch with tortuosity. There are diffuse degenerative changes of the visualized thoracic spine. There is degenerative osteoarthritis of the bilateral shoulders. There is no demonstrated abnormality of the visualized soft tissue structures of the upper abdomen. RAD/Chest 1 View (Portable) IMPRESSION: Findings suggestive of a scarring and atelectasis at the lung bases superimpose a mild degree of CHF. Small bilateral pleural effusions. Electronically Signed: German Cabrera MD at 12:26 EDT ,
[2023-02-13 12:06] LABS: Anion Gap 5 (5-15); BUN 40 mg/dL (7-18); Chloride 98 mmol/L (98-107); Creatinine, Serum 1.43 mg/dL (0.55-1.02); EST Glomerular Filtration Rate 37 mL/min (>60); Est Glom Filt Rate - Afr Amer 45 mL/min (>60); Estimated Creatinine Clearance 24.74 ml/min; Glucose 196 mg/dL (74-106); Potassium 5.4 mmol/L (3.5-5.1); Sodium Level 130 mmol/L (136-145); Troponin-I HS 9 pg/mL (3.0-54.0)
[2023-02-13] MEDS: Furosemide 40 MG/4 ML Vial IV (13:17)
[2023-02-13] MEDS: MethylPREDNISolone 125 MG/2 ML Vial IV (13:17)
--- NOTE | 2023-02-13 13:44 | PCM.HP.STD ---
[facility] - General General Date of Admission: 02/13/23 Date of Service: 02/13/23 Chief Complaint: SOB [facility] Narrative SHAHZAD OTERO, is a 82 F with a history of heart failure with reduced ejection fraction, atrial fibrillation on Eliquis, COPD on 4 L home O2, coronary artery disease who presented to [facility] 02/13/2023 with worsening shortness of breath. She had been gaining weight and more short of breath over the past couple weeks and briefly had her Lasix doubled which helped however yesterday she became more short of breath and was slowly turning up her home O2 and gained 2 pounds overnight, today she was turned up to 8 L on her home O2 and was not improving so she presented to the hospital. She was found to have a BNP of 1290 which is up from 650 last month. She also did chest x-ray which appeared overloaded. She was given IV Lasix as well as nebs and IV steroids but due to her continued tachypnea and respiratory distress she was placed on BiPAP and hospitalist consulted for admission to ICU. Patient evaluated with family member at bedside who endorses history as above. Patient does report since yesterday she has had a little bit of a dry cough but no fevers, no sputum production. Had a little bit of a nosebleed that her daughter reports was just dabs on a tissue from irritation. Had some soft bowel movements today but due to chronic constipation she takes Dulcolax and take scheduled MiraLAX. Denies any chest pain, had gained the 2 pounds overnight but does not note any swelling in her extremities. Has a slight headache, denied any other acute complaints. [facility], [facility] Medical History [id number] deficiency Atherosclerotic heart disease of [place] coronary artery without angina pectoris Atrial fibrillation with rapid ventricular response Chronic HFrEF (heart failure with reduced ejection fraction) Chronic kidney disease, stage 3a Chronic obstructive pulmonary disease COPD (chronic obstructive pulmonary disease) Coronary artery disease Diverticulitis Essential hypertension Hyperlipidemia Ischemic cardiomyopathy Left ventricular systolic dysfunction (LVSD) Lung nodule Osteoporosis Respiratory failure with hypoxia Secondary pulmonary arterial hypertension Sinusitis Home Medications aspirin 81 mg tablet,delayed release 81 mg PO DAILY HEART [facility] 01/01/16 [History Last Taken 02/13/23] fluticasone propionate 50 mcg/actuation nasal spray,suspension 2 spray intranasal DAILY ALLERGIES 12/19/17 [History Last Taken 02/13/23] lactobacillus combination no.9 4 billion cell capsule (Adult 50 Plus Probiotic) 4,000 mmu cells PO DAILY GUT HEALTH 09/25/21 [History Last Taken 02/13/23] albuterol sulfate 2.5 mg/3 mL (0.083 %) solution for nebulization 2.5 mg inhalation Q4H PRN SHORTNESS OF BREATH/WHEEZING 11/21/22 [History Last Taken 02/13/23] atorvastatin 10 mg tablet 10 mg PO QHS CHOLESTEROL 11/21/22 [History Last Taken 02/12/23] fluticasone 100 mcg-salmeterol 50 mcg/dose blistr powdr for inhalation (Wixelizabeth Babcockub) 1 inh inhalation BID COPD 11/21/22 [History Last Taken 02/13/23] apixaban 2.5 mg tablet (Eliquis) 2.5 mg PO BID BLOOD THINNER #30 tabs 11/23/22 [Rx Last Taken 02/13/23] albuterol sulfate 90 mcg/actuation aerosol inhaler (ProAir HFA) 2 puff inhalation Q4H PRN SHORTNESS OF BREATH/WHEEZING #8.5 grams 12/31/22 [Rx Last Taken 02/13/23] tiotropium bromide 2.5 mcg/actuation mist for inhalation (Spiriva Respimat) 2 puff inhalation DAILY COPD #4 grams 12/31/22 [Rx Last Taken 02/13/23] amiodarone 200 mg tablet 200 mg PO DAILY AFIB #90 tabs 02/07/23 [Rx Last Taken 02/13/23] potassium chloride 10 mEq tablet,extended release 10 meq PO DAILY SUPPLEMENT #90 tabs 02/07/23 [Rx Last Taken 02/13/23] cholecalciferol (vitamin D3) 125 mcg (5,000 unit) tablet (Vitamin D3) 125 mcg PO DAILY SUPPLEMENT 02/13/23 [History Last Taken 02/13/23] docusate sodium 100 mg capsule 100 mg PO BID PRN CONSTIPATION 02/13/23 [History Last Taken Unknown] furosemide 40 mg tablet 40 mg PO BID EDEMA 02/13/23 [History Last Taken 02/13/23] lorazepam 0.5 mg tablet 0.5 mg PO Q8H PRN ANXIETY 02/13/23 [History Last Taken 02/13/23] metoprolol succinate 25 mg tablet,extended release 24 hr 25 mg PO BID BLOOD PRESSURE 02/13/23 [History Last Taken 02/13/23] ondansetron 4 mg disintegrating tablet 4 mg PO Q8H PRN NAUSEA 02/13/23 [History Last Taken Unknown] polyethylene glycol 3350 17 gram/dose oral powder (Purelax) 17 g PO BID PRN CONSTIPATION 02/13/23 [History Last Taken Unknown] Allergy/AdvReac Type Severity Reaction Status Date / Time Penicillins Allergy Intermediate Other-difficulty Verified 02/13/23 11:13 breathing Sulfa (Sulfonamide Allergy Intermediate Other-breathing Verified 02/13/23 11:13 Antibiotics) difficulty, hot flashes, rash azithromycin Allergy Mild Other-bleed Verified 02/13/23 11:13 ing clarithromycin [From Biaxin] Allergy Mild Other-bloody Verified 02/13/23 11:13 stool Iodinated Contrast Media Allergy Hives Verified 02/13/23 11:13 ofloxacin [From Floxin] AdvReac Mild Nausea Verified 02/13/23 11:13 Family History Mother Cervical cancer Lung cancer Breast cancer Father Colon cancer CVA (cerebral vascular accident) CHF (congestive heart failure) Surgical History History of coronary artery stent placement (02/23/19) History of left heart catheterization (03/2019) Social History household members: spouse housing: house current occupational status: retired pets and animals: Yes pets and animals: cat(s) Smoking Status: Former smoker quit date: 06/02/89 pack-years: 34 second hand exposure: Yes alcohol intake: never substance use type: does not use caffeine: Yes Type: coffee Number of servings: 3 ROS ROS Narrative General: Denies fever/chills HENT: Slight headache, had a little blood from nose yesterday, denies sore throat EYES: Denies changes in vision Resp: Slight nonproductive cough, increasing shortness of breath Cardiac: Denies chest pain GI: Little bit of abdominal fullness, no diarrhea but has had slightly softer bowel movements, denies nausea/vomiting : Denies changes in urination Extremity: Denies swelling MSK: Denies weakness Neuro: Denies any numbness/tingling Heme: Denies any bleeding or bruising Skin: Denies rashes Psychiatric: No complaints voiced Vital Signs Vital Signs Vital Signs: 02/13/23 11:10 02/13/23 11:15 02/13/23 11:16 Temperature 96 F L Temperature Source Temporal Pulse Rate 101 H Respiratory Rate 22 H Respiratory Effort Short of Breath Pursed Lip Respiratory Depth Deep Respiratory Pattern Tachypnea Blood Pressure 148/117 H Blood Pressure Mean 127 Pulse Ox 100 100 Oxygen Delivery Method Nasal Cannula Nasal Cannula Nasal Cannula Oxygen Flow Rate (L/min) 4 4 4 Fraction of Inspired Oxygen (FIO2) 02/13/23 11:38 02/13/23 12:45 02/13/23 12:13 Temperature 97 F L Temperature Source Temporal Pulse Rate 96 102 H 109 H Respiratory Rate 26 H 23 H 17 Respiratory Effort Respiratory Depth Respiratory Pattern Tachypnea Tachypnea Blood Pressure 118/92 H Blood Pressure Mean 100 Pulse Ox 94 97 Oxygen Delivery Method Nasal Cannula Oxygen Flow Rate (L/min) 4 Fraction of Inspired Oxygen (FIO2) 40 02/13/23 13:13 02/13/23 13:23 02/13/23 13:42 Temperature 97.2 F L 97 F L Temperature Source Temporal Temporal Pulse Rate 108 H 109 H 112 H Respiratory Rate 19 H 20 H 22 H Respiratory Effort Respiratory Depth Respiratory Pattern Blood Pressure 108/63 108/63 123/75 H Blood Pressure Mean 78 78 91 Pulse Ox 96 96 100 Oxygen Delivery Method Bi-pap Bi-pap Bi-pap Oxygen Flow Rate (L/min) Fraction of Inspired Oxygen (FIO2) Weight Weight: 50.8 kg Body Mass Index (BMI) 25.1 Physical Exam Narrative General: Alert, oriented, in bed on BiPAP HEENT: Atraumatic, normocephalic Eyes: Anicteric, normal conjunctiva, extraocular movements grossly intact Neck: Supple Respiratory: Increased respiratory effort, coarse bilaterally with crackles Cardiovascular: Irregularly irregular with a mild tachycardia GI: Soft, patient reports slight diffuse tenderness with no rebound, guarding, rigidity nondistended Extremities: No edema but all 4 extremities cool which reportedly is her baseline Musculoskeletal: Moving all extremities Neuro: No overt focal neurological deficits Skin: No rashes appreciated Psych: Cooperative Results Lab / Micro Data 02/13/23 11:35 02/13/23 11:35 Labs: Laboratory Results - last 24 hr 02/13/23 11:35: WBC 12.6 H, RBC 4.34, Hgb 12.9, Hct 43.3, MCV 99.8 H, MCH 29.7, MCHC 29.8 L, RDW Std Deviation 51.0 H, RDW Coeff of Sunitha 13.8, Plt Count 271, MPV 10.6, Immature Gran % (Auto) 0.500, Neut % (Auto) 78.8 H, Lymph % (Auto) 13.1 L, [place] % (Auto) 5.6, Eos % (Auto) 1.3, Baso % (Auto) 0.7, Absolute Neuts (auto) 9.9 H, Absolute Lymphs (auto) 1.64, Nucleated RBC % 0, Sodium 130 L, Potassium 5.4 H, Chloride 98, Carbon Dioxide 27.0, Anion Gap 5, BUN 40 H, Creatinine 1.43 H, Estim Creat Clear Calc 24.74, Est GFR (MDRD) Af Amer 45 L, Est GFR (MDRD) Non-Af 37 L, BUN/Creatinine Ratio 28.0 H, Glucose 196 H, Calcium 9.0, Troponin I High Sens 9, B-Natriuretic Peptide 1291.5 H Micro: Microbiology 02/13/23 11:35 Nasal Secretion SARS-CoV-2 & FLU Antigen (Rapid) - Final Radiology Impression Chest X-Ray 02/13/23 12:00 IMPRESSION: Findings suggestive of a scarring and atelectasis at the lung bases superimpose a mild degree of CHF. Small bilateral pleural effusions. Electronically Signed: German Cabrera MD at 12:26 EDT , Assessment & Plan Assessment/Plan (1) Acute HFrEF (heart failure with reduced ejection fraction): (2) Chronic hypoxemic respiratory failure: (3) History of COPD: (4) History of coronary artery stent placement: (5) Chronic a-fib: PLAN: Plan #Respiratory distress secondary to acute exacerbation of chronic heart failure with reduced ejection fraction -Patient with chest x-ray that appears overloaded in ED and a BNP of almost 1300, double what it was last month suggesting fluid overload as patient's primary underlying etiology -Given IV Lasix in the ED and placed on BiPAP due to respiratory distress -We will admit to ICU and placed on Lasix drip and continue BiPAP -Her last echo was 11/22/2022 and showed an EF of 35% with moderately severe mitral valve insufficiency and moderate tricuspid valve insufficiency, RVSP 46. Diastolic function indeterminate, given this was less than 3 months ago do not think this needs repeated acutely -Follows with cardiology on outpatient basis -Daily weights, I's and O's, Geronimo placement -EKG flutter with variable conduction #LESLEY on CKDIIIb -May be cardiorenal -We will diurese and recheck BMP in the a.m., can consider further studies if not improving or worsening #Afib/flutter -EKG with fib/flutter -Continue Eliquis -Continue Amio and metoprolol #CAD status post LAD stent in 2019 -Continue home medications #COPD chronically on 4 L home O2 -PFTs 01/27/2018 w/ Partially reversible severe large airways obstructive ventilatory defect with a symmetric reduction diffusing capacity, resulting in air trapping, and consistent with patient's diagnosis of COPD -DuoNebs -Incentive spirometer -Inhaled steroids -Negative COVID and flu, do not suspect that this was COPD exacerbation and the patient has very slight elevation in white blood cell count suspect this is reactive as patient has no infectious signs or symptoms #Hyponatremia/hyperkalemia -Suspect sodium is secondary to fluid overload and patient takes potassium supplementation at home and given her LESLEY suspect this contributes to her elevated potassium -We will diurese #DVT ppx: On Eliquis Patient and family member confirmed DNR/DNI status with ED physician and this was confirmed again at bedside, will continue BiPAP Sheela Casey MD Time spent in the patient's overall evaluation,decision-making process, review of diagnostic data, adjustment of management, discussion with other providers, nursing nursing and ancillary staff involved in patient's care documentation, 60 minutes Charges/Coding Visit Charges Inpatient E&M: 71018 Init Hosp L2
[2023-02-13 13:45] LABS: Blood Gas Specimen Type VEN; O2 Delivery Device BiPAP; PEEP 8; RR 12; SITE Not entered; VBG BASE EXCESS -4 mmol/L (-1.0-3.5); VBG Bicarbonate 21 mmol/L (22-26); VBG PO2 54 mmHg (25-40); VBG SO2 88 % (50-70); VBG TCO2 22 mmol/L (23-33); VBG pCO2 34.8 mmHg (41-51); VBG pH 7.39 (7.32-7.42)
[2023-02-13] MEDS: Furosemide 500 MG in Empty Viaflex 50 mL 1 EACH CONT INF (15:35)
[2023-02-13] MEDS: Acetaminophen 325 MG Tablet 650 MG PO (15:44)
[2023-02-13] MEDS: 0.9% Saline Lock 10 ML Syringe IV ×2 (17:58→18:42)
[2023-02-13] MEDS: LORazepam 2 MG/ML Syringe 0.25 MG IV (17:58)
--- NOTE | 2023-02-13 18:12 | PCM.HOSP.N ---
Hospitalist Note Discussed with patient's RN, patient and her family have decided they would like hospice care and are aware of what that entails, hospice consult placed
--- NOTE | 2023-02-13 18:15 | NURSING ---
Daughter at bedside. Patient stated I don't want to wear the bipap anymore and I want to be pain free. This RN discussed DNRCCA-DNI status currently and DNRCC hospice options. Patient and daednatherJovita, agreeable and understanding of hospice, stated my was on hospice. This RN called Dr. Casey, consult for hospice placed.
[2023-02-13] MEDS: Morphine 2 MG/ML Syringe IV (18:42)
[2023-02-13] MEDS: Budesonide Respules 0.5 MG/2 ML AMPUL.NEB. INHALATION (19:16)
--- NOTE | 2023-02-13 21:55 | CPS ---
Patient refuses PAP therapy at this time
[2023-02-13] MEDS: APIXABAN 2.5 MG TABLET (WCH) PO (22:47)
[2023-02-13] MEDS: Metoprolol(XL)Succ 25 MG Tablet PO (22:49)
[2023-02-13] MEDS: Atorvastatin Calcium 10 MG Tablet PO (22:50)
[2023-02-14] VITALS (16 sets, daily range): BP systolic 93–110; BP diastolic 55–69; PULSE 92–116; RESP 12–22; TEMP 36.5–37.6; O2SAT 93–100
[2023-02-14 04:18] LABS: Absolute Lymphocyte Count 0.45 X10^3/uL (0.83-4.51); Absolute Neutrophil Count 7.8 X10^3/uL (2.0-7.7); Basophil# 0.01 X10^3/uL; Basophil% 0.1 % (0-1); Hematocrit 35.7 % (37-47); Hemoglobin 11.5 g/dL (12.0-15.0); Lymphocyte # 0.45 X10^3/ul (0.83-4.51); Lymphocyte % 5.2 % (19-41); Mean Corp Hgb Conc 32.2 g/dL (32-36); Mean Corpuscular Hgb 30.7 pg (27.0-32.0); Mean Corpuscular Volume 95.5 fL (81-99); Monocyte# 0.37 X10^3/uL; Monocyte% 4.3 % (0-10); NRBC Flagged by Analyzer 0 % (0-5); Neutrophil # 7.79 X10^3/uL (2.7-7.7); Neutrophil % 90.1 % (47-70); POSITIVE DIFFERENTIAL YES; Platelet Count 231 K/mm3 (150-450); RBC Distribution Width CV 13.7 % (11.6-14.6); Red Blood Count 3.74 M/mm3 (4.2-5.4); White Blood Count 8.7 K/mm3 (4.4-11.0)
[2023-02-14 04:20] LABS: Differential Indicated SCAN CRITERIA MET
[2023-02-14 04:32] LABS: Differential Comment SCANNED
[2023-02-14 04:49] LABS: Anion Gap 4 (5-15); BUN 38 mg/dL (7-18); BUN/Creat Ratio 30.4 RATIO (10-20); Calcium,Total 8.5 mg/dL (8.5-10.1); Chloride 96 mmol/L (98-107); Creatinine, Serum 1.25 mg/dL (0.55-1.02); EST Glomerular Filtration Rate 44 mL/min (>60); Est Glom Filt Rate - Afr Amer 53 mL/min (>60); Estimated Creatinine Clearance 26.52 ml/min; Glucose 127 mg/dL (74-106); Potassium 4.5 mmol/L (3.5-5.1); Sodium Level 134 mmol/L (136-145)
[2023-02-14] MEDS: Ondansetron 4 MG/2 ML Vial IV (10:30)
--- NOTE | 2023-02-14 10:49 | CM.UR ---
Social Work Hospice is here now meeting w/pt and family. AARON Cordova
[2023-02-14] MEDS: Ipratropium/Albuterol Sulfate 3 ML AMPUL.NEB INHALATION ×3 (10:50→19:35)
[2023-02-14] MEDS: APIXABAN 2.5 MG TABLET (WCH) PO ×2 (11:16→22:08)
[2023-02-14] MEDS: Docusate Sodium 100 MG Capsule PO ×2 (11:16→22:08)
[2023-02-14] MEDS: Amiodarone 200 MG Tablet PO (11:17)
[2023-02-14] MEDS: Metoprolol(XL)Succ 25 MG Tablet PO (11:17)
[2023-02-14] MEDS: Aspirin E.C. 81 MG Tablet PO (11:17)
[2023-02-14] MEDS: Fluticasone 0.05% 1 SPRAY NASAL.SRY 2 SPRAY NASAL (11:17)
--- NOTE | 2023-02-14 11:22 | CASEMGMT ---
Social Work Hospice met w/pt and family this morning, plan will be for pt to go home tomorrow on hospice. DME to be delivered today. SW spoke w/daughter Jenn and pt in room, they state can transport pt home tomorrow, will bring O2 from home for pt to use on the way home. Green sheet on chart in anticipation of discharge tomorrow to home on hospice. AARON Cordova
--- NOTE | 2023-02-14 13:23 | CASEMGMT ---
DAVID MIJARES Chart Review: Index Admission: 01/10/23-01/14/23. Patient was admitted for acute on chronic HPREF. See DAVID MIJARES assessment from 01/11/23. Patient was discharged home with [facility] and a Palliative Care referral. Patient returned to [facility] ED on 02/13/23 with complaints of SOB and was admitted for AECHF. Hospice and SW met with patient and family. Plan is for patient to discharge tomorrow on hospice. Family to bring home oxygen for transportation home. Adilia OHN, RN, CM
--- NOTE | 2023-02-14 14:46 | CHAPLAIN ---
Type of Pastoral Visit _x__ Initial Visit ___ Follow-up Visit ___ On-call Visit ___ General Patient Visit ___ Spiritual Assessment ___ Family Conference ___ Bereavement ___ Rapid Response ___ Code Blue ___ Other (describe below) Pastoral Care Referral From _x_ Patient ___ Family ___ Nurse ___ Physician ___ Pneumatic Deicer Inspector ___ Professional Soccer Player ___ Other (describe below) Sacrament/Intervention _x__ Active listening ___ Anointing ___ Hinduism ___ Bereavement ___ Communion _x__ Barb exploration ___ _x__ Life review _x__ Prayer ___ Reconciliation ___ Sacrament of Sick _x__ Supportive presence ___ Wedding ___ Other (describe below) Pastoral Comments patient and daughter are in the room; pt has chosen to go with hospice for care at home; pt talks about her life, her barb in God, her , and how she is coping with this decision; time to listen, support, and prayer with pt and daughter
[2023-02-14] MEDS: Acetaminophen 325 MG Tablet 650 MG PO (15:25)
--- NOTE | 2023-02-14 15:35 | PN.HOSP_ITS ---
Reason for Visit Reason for Visit: Shortness of breath Subjective Subjective Patient states she is feeling a little bit better. Plans to Nikita to hospice today with the intention of transitioning to hospice at discharge. Needs to have things set up at home prior to discharge so she is asking if we can wait till everything's organized and I told her that would be totally fine and we will make sure that things are set up for her prior to getting her home. Objective Data Objective Data Vital Signs: Vital Signs Temp Pulse Resp BP Pulse Ox O2 Del Method O2 Flow Rate 99.6 F H 106 H 20 H 104/64 94 Nasal Cannula 4 02/14/23 15:00 02/14/23 15:00 02/14/23 15:00 02/14/23 15:00 02/14/23 15:00 02/14/23 15:00 02/14/23 15:00 FiO2 40 02/13/23 16:24 Oxygen Flow Rate (L/min) 4 Oxygen Delivery Method Nasal Cannula Weight: 47.6 kg Body Mass Index (BMI) 24.3 Intake & Output: Intake and Output for Last 24 Hours 02/12/23 02/13/23 02/14/23 23:59 23:59 23:59 Intake Total 50 / 50 19.13 / 19.13 Output Total 1075 / 1075 500 / 500 Balance -1025 / -1025 -480.87 / -480.87 Lab / Micro Data 02/14/23 04:07 02/14/23 04:07 Labs: Laboratory Results - last 24 hr 02/14/23 04:07: WBC 8.7, RBC 3.74 L, Hgb 11.5 L, Hct 35.7 L, MCV 95.5, MCH 30.7, MCHC 32.2 D, RDW Std Deviation 48.0 H, RDW Coeff of Sunitha 13.7, Plt Count 231, MPV 10.0, Immature Gran % (Auto) 0.300, Neut % (Auto) 90.1 H, Lymph % (Auto) 5.2 L, [place] % (Auto) 4.3, Eos % (Auto) 0.0, Baso % (Auto) 0.1, Absolute Neuts (auto) 7.8 H, Absolute Lymphs (auto) 0.45 L, Nucleated RBC % 0, Differential Comment SCANNED, Sodium 134 L, Potassium 4.5, Chloride 96 L, Carbon Dioxide 34.0 H, Anion Gap 4 L, BUN 38 H, Creatinine 1.25 H, Estim Creat Clear Calc 26.52, Est GFR (MDRD) Af Amer 53 L, Est GFR (MDRD) Non-Af 44 L, BUN/Creatinine Ratio 30.4 H , Glucose 127 H, Calcium 8.5, TSH 0.90 Micro: Microbiology 02/13/23 11:35 Nasal Secretion SARS-CoV-2 & FLU Antigen (Rapid) - Final Physical Exam Const alert, oriented x3, no apparent distress, average body habitus and well nourished; Negative for healthy appearing Constitutional Narrative: Elderly, white female, sitting up in bed with children at bedside, appears comfortable and nontoxic, currently on 4 L nasal cannula HEENT head/scalp atraumatic and moist oral mucous membranes Head and Scalp: normocephalic Resp normal respiratory effort, no retractions, no use of accessory muscles and No clear to auscultation bilaterally Resp Narrative: Crackles at bases bilaterally, diffusely diminished Auscultation: rales; Negative for rhonchi or wheezes Cardio regular rate, regular rhythm, S1 normal heart sound, S2 normal heart sound, no murmurs, no rub and no gallops GI normal to inspection, nondistended, normoactive bowel sounds, soft to palpation and non-tender Extremity no clubbing, cyanosis or edema Extremity Narrative: Pedal pulses are 2+ Neuro oriented x3, moves all extremities and no focal motor deficits Neuro Narrative: Significant weakness noted that is generalized in nature and nonfocal Speech: speech normal Psych affect normal Psych Narrative: Very pleasant, eye contact is good Assessment & Plan Assessment/Plan (1) Acute HFrEF (heart failure with reduced ejection fraction): (2) Hypoxia: (3) Acute heart failure with reduced ejection fraction and diastolic dysfunction: PLAN: Plan Assessment: Acute hypoxic respiratory failure secondary to acute exacerbation of chronic heart failure with reduced ejection fraction Chronic hypoxic respiratory failure LESLEY on CKD stage IIIb Atrial fibrillation CAD status post LAD stent in 2019 COPD Hyponatremia-improving Hyperkalemia-resolved Pulmonary nodule Osteoporosis History of alpha-1 antitrypsin deficiency Plan: -We will continue Lasix drip through the night to optimize respiratory function prior to discharge -Patient is back to her baseline oxygen of 4 L however she still has clinical signs and laboratory data which are consistent with heart failure -Patient has met with hospice and plan is for discharge home with hospice tomorrow once everything can be set up at home with her for comfort care -CODE STATUS DNR CCA and will transition to CRUISE COORDINATOR tomorrow at discharge Charges/Coding Visit Charges Inpatient E&M: 63279 Subs Hosp L2
[2023-02-14] MEDS: Budesonide Respules 0.5 MG/2 ML AMPUL.NEB. INHALATION (19:35)
--- NOTE | 2023-02-14 19:35 | CPS ---
Pt stated that she did not want to go back on BiPAP again.
[2023-02-14] MEDS: Atorvastatin Calcium 10 MG Tablet PO (22:08)
[2023-02-14] MEDS: LORazepam 2 MG/ML Syringe 0.25 MG IV (22:08)
[2023-02-14] MEDS: Polyethylene Glycol 3350 17 GM PACKET PO (22:09)
[2023-02-15 03:11] VITALS: BP 104/64; PULSE 113; RESP 16; TEMP 36.4; O2SAT 100
[2023-02-15 07:18] VITALS: PULSE 72; RESP 18; O2SAT 99
[2023-02-15] MEDS: Ipratropium/Albuterol Sulfate 3 ML AMPUL.NEB INHALATION ×2 (07:18→11:11)
[2023-02-15] MEDS: Budesonide Respules 0.5 MG/2 ML AMPUL.NEB. INHALATION (07:18)
[2023-02-15 09:51] VITALS: BP 98/65; PULSE 96; RESP 16; TEMP 36.1; O2SAT 98
[2023-02-15] MEDS: Amiodarone 200 MG Tablet PO (09:55)
[2023-02-15] MEDS: Polyethylene Glycol 3350 17 GM PACKET PO (09:55)
[2023-02-15] MEDS: APIXABAN 2.5 MG TABLET (WCH) PO (09:55)
[2023-02-15] MEDS: Aspirin E.C. 81 MG Tablet PO (09:55)
[2023-02-15] MEDS: Fluticasone 0.05% 1 SPRAY NASAL.SRY 2 SPRAY NASAL (09:55)
[2023-02-15] MEDS: Docusate Sodium 100 MG Capsule PO (09:55)
--- NOTE | 2023-02-15 10:51 | PCM.DC.SUM ---
Providers Date of Admission: 02/13/23 Date of Discharge: 02/15/23 Primary Care Physician: Dr. Piero Perla, Consultations 02/13/23 18:09 Consult: Hospice / Palliative Care Routine Consulting Provider: [facility] Reason for Consult: Pt with frequent hospital admissions w/ chf and copd EMERGENT Consult: No MD Notified: Yes Date Notified: 02/13/23 Time Notified: 18:09 Method of Notification: Answering Service Reason For Visit: AECHF Diagnosis Discharge Diagnosis (1) Acute HFrEF (heart failure with reduced ejection fraction): Status: Acute Code(s): I50.21 - Acute systolic (congestive) heart failure (2) Hypoxia: Status: Acute Code(s): R09.02 - Hypoxemia (3) Acute heart failure with reduced ejection fraction and diastolic dysfunction: Status: Acute Code(s): I50.41 - Acute combined systolic (congestive) and diastolic (congestive) heart failure Medications at Discharge Home Medications aspirin 81 mg tablet,delayed release 81 mg PO DAILY HEART HEALTH 01/01/16 fluticasone propionate 50 mcg/actuation nasal spray,suspension 2 spray intranasal DAILY ALLERGIES 12/19/17 lactobacillus combination no.9 4 billion cell capsule (Adult 50 Plus Probiotic) 4,000 mmu cells PO DAILY [facility] 09/25/21 albuterol sulfate 2.5 mg/3 mL (0.083 %) solution for nebulization 2.5 mg inhalation Q4H PRN SHORTNESS OF BREATH/WHEEZING 11/21/22 fluticasone 100 mcg-salmeterol 50 mcg/dose blistr powdr for inhalation (Wixela Inhub) 1 inh inhalation BID COPD 11/21/22 apixaban 2.5 mg tablet (Eliquis) 2.5 mg PO BID BLOOD THINNER #30 tabs 11/23/22 albuterol sulfate 90 mcg/actuation aerosol inhaler (ProAir HFA) 2 puff inhalation Q4H PRN SHORTNESS OF BREATH/WHEEZING #8.5 grams 12/31/22 tiotropium bromide 2.5 mcg/actuation mist for inhalation (Spiriva Respimat) 2 puff inhalation DAILY COPD #4 grams 12/31/22 amiodarone 200 mg tablet 200 mg PO DAILY AFIB #90 tabs 02/07/23 potassium chloride 10 mEq tablet,extended release 10 meq PO DAILY SUPPLEMENT #90 tabs 02/07/23 docusate sodium 100 mg capsule 100 mg PO BID PRN CONSTIPATION 02/13/23 furosemide 40 mg tablet 40 mg PO BID EDEMA 02/13/23 lorazepam 0.5 mg tablet 0.5 mg PO Q8H PRN ANXIETY 02/13/23 metoprolol succinate 25 mg tablet,extended release 24 hr 25 mg PO BID BLOOD PRESSURE 02/13/23 ondansetron 4 mg disintegrating tablet 4 mg PO Q8H PRN NAUSEA 02/13/23 polyethylene glycol 3350 17 gram/dose oral powder (Purelax) 17 g PO BID PRN CONSTIPATION 02/13/23 Hospital Course Operations None Procedures None Summary of Care Provided Minutes Spent on Discharge: 25 Hospital Course: Mrs. Bourne is an 82-year-old white female who presented to the emergency department at [facility] on 02/13/2023 complaining of shortness of breath. Patient reported that she had been gaining weight and had been more short of breath over the past couple of weeks prior to presentation. She briefly had her Lasix doubled which helped however the day prior to admission she became more short of breath and had a 2 pound weight gain overnight. She had also required more oxygen and had been turning her home to up. She is on baseline 2 L. Upon presentation to the emergency department she was found to have a BNP of 1290 which was up from 650 at her hospitalization last month. Chest x-ray also showed volume overload. In the emergency department she was given IV Lasix as well as nebulizers as she does have a history of COPD. IV steroids were given as well. She remained tachypneic and with mild respiratory distress and was placed on BiPAP. She initially was admitted to the ICU. She denied any significant change in her extremity swelling and complained of a chronic cough and a slight headache on presentation but denied any other acute problems. Shortly after admission she called back the admitting hospitalist after discussion with her family and they decided that they wanted to pursue hospice care. Her was recently on hospice and they were pleased with the care that they got and they were clear on what this entailed and a consult to hospice was placed. The patient was maintained on IV Lasix drip and was evaluated by hospice on 02/14/2023. Hospice papers were signed at that time and CODE STATUS is DNR CC. Arrangements have been made for her to discharge home on 02/15/2023 with hospice and she was able to do so in stable condition. We were able to diurese her enough to get her back to her home oxygen of 2 L nasal cannula. At discharge I am going to have her continue her home Lasix of 40 mg twice daily and administer an additional dose on a as needed basis for weight gain or shortness of breath to control symptoms. She was able to be discharged home in stable condition on 02/15/2023. 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 Atrial fibrillation CAD status post LAD stent in 2019 COPD Hyponatremia-improving Hyperkalemia-resolved Pulmonary nodule Osteoporosis History of alpha-1 antitrypsin deficiency Physical Exam Const alert, oriented x3, no apparent distress, average body habitus and well nourished; Negative for healthy appearing Constitutional Narrative: Elderly, white female, sitting up in bed watching television, appears comfortable and nontoxic, currently on 2 L nasal cannula General Appearance: cooperative, comfortable, well kempt and well developed Orientation / Consciousness: awake, oriented to person, oriented to place and oriented to time Exam Limitations: no limitations HEENT normocephalic, head/scalp atraumatic and moist oral mucous membranes HEENT Narrative: Mild hearing loss, Mallampati 2, no thrush Resp normal respiratory effort, no retractions, no use of accessory muscles and clear to auscultation bilaterally Resp Narrative: Diffusely diminished but clear, crackles have resolved Auscultation: Negative for rales, rhonchi or wheezes Cardio regular rate, regular rhythm, S1 normal heart sound, S2 normal heart sound, no murmurs, no rub and no gallops GI normal to inspection, nondistended, normoactive bowel sounds, soft to palpation and non-tender Extremity no clubbing, cyanosis or edema Extremity Narrative: Pedal pulses are 2+ Neuro oriented x3, moves all extremities and no focal motor deficits Neuro Narrative: Significant weakness noted that is generalized in nature and nonfocal Speech: speech normal Psych affect normal Psych Narrative: Very pleasant, eye contact is good Weight / BMI Weight Weight: 47.6 kg Body Mass Index (BMI) 24.3 ABG / Lab / Microbiology Data 09/15/23 04:07 02/14/23 04:07 Microbiology: Microbiology 02/13/23 11:35 Nasal Secretion SARS-CoV-2 & FLU Antigen (Rapid) - Final D/C Instructions Discharge Diet: 8 Cup Fluid Restriction and 2000 mg Sodium Diet Discharge Activity: No Restrictions Meaningful Use Info Meaningful Use Diagnoses (Choose all that apply): CHF CHF SULY/ARB ordered at discharge?: No Reason SULY/ARB not ordered?: Not indicated Documented LVEF (%): 35 Discharge Plan Admission Admit Date/Time: 02/13/23 13:37 Primary Reason for Your Visit: Shortness of Breath Attending Provider: Dahlia Forbes Primary Care Provider: Piero Perla Consulting Providers: Sheela Casey; Sanjiv Kelly; Kimberlee Landaverde; Fiordaliza Barnett; Natasha Zuluaga [employer] Discharge Orders/Prescriptions Prescriptions: Continued Adult 50 Plus Probiotic 4 billion cell capsule 4,000 mmu cells PO DAILY aspirin 81 MG tablet,delayed release (DR/EC) 81 mg PO DAILY fluticasone propionate 50 mcg/actuation spray,suspension 2 spray INTRANASAL DAILY albuterol sulfate 2.5 mg /3 mL (0.083 %) solution for nebulization 2.5 mg inhalation Q4H PRN (Reason: SHORTNESS OF BREATH/WHEEZING ) fluticasone propion-salmeterol [Wixela Inhub] 100-50 mcg/dose blister with device 1 inh INHALATION BID Eliquis 2.5 mg tablet 2.5 mg PO BID Qty: 30 0RF metoprolol succinate 25 mg tablet extended release 24 hr 25 mg PO BID docusate sodium 100 mg capsule 100 mg PO BID PRN (Reason: CONSTIPATION ) polyethylene glycol 3350 [Purelax] 17 gram/dose powder 17 g PO BID PRN (Reason: CONSTIPATION ) ondansetron 4 mg tablet,disintegrating 4 mg PO Q8H PRN (Reason: NAUSEA ) furosemide 40 mg tablet 40 mg PO BID lorazepam 0.5 mg Tablet 0.5 mg PO Q8H PRN (Reason: ANXIETY ) albuterol sulfate [ProAir HFA] 90 mcg/actuation HFA aerosol inhaler 2 puff INHALATION Q4H PRN (Reason: SHORTNESS OF BREATH/WHEEZING ) Qty: 8.5 11RF Spiriva Respimat 2.5 mcg/actuation mist 2 puff inhalation DAILY Qty: 4 11RF amiodarone 200 mg tablet 200 mg PO DAILY Qty: 90 3RF potassium chloride 10 mEq tablet extended release 10 meq PO DAILY Qty: 90 3RF Discontinued atorvastatin 10 mg tablet 10 mg PO QHS cholecalciferol (vitamin D3) [Vitamin D3] 125 mcg (5,000 unit) tablet 125 mcg PO DAILY Referrals / Follow Up: Piero Perla DO [Primary Care Provider] - (as needed) Disposition Disposition (needs filled in before D/C Order can be placed): Hospice in Home Charges/Coding Visit Charges Inpatient E&M: 29291 Disch Hosp
[2023-02-15 11:13] VITALS: PULSE 106; RESP 16
[2023-02-15 11:52] VITALS: BP 116/82; PULSE 119; RESP 16; TEMP 36.1; O2SAT 98
[2023-02-15 11:58] VITALS: BP 116/82; PULSE 119
[2023-02-15] MEDS: Acetaminophen 325 MG Tablet 650 MG PO (11:58)
[2023-02-15] MEDS: Metoprolol(XL)Succ 25 MG Tablet PO (11:58)
--- NOTE | 2023-02-15 13:45 | CASEMGMT ---
Updated [facility] that pt dc'd today with hospice.
== END 2023-02-15 12:56 | disposition hospice, home (50) | DRG 291 ==
LOC: ED 12:26 → ICU 13:53 → MS3 02-14 17:31
PROVIDERS: Admitting Provider Internal Medicine; Emergency Provider Emergency Medicine; PCP Student in an Organized Health Care Education/Training Program; Visit Provider Internal Medicine
DX: I13.0 Hypertensive heart and chronic kidney disease with heart failure and stage 1 through stage 4 chronic kidney disease, or unspecified chronic kidney disease (principal); J96.21 Acute and chronic respiratory failure with hypoxia; I50.41 Acute combined systolic (congestive) and diastolic (congestive) heart failure; N17.9 Acute kidney failure, unspecified; J44.1 Chronic obstructive pulmonary disease with (acute) exacerbation; I48.20 Chronic atrial fibrillation, unspecified; E87.1 Hypo-osmolality and hyponatremia; N18.32 Chronic kidney disease, stage 3b; I08.1 Rheumatic disorders of both mitral and tricuspid valves; E87.5 Hyperkalemia; I25.5 Ischemic cardiomyopathy; I25.10 Atherosclerotic heart disease of native coronary artery without angina pectoris; E78.5 Hyperlipidemia, unspecified; Z66 Do not resuscitate; Z82.3 Family history of stroke; Z79.01 Long term (current) use of anticoagulants; Z79.2 Long term (current) use of antibiotics; Z20.822 Contact with and (suspected) exposure to COVID-19; Z87.891 Personal history of nicotine dependence; Z79.82 Long term (current) use of aspirin; Z79.51 Long term (current) use of inhaled steroids; Z95.5 Presence of coronary angioplasty implant and graft; M81.0 Age-related osteoporosis without current pathological fracture; Z51.5 Encounter for palliative care; R91.1 Solitary pulmonary nodule
CPT/HCPCS: 71045; 80048; 82803; 83880; 84443; 84484; 85025; 87428; 93005; 94002; 94640; 94668; 94762; 99252; 99285; J7030; A4216; G0463; J1940; J2405